=== PATIENT | male | born 1950 | race Caucasian/White ===

== ENCOUNTER → 2020-06-01 09:39 | Outpatient (CLI) | payer MEDICARE, SELFPAY ==
--- NOTE | ~2020-06-01 | CT_ITS ---
EXAMINATION: CT lung screening DATE: 06/01/2020 09:56 INDICATION: Z87.891 - Personal history of nicotine dependence TECHNIQUE: Computed tomography (CT) of the chest was performed without intravenous contrast. Addition al 3D reconstructions utilizing coronal maximum intensity projection (MIP) were performed. Automated exposure control and iterative reconstruction technique were employed. The dose-length product was 33 3.67 mGy-cm. COMPARISON: CT abdomen and pelvis dated 07/20/2018 FINDINGS: No interval change in nearly 2 years of a 4 mm triangular likely intrafissural lymph node along the i nferolateral aspect of the right major fissure. Interval decrease in size and likely new calcificatio n of a now 2-3 mm nodule in the right middle lobe. Indeterminate 4-5 mm and 7 mm nodules in the left lower lobe, the former at least partially imaged on the prior study, the latter is not included withi n the field of view of the prior study. Mild discoid atelectasis in the bilateral lower lobes. Heart size is normal. Atherosclerotic coronary artery calcifications. No pericardial or pleural effusion. T horacic aorta is normal in caliber. No pathologically enlarged thoracic lymphadenopathy. Bilateral gy necomastia. Diffuse hepatic steatosis. Moderate thoracic spondylosis. There is mild vertebral body he ight loss at T8-T11. IMPRESSION: 1. Lung-RADS category 3: Probably benign. Further evaluation is recommended with noncontrast low-dose chest CT in 6 months. Reviewed, dictated and finalized at location B. IMPRESSION: 1. Lung-RADS category 3: Probably benign. Further evaluation is recommended wit h noncontrast low-dose chest CT in 6 months.
== END ==
PROVIDERS: PCP Family Medicine; Visit Provider Family Medicine
DX: Z12.2 Encounter for screening for malignant neoplasm of respiratory organs (principal); Z87.891 Personal history of nicotine dependence; R91.8 Other nonspecific abnormal finding of lung field
CPT/HCPCS: 71271

== ENCOUNTER → 2020-10-19 11:11 | Outpatient (CLI) | payer MEDICARE, SELFPAY ==
--- NOTE | ~2020-10-19 | CT_ITS ---
EXAMINATION: CTA abdomen DATE: 10/19/2020 11:41 INDICATION: Essential hypertension. TECHNIQUE: Computed tomographic angiography (CTA) of the abdomen was performed without and with 100 m L Omnipaque-350 intravenous contrast. Automated exposure control and iterative reconstruction Fan Piere were employed. The dose-length product was 1473.16 mGy-cm. Maximum intensity projection 3D-reconst ructions of the aorta and other arteries were constructed by the technologist on a separate workstati on. COMPARISON: CT abdomen and pelvis 07/20/2018 FINDINGS: The visualized portions of the lung bases demonstrate mild atelectasis. There are chronic 4 mm nodules at right major fissure and in right middle lobe, likely benign. No pleural effusion. The heart size is normal. There are coronary artery calcifications. No pericardial effusion. There are ca lcifications of the aortic valve. There is diffuse hepatic steatosis. The gallbladder, spleen, and pa ncreas are normal. There are masses in the adrenal glands measuring up to 12 mm on the right containi ng fat, consistent with myelolipomas. There is a 3.5 cm cyst in right kidney. Left kidney is normal. There are no dilated loops of bowel. There is diverticulosis of the colon without evidence of diverti culitis. There are no pathologically enlarged lymph nodes. There is no free intraperitoneal fluid. Th ere are widespread arterial calcifications. There is no significant stenosis of celiac axis, superior mesenteric artery, or the renal arteries. There is moderate stenosis of inferior mesenteric artery. There is severe lower lumbar spondylosis. There is a chronic right L5 pars defect. IMPRESSION: 1. No etiology for hypertension. Reviewed, dictated and finalized at location A.
[2020-10-19 11:28] LABS: Estimated Glomerular Filt Rate 60
== END ==
PROVIDERS: PCP Family Medicine; Visit Provider Internal Medicine Nephrology
DX: I25.10 Atherosclerotic heart disease of native coronary artery without angina pectoris (principal); I10 Essential (primary) hypertension; I70.0 Atherosclerosis of aorta; K76.0 Fatty (change of) liver, not elsewhere classified; K57.90 Diverticulosis of intestine, part unspecified, without perforation or abscess without bleeding; M47.816 Spondylosis without myelopathy or radiculopathy, lumbar region; E27.9 Disorder of adrenal gland, unspecified
CPT/HCPCS: 74175; Q9967

== ENCOUNTER → 2021-05-05 00:03 | Outpatient (CLI) | payer MEDICARE, SELFPAY ==
[2021-05-05 16:46] LABS: SARS-CoV-2 RNA PCR Negative
== END ==
PROVIDERS: PCP Family Medicine; Visit Provider Internal Medicine Gastroenterology
DX: Z01.812 Encounter for preprocedural laboratory examination (principal); Z20.822 Contact with and (suspected) exposure to COVID-19
CPT/HCPCS: C9803; U0003; U0005

== ENCOUNTER 2021-05-09 01:39 | Day surgery (SDC) | payer MEDICARE, SELFPAY ==
[2021-04-26 10:53] VITALS: BMI 33.2
--- NOTE | 2021-05-08 18:14 | PM.HPGS ---
History of Present Illness History of Present Illness Consent: Risks, benefits, and alternatives have been discussed and questions answered. Patient agrees to proceed with procedure. Chief complaint: hx of colon polyps Narrative: Flo Mason is a 71 year old male who is here for colon cancer screening. Five years ago he had removal of 2 tubular adenomas Review of Systems Review of Systems: All systems reviewed & are unremarkable except as noted in HPI and below PMFSH Past Medical History Medical History CAD (coronary artery disease) Diabetes mellitus with hyperglycemia Fatty liver History of CVA (cerebrovascular accident) Malignant HTN with heart disease, w/o CHF, 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 Mixed hyperlipidemia OAB (overactive bladder) Peripheral neuropathy Surgical History Surgical History History of hydrocelectomy Family History Family History Other Family history of cardiovascular disease Social History Social History Social History: Smoking packs per day: 2 Smoking cigarettes per day: 40.0 Years smoked: 50 Smoking pack-years: 100.00 Smoking status: Former smoker Tobacco type: cigarettes Second hand tobacco smoke exposure: No Smoking end date: 03/17/14 Alcohol intake: current Substance use: never Substance use type: does not use Living arrangements: with family Gender identity (if verbalized by the patient): Male Sexual Orientation (if Verbalized by the Patient): Straight or Heterosexual Spiritual care concerns: No Meds Home Medications and Allergies Home Medications Medication Instructions Recorded Confirmed Type metoprolol tartrate 50 mg tablet 50 mg PO Q12H #60 tablet 07/12/19 04/26/21 Rx blood-glucose meter #1 each 08/05/19 04/03/21 Rx blood sugar diagnostic #100 each 09/18/20 04/03/21 Rx metformin 1,000 mg tablet 1,000 mg PO BID #60 tablet 11/13/20 04/26/21 Rx amlodipine 10 mg tablet 10 mg PO DAILY #90 tablet 03/01/21 04/26/21 Rx rosuvastatin 20 mg tablet 20 mg PO DAILY #90 tablet 03/12/21 04/26/21 Rx Adults Multivitamin 1 cap PO DAILY 04/26/21 04/26/21 History gemfibrozil 600 mg PO BID 04/26/21 04/26/21 History glimepiride 4 mg PO DAILY 04/26/21 04/26/21 History hydralazine 50 mg PO TID 04/26/21 04/26/21 History hydrochlorothiazide 50 mg PO DAILY 04/26/21 04/26/21 History isosorbide mononitrate 60 mg PO BID 04/26/21 04/26/21 History lisinopril 40 mg PO DAILY 04/26/21 04/26/21 History spironolactone 50 mg PO BID 04/26/21 04/26/21 History tamsulosin 0.4 mg PO DAILY 04/26/21 04/26/21 History Allergies Allergy/AdvReac Type Severity Reaction Status Date / Time Penicillins Allergy Severe Swelling Verified 05/09/21 08:50 of Lip/Tongue/Throat Exam Resp: Auscultation: clear to auscultation bilaterally Cardio: Rate: regular rate Rhythm: regular rhythm GI: GI Palp: Yes Soft to palpation and No Tenderness to palpation present (GI) Assessment and Plan Assessment and plan (1) Personal history of colonic polyps: Code(s): Z86.010 - Personal history of colonic polyps Status: Acute Assessment and Plan: Colonoscopy with possible biopsy or polypectomy or cautery or injection of substances.
[2021-05-09 08:52] VITALS: BP 141/77; PULSE 52; RESP 18; TEMP 36.6; O2SAT 96
[2021-05-09] MEDS: LACTATED RINGERS 1,000 ML 150 ML IV CONT (09:05)
[2021-05-09 09:07] LABS: Glucose Point of Care 150 mg/dl (65-105)
--- NOTE | 2021-05-09 09:22 | WPDANESEPPF ---
Anes - Initial Pre Proc Eval Procedure: Operation Date: 05/09/21 10:00 Proposed Procedures p Screening Colonoscopy - Joseph Worthy MD Date/Time: 05/09/21 09:22 Surgeon: Joseph Worthy MD Pre Op Diagnosis: hx of colon polyps Patient Data Age: 71 Gender: M Height: 1.83 m Weight: 112.6 kg Last Vital Signs Temp 97.8 F 05/09/21 08:52 Pulse 52 L 05/09/21 08:52 Resp 18 05/09/21 08:52 BP 141/77 H 05/09/21 08:52 Pulse Ox 96 05/09/21 08:52 Allergies Allergy/AdvReac Type Severity Reaction Status Date / Time Penicillins Allergy Severe Swelling Verified 05/09/21 08:50 of Lip/Tongue/Throat Home Medications Medication Instructions Recorded Confirmed Type metoprolol tartrate 50 mg tablet 50 mg PO Q12H #60 tablet 07/12/19 04/26/21 Rx blood-glucose meter #1 each 08/05/19 04/03/21 Rx blood sugar diagnostic #100 each 09/18/20 04/03/21 Rx metformin 1,000 mg tablet 1,000 mg PO BID #60 tablet 11/13/20 04/26/21 Rx amlodipine 10 mg tablet 10 mg PO DAILY #90 tablet 03/01/21 04/26/21 Rx rosuvastatin 20 mg tablet 20 mg PO DAILY #90 tablet 03/12/21 04/26/21 Rx Adults Multivitamin 1 cap PO DAILY 04/26/21 04/26/21 History gemfibrozil 600 mg PO BID 04/26/21 04/26/21 History glimepiride 4 mg PO DAILY 04/26/21 04/26/21 History hydralazine 50 mg PO TID 04/26/21 04/26/21 History hydrochlorothiazide 50 mg PO DAILY 04/26/21 04/26/21 History isosorbide mononitrate 60 mg PO BID 04/26/21 04/26/21 History lisinopril 40 mg PO DAILY 04/26/21 04/26/21 History spironolactone 50 mg PO BID 04/26/21 04/26/21 History tamsulosin 0.4 mg PO DAILY 04/26/21 04/26/21 History Laboratory Tests 05/09/21 08:59 POC Capillary Glucose 150 mg/dl H mg/dl (65-105) Patient hx anesthesia problems: none Family hx anesthesia problems: none Results Review: All pre-operative results and documents have been reviewed as part of the pre-operative evaluation. [facility] Past Medical History Medical History CAD (coronary artery disease) Diabetes mellitus with hyperglycemia Fatty liver History of CVA (cerebrovascular accident) Malignant HTN with heart disease, w/o CHF, 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 Mixed hyperlipidemia OAB (overactive bladder) Peripheral neuropathy Surgical History Surgical History History of hydrocelectomy Family History Family History Other Family history of cardiovascular disease Social History Social History (Updated 04/03/21 @ 10:26 by Lali Garcia) Social History: Smoking packs per day: 2 Smoking cigarettes per day: 40.0 Years smoked: 50 Smoking pack-years: 100.00 Smoking status: Former smoker Tobacco type: cigarettes Second hand tobacco smoke exposure: No Smoking end date: 03/17/14 Alcohol intake: current Substance use: never Substance use type: does not use Living arrangements: with family Gender identity (if verbalized by the patient): Male Sexual Orientation (if Verbalized by the Patient): Straight or Heterosexual Spiritual care concerns: No Anes - Eval Final PreProcedure Day of Procedure 05/09/21 09:22 Patient weight: obese Heart: regular rate and rhythm Lungs: clear to auscultation Airway: Mallampati scale class III Neurological: alert and oriented Last oral intake: >/= 8 hours ASA classification: III Emergent: no Anesthetic plan: proceed Anesthesia type and monitoring: general GIVS and standard monitoring Results Review: All pre-operative results and documents have been reviewed as part of the pre-operative evaluation. Informed Consent: The patient's anesthetic plan and its attendant risks and benefits were discussed with the patient/family/POA. Questions were solicited and answers provided to the satisfaction of the patient/family/POA.
[2021-05-09 10:28] VITALS: BP 95/57; PULSE 43; RESP 16; O2SAT 93
[2021-05-09 10:38] VITALS: BP 97/60; PULSE 47; RESP 23; O2SAT 95
[2021-05-09 10:48] VITALS: BP 99/68; PULSE 46; RESP 13; O2SAT 95
== END 2021-05-09 10:58 | disposition home or self-care (01) ==
PROVIDERS: PCP Family Medicine; Visit Provider Internal Medicine Gastroenterology
PROC: 0DJD8ZZ Inspection of Lower Intestinal Tract, Via Natural or Artificial Opening Endoscopic (ICD-10-PCS; CPT 45378; principal; 2021-05-09 10:00)
DX: Z12.11 Encounter for screening for malignant neoplasm of colon (principal); D12.5 Benign neoplasm of sigmoid colon; D12.3 Benign neoplasm of transverse colon; K57.30 Diverticulosis of large intestine without perforation or abscess without bleeding; I25.10 Atherosclerotic heart disease of native coronary artery without angina pectoris; I10 Essential (primary) hypertension; E11.42 Type 2 diabetes mellitus with diabetic polyneuropathy; E78.2 Mixed hyperlipidemia; K76.0 Fatty (change of) liver, not elsewhere classified; N32.81 Overactive bladder; Z87.891 Personal history of nicotine dependence
CPT/HCPCS: 45385; 45381; 82948; 88305; J2704; J7120

== ENCOUNTER → 2022-05-30 11:22 | Outpatient (CLI) | payer MEDICARE, SELFPAY ==
--- NOTE | ~2022-05-30 | CT_ITS ---
EXAMINATION: CT lung screening DATE: 05/30/2022 11:35 INDICATION: Personal history of tobacco dependence. Lung cancer screening. TECHNIQUE: Computed tomography (CT) of the chest was performed without intravenous contrast. Addition al 3D reconstructions utilizing coronal maximum intensity projection (MIP) were performed. Automated exposure control and iterative reconstruction technique were employed. The dose-length product was 28 2.03 mGy-cm. COMPARISON: 06/01/2020 FINDINGS: No interval change in several scattered bilateral noncalcified pulmonary nodules the largest measurin g 6 mm and 4-5 mm nodule in the left lower lobe and 5 mm in the suprahilar right upper lobe situated along side the central vessels and bronchi. Unchanged 4 mm triangular intrafissural lymph node along the right major fissure. Mild discoid atelectasis at the lung bases, right greater than left. No new or enlarging pulmonary nodules, pneumonia, pulmonary edema or pleural effusion. Heart size is normal. Extensive atherosclerotic coronary artery calcifications. Lipomatous hypertrophy of the atrial septu m. No pericardial effusion. Thoracic aorta is normal in caliber. No pathologically enlarged thoracic lymphadenopathy. Prominent bilateral gynecomastia. 1.5 cm macroscopic fat attenuation right renal my elolipoma. Mild to moderate thoracic spondylosis. IMPRESSION: 1. Lung-RADS category 2: Benign appearance or behavior. Continue annual screening with noncontrast lo w-dose chest CT in 12 months. Reviewed, dictated and finalized at location L. IMPRESSION: 1. Lung-RADS category 2: Benign appearance or behavior. Continue annual screeni ng with noncontrast low-dose chest CT in 12 months.
== END ==
PROVIDERS: PCP Family Medicine; Visit Provider Family Medicine
DX: Z12.2 Encounter for screening for malignant neoplasm of respiratory organs (principal); Z87.891 Personal history of nicotine dependence
CPT/HCPCS: 71271

== ENCOUNTER → 2022-06-18 11:28 | Outpatient (CLI) | payer MEDICARE, SELFPAY ==
--- NOTE | ~2022-06-18 | XR_ITS ---
EXAM: XR lumbar spine min 4V DATE: 06/18/2022 11:45 HISTORY: M54.30 - Sciatica, unspecified side . COMPARISON: No. FINDINGS: Decreased bone mineralization. Multilevel concave endplate deformities as can be seen with osteoporosis. 5 nonrib-bearing lumbar-type vertebral bodies. Pedicles intact. Bilateral pars defects at L5. 5 mm anterolisthesis at L5-S1. Vertebral body heights preserved. Multilevel disc space narrowi ng, severe at L4-5 where there is vacuum phenomenon. Multilevel mid and lower lumbar facet sclerosis and hypertrophy. No fracture or dislocation. Extensive basilar calcifications. 3.3 cm fusiform infrar enal abdominal aortic aneurysm. IMPRESSION: 1. Bilateral L5 pars defects with a grade 1 anterolisthesis of L5 on S1. Severe degenerative disc dis ease at L4-5. Severe lower lumbar facet arthropathy. 2. 3.3 cm fusiform infrarenal abdominal aneurysm, recommend follow-up ultrasound aorta in 3 years. Reviewed, dictated and finalized at location K. IMPRESSION: 1. Bilateral L5 pars defects with a grade 1 anterolisthesis of L5 on S1. Severe degenerative disc disease at L4-5. Severe lower lumbar facet arthropathy. 2. 3.3 cm fusiform infrarenal abdominal aneurysm, recommend follow-up ultrasoun d aorta in 3 years.
== END ==
PROVIDERS: PCP Family Medicine; Visit Provider Family Medicine
DX: M47.816 Spondylosis without myelopathy or radiculopathy, lumbar region (principal); I71.43 Infrarenal abdominal aortic aneurysm, without rupture; M54.30 Sciatica, unspecified side
CPT/HCPCS: 72110

== ENCOUNTER 2022-09-10 15:48 | Emergency (ER) | payer MEDICARE, SELFPAY ==
--- NOTE | ~2022-09-10 | XR_ITS ---
EXAMINATION: XR chest 2V Exam Date/Time: 09/10/2022 17:00 CDT HISTORY: prod cough x 5 days non smoker Comparison: 01/07/2012. RESULT: Lines, tubes, and devices: None. Lungs and pleura: Mild senescent and emphysematous change. Bibasilar scar/atelectasis. No focal cons olidation. Cardiomediastinal silhouette: Stable. Other: No acute osseous or upper abdominal finding. IMPRESSION: No acute cardiopulmonary process. Reviewed, dictated and finalized at location K.
[2022-09-10 16:00] VITALS: BP 163/94; PULSE 61; RESP 16; TEMP 37.2; O2SAT 96
--- NOTE | 2022-09-10 17:08 | ED.URI ---
HPI - URI/Sore Throat General Chief Complaint: Upper Respiratory Infection Stated Complaint: Cough/SOB Time Seen by Provider: 09/10/22 17:00 Source: patient, RN notes reviewed and old records reviewed Mode of arrival: ambulatory Limitations: no limitations History of Present Illness HPI Narrative: 72 year old male presents to [facility] care with complaints of shortness of breath at night,cough and runny nose for past 4-5 days. Patient reports fatigue, wheezing at night with some expectoration of greenish tinged mucous. Patient reports history of tobacco abuse and reports that he did quit smoking about 7.5 years ago. Patient states that he has had past history of Bronchitis. Patient reports that he has taken some Tylenol arthritis, no antihistamines or cough medications taken. MD elicited complaint: cough, rhinorrhea and nasal congestion Pertinent past history: other (bronchitis) Onset (ago): day(s) (4-5 days) Description of mucous: green Treatments prior to arrival: acetaminophen Related Data Home Medications Medication Instructions Recorded Confirmed Adults Multivitamin 1 cap PO DAILY 04/26/21 08/23/22 Allergies Allergy/AdvReac Type Severity Reaction Status Date / Time Penicillins Allergy Severe Swelling Verified 09/10/22 16:21 of Lip/Tongue/Throat Review of Systems Review of Systems: CONSTITUTIONAL: Reports malaise,no chills, sweats, or fever.reports fatigue EYES: Denies visual changes, redness, or discharge. ENT: Reports rhinorrhea, congestion, sinus pain, no otalgia or sore throat. CARDIOVASCULAR: Denies chest pain, palpitations, or edema. RESPIRATORY: Reports cough.?reports some episodes of dyspnea at night. GASTROINTESTINAL: Denies abdominal pain, nausea, vomiting, diarrhea SKIN: Denies rash or itching. MUSCULOSKELETAL: Denies myalgia. NEUROLOGIC: Denies headache. All systems reviewed & are unremarkable except as noted in HPI and below PMFSH Past Medical History Medical History Benign nodular prostatic hyperplasia without lower urinary tract symptoms CAD (coronary artery disease) CAD in [place] artery Chronic kidney disease due to type 2 diabetes mellitus Chronic kidney disease, stage 2 (mild) Colon cancer screening Diabetes mellitus with hyperglycemia Fatty liver Heart failure, unspecified History of CVA (cerebrovascular accident) History of CVA (cerebrovascular accident) without residual deficits Left hydrocele Malignant diastolic hypertension with CHF, 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, w/o CHF, 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 Mixed hyperlipidemia Mixed hyperlipidemia Nephropathy OAB (overactive bladder) GOOD (obstructive sleep apnea) Peripheral neuropathy Swelling of scrotum Type 2 diabetes mellitus with diabetic polyneuropathy Type 2 diabetes mellitus with hyperglycemia Weight gain finding Surgical History Surgical History History of hydrocelectomy S/P angioplasty with stent Family History Family History Other Family history of cardiovascular disease Social History Social History Social History: Smoking packs per day: 2 Smoking cigarettes per day: 40.0 Years smoked: 50 Smoking pack-years: 100.00 Smoking status: Former smoker Tobacco type: cigarettes Second hand tobacco smoke exposure: No Smoking end date: 03/17/14 Alcohol intake: current Substance use: never Substance use type: does not use Lack of Transportation: No Lack of Food: Never True Current Housing: I Have Housing Concerned About Future Housing: No Difficulty Paying Gas/Electric Bills: No Difficulty Paying for Meds: No Currently Unemployed: YES Education: Decline to Answer Difficulty w/ Childcare or Family Care: No Living arrangemen
== END 2022-09-10 17:40 | disposition home or self-care (01) ==
PROVIDERS: Emergency Provider Registered Nurse; PCP Family Medicine
DX: J06.9 Acute upper respiratory infection, unspecified (principal); R05.9 Cough, unspecified; Z87.891 Personal history of nicotine dependence; I25.10 Atherosclerotic heart disease of native coronary artery without angina pectoris; N40.0 Benign prostatic hyperplasia without lower urinary tract symptoms; I13.0 Hypertensive heart and chronic kidney disease with heart failure and stage 1 through stage 4 chronic kidney disease, or unspecified chronic kidney disease; E11.22 Type 2 diabetes mellitus with diabetic chronic kidney disease; N18.2 Chronic kidney disease, stage 2 (mild); I50.30 Unspecified diastolic (congestive) heart failure; E78.2 Mixed hyperlipidemia; E11.42 Type 2 diabetes mellitus with diabetic polyneuropathy; Z86.73 Personal history of transient ischemic attack (TIA), and cerebral infarction without residual deficits; Z95.5 Presence of coronary angioplasty implant and graft
CPT/HCPCS: 71046; 99213; G0463

== ENCOUNTER → 2022-09-16 12:51 | Outpatient (CLI) | payer MEDICARE, SELFPAY ==
--- NOTE | ~2022-09-16 | MR_ITS ---
MRI of the lumbar spine Clinical History: Neck pain Technique: Axial T2-weighted images, and sagittal T1-weighted, T2-weighted, and and T2 fat-sat images were acquired. Findings: There is no fracture or subluxation of lumbar spine. Vertebral bodies maintain normal heigh t and alignment. No suspicious bone marrow signal abnormality seen. At L1-L2, there is no significant disc bulge. There is moderate facet hypertrophy. No spinal canal st enosis or definite neural foraminal narrowing. At L2-L3, there is diffuse disc bulge and moderate facet arthropathy. There is mild central canal lori nosis. There is moderate bilateral neural foraminal narrowing, left worse than right. At L3-L4, there is diffuse disc bulge with superimposed right paracentral disc extrusion extending be hind the L4 vertebral body. There is right lateral recess stenosis and probable impingement of the de scending right-sided L4-L5 level nerve root. There is minimal neural foraminal narrowing at this leve l otherwise. At L4-L5, there is severe degenerative disc narrowing with minimal disc bulge and moderate facet arth ropathy. No central canal stenosis. There is severe right neural foraminal narrowing and moderate to severe left neural foraminal narrowing. At L5-S1, there is no disc bulge or herniation. There is advanced facet arthropathy. No central canal stenosis. There is moderate to severe right neural foraminal narrowing. Left neural foramen preserve d. Paravertebral soft tissues are unremarkable. Impression: Right paracentral disc extrusion at L4-L5, extending inferiorly, and probably impinging the descendin g right-sided L4-L5 level nerve root, and resulting in right lateral recess stenosis. Additional moderate degenerative spondylitic changes, as detailed above. Reviewed, dictated and finalized at location M. Impression: Right paracentral disc extrusion at L4-L5, extending inferiorly, and probably i mpinging the descending right-sided L4-L5 level nerve root, and resulting in ri ght lateral recess stenosis. Additional moderate degenerative spondylitic changes, as detailed above.
== END ==
PROVIDERS: PCP Physician Assistant; Visit Provider Physician Assistant
DX: M51.26 Other intervertebral disc displacement, lumbar region (principal); M51.36 Other intervertebral disc degeneration, lumbar region
CPT/HCPCS: 72148

== ENCOUNTER 2023-06-13 12:38 | Outpatient (CLI) | payer MEDICARE, SELFPAY ==
--- NOTE | ~2023-06-13 | CT_ITS ---
EXAMINATION:CT lung screening DATE: 06/13/2023 13:13 INDICATION: Personal history of nicotine dependence. Smoker who quit 8 years ago with 60 pack year hi story. TECHNIQUE: Computed tomography (CT) of the chest was performed without intravenous contrast. Automate d exposure control and iterative reconstruction technique were employed. The dose-length product (DLP ) was 256.37 mGy-cm. COMPARISON: Chest CT 05/30/2022 FINDINGS: There is mild emphysema. There is mild atelectasis bilaterally. There are a few stable nodu les in the lungs measuring up to 7 mm in left lower lobe, likely benign. No pleural effusion. There i s bilateral gynecomastia. The heart size is normal. There are coronary artery calcifications. No torey cardial effusion. There is mild thoracic spondylosis. IMPRESSION: 1. Lung-RADS category 2: Benign appearance or behavior. Continue annual screening with noncontrast lo w-dose chest CT in 12 months. Reviewed, dictated and finalized at location E. IMPRESSION: 1. Lung-RADS category 2: Benign appearance or behavior. Continue annual screeni ng with noncontrast low-dose chest CT in 12 months.
== END 2023-06-13 12:39 ==
LOC: MICIMG 12:39
PROVIDERS: PCP Physician Assistant; Visit Provider Physician Assistant
DX: Z12.2 Encounter for screening for malignant neoplasm of respiratory organs (principal); Z87.891 Personal history of nicotine dependence
CPT/HCPCS: 71271

== ENCOUNTER 2024-01-09 14:11 | Outpatient (CLI) | payer MEDICARE, SELFPAY ==
--- NOTE | ~2024-01-09 | MR_ITS ---
EXAMINATION: MR lumbar spine wo con DATE: 01/09/2024 14:51 INDICATION: Intervertebral disc disorders with radiculopathy. TECHNIQUE: Magnetic resonance imaging (MRI) of the lumbar spine was performed without intravenous con trast. Sequences included sagittal T2-weighted FSE, sagittal T2-weighted FS FSE, sagittal T1-weighted FSE, and axial T2-weighted FSE. COMPARISON: Lumbar spine MRI 09/16/2022 FINDINGS: There is 8 degrees dextrocurvature of lumbar spine. There is 3 mm retrolisthesis of L4 on L 5. Vertebral body heights are normal. There is a chronic right L5 pars defect. There is severely decr eased disc height at L4-L5. The distal spinal cord signal intensity is normal. The conus medullaris i s at L1. The following disc levels are specifically discussed: L1-L2: The disc is mildly bulging. There is moderate bilateral facet joint osteoarthritis. There is m ild bilateral neural foraminal stenosis. There is no central canal stenosis. L2-L3: The disc is bulging and has an annular fissure. There is mild bilateral facet joint osteoarthr itis. There is moderate right and mild left neural foraminal stenosis. There is mild central canal st enosis. L3-L4: The disc is bulging with superimposed right subarticular zone extrusion with a 12 mm inferior extension and mass effect on right L4 nerve root. There is severe bilateral facet joint osteoarthriti s. There is mild bilateral neural foraminal stenosis. There is mild central canal stenosis. L4-L5: The disc is bulging and has an annular fissure. There is severe bilateral facet joint osteoart hritis. There is moderate bilateral neural foraminal stenosis. There is mild central canal stenosis w ith posterior decompression. L5-S1: There is a right foraminal protrusion with annular fissure. There is mild right and moderate l eft facet joint osteoarthritis. There is mild bilateral neural foraminal stenosis. There is no centra l canal stenosis. IMPRESSION: 1. Severe lumbar spondylosis, stable from 09/16/2022. 2. Chronic right L5 pars defect. Reviewed, dictated and finalized at location A.
== END 2024-01-09 14:12 | disposition home or self-care (01) ==
LOC: MICIMG 14:12
PROVIDERS: PCP Family Medicine; Visit Provider Neurological Surgery
DX: M47.816 Spondylosis without myelopathy or radiculopathy, lumbar region (principal); M89.78 Major osseous defect, other site; M51.16 Intervertebral disc disorders with radiculopathy, lumbar region
CPT/HCPCS: 72148

== ENCOUNTER 2024-08-10 16:30 | Inpatient (IN) | payer MEDICARE, OTHER, SELFPAY ==
--- NOTE | ~2024-08-10 | XR_ITS ---
XR chest 2V Ordering provider: Cristhian Fagan MD History: 74 years Male with . SOB EXTREMITIES SWOLLEN . Comparison: September 10, 2022 FINDINGS: MEDIASTINUM: The cardiac silhouette is slightly enlarged. Prominent bernadine. LUNGS: No pneumothorax. Right atelectatic changes with minimal effusion is seen. Prominent markings i n the left lung base suggestive of atelectasis versus early pneumonia. Follow-up advised. OTHER: No free air under the diaphragm. IMPRESSION: Left prominent bronchovascular markings which may indicate atelectasis versus pneumonia. Atelectatic changes in the right lung base with possible minimal effusion. Reviewed, dictated and finalized at location A. IMPRESSION: Left prominent bronchovascular markings which may indicate atelectasis versus p neumonia. Atelectatic changes in the right lung base with possible minimal effu luisa.
--- OUTSIDE RECORDS SUMMARY | 2024-08-10 16:33 | XMS_ITS | Encounter Summary ---
Author Organization [facility] Address [address] [place] [address] Phone Care Team Providers Care Manager Inventory Management Name Role Phone Faye Hector MD Primary Care Provider Александр Yu MD Unavailable [phone] Александр Landa MD Unavailable [phone] Encounter Details Date Type Department Care Team (Late st Contact Info) Description 05/17/2024 Orders Only [facility] Infectious Diseases [address] [place] [phone] Ana M Cardenas, GWEN [address] [place] [id number] Social History Tobacco Use Types Packs/Day Years Used Date Smoking Tobacco: Former Cigarettes 2 44 1 971 - 2015 Smokeless Tobacco: Never Alcohol Use Standard Drinks/Week Comments Yes 0 (1 standard drink = 0.6 oz pur e alcohol) [facility] Utilities Answer Date Recorded In the past 12 months has e electric, gas, oil, or water company threatened to shut off services in your home? No 03/26/2024 Social Connection and Isolat ion Panel [NHANES] Answer Date Recorded In a typical week, how many times do you talk on the phone with family, friends, or neighbors? More than three times a week 03/26/2024 How often do you get togethe r with friends or relatives? More than three times a week 03/26/2024 How often do you attend chur ch or jain services? Never 03/26/2024 Do you belong to any clubs o r organizations such as restorationist groups, unions, fraternal or athletic groups, or school groups? No 03/26/2024 How often do you attend meet ings of the clubs or organizations you belong to? Never 03/26/2024 Are you , , di vorced, , never , or living with a partner? 03/26/2024 AUDIT-C Answer Date Recorded Q1: How often do you have a drink containing alc ohol? Monthly or less 03/29/2024 Q2: How many drinks containi ng alcohol do you have on a typical day when you are drinking? 1 or 2 03/29/2024 Q3: How often do you have si x or more drinks on one occasion? Never 03/29/2024 Overall Financial Resource Strain (CARDIA) Answe r Date Recorded How hard is it for you to pa y for the very basics like food, housing, medical care, and heating? Not hard at all 03/26/2024 Hunger Vital Sign Answer Date Recorded Within the past 12 months, y ou worried that your food would run out before you got the money to buy more. Never true 03/26/19 25 Within the past 12 months, t he food you bought just didn't last and you didn't have money to get more. Never true 03/26/2024 PRAPARE - Transportation Answer Date Re corded In the past 12 months, has l ack of transportation kept you from medical appointments or from getting medications? No 03/17 In the past 12 months, has l ack of transportation kept you from meetings, work, or from getting things needed for daily living? No 03/26/2024 Housing Stability Vital Sign Answer Kyle e Recorded In the last 12 months, was t here a time when you were not able to pay the mortgage or rent on time? No 03/26/2024 In the past 12 months, how m any times have you moved where you were living? 0 03/26/2024 At any time in the past 12 m [facility], were you homeless or living in a skilled nursing (including now)? No 03/26/2024 Personal Safety Answer Date Recorded Have you ever been in or are you currently in a harmful physical or emotional relationship or is someone making you feel afraid or unsafe? Denies 03/29/2024 Sex and Gender Information Value Date Recorded Sex Assigned at Not on file Legal Sex Male 2:38 AM RN DIALYSIS Gender Identity Male 07/27/2019 7:12 PM CDT Sexual Orientation Straight 07/27/2019 7: 12 PM CDT documented as of this encounter Plan of Treatment Not on file documented as of this encounter Visit Diagnoses Not on filedocumented in this encounter Care Teams Manager Inventory Management Relationship Specialty Start Date End Date Faye Hector MD [address] [place] [address] PCP - General Family Medicine 07/26/19 Александр Yu MD [address] [place] [address] Referring Physician Cardiology 02/09/24 Александр Landa MD [address] [facility] [address] [place] [address] Consulting Physician Cardiothoracic Surgery 02/09/24 documented as of this encounter
--- OUTSIDE RECORDS SUMMARY | 2024-08-10 16:33 | XMS_ITS | Encounter Summary ---
Author Organization [facility] Address [address] [place] [address] Phone Care Team Providers Care Motor Coach Chauffeur Name Role Phone Faye Hector MD Primary Care Provider Александр Yu MD Unavailable [phone] Александр Landa MD Unavailable [phone] Encounter Details Date Type Department Care Team (Late st Contact Info) Description 06/21/2024 Results Follow-Up [facility] Infectious Diseases [address] [place] [phone] Ana M Cardenas, GWEN [address] [place] [address] Aerobic and anaerobic culture and gram stain Abscess Abdominal, right lower quadrant Social History Tobacco Use Types Packs/Day Years Used Date Smoking Tobacco: Former Cigarettes 2 44 1 971 - 2015 Smokeless Tobacco: Never Alcohol Use Standard Drinks/Week Comments Yes 0 (1 standard drink = 0.6 oz pur e alcohol) [facility] Utilities Answer Date Recorded In the past 12 months has [employer] electric, gas, oil, or water company threatened [...] often do you attend chur ch or confucianism services? Never 03/26/2024 Do you belong to any clubs o r organizations such as restoration groups, unions, fraternal or athletic groups, or [...] any time in the past 12 m [facility], were you homeless or living in a alf (including now)? No 03/26/2024 Personal Safety Answer Date Recorded Have you ever been in or are you currently in a harmful physical or emotional relationship or is someone making you feel afraid or unsafe? 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 Gender Identity Male 07/27/2019 7:12 PM CDT Sexual Orientation Straight 07/27/2019 7: 12 PM CDT documented as of this encounter Plan of Treatment Not on file documented as of this encounter Visit Diagnoses Not on filedocumented in this encounter Care Teams Motor Coach Chauffeur Relationship Specialty Start Date End Date Faye Hector MD [address] [place] [address] PCP - General Family Medicine 07/26/19 Александр Yu MD [address] [place] [address] Referring Physician Cardiology 02/09/24 Александр Landa MD [address] [facility] [address] [place] [address] Consulting Physician Cardiothoracic Surgery 02/09/24 documented as of this encounter
--- OUTSIDE RECORDS SUMMARY | 2024-08-10 16:33 | XMS_ITS | Clinical Summary ---
Author Organization [facility] Address [address] [place] [address] Phone Care Team Providers Care Dna Analyst Name Role Phone Faye Hector MD Primary Care Provider [phone] Allergies Active Allergy Reactions Criticality Noted Date Comments Penicillins 10/13/2020 Medications isosorbide mononitrate (IMDUR) 60 MG 24 hr tablet Take 60 mg by mouth 2 (two) times a day 1 Active hydrALAZINE (APRESOLINE) 50 MG tablet Take 50 mg by mouth 3 (three) times a day 1 Active amLODIPine (NORVASC) 10 MG tablet Take 10 mg by mouth 1 (one) time each day 1 Active gemfibrozil (LOPID) 600 MG tablet Take 600 mg by mouth 2 (two) times a day 1 Active glimepiride (AMARYL) 4 MG tablet TAKE 1 TABLET BY MOUTH EVERY MORNING WITH BREAKFAST. NEEDS APPOINTMENT FOR MORE FILLS 1 Active OneTouch Verio test strip USE DIRECTED TO CHECK BLOOD SUGAR EVERY DAY 1 Active tamsulosin (FLOMAX) 0.4 MG 24 hr capsule Take by mouth 1 (one) time each day 1 Active rosuvastatin (CRESTOR) 20 MG tablet Take 20 mg by mouth 1 (one) time each day 1 Active lisinopril (PRINIVIL) 40 MG tablet Take 40 mg by mouth daily 0 Active metFORMIN (GLUCOPHAGE) 1000 MG tablet Take 1,000 mg by mouth 2 (two) times a day 1 Active hydroCHLOROthiaz diann (HYDRODIURIL) 25 MG tablet Take 1 tablet (25 mg total) by mouth 1 (one) time each day 30 tablet 11 2 Active spironolactone (ALDACTONE) 50 MG tablet Take 1 tablet (50 mg total) by mouth 2 (two) times a day 60 tablet 11 2 Active nebivolol (BYSTOLIC) 10 MG tablet Take 1 tablet (10 mg total) by mouth 1 (one) time each day 30 tablet 11 2 Active Active Problems Problem Noted Date Diagnosed Date Essential hypertension 10/13/2020 Persistent proteinuria 10/13/2020 Diabetes mellitus without me ntion of complication, type II or unspecified type, not stated as uncontrolled 10/13/2020 History of placement of stent for coronary arter y disease 07/27/2019 Immunizations Immunization Administration Dates Next Due Influenza TIV (IM) 02/15/2021(Deferred: Patient Refused) Pneumococcal Conjugate 07/04/2021(Deferred: Chandrika ent Refused) Social History Tobacco Use Types Packs/Day Years Used Date Smoking Tobacco: Former Smokeless Tobacco: Never Alcohol Use Standard Drinks/Week Comments Yes 0 (1 standard drink = 0.6 oz pur e alcohol) cocasional Sex and Gender Information Value Date Recorded Sex Assigned at Male 02/15/2021 7:57 AM [facility] [[email or web address]] Legal Sex Male 11:14 AM MDT Gender Identity Male 02/15/2021 7:57 AM [facility] [[email or web address]] Sexual Orientation Straight 02/15/2021 7: 57 AM [facility] [[email or web address]] Last Filed Vital Signs Vital Sign Reading Time Taken Comments Blood Pressure 154/64 07/04/2021 11:42 AM CDT Pulse 60 07/04/2021 11:42 AM CDT Temperature 35.9 C (96.6 F) 07/04/2021 11:42 AM CDT Respiratory Rate - - Oxygen Saturation - - Inhaled Oxygen Concentration - - Weight 114 kg (252 lb) 07/04/2021 11:42 AM CDT Height 182.9 cm (6') 07/04/2021 11:42 AM CDT Body Mass Index 34.18 07/04/2021 11:42 AM CDT Plan of Treatment Health Maintenance Due Date Last Done Comments Pneumococcal PPSV23/PCV13 65 + Years / Low and Medium Risk (1 of 4 - PCV) 2002 Influenza Vaccine (Season Ended) 2024 Insurance MEDICARE [facility] [place] [address] Care Teams Dna Analyst Relationship Specialty Start Date End Date aFye Hector MD [address] [facility] [address] [place] [address] PCP - General Internal Medicine 08/28/20
--- OUTSIDE RECORDS SUMMARY | 2024-08-10 16:33 | XMS_ITS | Continuity of Care Document ---
Author Name [facility] Organization [facility] Care Team Providers Care Adjunct Professor Of [employer] Name Role Phone [facility] Unavailable Unavailable Encounters Combined list of: 1) Encounters from [facility] facilities going backup to the last 18 months, not all [facility] inpatient encounters are included; 2) Encounters from the Department of [employer] facilities going backup to 280 months. Location Location Details Encounter Type Encounter Number Reason For Visit Attending Provider ADM Date DC Date Status Disposition Source [facility] Outpatient Encounter [id number] 2 08/26 [facility] ELVIRA [place]inton
--- OUTSIDE RECORDS SUMMARY | 2024-08-10 16:33 | XMS_ITS | Referral Summary ---
Author Organization [facility] [address] [place] [address] [address] [place] [address] Care Team Providers Care Polisher And Sander Name Role Phone Faye Hector MD Primary Care Provider Александр Yu MD Unavailable [phone] Александр Landa MD Unavailable [phone] Encounters Date Type Department Care Team Description 07/29/2024 Anticoagulation Visit [facility] Cardiology [address] [place] [address] [address] [place] [address] Erin Elena RN 07/27/2024 3:30 PM CDT Office Visit [facility] Surgery [address] [place] [address] 6th [place] [address] Rea Chand MD PhD Sternal wound infection (Primary Dx) 07/12/2024 Telephone Cardiovascular and Thoracic Surgery [address] [place] [address] [place] [phone] Windy Valdez, RN status report 07/12/2024 Telephone [facility]ovascular and Thoracic Surgery [address] [place] [address] [place] [phone] Windy Valdez, RN Scheduling Appointments 07/09/2024 2:45 PM CDT Office Visit [facility] Surgery [address] [place] [address] 6th [place] [phone] Rea Chand MD PhD Sternal wound infection (Primary Dx) 07/06/2024 Telephone [facility] Surgery [address] [facility] 6th [place] [phone] Sophie Bhagat CMA Scheduling Appointments 06/29/2024 Anticoagulation Visit [facility] Cardiology [address] [place] [address] [place] [phone] Nancy Nathan RN 06/22/2024 4:00 PM CDT Office Visit [facility] Surgery [address] [place] [address] 6th [place] [phone] Rea Chand MD PhD Sternal wound infection (Primary Dx) 06/21/2024 Results Follow-Up [facility] Infectious Diseases [address] [place] [address] [place] [phone] Ana M Cardenas NP Aerobic and anaerobic culture and gram stain Abscess Abdominal, right lower quadrant 06/11/2024 5:52 PM CDT - 06/11/2024 11:59 PM CDT Hospital Encounter [address] [address] Sternal wound infection Discharge Disposition: Discharge to home or self care 06/11/2024 2:20 PM CDT Office Visit [facility] Infectious Diseases [address] [place] [address] [place] [phone] Ana M Cardenas NP Sternal wound infection (Primary Dx) 06/08/2024 3:45 PM CDT Office Visit [facility] Surgery [facility] 6th [place] [phone] Rea Chand MD PhD Sternal wound infection (Primary Dx) 06/04/2024 Telephone Cardiovascular and Thoracic Surgery [address] [facility] [address] [place] [address] Александр Landa MD Post-op 05/31/2024 Telephone [facility] Cardiology [address] [facility] [address] [place] [address] Александр Yu MD 05/31/2024 Anticoagulation Visit [facility] Cardiology [address] [facility] [address], [place] [address] Nancy Nathan, PALLAVI 05/28/2024 Orders Only [facility] Infectious Diseases [address] [facility] [address] [place] [address] Ana M Cardenas NP 05/25/2024 1:15 PM CDT Office Visit [facility] Surgery [address] [facility] 6th [place] [address] [place] [phone] Rea Chand MD PhD Sternal wound infection (Primary Dx); Wound infection after surgery 05/19/2024 Documentation [facility] Infectious Diseases [address] [place] [address] [place] [phone] Ana M Cardenas NP 05/18/2024 Telephone [facility] Infectious Diseases [address] [place] [address] [place] [phone] Rahel Garcia CMA 05/17/2024 Anticoagulation Visit [facility] Cardiology [address] [place] [address] [place] [phone] Nancy Nathan, PALLAVI 05/17/2024 Telephone [facility] Cardiology [address] [place] [address] [place] [phone] Александр Yu MD 05/17/2024 Telephone [facility] Post Acute Care [address] [facility] [address], [place] [phone] Polina Hutton MA 05/17/2024 Orders Only [facility] Infectious Diseases [address] [facility] [address] [place] [phone] Ana M Cardenas NP 05/17/2024 1:00 PM FIBERGLASS BOAT FINISHER Office Visit [facility] Cardiology at [address] [place] [phone] Александр Yu MD Ischemic cardiomyopathy (Primary Dx); Coronary artery disease involving wichita coronary artery of wichita heart, unspecified whether angina present; Hx of CABG; Presence of coronary angioplasty implant and graft; Other thrombophilia 05/14/2024 5:32 PM FIBERGLASS BOAT FINISHER - 05/14/2024 11:59 PM [employer]ERGLASS BOAT FINISHER Hospital Encounter [facility] [address] [place] [address] Sternal wound infection Discharge Disposition: Discharge to home or self care 05/14/2024 Documentation [facility] Infectious Diseases [address] [facility] [address] [place] [address] Maria A De La Vega RN 05/14/2024 NH/SNF Visit [facility] Post [address] [phone] Lali Reveles NP Wound infection after surgery (Primary Dx); Hx of CABG; Ischemic cardiomyopathy; Coronary artery disease involving wichita coronary artery of wichita heart, unspecified whether angina present; Type 2 diabetes mellitus without complication, without long-term current use of insulin ([facility]) 05/14/2024 2:00 PM FIBERGLASS BOAT FINISHER Office Visit [facility] Infectious Diseases [address] [facility] [address] [place] [address] Ana M Cardenas NP Encounter for screening examination for sexually transmitted infection (Primary Dx); Sternal wound infection; Bacteremia 05/13/2024 Telephone [facility] Home Care Services [address] [facility] [address] [place] [address] Nusrat Field from Last 3 Months Allergies Active Allergy Reactions Criticality Noted Date Comments Penicillins Other (See comments) Mouth tingling 40 years ago Medications aspirin 81 mg chewable tabletIndications: Ischemic cardiomyopathy,His tory of coronary artery stent placement,Coronary artery disease involving wichita coronary artery of wichita heart, unspecified whether angina present,Hx of CABG Take 1 tablet (81 mg total) by mouth daily 03/15/20 24 025 Active gabapentin (NEURONTIN) 600 mg tabletIndications: Hx of CABG Take 1 tablet (600 mg total) by mouth 3 (three) times a day 03/15/20 24 Active rosuvastatin (CRESTOR) 40 mg tabletIndications: Ischemic cardiomyopathy,His tory of coronary artery stent placement,Coronary artery disease involving wichita coronary artery of wichita heart, unspecified whether angina present,Mixed hyperlipidemia Take 1 tablet (40 mg total) by mouth daily 03/15/20 24 Active tamsulosin (FLOMAX) 0.4 mg extended release capsuleIndications :Benign prostatic hyperplasia, unspecified whether lower urinary tract symptoms present Take 1 capsule (0.4 mg total) by mouth daily 03/15/20 24 Active multivitamin with folic acid 400 mcg tablet Take 1 tablet by mouth daily 04/17/19 25 026 Active polyethylene glycol (MIRALAX) 17 gram packetIndications: constipation Take 1 packet (17 g total) by mouth daily as needed for constipation 04/17/19 25 Active pen needle, diabetic (Pen Needle) 32 gauge x 5/32 needle Use as directed once a day. 04/17/19 25 Active pen needle, diabetic 32 gauge x 5/32 needle Use as directed 3 times a day. 04/17/19 25 Active acetaminophen 500 mg capsuleIndications :Fever,Pain Take 2 capsules (1,000 mg total) by mouth every 6 (six) hours as needed for mild pain (pain scale 1-4) 05/14/19 25 Active amiodarone (PACERONE) 200 mg tabletIndications: Ischemic cardiomyopathy,Cor onary artery disease involving wichita coronary artery of wichita heart, unspecified whether angina present,Hx of CABG Take 1 tablet (200 mg total) by mouth daily 30 tablet 05/14/19 25 026 Active ferrous sulfate 325 mg (65 mg of elemental iron) tabletIndications: Iron Deficiency Anemia Take 1 tablet (325 mg total) by mouth 2 (two) times a day with meals 60 tablet 05/14/19 25 026 Active furosemide (LASIX) 40 mg tabletIndications: Ischemic cardiomyopathy Take 1 tablet (40 mg total) by mouth daily 30 tablet 05/14/19 25 Active metFORMIN (GLUCOPHAGE) 1,000 mg tablet Take 1 tablet (1,000 mg total) by mouth 2 (two) times a day with meals 60 tablet 05/14/19 25 Active metoprolol XL (TOPROL-XL) 25 mg extended release tablet Take 0.5 tablets (12.5 mg total) by mouth daily 15 tablet 05/14/19 25 026 Active warfarin (COUMADIN) 2 mg tabletIndications: atrial fibrillation Take 3 tablets (6 mg total) by mouth daily 90 tablet 3 05/18/19 25 Active Active Problems Problem Noted Date Diagnosed Date Encounter for screening exam ination for sexually transmitted infection 05/18/2024 Sternal wound infection 05/18/2024 Assessment & Plan (06/16/2024 10:59 AM CDT): -Patient presents to clinic for a follow up visit. He has completed 6 weeks of Cefazolin for the treatment of a staph epi sternal wound infection. -He then had an additional two weeks of Delafloxacin to cover pseudomonas of his chest wound. -We will culture the chest wound drainage and abdominal wound drainage as he continues to have drainage. -We will refer the patient to wound care -we will repeat labs today -We will reach out to patient after culture results. - Discussed with patient the rational for treatment, culture results, risk of recurrent infection, signs/symptoms of recurrent infection, and to contact ID clinic with any questions or concerns. Assessment & Plan (05/20/2024 2:00 PM FIBER[employer]ASS BO[employer] FINISHER): -Patient presents to clinic for a post hospital visit. He has completed 6 weeks of Cefazolin for the treatment of a staph epi sternal wound infection. -We will stop Cefazolin today and pull his PICC line in clinic. -We will get repeat labs today -We will culture the chest wound drainage and abdominal wound drainage -We will start patient on Doxycyline to treat a skin and soft tissue infection while we wait for culture results. -We will follow up with plastic surgery appointment in two weeks, patient unable to come back here for 4 weeks. - Discussed with patient the rational for treatment, culture results, risk of recurrent infection, signs/symptoms of recurrent infection, and to contact ID clinic with any questions or concerns. Other thrombophilia 05/17/2024 (HFpEF) heart failure with preserved ejection fr action 04/05/2024 Assessment & Plan (05/04/2024 11:42 AM FIBERGLASS BOAT FINISHER): Mild edema to BLE. Compression wraps ordered. Monitor. Assessment & Plan (04/16/2024 10:29 AM FIBERGLASS BOAT FINISHER): Last TTE 03/14: 1. Grossly normal left ventricular systolic function based on limited views. Inadequate for detailed regional wall motion assessment. Ejection Fraction is estimated to be 60-70. Creatinine improved, 1.37 last night Resumed Lasix today Lymphedema wraps ordered on 04/02- completed Dobutamine discontinued 04/08/24 Metoprolol restarted 04/11, continue 6.25 BID Hyperkalemia 03/30/2024 Assessment & Plan (05/04/2024 11:42 AM FIBER[employer]ASS BOAT FINISHER): Chronic. Meds reviewed. K 5.5. Repeat labs 05/06. Assessment & Plan (04/27/2024 10:56 AM FIBER[employer]ASS BOAT FINISHER): Persistant 5.1. Meds reviewed. Routine monitoring. Assessment & Plan (04/20/2024 6:56 PM FIBER[employer]ASS BOAT FINISHER): Mild. Routine monitoring. Assessment & Plan (04/16/2024 10:24 AM FIBER[employer]ASS BOAT FINISHER): Monitor potassium daily with BMP K 5.1 this morning; whole K ordered-4.7 Continue diuresis as previously noted Holding all K supplementation Anemia 03/29/2024 Assessment & Plan (04/27/2024 10:57 AM FIBER[employer]ASS BOAT FINISHER): H&H low but stable. Routine monitioring. Assessment & Plan (04/16/2024 10:26 AM FIBER[employer]ASS BOAT FINISHER): To be expected following cardiac surgery Monitor daily CBC, Hgb stable @ 7.8 No active signs of bleeding Consider transfusion if Hgb <7 or if hemodynamically unstable Assessment & Plan (03/29/2024 5:32 PM FIBER[employer]ASS BOAT FINISHER): H&H down overnight Transfuse 2 units PRBC Trend CBC nightly CKD (chronic kidney disease) 03/26/2024 Assessment & Plan (04/27/2024 10:57 AM FIBERGLASS BOAT FINISHER): Stable. Routine monitoring. Assessment & Plan (04/20/2024 10:45 AM FIBERGLASS BOAT FINISHER): Follow up labs ordered. Assessment & Plan (04/16/2024 10:25 AM FIBERGLASS BOAT FINISHER): CLINTON on CKD- initial Pre-op Creatinine 1.36 prior to 03/04 CABG Had worsening CLINTON in post op setting at [facility] Creatinine improved to 1.37 Continue daily Lasix LE edema improved Renally dose medications Avoid nephrotoxic agents Continue daily BMP monitoring Assessment & Plan (03/28/2024 11:44 AM FIBER[employer]ASS BOAT FINISHER): CLINTON on CKD- initial Pre-op Creatinine 1.36 prior to 03/04 CABG Had worsening CLINTON in post op setting at [facility] Furosemide 40mg po daily for increased fluid volume with significant BLE edema Creatinine up slightly to 1.62, will hold lasix tomorrow as pt will be NPO Avoid nephrotoxic agents Continue daily BMP monitoring Wound infection after surgery 03/24/2024 Assessment & Plan (05/14/2024 11:19 AM FIBERGLASS BOAT FINISHER): Cefazolin to continue ID fu which is today. If DC will DC abc, DC PICC. Have communicated POC with ID & patient. Patient to perform wound care on his own or with family prior to discharge d/t no HH accepting yet. Assessment & Plan (05/04/2024 11:43 AM FIBERGLASS BOAT FINISHER): Pls fu 05/07, ID 05/14. Continues on IV abx until ID fu. Assessment & Plan (04/29/2024 12:05 PM FIBERGLASS BOAT FINISHER): Mild slough present to distal portion of abd incision. Have pictured & notified plastics. Continue dry dressing, wound RN following. Continue IV abx as ordered. Will fu with plastics 05/07. Assessment & Plan (04/27/2024 11:03 AM FIBERGLASS BOAT FINISHER): PICC in place. Continue wound care, HAYLEY drains, IV abx, PT/OT. Has plastics fu 05/07 1115a & ID fu 05/14 2pm. IVs are to complete 05/11 at this time - confirming with ID abx should not end before ID appt. Have informed SS. Assessment & Plan (04/16/2024 10:21 AM FIBERGLASS BOAT FINISHER): S/p sternal washout and debridement x 3 at [facility] Arrived to [facility] on 03/[address]. Obtain blood cultures daily until negative final result, growing Staph epidermis on blood cultures and deep wound culture Wound culture 1/5 +WORK COUNSELOR Blood cultures 1/2 +Staph epidermidis, 2 stains, 1/2 cultures. Superficial and deep sternal wound cultures +Staph epidermidis Blood cultures 03/23 no growth Sternal bone 03/23 + Staph epi S/P irrigation and culture sternal wound 24 x 11 x 6 cm cubed with wound vac exchange 03/26/24 per Plastic and Reconstructive Surgery OR (03/26/24) cultures + staph epi S/P Pec Flap with Dr. Chand on 03/29/24 Resume eliquis 2.5 mg Holding Oxycodone due to recent ileus 04/01 CT C/A/P: Extensive gas throughout the anterior chest wall with drainage catheters in place, most likely postoperative; HAYLEY 1 and 2 transitioned back to bulbs yesterday; No evidence of SQ air on examination; HAYLEY 3# removed per PRS -ID SOT 04/02: Pathogens: Staph epi, ancef 2 gram q 8 hour x 6 weeks from flap coverage (03/29-05/10) -RPICC in place Assessment & Plan (03/27/2024 12:15 PM FIBERGLASS BOAT FINISHER): Patient has undergone washout and debridement x 3 at [facility] Arrived to [facility] on 03/[address]. Obtain blood cultures daily until negative final result, growing Staph epidermis on blood cultures and deep wound culture Wound culture 1/5 +WORK COUNSELOR Blood cultures 1/2 +Staph epidermidis, 2 stains, 1/2 cultures. Superficial and deep sternal wound cultures +Staph epidermidis Blood cultures 03/23 no growth Sternal bone 03/23 + Staph epi ID consult, stop vanc and CTX- ancef 2g q8 likely 6 hours from flap coverage S/P irrigation and culture sternal wound 24 x 11 x 6 cm cubed with wound vac exchange 03/26/24 per Plastic and Reconstructive Surgery Negative pressure therapy to wound with dressing changes per Plastic and Reconstructive Surgery Await OR (03/26/24) culture results Tentative return to OR with Plastic and Reconstructive Surgery for flap on 03/29/24 Holding Eliquis for surgical procedures, heparin drip for Afib history Pain control Diabetes mellitus 03/15/2024 Assessment & Plan (05/14/2024 11:12 AM FIBER[employer]ASS BOAT FINISHER): Was not taking insulin at home. BS are less than 180 consistently & not requiring SSI. DC SSI + Lantus. Resume Metformin 1000mg BID. Will need fu with PCP outpt for management. Assessment & Plan (05/10/2024 12:49 PM FIBERGLASS BOAT FINISHER): Was not taking insulin at home. BS are less than 180 consistently & not requiring SSI. Will hold SSI + Lantus. Resume Metformin 1000mg BID. Will need fu with PCP outpt for management. Assessment & Plan (04/27/2024 11:03 AM FIBER[employer]ASS BOAT FINISHER): BS ranging 130-300; A1c 7. Currently taking Lantus 14u nightly + Lispro 8u TIDAC. Continue without changes, monitor clsoely for adjustment. Assessment & Plan (04/20/2024 10:45 AM FIBERGLASS BOAT FINISHER): Follow up labs will be monitored. We will continue the scripting of insulin glargine and insulin lispro. Assessment & Plan (04/16/2024 10:24 AM FIBERGLASS BOAT FINISHER): A1c 7.0% Was taking lantus/lispro prandial and slide prior to admission Home metformin held while inpatient Continue Blood glucose checks QID; POC 143-230 last 24 hours Carbohydrate consistent diet Continue Lantus and ACHS resistant Lispro SSI BG goal < 180; serum glucose 189 Assessment & Plan (03/28/2024 11:45 AM FIBERGLASS BOAT FINISHER): A1c 7.0% Was taking lantus/lispro prandial and slide prior to admission Home metformin held while inpatient Continue Blood glucose checks QID Continue sliding scale insulin Carbohydrate consistent diet Encourage tight glucose control to facilitate postoperative healing Started lantus and scheduled lispro on 03/28, titrate up as needed Assessment & Plan (03/18/2024 12:35 PM FIBER[employer]ASS [employer]AT FINISHER): A1c 7. Not on insulin at home. Currently taking Lantus 15u daily + SSI + Metformin. BS 103-194. Will dc Lantus & monitor bs with SSI only Hx of CABG 03/15/2024 Assessment & Plan (05/10/2024 12:42 PM FIBERGLASS BOAT FINISHER): FU PLS 05/07. HAYLEY drains reviewed. Patient had moderate amount of drainage after tx today. Have asked nursing to change dressing, will need to monitor & change PRN for soiling. FU ID 05/14, Cardiology 05/24 & back to see Pls 05/25. Believe IV abx to be complete 05/14 after ID appt. Plans for dc 05/16 pending ID apt. Assessment & Plan (03/18/2024 12:37 PM FIBERGLASS BOAT FINISHER): CTS fu. Continue [place] PRN + Tyl PRN for pain. Mucinex added for cough. Continue medical management & wound care. BP mildly elevated. No changes at this time but monitor for need to adjust. Mixed hyperlipidemia 03/15/2024 Assessment & Plan (04/20/2024 10:43 AM FIBERGLASS BOAT FINISHER): This is chronic and stable. We will continue scripting rosuvastatin and dietary will follow Assessment & Plan (04/09/2024 8:10 AM FIBERGLASS BOAT FINISHER): Continue Rosuvastatin 40mg po daily Heart healthy diet Assessment & Plan (03/27/2024 12:06 PM FIBER[employer]ASS BOAT FINISHER): Continue rosuvastatin 40mg po daily Heart healthy diet Benign prostatic hyperplasia 03/15/2024 Assessment & Plan (04/20/2024 10:45 AM FIBER[employer]ASS BOAT FINISHER): Continue tamsulosin Coronary artery disease invo lving wichita coronary artery of wichita heart, unspecified whether angina present 03/04/2024 Assessment & Plan (04/20/2024 10:45 AM FIBER[employer]ASS BOAT FINISHER): Continue scripting of metoprolol, continue aspirin 81 mg daily and rosuvastatin 40 mg daily Assessment & Plan (04/16/2024 10:25 AM FIBER[employer]ASS BO[employer] FINISHER): S/P CABG 03/04 Continue aspirin 81mg po daily Continue Rosuvastatin 40mg po daily Continue Metoprolol; titrate as tolerated Resume lasix 40 PO - Cr down 1.37 Assessment & Plan (03/27/2024 11:52 AM FIBER[employer]ASS BOAT FINISHER): S/P CABG 03/04 Continue aspirin 81mg po daily Continue metoprolol 25mg po BID Continue rosuvastatin 40mg po daily AROM/PROM Physical therapy/Occupational therapy Ischemic cardiomyopathy 02/06/2024 Assessment & Plan (04/20/2024 10:44 AM FIBERGLASS BOAT FINISHER): Monitor vital signs. Continue metoprolol and rosuvastatin, we will continue furosemide 40 mg daily Essential hypertension 10/13/2020 Assessment & Plan (04/20/2024 10:44 AM FIBERGLASS BOAT FINISHER): We will monitor vital signs for serial trending. Continue scripting furosemide and metoprolol. Assessment & Plan (04/13/2024 10:17 AM FIBER[employer]ASS BOAT FINISHER): Monitor vital signs q 4 hours Resume lasix 40 PO daily Continue metoprolol 6.25 BID, titrate as tolerated Low sodium diet Assessment & Plan (03/28/2024 11:45 AM FIBER[employer]ASS BOAT FINISHER): Monitor vital signs q 4 hours Continue metoprolol 25mg po BID Continue furosemide 40mg po daily- held 03/29 for procedure Persistent proteinuria 10/13/2020 Presence of coronary angioplasty implant and gra ft 07/27/2019 Atrial fibrillation Assessment & Plan (04/20/2024 10:45 AM FIBERGLASS BOAT FINISHER): Monitor for evidence of RVR. Continue amiodarone 2 mg daily Assessment & Plan (04/13/2024 10:30 AM FIBERGLASS BOAT FINISHER): Continue Amiodarone 200mg po daliy Restart eliquis 2.5 today Rate controlled atrial fibrillation/flutter with occasional PVCs 90's - 100's per continuous telemetry EKG today A flutter Assessment & Plan (03/28/2024 11:43 AM FIBERGLASS BOAT FINISHER): Continue amiodarone 200mg po daliy Continue metoprolol 25mg po BID Holding Eliquis, last dose on 03/21 Heparin gtt- hold electronic parts salesperson to OR 03/29 Rate controlled atrial fibrillation per continuous telemetry Resolved Problems Problem Noted Date Diagnosed Date Resolved Date Ileus 03/30/2024 04/08/2024 Assessment & Plan (04/05/2024 1:27 PM FIBERGLASS BOAT FINISHER): 03/29 KUB: There is mild gaseous distention of the stomach and loops of small bowel, which may represent ileus in the postoperative setting. 03/31 CT C/A/P: Nondistended loops of bowels. No obstruction. Hold Oxycodone in setting of ileus Advance diet per Dr. Chand Now on regular diet Having BMs Bowel sounds today resolved Constipation 03/29/2024 03/30/2024 Assessment & Plan (04/03/2024 11:56 AM FIBER[employer]ASS BOAT FINISHER): Had bm yesterday Assessment & Plan (03/29/2024 5:25 PM FIBERGLASS BOAT FINISHER): Increase bowel regimen Gave lactulose x 1 now, suppository Check KUB Sternal wound infection 03/24/2024 02/0 06/2024 Overview (03/30/2024): Mr Mason is a 73 year old gentleman with with T2DM, HTN, Afib, recent CABG on 03/04, presented to [facility] on 03/22 with sternal wound dehiscence and purulent discharge, s/p sternal wound exploration with wire removal 03/22 with cultures positive for MSSE, transferred to [facility] for flap coverage and possible sternectomy. - OR at [facility]: 03/23 for sternal washout, sternal bone debridement and [place] placement, 03/24 for sternal wound washout, 03/26 for sternal debridement with PRS, 03/29 for pedicle flap, R rectus flap, bilateral pectoralis major advancement flaps - Cx: blood positive with staph epi 03/21, cleared since 03/23; OR cx positive 03/21 with coag neg staph species, 03/22 with staph epi from chest wound, 03/23 for staph epi from sternal bone, 03/26 with staph epi from bone from chest, 03/29 bone from sternum NGTD so far Assessment & Plan (04/20/2024 10:46 AM FIBERGLASS BOAT FINISHER): After successful inpatient treatment continue cefazolin 2 g IV every 8 hours through May 11. He will follow up with the Infectious Disease. Assessment & Plan (04/16/2024 10:22 AM [employer]): S/P irrigation and culture sternal wound 24 x 11 x 6 cm cubed with wound vac exchange 03/26/24 per Plastic and Reconstructive Surgery Negative pressure therapy to wound with dressing changes per Plastic and Reconstructive Surgery OR with Plastic and Reconstructive Surgery 03/29/24 Abdominal binder at all times Eliquis 2.[address] Villeda Plastic Surgery managing wound drains Output: Negative pressure - 0 ml; Drain 1 - 225 ml; Drain 2 - 130 ml Drains transitioned back to HAYLEY bulbs today - continue to monitor chest wall for re-accumulation of SQ air (slight on exam on left axillary region) RPICC in place ID SOT 04/02: Pathogens: Staph epi, Ancef 2 gram q 8 hour x 6 weeks from flap coverage (03/29-05/10) Assessment & Plan (04/09/2024 4:15 PM [employer]): - Has been afebrile, WBC normalized - Continue cefazolin 2g q8h for staph epi in bcx and OR cx - Follow remaining blood culture and OR cx from 03/29; NG - CBC with diff + CMP while on IV abx - SOT in note from 04/02 - Planning to DC to SNF and will complete course of IV abx at SNF. - Monitor blood tinged sputum, is afebrile and WBC normalized. Neg RVP/PNA PCR. Chest imaging without evidence of PNA. Assessment & Plan (03/29/2024 5:16 PM [employer]): S/P irrigation and culture sternal wound 24 x 11 x 6 cm cubed with wound vac exchange 03/26/24 per Plastic and Reconstructive Surgery Negative pressure therapy to wound with dressing changes per Plastic and Reconstructive Surgery Await OR culture results OR with Plastic and Reconstructive Surgery today 03/29/24, has [address] -needs strict bedrest for 48 hours and abdominal binder at all times Need to hold heparin atleast til Friday Infection following a proced ure, deep incisional surgical site, initial encounter 03/24/2024 04/20/2024 Assessment & Plan (04/10/2024 11:56 AM [employer]): S/P irrigation and culture sternal wound 24 x 11 x 6 cm cubed with wound vac exchange 03/26/24 per Plastic and Reconstructive Surgery S/p wound debridement an muscle flap closure 03/29 Negative pressure therapy to wound with dressing changes per Plastic and Reconstructive Surgery 03/26 OR culture results-+ staph epi, fungal culture negative Assessment & Plan (03/29/2024 5:16 PM [employer]): S/P irrigation and culture sternal wound 24 x 11 x 6 cm cubed with wound vac exchange 03/26/24 per Plastic and Reconstructive Surgery Negative pressure therapy to wound with dressing changes per Plastic and Reconstructive Surgery Await OR culture results OR with Plastic and Reconstructive Surgery today 03/29/24 Surgical site infection 03/21/202406/2024 History of coronary artery stent placement 07/27/2019 03/18/2024 Coronary artery disease 04/2024 Social History Tobacco Use Types Packs/Day Years Used Date Smoking Tobacco: Former Cigarettes 2 44 1 971 - 2015 Smokeless Tobacco: Never Tobacco Cessation:Counseling Given: Not Answered Alcohol Use Standard Drinks/Week Comments Yes 0 (1 standard drink = 0.6 oz pur e alcohol) [facility] Videobotities Answer Date Recorded In the past 12 months has e [employer], gas, oil, or water [employer] threatened to shut off services in your [...] often do you attend chur ch or uatsdin services? Never 03/26/2024 Do you belong to any clubs o r organizations such as jain groups, unions, fraternal or athletic groups, or [...] any time in the past 12 m [facility], were you homeless or living in a long-term (including now)? No 03/26/2024 Personal Safety Answer Date Recorded Have you ever been in or are you currently in a harmful physical or emotional relationship or is someone making you feel afraid or unsafe? Denies 03/29/2024 Sex and Gender Information Value Date Recorded Sex Assigned at Not on file Legal Sex Male 2:38 AM [employer] Gender Identity Male 07/27/2019 7:12 PM CDT Sexual Orientation Straight 07/27/2019 7: 12 PM CDT Last Filed Vital Signs Vital Sign Reading Time Taken Comments Blood Pressure 108/68 06/11/2024 2:26 PM CDT Pulse 96 06/11/2024 2:26 PM CDT Temperature 36.8 C (98.3 F) 06/11/2024 2:26 PM CDT Respiratory Rate 18 04/20/2024 10:4 0 AM [employer] Oxygen Saturation 91% 06/11/2024 2:26 PM CDT Inhaled Oxygen Concentration - - Weight 105.8 kg (233 lb 3.2 oz) 06/11/2024 2:26 PM CDT Height 182.9 cm (6' 0.01) 06/11/2024 2:26 PM CD T Body Mass Index 31.62 06/11/2024 2:26 PM CDT Plan of Treatment Not on file Procedures Procedure Name Priority Date/Time Associated Diagnosis Comments PROTIME-INR Routine 07/28/2024 12:00 PM CDT Atrial fibrillation, unspecified type (HCC) Chronic anticoagulation PROTIME-INR Routine 06/28/2024 11:39 AM CDT Atrial fibrillation, unspecified type (HCC) Chronic anticoagulation EGFR Routine 06/11/2024 3:19 PM CDT Sternal wound infection DIFFERENTIAL AUTO Routine 06/11/2024 3:19 PM CDT Sternal wound infection GLUCOSE, RANDOM (OUTREACH) Routine 06/11/2024 3:19 PM CDT Sternal wound infection COMPREHENSIVE METABOLIC PANEL WITHOUT GLUCOSE (OUTREACH) Routine 06/11/2024 3:19 PM CDT Sternal wound infection CBC WITH AUTO DIFFERENTIAL Routine 06/11/2024 3:19 PM CDT Sternal wound infection COMPREHENSIVE METABOLIC PANEL (OUTREACH) Routine 06/11/2024 3:19 PM CDT Sternal wound infection CRP (ACUTE PHASE) Routine 06/11/2024 3:19 PM CDT Sternal wound infection ERYTHROCYTE SEDIMENTATION RATE Routine 06/11/2024 3:19 PM CDT Sternal wound infection AEROBIC AND ANAEROBIC CULTURE AND GRAM STAIN Routine 06/11/2024 2:42 PM CDT Sternal wound infection PROTIME-INR Routine 05/28/2024 11:51 AM CDT Atrial fibrillation, unspecified type (HCC) Chronic anticoagulation ELECTROCARDIOGRAM REPORT Routine 05/17/2024 8:46 AM [employer] Ischemic cardiomyopathy EGFR Routine 05/14/2024 3:34 PM [employer] Sternal wound infection DIFFERENTIAL AUTO Routine 05/14/2024 3:34 PM [employer]ER Sternal wound infection COMPREHENSIVE METABOLIC PANEL WITHOUT GLUCOSE (OUTREACH) Routine 05/14/2024 3:34 PM [employer] Sternal wound infection CBC WITH AUTO DIFFERENTIAL Routine 05/14/2024 3:34 PM [employer] FINISHER Sternal wound infection COMPREHENSIVE METABOLIC PANEL (OUTREACH) Routine 05/14/2024 3:34 PM [employer]ER Sternal wound infection CRP (ACUTE PHASE) Routine 05/14/2024 3:34 PM [employer]ER Sternal wound infection ERYTHROCYTE SEDIMENTATION RATE Routine 05/14/2024 3:34 PM [employer]ER Sternal wound infection AEROBIC AND ANAEROBIC CULTURE AND GRAM STAIN Routine 05/14/2024 3:07 PM [employer]ISHER Sternal wound infection CT CHEST ABDOMEN PELVIS WO CONTRAST ED Urgent/IP Urgent 04/01/2024 10:29 AM [employer] FIN[employer]ER HEMOGLOBIN A1C Routine 03/24/2024 9:26 PM [employer] LIPID PANEL Routine 03/24/2024 9:26 PM [employer]ER from Last 3 Months or Most Recently Relevant to Health Maintenance Results * (ABNORMAL) Protime-INR (07/28/2024 12:00 PM CDT) INR 1.9(H) [employer] Comment: Reference Range 0.9-1.1 Moderate-intensity Warfarin Therapy 2.0-3.0 Higher-intensity Warfarin Therapy 3.0-4.0 PT 19.4(H) 9.0 - 11.5 sec [employer] Comment: For additional information, please refer to http://[employer]/faq/LLP791 (This link is being provided for informational/ educational purposes only.) Blood 07/28/2024 12:0 0 PM CDT 07/28/2024 12:00 PM CDT us Александр Yu MD LAB BLOOD ORDERABLES Fin al Result Performing Organization Address City/State/[facility] Co de Phone Number [facility] [address] [place] [address] * (ABNORMAL) Protime-INR (06/28/2024 11:39 AM CDT) INR 1.3(H) [employer] Comment: Reference Range 0.9-1.1 Moderate-intensity Warfarin Therapy 2.0-3.0 Higher-intensity Warfarin Therapy 3.0-4.0 PT 13.6(H) 9.0 - 11.5 sec [employer] Comment: For additional information, please refer to http://[employer]/faq/IUE613 (This link is being provided for informational/ educational purposes only.) Blood 06/28/2024 11:3 9 AM CDT 06/28/2024 11:39 AM CDT us Александр Yu MD LAB BLOOD ORDERABLES Fin al Result [facility] [address] [place] [address] * Glucose, random (Outreach) (06/11/2024 3:19 PM CDT) Glucose 126 70 - 199 mg/dL Comment: Interpretive Data Fasting glucose >/= 126 mg/dl is diagnostic for diabetes. Fasting is defined as no caloric intake for at least 8 hours. Fasting glucose between 100 mg/dl to 125 mg/dl is diagnostic of prediabetes. In a patient with classic symptoms of hyperglycemia or hyperglycemic crisis, a random glucose >/= 200 mg/dl is diagnostic for diabetes. In the absence of unequivocal hyperglycemia, results should be confirmed by repeat testing. The classification and Diagnosis of Diabetes Diabetes Care 2021; 46: S19-S40. Current interpretive data was last revised 2022. Blood 06/11/2024 3:19 PM CDT 06/11/2024 7:01 PM CDT us Ana M Cardenas NP LAB BLOOD ORDERABLES Final Result Performing Organization Address City/[facility] Co de Phone Number KRISTA [facility] Department [place] [address] * (ABNORMAL) eGFR (06/11/2024 3:19 PM CDT) eGFR 39(L) >=60 mL/min/1. 73 m2 Comment: Interpretive Data Reference Interval Normal >/= 90 mL/min/1.73m2 Mildly decreased* 60 - 89 mL/min/1.73m2 Mildly to moderately decreased 45 - 59 mL/min/1.73m2 Moderately to severely decreased 30 - 44 mL/min/1.73m2 Severely decreased 15 - 29 mL/min/1.73m2 Kidney Failure < 15 mL/min/1.73m2 *Relative to young adult level Estimated glomerular filtration rate is determined by the 2020 CKD-EPI equation recommended by the National Kidney Foundation (A Unifying Approach to GFR Estimation: Recommendations of the NKF-ASK Task Force on Reassessing the Inclusion of Race in Diagnosing Kidney Disease, JASN 2020). The CKD-EPI equation should not be used for patients with unstable renal function and has not been validated in children and those over 70. Current interpretive data was last reviewed 2021. Blood 06/11/2024 3:19 PM CDT 06/11/2024 7:22 PM CDT Ana M Cardenas NP LAB BLOOD ORDERABLES Final Result [facility] Department [place] [address] * Differential, auto (06/11/2024 3:19 PM CDT) Neutrophil abs 3.1 1.5 - 6.5 K/cumm Imm gran abs 0.0 0.0 - 0.1 K/cumm [facility] Lymphocyte abs 2.3 0.8 - 3.3 K/cumm [facility] Monocyte abs 0.7 0.2 - 0.8 K/cumm [facility] Eosinophil abs 0.2 0.0 - 0.5 K/cumm [facility] Basophil abs 0.0 0.0 - 0.1 K/cumm [facility] Neutrophil pct 49.4 % [facility] Comment: Interpretive Data Percent cell count reference ranges are not reported, since discordance with absolute values may lead to misinterpretation of CBC data. Current Interpretive Data was last revised on 2017. Imm gran pct 0.2 % [facility] Comment: Interpretive Data Percent cell count reference ranges are not reported, since discordance with absolute values may lead to misinterpretation of CBC data. Current Interpretive Data was last revised on 2017. Lymphocyte pct 35.5 % [facility] Comment: Interpretive Data Percent cell count reference ranges are not reported, since discordance with absolute values may lead to misinterpretation of CBC data. Current Interpretive Data was last revised on 2017. Monocyte pct 10.9 % [facility] Comment: Interpretive Data Percent cell count reference ranges are not reported, since discordance with absolute values may lead to misinterpretation of CBC data. Current Interpretive Data was last revised on 2017. Eosinophil pct 3.5 % [facility] Comment: Interpretive Data Percent cell count reference ranges are not reported, since discordance with absolute values may lead to misinterpretation of CBC data. Current Interpretive Data was last revised on 2017. Basophil pct 0.5 % [facility] Comment: Interpretive Data Percent cell count reference ranges are not reported, since discordance with absolute values may lead to misinterpretation of CBC data. Current Interpretive Data was last revised on 2017. Blood 06/11/2024 3:19 PM CDT 06/11/2024 7:01 PM CDT Ana M Cardenas [employer] LAB BLOOD ORDERABLES Final Result [facility] Department [place] [address] * (ABNORMAL) Comprehensive metabolic panel, without glucose (Outreach) (06/11/2024 3:19 PM CDT) Sodium 142 135 - 145 mmol/L Potassium, pl 4.9 3.3 - 4.9 mmol/L [facility] Chloride 102 97 - 110 mmol/L [facility] CO2 27 22 - 32 mmol/L [facility] Anion gap 13 2 - 15 mmol/L [facility] BUN 34(H) 6 - 25 mg/dL [facility] Creatinine 1.81(H) 0.80 - 1.30 mg/dL [facility] Calcium 9.7 8.5 - 10.3 mg/dL [facility] Protein, pl 7.0 6.5 - 8.5 g/dL [facility] Albumin 4.0 3.5 - 5.0 g/dL [facility] Bilirubin, total 0.2 0.1 - 1.2 mg/dL [facility] Alk phos 76 40 - 130 Units/L [facility] AST 9(L) 10 - 50 Units/L [facility] ALT 10 7 - 55 Units/L [facility] Blood 06/11/2024 3:19 PM CDT 06/11/2024 7:01 PM CDT us Ana M Cardenas NP LAB BLOOD ORDERABLES Final Result Performing Organization Address [facility] de Phone Number [facility] [place] [address] * (ABNORMAL) CBC with auto differential (06/11/2024 3:19 PM CDT) Pathologist [facility] WBC 6.3 3.8 - 9.9 K/cumm Hgb 9.0(L) 13.0 - 17.5 g/dL [facility] Hct 31.5(L) 38.9 - 50.3 % [facility] Plt 281 150 - 400 K/cumm [facility] MPV 10.1 9.1 - 12.3 fL [facility] RBC 3.57(L) 4.30 - 5.80 M/cumm [facility] MCV 88.2 81.3 - 96.4 fL [facility] MCH 25.2(L) 27.1 - 33.3 pg [facility] MCHC 28.6(L) 32.3 - 35.7 g/dL [facility] RDW CV 15.7(H) 11.1 - 14.9 % [facility] RDW SD 51.1(H) 35.7 - 48.1 fL [facility] NRBC abs 0.00 0.00 - 0.01 K/cumm [facility] Blood 06/11/2024 3:19 PM CDT 06/11/2024 7:01 PM CDT us Ana M Cardenas NP LAB BLOOD ORDERABLES Final Result Performing Organization Address [facility]/ZIP Co de Phone Number [facility] [place] [address] * (ABNORMAL) Erythrocyte sedimentation rate (06/11/2024 3:19 PM CDT) Erythrocyte sedimentation rate 43(H) 1 - 20 mm/hr Blood 06/11/2024 3:19 PM CDT 06/11/2024 7:01 PM CDT Ana M Cardenas NP LAB BLOOD ORDERABLES Final Result Performing Organization Address City/[facility]/ZIP Co de Phone Number [facility] Department [place] [address] * (ABNORMAL) CRP (acute phase) (06/11/2024 3:19 PM CDT) Pathologist [facility] CRP 34.8(H) <=10.0 mg/L Blood 06/11/2024 3:19 PM CDT 06/11/2024 7:01 PM CDT Ana M Cardenas [employer] LAB BLOOD ORDERABLES Final Result Performing Organization Address [facility] Co de Phone Number [facility] Department [place] [address] * Aerobic and anaerobic culture and gram stain Abscess Abdominal, right lower quadrant (06/11/2024 2:42 PM CDT) Pathologist [facility] Direct Specimen Exam Stain: Rare polymorphonuclear leukocytes seen. No organisms seen. Report Final Report: No growth [facility] Abscess (Abdominal, right lower quadrant) 06/11/2024 2:42 PM CDT 06/11/2024 6:55 PM CDT Narrative [facility] - 06/15/2024 10:18 AM CDT Specimen received on an ESwab. Testing performed by [facility] ([phone]) Specimens submitted from normally sterile body sites will have all bacterial morphotypes identified. Specimens that contain grossly mixed christopher and/or are from body sites that are not normally sterile will be examined for Staphylococcus aureus, Pseudomonas aeruginosa, beta-hemolytic strep, vancomycin-resistant Enterococcus, Bacteroides, Parabacteroides, Clostridium perfringens and fungus. If any of these are isolated, the organism will be reported. Current interpretive data was last revised on 2019. Ana M Cardenas NP LAB MICROBIOLOGY - GENERAL ORDERABLES Final Result Performing Organization Address [facility] Co de Phone Number KRISTA ANN [facility] Department [place] [address] * (ABNORMAL) Protime-INR (05/28/2024 11:51 AM CDT) INR 1.9(H) [facility] Comment: Reference Range 0.9-1.1 Moderate-intensity Warfarin Therapy 2.0-3.0 Higher-intensity Warfarin Therapy 3.0-4.0 PT 19.9(H) 9.0 - 11.5 sec [facility] Comment: For additional information, please refer to http://[employer]/faq/NWU365 (This link is being provided for informational/ educational purposes only.) Blood 05/28/2024 11:5 1 AM CDT 05/28/2024 11:52 AM CDT Александр Yu MD LAB BLOOD ORDERABLES Fin al Result Performing Organization Address [facility] Co de Phone Number [facility] [address] [place] [address] * Electrocardiogram Report (05/17/2024 8:46 AM [employer]) Александр Yu MD ECG ORDERABLES Final Re sult * eGFR (05/14/2024 3:34 PM [employer]ER) eGFR 82 >=60 mL/min/1. 73 m2 Comment: Interpretive Data Reference Interval Normal >/= 90 mL/min/1.73m2 Mildly decreased* 60 - 89 mL/min/1.73m2 Mildly to moderately decreased 45 - 59 mL/min/1.73m2 Moderately to severely decreased 30 - 44 mL/min/1.73m2 Severely decreased 15 - 29 mL/min/1.73m2 Kidney Failure < 15 mL/min/1.73m2 *Relative to young adult level Estimated glomerular filtration rate is determined by the 2020 CKD-EPI equation recommended by the National Kidney Foundation (A Unifying Approach to GFR Estimation: Recommendations of the NKF-ASK Task Force on Reassessing the Inclusion of Race in Diagnosing Kidney Disease, JASN 202). The CKD-EPI equation should not be used for patients with unstable renal function and has not been validated in children and those over 70. Current interpretive data was last reviewed 2021. Blood 05/14/2024 3:34 PM [employer] FINISHER 05/14/2024 6:23 PM [employer]ER Ana M Cardenas NP LAB BLOOD ORDERABLES Final Result [facility] Department [place] [address] * Differential, auto (05/14/2024 3:34 PM [employer]) Neutrophil abs 4.7 1.5 - 6.5 K/cumm Imm gran abs 0.0 0.0 - 0.1 K/cumm [facility] Lymphocyte abs 2.4 0.8 - 3.3 K/cumm [facility] Monocyte abs 0.7 0.2 - 0.8 K/cumm [facility] Eosinophil abs 0.2 0.0 - 0.5 K/cumm [facility] Basophil abs 0.0 0.0 - 0.1 K/cumm [facility] Neutrophil pct 58.5 % [facility] Comment: Interpretive Data Percent cell count reference ranges are not reported, since discordance with absolute values may lead to misinterpretation of CBC data. Current Interpretive Data was last revised on 2017. Imm gran pct 0.2 % [facility] Comment: Interpretive Data Percent cell count reference ranges are not reported, since discordance with absolute values may lead to misinterpretation of CBC data. Current Interpretive Data was last revised on 2017. Lymphocyte pct 29.6 % [facility] Comment: Interpretive Data Percent cell count reference ranges are not reported, since discordance with absolute values may lead to misinterpretation of CBC data. Current Interpretive Data was last revised on 2017. Monocyte pct 8.8 % [facility] Comment: Interpretive Data Percent cell count reference ranges are not reported, since discordance with absolute values may lead to misinterpretation of CBC data. Current Interpretive Data was last revised on 2017. Eosinophil pct 2.7 % [facility] Comment: Interpretive Data Percent cell count reference ranges are not reported, since discordance with absolute values may lead to misinterpretation of CBC data. Current Interpretive Data was last revised on 2017. Basophil pct 0.2 % [facility] Comment: Interpretive Data Percent cell count reference ranges are not reported, since discordance with absolute values may lead to misinterpretation of CBC data. Current Interpretive Data was last revised on 2017. Blood 05/14/2024 3:34 PM [employer] 05/14/2024 6:04 PM [employer]ER Ana M Cardenas [employer] LAB BLOOD ORDERABLES Final Result [facility] Department [place] [address] * (ABNORMAL) Comprehensive metabolic panel, without glucose (Outreach) (05/14/2024 3:34 PM [employer]) Sodium 141 135 - 145 mmol/L Potassium, pl 5.5(H) 3.3 - 4.9 mmol/L [facility] Chloride 103 97 - 110 mmol/L [facility] CO2 28 22 - 32 mmol/L [facility] Anion gap 10 2 - 15 mmol/L [facility] BUN 47(H) 6 - 25 mg/dL [facility] Creatinine 0.98 0.80 - 1.30 mg/dL [facility] Calcium 9.0 8.5 - 10.3 mg/dL [facility] Protein, pl 6.1(L) 6.5 - 8.5 g/dL [facility] Albumin 3.2(L) 3.5 - 5.0 g/dL [facility] Bilirubin, total 0.2 0.1 - 1.2 mg/dL [facility] Comment:Reviewed Alk phos 105 40 - 130 Units/L [facility] AST 14 10 - 50 Units/L [facility] ALT 11 7 - 55 Units/L [facility] Blood 05/14/2024 3:34 PM [employer] 05/14/2024 6:04 PM [employer] Ana M Cardenas NP LAB BLOOD ORDERABLES Final Result [facility] Department [place] [address] * (ABNORMAL) CBC with auto differential (05/14/2024 3:34 PM [employer]ER) [facility] WBC 8.0 3.8 - 9.9 K/cumm Hgb 8.8(L) 13.0 - 17.5 g/dL [facility] Hct 31.4(L) 38.9 - 50.3 % [facility] Plt 351 150 - 400 K/cumm [facility] MPV 10.2 9.1 - 12.3 fL [facility] RBC 3.43(L) 4.30 - 5.80 M/cumm [facility] MCV 91.5 81.3 - 96.4 fL [facility] MCH 25.7(L) 27.1 - 33.3 pg [facility] MCHC 28.0(L) 32.3 - 35.7 g/dL [facility] RDW CV 15.3(H) 11.1 - 14.9 % [facility] RDW SD 51.2(H) 35.7 - 48.1 fL [facility] NRBC abs 0.00 0.00 - 0.01 K/cumm [facility] Blood 05/14/2024 3:34 PM [employer] 05/14/2024 6:04 PM [employer] Ana M Cardenas NP LAB BLOOD ORDERABLES [place] [address] * (ABNORMAL) Erythrocyte sedimentation rate (05/14/2024 3:34 PM [employer] FIN[employer]ER) [facility] Erythrocyte sedimentation rate 44(H) 1 - 20 mm/hr Blood 05/14/2024 3:34 PM FIBERGLASS BOAT FINISHER 05/14/2024 6:04 PM FIBERGLASS BOAT FINISHER Ana M Cardenas NP LAB BLOOD [place] [address] * (ABNORMAL) CRP (acute phase) (05/14/2024 3:34 PM FIBERGLASS BOAT FINISHER) [facility] CRP 16.6(H) <=10.0 mg/L Blood 05/14/2024 3:34 PM FIBERGLASS BOAT FINISHER 05/14/2024 6:04 PM FIBERGLASS BOAT FINISHER Ana M Cardenas NP LAB BLOOD ORDERABLES Final Result Performing Organization Address City/[facility] [place] [address] * (ABNORMAL) Aerobic and anaerobic culture and gram stain Wound Sternum (05/14/2024 3:07 PM FIBERGLASS BOAT FINISHER) [facility] Direct Specimen Exam Stain: Moderate polymorphonuclear leukocytes seen. No organisms seen. Report Final Report: Moderate Pseudomonas aeruginosa Additional susceptibilities performed on: Pseudomonas aeruginosa Antimicrobial: Delafloxacin Interpretation: Susceptible Moderate Pseudomonas aeruginosa #2 Additional susceptibilities performed on: Pseudomonas aeruginosa #2 Antimicrobial: Delafloxacin Interpretation: Susceptible (.) [facility] Organism [facility] Organism [facility] Wound (Sternum) 05/14/2024 3 :07 PM FIBERGLASS BOAT FINISHER 05/14/2024 6:22 PM FIBERGLASS BOAT FINISHER Narrative [facility] - 05/21/2024 2:38 PM FIBERGLASS BOAT FINISHER Specimen received on an ESwab. Testing performed by [facility] ([phone]) Specimens submitted from normally sterile body sites will have all bacterial morphotypes identified. Specimens that contain grossly mixed christopher and/or are from body sites that are not normally sterile will be examined for Staphylococcus aureus, Pseudomonas aeruginosa, beta-hemolytic strep, vancomycin-resistant Enterococcus, Bacteroides, Parabacteroides, Clostridium perfringens and fungus. If any of these are isolated, the organism will be reported. Current interpretive data was last revised on 2019. Organism Antibiotic Method Susceptibility Pseudomonas aeruginosa Aztreonam INTERPRETATION Susceptible Pseudomonas aeruginosa Ceftazidime INTERPRETATION Susceptible Pseudomonas aeruginosa Ciprofloxacin INTERPRETATION Susceptible Pseudomonas aeruginosa Cefepime INTERPRETATION Susceptible Pseudomonas aeruginosa Imipenem INTERPRETATION Susceptible Pseudomonas aeruginosa Meropenem INTERPRETATION Susceptible Pseudomonas aeruginosa Piperacillin/Tazobactam INTERPR ETATION Susceptible Pseudomonas aeruginosa Tobramycin INTERPRETATION Susceptible Pseudomonas aeruginosa Aztreonam INTERPRETATION Susceptible Pseudomonas aeruginosa Ceftazidime INTERPRETATION Susceptible Pseudomonas aeruginosa Ciprofloxacin INTERPRETATION Susceptible Pseudomonas aeruginosa Cefepime INTERPRETATION Susceptible Pseudomonas aeruginosa Imipenem INTERPRETATION Susceptible Pseudomonas aeruginosa Meropenem INTERPRETATION Susceptible Pseudomonas aeruginosa Piperacillin/Tazobactam INTERPR ETATION Susceptible Pseudomonas aeruginosa Tobramycin INTERPRETATION Susceptible us Ana M Cardenas NP LAB MICROBIOLOGY - GENERAL ORDERABLES Final Result [facility] Department [place] [address] * CT Chest Abdomen Pelvis WO Contrast (04/01/2024 10:29 AM FIBERGLASS BOAT FINISHER) Anatomical Region Laterality Modality Body N/A Computed Tomogra phy 04/01/2024 11:5 7 AM FIBERGLASS BOAT FINISHER Impressions 04/01/2024 12:04 PM FIBERGLASS BOAT FINISHER 1. Extensive gas throughout the anterior chest wall with drainage catheters in place, most likely postoperative. 2. Nondistended loops of bowels. No obstruction. Dictated by: Ruddy Weston MD The radiology attending physician has personally reviewed this study, and had reviewed and/or edited this written report and agrees with it. Electronically signed by: Nimco Herring M.D. Narrative 04/01/2024 12:04 PM FIBERGLASS BOAT FINISHER EXAMINATION: Computed tomography of the chest, abdomen and pelvis without intravenous contrast HISTORY: Evaluate subcutaneous and pleural air. Evaluate ileus or obstruction. 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 Most recent surgery this right rectus flap bilateral pectoralis major advancement flaps on 03/29/2024. TECHNIQUE: Transaxial computed tomographic images of the chest, abdomen and pelvis were obtained without intravenous contrast according to the standard protocol. COMPARISON: CT dated 03/25/2024, 03/21/2024, 01/20/2024 FINDINGS: Chest: Multiple bilateral pulmonary nodules unchanged compared to 04/10, with the largest one measuring up to 8 mm in the left lower lobe. Trace bilateral pleural effusion decreased the from 03/25/2024. No pneumothorax. Unchanged heart size. Postsurgical changes of CABG. Calcification of the aorta. Small hyperdense pericardial effusion is likely related to procedure. Nonspecific subcentimeter mediastinal lymph nodes likely reactive. No suspicious axillary or supraclavicular lymph nodes nodes. Central line tip in the superior vena cava. Compared to 03/25/2024, there is interval closure of the anterior thorax with healing of the cutaneous tissue with skin carito. Manubrium and sternum remains incongruent with stranding and diffuse gas within the soft tissue density. The gas traces superiorly into the bilateral superior pectoralis major and minor, and inferiorly up to the inferior most of skin stable. There is also partially imaged the subcutaneous gas within the right neck. Bilateral drains tips within the right chest wall gas collection. No focal hepatic lesion. Normal spleen. Decompressed gallbladder with sludge. Normal adrenal glands and pancreas. Extensive calcification of the splenic artery. Multiple bilateral renal cysts were better evaluated on prior contrast study, the left superior pole cyst may be proteinaceous or hemorrhagic. No hydronephrosis. No renal calculi. Decompressed bladder with Avendaño catheter in place. Prostate is enlarged. No suspicious pelvic or retroperitoneal lymphadenopathy. The scattered nonspecific retroperitoneal lymphadenopathy may be reactive. The aorta is normal in course and caliber with atherosclerosis. Nondistended bowel loops. There is stool throughout the entire colon. No free intraperitoneal gas or fluid collection. Right upper quadrant myolipoma. No suspicious mesenteric lymphadenopathy. Cutaneous stranding and gas foci in the right upper anterior abdominal wall containing drainage catheters. No acute osseous lesion. Multilevel degenerative disc disease. Procedure Note Nimco Herring MD - 04/01/2024 EXAMINATION: Computed tomography of the chest, abdomen and pelvis without intravenous contrast HISTORY: Evaluate subcutaneous and pleural air. Evaluate ileus or obstruction. 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 Most recent surgery this right rectus flap bilateral pectoralis major advancement flaps on 03/29/2024. TECHNIQUE: Transaxial computed tomographic images of the chest, abdomen and pelvis were obtained without intravenous contrast according to the standard protocol. COMPARISON: CT dated 03/25/2024, 03/21/2024, 01/20/2024 FINDINGS: Chest: Multiple bilateral pulmonary nodules unchanged compared to 04/10, with the largest one measuring up to 8 mm in the left lower lobe. Trace bilateral pleural effusion decreased the from 03/25/2024. No pneumothorax. Unchanged heart size. Postsurgical changes of CABG. Calcification of the aorta. Small hyperdense pericardial effusion is likely related to procedure. Nonspecific subcentimeter mediastinal lymph nodes likely reactive. No suspicious axillary or supraclavicular lymph nodes nodes. Central line tip in the superior vena cava. Compared to 03/25/2024, there is interval closure of the anterior thorax with healing of the cutaneous tissue with skin carito. Manubrium and sternum remains incongruent with stranding and diffuse gas within the soft tissue density. The gas traces superiorly into the bilateral superior pectoralis major and minor, and inferiorly up to the inferior most of skin stable. There is also partially imaged the subcutaneous gas within the right neck. Bilateral drains tips within the right chest wall gas collection. No focal hepatic lesion. Normal spleen. Decompressed gallbladder with sludge. Normal adrenal glands and pancreas. Extensive calcification of the splenic artery. Multiple bilateral renal cysts were better evaluated on prior contrast study, the left superior pole cyst may be proteinaceous or hemorrhagic. No hydronephrosis. No renal calculi. Decompressed bladder with Avendaño catheter in place. Prostate is enlarged. No suspicious pelvic or retroperitoneal lymphadenopathy. The scattered nonspecific retroperitoneal lymphadenopathy may be reactive. The aorta is normal in course and caliber with atherosclerosis. Nondistended bowel loops. There is stool throughout the entire colon. No free intraperitoneal gas or fluid collection. Right upper quadrant myolipoma. No suspicious mesenteric lymphadenopathy. Cutaneous stranding and gas foci in the right upper anterior abdominal wall containing drainage catheters. No acute osseous lesion. Multilevel degenerative disc disease. IMPRESSION: 1. Extensive gas throughout the anterior chest wall with drainage catheters in place, most likely postoperative. 2. Nondistended loops of bowels. No obstruction. Dictated by: Ruddy Weston MD The radiology attending physician has personally reviewed this study, and had reviewed and/or edited this written report and agrees with it. Electronically signed by: Nimco Herring M.D. Linsey Roger NP IMG CT PROCEDURES Final Resu lt * (ABNORMAL) Hemoglobin A1c (03/24/2024 9:26 PM FIBERGLASS BOAT FINISHER) Hgb A1C 7.0(H) 4.0 - 5.6 % Estimated Average Glucose 154 mg/dL [facility] Comment: The ADA recommends reporting an estimated Average Glucose (eAG) with all Hemoglobin A1c results using the equation derived from a study of 507 normal and diabetic adults. Minority populations were underrepresented and children were not included. (Diabetes Care 2020; 43(S1): S66-S76). The eAG is not equivalent to a fasting glucose. Blood 03/24/2024 9:26 PM FIBERGLASS BOAT FINISHER 03/24/2024 9:41 PM FIBERGLASS BOAT FINISHER Narrative [facility] - 03/24/2024 10:40 PM FIBERGLASS BOAT FINISHER Indication for repeat testing:->Health monitoring us Allie Bhatti NP LAB BLOOD ORDERABLES Final Result [facility] Department [place] [address] * (ABNORMAL) Lipid panel (03/24/2024 9:26 PM FIBERGLASS BOAT FINISHER) Cholesterol 83 30 - 199 mg/dL Comment: Interpretive Data Ages < or = 19 years Acceptable: <170 mg/dL Borderline high: 170-199 mg/dL High: >or= 200 mg/dL Ages > or = 20 years Desirable: <200 mg/dL Borderline high: 200-239 mg/dL High: >or= 240 mg/dL Literature References: 1. Expert Panel on Integrated Guidelines for Cardiovascular Health and Risk Reduction in Children and Adolescents. Pediatrics 2011;128:S213 2. NCEP Expert Panel. Circulation 2004;110:227 Current Interpretive Data was last revised on 2017. Triglycerides 206(H) <=149 mg/dL [facility] Comment: Interpretive Data Ages < or = 9 years Acceptable: <75 mg/dL Borderline high: 75-99 mg/dL High: >or= 100 mg/dL Ages 10 to 20 years Acceptable: <90 mg/dL Borderline high: 90-129 mg/dL High: >or= 130 mg/dL Ages > or = 20 years Desirable: <150 mg/dL Borderline high: 150-199 mg/dL High: 200-499 mg/dL Very high: >or= 499 mg/dL Literature References: 1. Expert Panel on Integrated Guidelines for Cardiovascular Health and Risk Reduction in Children and Adolescents. Pediatrics 2011;128:S213 2. NCEP Expert Panel. Circulation 2004;110:227 Current Interpretive Data was last revised on 2017. HDL 21(L) >=40 mg/dL [facility] Comment: Interpretive Data Ages < or = 19 years Acceptable: >45 mg/dL Borderline low: 40-45 mg/dL Low: <40 mg/dL Ages > or = 20 years Desirable: >or= 60 mg/dL Low: <40 mg/dL Literature References: 1. Expert Panel on Integrated Guidelines for Cardiovascular Health and Risk Reduction in Children and Adolescents. Pediatrics 2011;128:S213 2. NCEP Expert Panel. Circulation 2004;110:227 Current Interpretive Data was last revised on 2017. LDL, calculated 29 <=129 mg/dL [facility] Comment: Interpretive Data Ages < or = 19 years Acceptable: <110 mg/dL Borderline high: 110-129 mg/dL High: >or= 130 mg/dL Ages > or = 20 years Optimal: <100 mg/dL Near optimal: 100-129 mg/dL Borderline high: 130-159 mg/dL High: >160 mg/dL Calculated using the Ochoa LDL-C estimating equation. This equation was implemented on 2023. Prior to this date LDL-C was estimated using the Friedewald equation. Literature References: 1. Expert Panel on Integrated Guidelines for Cardiovascular Health and Risk Reduction in Children and Adolescents. Pediatrics 2011;128:S213 2. NCEP Expert Panel. Circulation 2004;110:227 3. Don Cochran et al. ALVIN Cardiol. 2020 July 15;5(5):540-548. doi: 10.1001/jamacardio.2020.0013 Current Interpretive Data was last revised on 2023. Non-HDL Cholesterol 62 mg/dL [facility] Comment: Interpretive Data Ages < or = 19 years Acceptable: <120 mg/dL Borderline high: 120-144 mg/dL High: >145 mg/dL Ages > or = 20 years When triglycerides are >200 mg/dL, Non-HDL cholesterol is a secondary target of therapy with treatment goals that are 30 mg/dL greater than the LDL cholesterol target. Literature References: 1. Expert Panel on Integrated Guidelines for Cardiovascular Health and Risk Reduction in Children and Adolescents. Pediatrics 2011;128:S213 2. NCEP Expert Panel. Circulation 2004;110:227 Current Interpretive Data was last revised on 2017. Chol/HDL ratio 4 [facility] Blood 03/24/2024 9:26 PM FIBERGLASS BOAT FINISHER 03/24/2024 9:42 PM FIBERGLASS BOAT FINISHER us Allie Bhatti NP LAB BLOOD ORDERABLES Final Result [facility] [place] [address] from Last 3 Months or Most Recently Relevant to Health Maintenance Insurance [facility] MEDIC[employer] ADVANTAGE Member Subscriber Plan / Payer (Ef fective 2022-Present) Name:Flo Mason Relation to Subscriber:Self Name:Flo Mason Payer ID:[id number] (NAIC) Type:[facility] MEDICARE Address: [place] [phone] Advance Directives For more information, please contact: [phone] Documents on File Type Date Recorded Patient Integrity Analyst Expl anation ADVANCE DIRECTIVE 03/26/2024 3:48 PM POLST * Full Code (Latest Code Status on File) Date Activated Date Inactivated Comments 03/24/2024 9:07 PM 04/17/2024 9:51 PM * Full Code Date Activated Date Inactivated Comments 03/22/2024 1:54 PM 03/24/2024 9:00 PM * Full Code Date Activated Date Inactivated Comments 03/04/2024 1:45 PM 03/14/2024 7:00 PM Care Teams Polisher And Sander Relationship Specialty Start Date End Date Faye Hector MD [address] [place] [id number] PCP - General Family Medicine 07/26/19 Александр Yu MD [address] [facility] [address] [place] [address] Referring Physician Cardiology 02/09/24 Александр Landa MD [address] [facility] [address] [place] [address] Consulting Physician Cardiothoracic Surgery 02/09/24
--- OUTSIDE RECORDS SUMMARY | 2024-08-10 16:33 | XMS_ITS | Clinical Summary ---
Author Organization [facility] [address] Address [address] [place] [address] Care Team Providers Care Loom Mechanic Name Role Phone Faye Hector MD Primary Care Provider Александр Yu MD Unavailable [phone] Александр Landa MD Unavailable [phone] Allergies Active Allergy Reactions Criticality Noted Date Comments Penicillins Other (See comments) Mouth tingling 40 years ago Medications aspirin 81 mg chewable tabletIndications: Ischemic cardiomyopathy,His tory of coronary artery stent placement,Coronary artery disease involving k[place] coronary artery of [place] heart, unspecified whether angina present,Hx of CABG Take 1 tablet (81 mg total) by mouth daily 03/15/20 24 025 Active gabapentin (NEURONTIN) 600 mg tabletIndications: Hx of CABG Take 1 tablet (600 mg total) by mouth 3 (three) times a day 03/15/20 24 Active rosuvastatin (CRESTOR) 40 mg tabletIndications: Ischemic cardiomyopathy,His tory of coronary artery stent placement,Coronary artery disease involving [place] coronary artery of [place] heart, unspecified whether angina present,Mixed hyperlipidemia Take [...] needle, diabetic (Pen Needle) 32 gauge x 532 needle Use as directed once a day. [...] tabletIndications: Ischemic cardiomyopathy,Cor onary artery disease involving [place] coronary artery of [place] heart, unspecified whether angina present,Hx of CABG [...] concerns. Assessment & Plan (05/20/2024 2:00 PM OPERATIONS ASST): -Patient presents to clinic for a post [...] 04/05/2024 Assessment & Plan (05/04/2024 11:42 AM OPERATIONS ASST): Mild edema to BLE. Compression wraps ordered. Monitor. Assessment & Plan (04/16/2024 10:29 AM OPERATIONS ASST): Last TTE 03/14: 1. Grossly normal left ventricular systolic function based on limited views. Inadequate for detailed regional wall motion assessment. Ejection Fraction is estimated to be 60-70. Creatinine improved, 1.37 last night Resumed Lasix today Lymphedema wraps ordered on 04/02- completed Dobutamine discontinued 1/23/25 Metoprolol restarted 04/11, continue 6.25 BID Hyperkalemia 03/30/2024 Assessment & Plan (05/04/2024 11:42 AM OPERATIONS ASST): Chronic. Meds reviewed. K 5.5. Repeat labs 05/06. Assessment & Plan (04/27/2024 10:56 AM OPERATIONS ASST): Persistant 5.1. Meds reviewed. Routine monitoring. Assessment & Plan (04/20/2024 6:56 PM OPERATIONS ASST): Mild. Routine monitoring. Assessment & Plan (04/16/2024 10:24 AM OPERATIONS ASST): Monitor potassium daily with BMP K 5.1 this morning; whole K ordered-4.7 Continue diuresis as previously noted Holding all K supplementation Anemia 03/29/2024 Assessment & Plan (04/27/2024 10:57 AM OPERATIONS ASST): H&H low but stable. Routine monitioring. Assessment & Plan (04/16/2024 10:26 AM OPERATIONS ASST): To be expected following cardiac surgery Monitor daily CBC, Hgb stable @ 7.8 No active signs of bleeding Consider transfusion if Hgb <7 or if hemodynamically unstable Assessment & Plan (03/29/2024 5:32 PM OPERATIONS ASST): H&H down overnight Transfuse 2 units PRBC Trend CBC nightly CKD (chronic kidney disease) 03/26/2024 Assessment & Plan (04/27/2024 10:57 AM OPERATIONS ASST): Stable. Routine monitoring. Assessment & Plan (04/20/2024 10:45 AM OPERATIONS ASST): Follow up labs ordered. Assessment & Plan (04/16/2024 10:25 AM OPERATIONS ASST): CLINTON on CKD- initial Pre-op Creatinine 1.36 prior to 03/04 CABG Had worsening CLINTON in post op setting at [facility] Creatinine improved to 1.37 Continue daily Lasix LE edema improved Renally dose medications Avoid nephrotoxic agents Continue daily BMP monitoring Assessment & Plan (03/28/2024 11:44 AM OPERATIONS ASST): CLINTON on CKD- initial Pre-op Creatinine 1.36 prior to 03/04 CABG Had worsening CLINTON in post op setting at [facility] Furosemide 40mg po daily for increased fluid volume with significant BLE edema Creatinine up slightly to 1.62, will hold lasix tomorrow as pt will be NPO Avoid nephrotoxic agents Continue daily BMP monitoring Wound infection after surgery 03/24/2024 Assessment & Plan (05/14/2024 11:19 AM OPERATIONS ASST): Cefazolin to continue ID fu which is today. If DC will DC abc, DC PICC. Have communicated POC with ID & patient. Patient to perform wound care on his own or with family prior to discharge d/t no HH accepting yet. Assessment & Plan (05/04/2024 11:43 AM OPERATIONS ASST): Pls fu 05/07, ID 05/14. Continues on IV abx until ID fu. Assessment & Plan (04/29/2024 12:05 PM OPERATIONS ASST): Mild slough present to distal portion of abd incision. Have pictured & notified plastics. Continue dry dressing, wound RN following. Continue IV abx as ordered. Will fu with plastics 05/07. Assessment & Plan (04/27/2024 11:03 AM OPERATIONS ASST): PICC in place. Continue wound care, HAYLEY drains, IV abx, PT/OT. Has plastics fu 05/07 1115a & ID fu 05/14 2pm. IVs are to complete 05/11 at this time - confirming with ID abx should not end before ID appt. Have informed SS. Assessment & Plan (04/16/2024 10:21 AM OPERATIONS ASST): S/p sternal washout and debridement x 3 at [facility] Arrived to [facility] on 03/[address]. Obtain blood cultures daily until negative final result, growing Staph epidermis on blood cultures and deep wound culture Wound culture 1/5 +FITNESS FLOOR ATTENDANT Blood cultures 1/2 +Staph epidermidis, 2 stains, [...] place Assessment & Plan (03/27/2024 12:15 PM OPERATIONS ASST): Patient has undergone washout and debridement x [facility] Arrived to [facility] on 03/[address]. Obtain blood cultures daily until negative final result, growing Staph epidermis on blood cultures and deep wound culture Wound culture / +FITNESS FLOOR ATTENDANT Blood cultures 1/2 +Staph epidermidis, 2 stains, [...] 03/15/2024 Assessment & Plan (05/14/2024 11:12 AM OPERATIONS ASST): Was not taking insulin at home. BS are less than 180 consistently & not requiring SSI. DC SSI + Lantus. Resume Metformin 1000mg BID. Will need fu with PCP outpt for management. Assessment & Plan (05/10/2024 12:49 PM OPERATIONS ASST): Was not taking insulin at home. BS are less than 180 consistently & not requiring SSI. Will hold SSI + Lantus. Resume Metformin 1000mg BID. Will need fu with PCP outpt for management. Assessment & Plan (04/27/2024 11:03 AM OPERATIONS ASST): BS ranging 130-300; A1c 7. Currently taking Lantus 14u nightly + Lispro 8u TIDAC. Continue without changes, monitor clsoely for adjustment. Assessment & Plan (04/20/2024 10:45 AM OPERATIONS ASST): Follow up labs will be monitored. We will continue the scripting of insulin glargine and insulin lispro. Assessment & Plan (04/16/2024 10:24 AM OPERATIONS ASST): A1c 7.0% Was taking lantus/lispro prandial and slide prior to admission Home metformin held while inpatient Continue Blood glucose checks QID; POC 143-230 last 24 hours Carbohydrate consistent diet Continue Lantus and ACHS resistant Lispro SSI BG goal < 180; serum glucose 189 Assessment & Plan (03/28/2024 11:45 AM OPERATIONS ASST): A1c 7.0% Was taking lantus/lispro prandial and slide prior to admission Home metformin held while inpatient Continue Blood glucose checks QID Continue sliding scale insulin Carbohydrate consistent diet Encourage tight glucose control to facilitate postoperative healing Started lantus and scheduled lispro on 03/28, titrate up as needed Assessment & Plan (03/18/2024 12:35 PM OPERATIONS ASST): A1c 7. Not on insulin at home. Currently taking Lantus 15u daily + SSI + Metformin. BS 103-194. Will dc Lantus & monitor bs with SSI only Hx of CABG 03/15/2024 Assessment & Plan (05/10/2024 12:42 PM OPERATIONS ASST): FU PLS 05/07. HAYLEY drains reviewed. Patient [...] apt. Assessment & Plan (03/18/2024 12:37 PM OPERATIONS ASST): CTS fu. Continue Stem PRN + Tyl PRN for pain. Mucinex added for cough. Continue medical management & wound care. BP mildly elevated. No changes at this time but monitor for need to adjust. Mixed hyperlipidemia 03/15/2024 Assessment & Plan (04/20/2024 10:43 AM OPERATIONS ASST): This is chronic and stable. We will continue scripting rosuvastatin and dietary will follow Assessment & Plan (04/09/2024 8:10 AM OPERATIONS ASST): Continue Rosuvastatin 40mg po daily Heart healthy diet Assessment & Plan (03/27/2024 12:06 PM OPERATIONS ASST): Continue rosuvastatin 40mg po daily Heart healthy diet Benign prostatic hyperplasia 03/15/2024 Assessment & Plan (04/20/2024 10:45 AM OPERATIONS ASST): Continue tamsulosin Coronary artery disease invo lving koyuk coronary artery of [place] heart, unspecified whether angina present 03/04/2024 Assessment & Plan (04/20/2024 10:45 AM OPERATIONS ASST): Continue scripting of metoprolol, continue aspirin 81 mg daily and rosuvastatin 40 mg daily Assessment & Plan (04/16/2024 10:25 AM OPERATIONS ASST): S/P CABG 03/04 Continue aspirin 81mg po daily Continue Rosuvastatin 40mg po daily Continue Metoprolol; titrate as tolerated Resume lasix 40 PO - Cr down 1.37 Assessment & Plan (03/27/2024 11:52 AM OPERATIONS ASST): S/P CABG 03/04 Continue aspirin 81mg po daily Continue metoprolol 25mg po BID Continue rosuvastatin 40mg po daily AROM/PROM Physical therapy/Occupational therapy Ischemic cardiomyopathy 02/06/2024 Assessment & Plan (04/20/2024 10:44 AM OPERATIONS ASST): Monitor vital signs. Continue metoprolol and rosuvastatin, we will continue furosemide 40 mg daily Essential hypertension 10/13/2020 Assessment & Plan (04/20/2024 10:44 AM OPERATIONS ASST): We will monitor vital signs for serial trending. Continue scripting furosemide and metoprolol. Assessment & Plan (04/13/2024 10:17 AM OPERATIONS ASST): Monitor vital signs q 4 hours Resume lasix 40 PO daily Continue metoprolol 6.25 BID, titrate as tolerated Low sodium diet Assessment & Plan (03/28/2024 11:45 AM OPERATIONS ASST): Monitor vital signs q 4 hours Continue metoprolol 25mg po BID Continue furosemide 40mg po daily- held 03/29 for procedure Persistent proteinuria 10/13/2020 Presence of coronary angioplasty implant and gra ft 07/27/2019 Atrial fibrillation Assessment & Plan (04/20/2024 10:45 AM OPERATIONS ASST): Monitor for evidence of RVR. Continue amiodarone 2 mg daily Assessment & Plan (04/13/2024 10:30 AM OPERATIONS ASST): Continue Amiodarone 200mg po daliy Restart eliquis 2.5 today Rate controlled atrial fibrillation/flutter with occasional PVCs 90's - 100's per continuous telemetry EKG today A flutter Assessment & Plan (03/28/2024 11:43 AM OPERATIONS ASST): Continue amiodarone 200mg po daliy Continue metoprolol 25mg po BID Holding Eliquis, last dose on 1/5 Heparin gtt- hold manager operations research to OR 03/29 Rate controlled atrial fibrillation per continuous telemetry Resolved Problems Problem Noted Date Diagnosed Date Resolved Date Ileus 03/30/2024 04/08/2024 Assessment & Plan (04/05/2024 1:27 PM OPERATIONS ASST): 03/29 KUB: There is mild gaseous distention of the stomach and loops of small bowel, which may represent ileus in the postoperative setting. 03/31 CT C/A/P: Nondistended loops of bowels. No obstruction. Hold Oxycodone in setting of ileus Advance diet per Dr. Chand Now on regular diet Having BMs Bowel sounds today resolved Constipation 03/29/2024 03/30/2024 Assessment & Plan (04/03/2024 11:56 AM OPERATIONS ASST): Had bm yesterday Assessment & Plan (03/29/2024 5:25 PM OPERATIONS ASST): Increase bowel regimen Gave lactulose x 1 now, suppository Check KUB Sternal wound infection 03/24/2024 02/0 06/2024 Overview (03/30/2024): Mr Mason is a 73 year old gentleman with with T2DM, HTN, Afib, recent CABG on 03/04, presented to [facility] on 03/22 with sternal wound dehiscence and purulent discharge, s/p sternal wound exploration with wire removal 03/22 with cultures positive for MSSE, transferred to [place] for flap coverage and possible sternectomy. - OR at [facility]: 03/23 for sternal washout, sternal bone debridement [...] far Assessment & Plan (04/20/2024 10:46 AM OPERATIONS ASST): After successful inpatient treatment continue cefazolin 2 g IV every 8 hours through May 11. He will follow up with the Infectious Disease. Assessment & Plan (04/16/2024 10:22 AM OPERATIONS ASST): S/P irrigation and culture sternal wound 24 [...] (03/29-05/10) Assessment & Plan (04/09/2024 4:15 PM OPERATIONS ASST): - Has been afebrile, WBC normalized - [...] PNA. Assessment & Plan (03/29/2024 5:16 PM OPERATIONS ASST): S/P irrigation and culture sternal wound 24 [...] 04/20/2024 Assessment & Plan (04/10/2024 11:56 AM OPERATIONS ASST): S/P irrigation and culture sternal wound 24 x 11 x 6 cm cubed with wound vac exchange 03/26/24 per Plastic and Reconstructive Surgery S/p wound debridement an muscle flap closure 03/29 Negative pressure therapy to wound with dressing changes per Plastic and Reconstructive Surgery 03/26 OR culture results-+ staph epi, fungal culture negative Assessment & Plan (03/29/2024 5:16 PM OPERATIONS ASST): S/P irrigation and culture sternal wound 24 x 11 x 6 cm cubed with wound vac exchange 03/26/24 per Plastic and Reconstructive Surgery Negative pressure therapy to wound with dressing changes per Plastic and Reconstructive Surgery Await OR culture results OR with Plastic and Reconstructive Surgery today 03/29/24 Surgical site infection 03/21/20240 06/2024 History of coronary artery stent placement 07/27/2019 03/18/2024 Coronary artery disease 04/2024 Encounters Date Type Department Care Team Description 07/29/[address] [facility] Cardiology [address] [facility] [address] [place] [phone] Erin Elena RN 07/27/2024 3:30 PM CDT Office Visit [facility] Surgery [address] [place] [address] 6th [place] [address] [place] [phone] Rea Chand MD PhD Sternal wound infection (Primary Dx) 07/12/2024 Telephone Cardiovascular and Thoracic Surgery [address] [place] [address] [address] [place] [address] Windy Valdez, RN status report 07/12/2024 Telephone Cardiovascular and Thoracic Surgery [facility] [address] [place] [address] Windy Valdez, RN Scheduling Appointments 07/09/2024 2:45 PM CDT Office Visit [facility] Surgery [address] [facility] 6th [place] [address] Rea Chand MD PhD Sternal wound infection (Primary Dx) 07/06/2024 Telephone [facility] Surgery [address] [place] [phone] Sophie Bhagat CMA Scheduling Appointments 06/29/[address] [facility] Cardiology [address] [place] [phone] Nancy Nathan RN 06/22/2024 4:00 PM CDT Office Visit [facility] Surgery [facility] [address] [place] [phone] Rea Chand MD PhD Sternal wound infection (Primary Dx) 06/21/2024 Results Follow-Up [facility] Infectious Diseases [address] [place] [phone] Ana M Cardenas NP Aerobic and anaerobic culture and gram stain Abscess Abdominal, right lower quadrant 06/11/2024 5:52 PM CDT - 06/11/2024 11:59 PM CDT Hospital Encounter [facility] [address] [place] [address] Sternal wound infection Discharge Disposition: Discharge to home or self care 06/11/2024 2:20 PM CDT Office Visit [facility] Infectious Diseases [address] [phone] Ana M Cardenas NP Sternal wound infection (Primary Dx) 06/08/2024 3:45 PM CDT Office Visit [facility] Surgery [address] [place] [address] [place] [phone] Rea Chand MD PhD Sternal wound infection (Primary Dx) 06/04/2024 Telephone Cardiovascular and Thoracic Surgery [address] [facility] [address] [place] [address] Александр Landa MD Post-op 05/31/[address] [facility] Cardiology [address] [facility] [address] [place] [address] Александр Yu MD 05/31/2024 Anticoagulation Visit [facility] Cardiology [address] [facility] [address] [place] [address] Nancy Nathan, PALLAVI 05/28/2024 Orders Only [facility] Infectious Diseases [address] [facility] [address] [place] [phone] Ana M Cardenas NP 05/25/2024 1:15 PM CDT Office Visit [facility] Surgery [address] [facility] 6th [place] [address] [place] [phone] Rea Chand MD PhD Sternal wound infection (Primary Dx); Wound infection after surgery 05/19/2024 Documentation [facility] Infectious Diseases [address] [facility] [address] [place] [phone] Ana M Cardenas NP 05/18/2024 Telephone [facility] Infectious Diseases [address] [facility] [address] [place] [phone] Rahel Garcia CMA 05/17/2024 1:00 PM OPERATIONS ASST Office Visit [facility] Cardiology at [address] [place] [phone] Александр Yu MD Ischemic cardiomyopathy (Primary Dx); Coronary artery disease involving k[place] coronary artery of [place] heart, unspecified whether angina present; Hx of CABG; Presence of coronary angioplasty implant and graft; Other thrombophilia 05/17/2024 Anticoagulation Visit [facility] Cardiology [address] [facility] [address] [place] [address] Nancy Nathan, PALLAVI 05/17/2024 Telephone [facility] Cardiology [address] [facility] [address] [place] [phone] Александр Yu MD 05/17/[address] [facility] Post Acute Care [address] [facility] [address] [place] [phone] Polina Hutton MA 05/17/2024 Orders Only [facility] Infectious Diseases [address] [facility] [address] [place] [address] Ana M Cardenas NP 05/14/2024 5:32 PM OPERATIONS ASST - 05/14/2024 11:59 PM OPERATIONS ASST Hospital Encounter [facility] [address] [place] [address] Sternal wound infection Discharge Disposition: Discharge to home or self care 05/14/2024 2:00 PM OPERATIONS ASST Office Visit [facility] Infectious Diseases [address] [facility] [address] [place] [address] Ana M Cardenas NP Encounter for screening examination for sexually transmitted infection (Primary Dx); Sternal wound infection; Bacteremia 05/14/2024 Documentation [facility] Infectious Diseases [address] [place] [phone] Maria A De La Vega RN 05/14/2024 NH/SNF Visit [facility] Post Acute Care [address] [phone] Lali Reveles NP Wound infection after surgery (Primary Dx); Hx of CABG; Ischemic cardiomyopathy; Coronary artery disease involving [place] coronary artery of [place] heart, unspecified whether angina present; Type 2 diabetes mellitus without complication, without long-term current use of insulin ([facility]) 05/13/[address] [facility] Services [address] [facility] [address] [place] [address] Nusrat Field from Last 3 Months Surgical History Surgery Date Site/Laterality Comments KNEE ARTHROSCOPY Knee Surgery, Arthroscopic CARDIAC CATHETERIZATION 01/20/2024 TONSILLECTOMY 03/17/1957 - 03/16/1958 BACK SURGERY 03/17/1983 - 03/16/1984 Ruptured disc PERCUTANEOUS TRANSLUMINAL CORONARY ANGIOPLASTY 03/17/2015 - 03/16/2016 Circumflex CORONARY ARTERY BYPASS GRAFT DEBRIDEMENT STERNAL N/A underwent debridement and washout x 3 at [facility], wound vac in place ANGIOPLASTY Medical History Medical History Date Comments Hx Other Medical r. meniscus tea r Hypertension Myocardial infarct, old Diabetes (HCC) Coronary artery disease GOOD on CPAP HFrEF (heart failure with re duced ejection fraction) (HCC) Diabetic retinopathy (HCC) Diabetic neuropathy (HCC) TIA (transient ischemic attack) 2014 Hyperlipidemia Chronic kidney disease Chronic kidney disease (CKD), stage II (mild) Tobacco use disorder, severe , in sustained remission, dependence Packs a day 44 years, quit 2 015 Abnormal echocardiogram Atrial fibrillation (HCC) History of transfusion Wound infection after surgery [facility] Family History Medical History Relation Name Comments Heart disease Brother Heart disease Father Heart failure Father CHF; Cause of : CHF Heart disease Mother Heart failure Mother CHF; Cause of : CHF Hypertension Mother Sudden Mother Relation Name Status Comments Brother Father Mother Social History Tobacco Use Types Packs/Day Years Used Date Smoking Tobacco: Former Cigarettes 2 44 1 971 - 2015 Smokeless Tobacco: Never Tobacco Cessation:Counseling Given: Not Answered Alcohol Use Standard Drinks/Week Comments Yes 0 (1 standard drink = 0.6 oz pur e alcohol) [facility] [employer] Answer Date Recorded In the past 12 months has [employer], gas, oil, or water [email or web address] threatened to shut off services in your [...] often do you attend chur ch or voodoo services? Never 03/26/2024 Do you belong to any clubs o r organizations such as samaritan groups, unions, fraternal or athletic groups, or [...] any time in the past 12 m [facility], were you homeless or living in a penitentiary (including now)? No 03/26/2024 Personal Safety Answer Date Recorded Have you ever been in or are you currently in a harmful physical or emotional relationship or is someone making you feel afraid or unsafe? Denies 03/29/2024 Sex and Gender Information Value Date Recorded Sex Assigned at Not on file Legal Sex Male 2:38 AM OPERATIONS ASST Gender Identity Male 07/27/2019 7:12 PM CDT Sexual Orientation Straight 07/27/2019 7: 12 PM CDT Obstetrics History Last Filed Vital Signs Vital Sign Reading Time Taken Comments Blood Pressure 108/68 06/11/2024 2:26 PM CDT Pulse 96 06/11/2024 2:26 PM CDT Temperature 36.8 C (98.3 F) 06/11/2024 2:26 PM CDT Respiratory Rate 18 04/20/2024 10:4 0 AM OPERATIONS ASST Oxygen Saturation 91% 06/11/2024 2:26 PM CDT Inhaled Oxygen Concentration - - Weight 105.8 kg (233 lb 3.2 oz) 06/11/2024 2:26 PM CDT Height 182.9 cm (6' 0.01) 06/11/2024 2:26 PM CD T Body Mass Index 31.62 06/11/2024 2:26 PM CDT Plan of Treatment Health Maintenance Due Date Last Done Comments Albumin Creatinine Ratio, Urine 1952 Colon Cancer Screening-Colonoscopy 1952 Depression Screening 1952 Hepatitis C Screening 1952 Dilated Eye Exam 1952 Foot Exam 1952 DTaP/Tdap/Td Vaccine (1 - Tdap) 1963 Hepatitis B Screening 1970 Pneumococcal vaccine 65+ (1 of 2 - PCV) 1971 Lung Cancer Screening 2002 Zoster Vaccine (1 of 2) 2002 Well Visit 65+ 2017 Hemoglobin A1C 09/21/2024 03/24/2024, 03/04/2024 Influenza Vaccine (Season Ended) 2024 Lipid Panel 03/24/2025 03/24/2024, 05/16, 12/04/2022, Additional history exists Fall Risk Assessment 04/17/2025 04/17/2024 eGFR 06/11/2025 06/11/2024, 04/18, 05/11/2024, Additional history exists Abdominal Aortic Aneurysm (A AA) Screen Completed 04/01/2024, 03/25/2024 Procedures Procedure Name Priority Date/Time Associated Diagnosis [...] anticoagulation ELECTROCARDIOGRAM REPORT Routine 05/17/2024 8:46 AM OPERATIONS ASST Ischemic cardiomyopathy EGFR Routine 05/14/2024 3:34 PM OPERATIONS ASST Sternal wound infection DIFFERENTIAL AUTO Routine 05/14/2024 3:34 PM OPERATIONS ASST Sternal wound infection COMPREHENSIVE METABOLIC PANEL WITHOUT GLUCOSE (OUTREACH) Routine 05/14/2024 3:34 PM OPERATIONS ASST Sternal wound infection CBC WITH AUTO DIFFERENTIAL Routine 05/14/2024 3:34 PM OPERATIONS ASST Sternal wound infection COMPREHENSIVE METABOLIC PANEL (OUTREACH) Routine 05/14/2024 3:34 PM OPERATIONS ASST Sternal wound infection CRP (ACUTE PHASE) Routine 05/14/2024 3:34 PM OPERATIONS ASST Sternal wound infection ERYTHROCYTE SEDIMENTATION RATE Routine 05/14/2024 3:34 PM OPERATIONS ASST Sternal wound infection AEROBIC AND ANAEROBIC CULTURE AND GRAM STAIN Routine 05/14/2024 3:07 PM OPERATIONS ASST Sternal wound infection CT CHEST ABDOMEN PELVIS WO CONTRAST ED Urgent/IP Urgent 04/01/2024 10:29 AM OPERATIONS ASST HEMOGLOBIN A1C Routine 03/24/2024 9:26 PM OPERATIONS ASST LIPID PANEL Routine 03/24/2024 9:26 PM OPERATIONS ASST from Last 3 Months or Most Recently Relevant to Health Maintenance Results * (ABNORMAL) Protime-INR (07/28/2024 12:00 PM CDT) INR 1.9(H) [facility] Comment: Reference Range 0.9-1.1 Moderate-intensity Warfarin Therapy 2.0-3.0 Higher-intensity Warfarin Therapy 3.0-4.0 PT 19.4(H) 9.0 - 11.5 sec [facility] Comment: For additional information, please refer to http://Sourcebits/faq/NGS157 (This link is being provided for informational/ educational purposes only.) Blood 07/28/2024 12:0 0 PM CDT 07/28/2024 12:00 PM CDT us Александр Yu MD LAB BLOOD ORDERABLES Fin al Result [facility] [address] [place] [address] * (ABNORMAL) Protime-INR (06/28/2024 11:39 AM CDT) INR 1.3(H) [facility] Comment: Reference Range 0.9-1.1 Moderate-intensity Warfarin Therapy 2.0-3.0 Higher-intensity Warfarin Therapy 3.0-4.0 PT 13.6(H) 9.0 - 11.5 sec [facility] Comment: For additional information, please refer to http://Sourcebits/faq/SFB527 (This link is being provided for informational/ educational purposes only.) Blood 06/28/2024 11:3 9 AM CDT 06/28/2024 11:39 AM CDT us Александр Yu MD LAB BLOOD ORDERABLES Fin al Result Performing Organization Address City/[facility]/ZIP Co de Phone Number [facility] [address] [place] [address] * Glucose, random (Outreach) (06/11/2024 3:19 PM [...] ORDERABLES Final Result Performing Organization Address [facility] Co de Phone Number [facility] Department [place] [address] * (ABNORMAL) eGFR (06/11/2024 3:19 PM CDT) [...] Cardenas NP LAB BLOOD ORDERABLES Final Result [facility] Department [place] [address] * Differential, auto (06/11/2024 3:19 PM CDT) Neutrophil abs 3.1 1.5 - 6.5 K/cumm Imm gran abs 0.0 0.0 - 0.1 K/cumm [facility] Lymphocyte abs 2.3 0.8 - 3.3 K/cumm [facility] Monocyte abs 0.7 0.2 - 0.8 K/cumm [facility] Eosinophil abs 0.2 0.0 - 0.5 K/cumm [facility] Basophil abs 0.0 0.0 - 0.1 K/cumm [facility] Neutrophil pct 49.4 % [facility] Comment: Interpretive Data Percent cell count reference ranges are not reported, since discordance with absolute values may lead to misinterpretation of CBC data. Current Interpretive Data was last revised on 2017. Imm gran pct 0.2 % [facility] Comment: Interpretive Data Percent cell count reference ranges are not reported, since discordance with absolute values may lead to misinterpretation of CBC data. Current Interpretive Data was last revised on 2017. Lymphocyte pct 35.5 % [facility] Comment: Interpretive Data Percent cell count reference ranges are not reported, since discordance with absolute values may lead to misinterpretation of CBC data. Current Interpretive Data was last revised on 2017. Monocyte pct 10.9 % [facility] Comment: Interpretive Data Percent cell count reference ranges are not reported, since discordance with absolute values may lead to misinterpretation of CBC data. Current Interpretive Data was last revised on 2017. Eosinophil pct 3.5 % [facility] Comment: Interpretive Data Percent cell count reference ranges are not reported, since discordance with absolute values may lead to misinterpretation of CBC data. Current Interpretive Data was last revised on 2017. Basophil pct 0.5 % [facility] Comment: Interpretive Data Percent cell count reference ranges are not reported, since discordance with absolute values may lead to misinterpretation of CBC data. Current Interpretive Data was last revised on 2017. Blood 06/11/2024 3:19 PM CDT 06/11/2024 7:01 PM CDT Ana M Cardenas DIE TRY OUT WORKER STAMPING LAB BLOOD ORDERABLES Final Result [facility] Department [place] [address] * (ABNORMAL) Comprehensive metabolic panel, without glucose (Outreach) (06/11/2024 3:19 PM CDT) Sodium 142 135 - 145 mmol/L Potassium, pl 4.9 3.3 - 4.9 mmol/L [facility] Chloride 102 97 - 110 mmol/L [facility] CO2 27 22 - 32 mmol/L [facility] Anion gap 13 2 - 15 mmol/L [facility] BUN 34(H) 6 - 25 mg/dL [facility] Creatinine 1.81(H) 0.80 - 1.30 mg/dL [facility] Calcium 9.7 8.5 - 10.3 mg/dL [facility] Protein, pl 7.0 6.5 - 8.5 g/dL [facility] Albumin 4.0 3.5 - 5.0 g/dL [facility] Bilirubin, total 0.2 0.1 - 1.2 mg/dL [facility] Alk phos 76 40 - 130 Units/L [facility] AST 9(L) 10 - 50 Units/L [facility] ALT 10 7 - 55 Units/L [facility] Blood 06/11/2024 3:19 PM CDT 06/11/2024 7:01 PM CDT Ana M Cardenas NP LAB BLOOD ORDERABLES Final Result Performing Organization Address City/[facility]/ZIP Co de Phone Number [facility] Department [place] [address] * (ABNORMAL) CBC with auto differential (06/11/2024 3:19 PM CDT) [facility] WBC 6.3 3.8 - 9.9 K/cumm Hgb 9.0(L) 13.0 - 17.5 g/dL [facility] Hct 31.5(L) 38.9 - 50.3 % [facility] Plt 281 150 - 400 K/cumm [facility] MPV 10.1 9.1 - 12.3 fL [facility] RBC 3.57(L) 4.30 - 5.80 M/cumm [facility] MCV 88.2 81.3 - 96.4 fL [facility] MCH 25.2(L) 27.1 - 33.3 pg [facility] MCHC 28.6(L) 32.3 - 35.7 g/dL [facility] RDW CV 15.7(H) 11.1 - 14.9 % [facility] RDW SD 51.1(H) 35.7 - 48.1 fL [facility] NRBC abs 0.00 0.00 - 0.01 K/cumm [facility] Blood 06/11/2024 3:19 PM CDT 06/11/2024 7:01 PM CDT Ana M Cardenas NP LAB BLOOD ORDERABLES Final Result [facility] Department [place] [address] * (ABNORMAL) Erythrocyte sedimentation rate (06/11/2024 3:19 PM CDT) Pathologist [facility] Erythrocyte sedimentation rate 43(H) 1 - 20 mm/hr Blood 06/11/2024 3:19 PM CDT 06/11/2024 7:01 PM CDT Ana M Cardenas NP LAB BLOOD ORDERABLES Final Result Performing Organization Address City/[facility]/ZIP [place] [address] * (ABNORMAL) CRP (acute phase) (06/11/2024 3:19 PM CDT) Pathologist [facility] CRP 34.8(H) <=10.0 mg/L Blood 06/11/2024 3:19 PM CDT 06/11/2024 7:01 PM CDT Ana M Cardenas NP LAB BLOOD ORDERABLES Final Result Performing Organization Address [facility] [place] [address] * Aerobic and anaerobic culture and gram stain Abscess Abdominal, right lower quadrant (06/11/2024 2:42 PM CDT) Pathologist [facility] Direct Specimen Exam Stain: Rare polymorphonuclear leukocytes seen. No organisms seen. Report Final Report: No growth [facility] Abscess (Abdominal, right lower quadrant) 06/11/2024 2:42 PM CDT 06/11/2024 6:55 PM CDT Narrative [facility] - 06/15/2024 10:18 AM CDT Specimen received on an ESwab. Testing performed by [facility] Microbiology Laboratory ([phone]) Specimens submitted from normally sterile body sites [...] ORDERABLES Final Result Performing Organization Address [facility] de Phone Number KRISTA ANN [facility] Department [place] [address] * (ABNORMAL) Protime-INR (05/28/2024 11:51 AM CDT) INR 1.9(H) [facility] Comment: Reference Range 0.9-1.1 Moderate-intensity Warfarin Therapy 2.0-3.0 Higher-intensity Warfarin Therapy 3.0-4.0 PT 19.9(H) 9.0 - 11.5 sec [facility] Comment: For additional information, please refer to http://education.[employer]/faq/JES652 (This link is being provided for informational/ educational purposes only.) Blood 05/28/2024 11:5 1 AM CDT 05/28/2024 11:52 AM CDT Александр Yu MD LAB BLOOD ORDERABLES Fin al Result Performing Organization Address [facility] de Phone Number [facility] [address] [place] [address] * Electrocardiogram Report (05/17/2024 8:46 AM OPERATIONS ASST) Алексанрд Yu MD ECG ORDERABLES Final Re sult * eGFR (05/14/2024 3:34 PM OPERATIONS ASST) eGFR 82 >=60 mL/min/1. 73 m2 Comment: [...] last reviewed 2021. Blood 05/14/2024 3:34 PM OPERATIONS ASST 05/14/2024 6:23 PM OPERATIONS ASST Ana M Cardenas NP LAB BLOOD ORDERABLES Final Result [facility] Department [place] [address] * Differential, auto (05/14/2024 3:34 PM OPERATIONS ASST) Neutrophil abs 4.7 1.5 - 6.5 K/cumm Imm gran abs 0.0 0.0 - 0.1 K/cumm [facility] Lymphocyte abs 2.4 0.8 - 3.3 K/cumm [facility] Monocyte abs 0.7 0.2 - 0.8 K/cumm [facility] Eosinophil abs 0.2 0.0 - 0.5 K/cumm [facility] Basophil abs 0.0 0.0 - 0.1 K/cumm [facility] Neutrophil pct 58.5 % [facility] Comment: Interpretive Data Percent cell count reference ranges are not reported, since discordance with absolute values may lead to misinterpretation of CBC data. Current Interpretive Data was last revised on 2017. Imm gran pct 0.2 % [facility] Comment: Interpretive Data Percent cell count reference ranges are not reported, since discordance with absolute values may lead to misinterpretation of CBC data. Current Interpretive Data was last revised on 2017. Lymphocyte pct 29.6 % [facility] Comment: Interpretive Data Percent cell count reference ranges are not reported, since discordance with absolute values may lead to misinterpretation of CBC data. Current Interpretive Data was last revised on 2017. Monocyte pct 8.8 % [facility] Comment: Interpretive Data Percent cell count reference ranges are not reported, since discordance with absolute values may lead to misinterpretation of CBC data. Current Interpretive Data was last revised on 2017. Eosinophil pct 2.7 % [facility] Comment: Interpretive Data Percent cell count reference ranges are not reported, since discordance with absolute values may lead to misinterpretation of CBC data. Current Interpretive Data was last revised on 2017. Basophil pct 0.2 % [facility] Comment: Interpretive Data Percent cell count reference ranges are not reported, since discordance with absolute values may lead to misinterpretation of CBC data. Current Interpretive Data was last revised on 2017. Blood 05/14/2024 3:34 PM OPERATIONS ASST 05/14/2024 6:04 PM OPERATIONS ASST Ana M Cardenas NP LAB BLOOD ORDERABLES Final Result [facility] Department [place] [address] * (ABNORMAL) Comprehensive metabolic panel, without glucose (Outreach) (05/14/2024 3:34 PM OPERATIONS ASST) Sodium 141 135 - 145 mmol/L Potassium, pl 5.5(H) 3.3 - 4.9 mmol/L [facility] Chloride 103 97 - 110 mmol/L [facility] CO2 28 22 - 32 mmol/L [facility] Anion gap 10 2 - 15 mmol/L [facility] BUN 47(H) 6 - 25 mg/dL [facility] Creatinine 0.98 0.80 - 1.30 mg/dL [facility] Calcium 9.0 8.5 - 10.3 mg/dL [facility] Protein, pl 6.1(L) 6.5 - 8.5 g/dL [facility] Albumin 3.2(L) 3.5 - 5.0 g/dL [facility] Bilirubin, total 0.2 0.1 - 1.2 mg/dL [facility] Comment:Reviewed Alk phos 105 40 - 130 Units/L [facility] AST 14 10 - 50 Units/L [facility] ALT 11 7 - 55 Units/L [facility] Blood 05/14/2024 3:34 PM OPERATIONS ASST 05/14/2024 6:04 PM OPERATIONS ASST Ana M Cardenas DIE TRY OUT WORKER STAMPING LAB BLOOD ORDERABLES Final Result [facility] Department [place] [address] * (ABNORMAL) CBC with auto differential (05/14/2024 3:34 PM OPERATIONS ASST) [facility] WBC 8.0 3.8 - 9.9 K/cumm Hgb 8.8(L) 13.0 - 17.5 g/dL [facility] Hct 31.4(L) 38.9 - 50.3 % [facility] Plt 351 150 - 400 K/cumm [facility] MPV 10.2 9.1 - 12.3 fL [facility] RBC 3.43(L) 4.30 - 5.80 M/cumm [facility] MCV 91.5 81.3 - 96.4 fL [facility] MCH 25.7(L) 27.1 - 33.3 pg [facility] MCHC 28.0(L) 32.3 - 35.7 g/dL [facility] RDW CV 15.3(H) 11.1 - 14.9 % [facility] RDW SD 51.2(H) 35.7 - 48.1 fL [facility] NRBC abs 0.00 0.00 - 0.01 K/cumm [facility] Blood 05/14/2024 3:34 PM OPERATIONS ASST 05/14/2024 6:04 PM OPERATIONS ASST us Ana M Cardenas NP LAB BLOOD ORDERABLES Final Result Performing Organization Address [facility] [place] [address] * (ABNORMAL) Erythrocyte sedimentation rate (05/14/2024 3:34 PM OPERATIONS ASST) Erythrocyte sedimentation rate 44(H) 1 - 20 mm/hr Blood 05/14/2024 3:34 PM OPERATIONS ASST 05/14/2024 6:04 PM OPERATIONS ASST Ana M Cardenas NP LAB BLOOD ORDERABLES Final Result Performing Organization Address [facility] [place] [address] * (ABNORMAL) CRP (acute phase) (05/14/2024 3:34 PM OPERATIONS ASST) Pathologist [facility] CRP 16.6(H) <=10.0 mg/L Blood 05/14/2024 3:34 PM OPERATIONS ASST 05/14/2024 6:04 PM OPERATIONS ASST Ana M Cardenas NP LAB BLOOD ORDERABLES Final Result Performing Organization Address [facility] [place] [address] * (ABNORMAL) Aerobic and anaerobic culture and gram stain Wound Sternum (05/14/2024 3:07 PM OPERATIONS ASST) Direct Specimen Exam Stain: Moderate polymorphonuclear leukocytes seen. No organisms seen. Report Final Report: Moderate Pseudomonas aeruginosa Additional susceptibilities performed on: Pseudomonas aeruginosa Antimicrobial: Delafloxacin Interpretation: Susceptible Moderate Pseudomonas aeruginosa #2 Additional susceptibilities performed on: Pseudomonas aeruginosa #2 Antimicrobial: Delafloxacin Interpretation: Susceptible (.) [facility] Organism PSEUDOMONAS AERUGINOSA [facility] Organism PSEUDOMONAS AERUGINOSA [facility] Wound (Sternum) 05/14/2024 3 :07 PM OPERATIONS ASST 05/14/2024 6:22 PM OPERATIONS ASST Narrative [facility] - 05/21/2024 2:38 PM OPERATIONS ASST Specimen received on an ESwab. Testing performed by [facility] Microbiology Laboratory ([phone]) Specimens submitted from normally sterile body sites [...] ETATION Susceptible Pseudomonas aeruginosa Tobramycin INTERPRETATION Susceptible Ana M Cardenas NP LAB MICROBIOLOGY - GENERAL ORDERABLES Final Result [facility] Department [place] [address] * CT Chest Abdomen Pelvis WO Contrast (04/01/2024 10:29 AM OPERATIONS ASST) Anatomical Region Laterality Modality Body N/A Computed Tomogra phy 04/01/2024 11:5 7 AM OPERATIONS ASST Impressions 04/01/2024 12:04 PM OPERATIONS ASST 1. Extensive gas throughout the anterior chest wall with drainage catheters in place, most likely postoperative. 2. Nondistended loops of bowels. No obstruction. Dictated by: Rdudy Weston MD The radiology attending physician has personally reviewed this study, and had reviewed and/or edited this written report and agrees with it. Electronically signed by: Nimco Herring M.D. Narrative 04/01/2024 12:04 PM OPERATIONS ASST EXAMINATION: Computed tomography of the chest, abdomen [...] signed by: Nimco Herring M.D. Linsey Roger DIE TRY OUT WORKER STAMPING IMG CT PROCEDURES Final Resu lt * (ABNORMAL) Hemoglobin A1c (03/24/2024 9:26 PM OPERATIONS ASST) Pathologist [facility] Hgb A1C 7.0(H) 4.0 - 5.6 % Estimated Average Glucose 154 mg/dL [facility] Comment: The ADA recommends reporting an estimated Average Glucose (eAG) with all Hemoglobin A1c results using the equation derived from a study of 507 normal and diabetic adults. Minority populations were underrepresented and children were not included. (Diabetes Care 2020; 43(S1): S66-S76). The eAG is not equivalent to a fasting glucose. Blood 03/24/2024 9:26 PM OPERATIONS ASST 03/24/2024 9:41 PM OPERATIONS ASST Narrative [facility] - 03/24/2024 10:40 PM OPERATIONS ASST Indication for repeat testing:->Health monitoring Allie Bhatti NP LAB BLOOD ORDERABLES Final Result [facility] Department [place] [address] * (ABNORMAL) Lipid panel (03/24/2024 9:26 PM OPERATIONS ASST) Pathologist [facility] Cholesterol 83 30 - 199 mg/dL Comment: [...] revised on 2017. Triglycerides 206(H) <=149 mg/dL [facility] Comment: Interpretive Data Ages < or [...] revised on 2017. HDL 21(L) >=40 mg/dL [facility] Comment: Interpretive Data Ages < or [...] on 2017. LDL, calculated 29 <=129 mg/dL [facility] Comment: Interpretive Data Ages < or [...] NCEP Expert Panel. Circulation 2004;110:227 3. Don M et al. ALVIN Cardiol. 2020 July 15;5(5):540-548. doi: 10.1001/jamacardio.2020.0013 Current Interpretive Data was last revised on 2023. Non-HDL Cholesterol 62 mg/dL [facility] Comment: Interpretive Data Ages < or [...] last revised on 2017. Chol/HDL ratio 4 [facility] Blood 03/24/2024 9:26 PM OPERATIONS ASST 03/24/2024 9:42 PM OPERATIONS ASST us Allie Bhatti DIE TRY OUT WORKER STAMPING LAB BLOOD ORDERABLES Final Result [facility] [place] [address] from Last 3 Months or Most Recently Relevant to Health Maintenance Insurance [facility] MEDICARE ADVANTAGE [place] [address] Advance Directives For more information, please contact: [phone] Documents on File Type Date Recorded Patient Staffing Operations Manager Expl anation ADVANCE DIRECTIVE 03/26/2024 3:48 PM POLST * Full Code (Latest Code Status on File) Date Activated Date Inactivated Comments 03/24/2024 9:07 PM 04/17/2024 9:51 PM * Full Code Date Activated Date Inactivated Comments 03/22/2024 1:54 PM 03/24/2024 9:00 PM * Full Code Date Activated Date Inactivated Comments 03/04/2024 1:45 PM 03/14/2024 7:00 PM Care Teams Loom Mechanic Relationship Specialty Start Date End Date Faye Hector MD [address] [place] [address] PCP - General Family Medicine 07/26/19 Александр Yu MD [address] [place] [address] Referring Physician Cardiology 02/09/24 Александр Landa MD [address] [facility] [address] [place] [address] Consulting Physician Cardiothoracic Surgery 02/09/24
--- OUTSIDE RECORDS SUMMARY | 2024-08-10 16:33 | XMS_ITS | Encounter Summary ---
Author Organization [facility] Osiris dutta Address [address] [place] [address] Phone Care Team Providers Care Podiatrist Orthopedic Name Role Phone Faye Hector MD Primary Care Provider [phone]- [phone] Reason for Visit * Reason Comments Med Refill Encounter Details Date Type Department Care Team (Late st Contact Info) Description 02/21/2022 Refill [facility] Nephrology and Hypertension [address] [place] [address], [address] [place] [address] Hebert Washburn MD [facility] [facility], [address] [place] [address] Social History Tobacco Use Types Packs/Day Years Used Date Smoking Tobacco: Former Smokeless Tobacco: Never Alcohol Use Standard Drinks/Week Comments Yes 0 (1 standard drink = 0.6 oz pur e alcohol) cocasional Sex and Gender Information Value Date Recorded Sex Assigned at Male 02/15/2021 7:57 AM MST Legal Sex Male 11:14 AM MDT Gender Identity Male 02/15/2021 7:57 AM MST Sexual Orientation Straight 02/15/2021 7: 57 AM MST documented as of this encounter Miscellaneous Notes * Telephone Encounter - Hebert Washburn MD - 02/24/2022 12:15 PM CST No longer caring for pt documented in this encounter Plan of Treatment Not on file documented as of this encounter Visit Diagnoses Not on filedocumented in this encounter Care Teams Podiatrist Orthopedic Relationship Specialty Start Date End Date Rostovtseva, Faye, MD [address] [facility] [address] [place] [address] PCP - General Internal Medicine 08/28/20 documented as of this encounter
[2024-08-10 16:34] VITALS: BP 115/59; PULSE 67; RESP 16; TEMP 36.4; O2SAT 92
--- NOTE | 2024-08-10 16:38 | ECG_ITS ---
Test Date: 2024-08-10 16:42:51 Measurements Intervals Donald Rate: 66 P: 0 ID: 0 QRS: -86 QRSD: 121 T: 73 QT: 439 QTc: 463 Interpretive Statements ATRIAL FIBRILLATION WITH ABERRANT CONDUCTION OR VENTRICULAR PREMATURE COMPLEXES MARKED LEFT AXIS DEVIATION [QRS AXIS < -30] POSSIBLE ANTERIOR MYOCARDIAL INFARCTION , PROBABLY OLD [30 ms Q WAVE IN V3/V4, OR R < 0.2 mV IN V4] No previous ECG available for comparison Electronically Signed On 08-11-2024 16:31:39 CDT by Liana Carrillo M.D.
--- NOTE | 2024-08-10 16:50 | ED_ITS ---
HPI - General Adult General Chief complaint: Unspecified <Katelyn Marina PA-C - Last Filed: 08/10/24 16:57> Stated complaint: swelling in legs/hands, bypass in Dec <Katelyn Marina PA-C - Last Filed: 08/10/24 16:57> Time Seen by Provider: 08/10/24 16:50 <ADRIAN Spaulding Last Filed: 08/10/24 16:57> Focused HPI: Patient is a 74 y/o male, with PMH of 4-vessel CABG in March 04, 2024, who presents to the ED with c/o swelling of arms and legs. Patient reports having increased swelling in his legs and hands over the past 2 weeks. Denies pain in legs, but notes hx of neuropathy. He also reports SOB, worse with exertion. Denies CP. Denies known hx of CHF. Is on HCTZ, but denies other diuretics. Denies cough, fevers. Sees Dr. Yu. Dr. Landa performed CABG. GENERAL: Elderly, obese with BMI of 33.3, and in no acute distress. HEAD: Normocephalic, atraumatic. CHEST: Clear to auscultation. ?No respiratory distress. Decreased lung sounds in bases radha HEART: Regular rate and rhythm.? NEURO: ?Alert and oriented x3. Patient screened in triage and initial orders placed.? ?Additional care and disposition to be based upon?diagnostic testing and treatment. <Katelyn Marina PA-C - Last Filed: 08/10/24 16:57> Source: patient <Katelyn Marina PA-C - Last Filed: 08/10/24 16:57> Mode of arrival: ambulatory <Katelyn Marina PA-C - Last Filed: 08/10/24 16:57> Limitations: no limitations <ADRIAN Spaulding Last Filed: 08/10/24 16:57> History of Present Illness HPI narrative: I agree with the above HPI <Cristhian Fagan MD - Last Filed: 08/10/24 21:43> Related Data Home medications: Home Medications ?Medication ?Instructions ?Recorded ?Confirmed ?Last Taken ?Type amlodipine 10 mg tablet 10 mg PO DAILY 01/20/24 05/27/24 01/20/24 History empagliflozin 10 mg tablet 10 mg PO DAILY 01/20/24 05/27/24 Unknown History (Jardiance) hydralazine 50 mg tablet 50 mg PO TID 01/20/24 05/27/24 01/20/24 History hydrochlorothiazide 50 mg tablet 50 mg PO DAILY 01/20/24 05/27/24 Unknown History lisinopril 40 mg tablet 40 mg PO DAILY 01/20/24 05/27/24 01/20/24 History rosuvastatin 40 mg tablet 40 mg PO DAILY 01/20/24 05/27/24 01/20/24 History spironolactone 50 mg tablet 50 mg PO BID 01/20/24 05/27/24 01/19/24 History tamsulosin 0.4 mg capsule 0.4 mg PO DAILY 01/20/24 05/27/24 01/19/24 History <Katelyn Marina PA-C - Last Filed: 08/10/24 16:57> Allergies/adverse reactions: Allergies Allergy/AdvReac Type Severity Reaction Status Date / Time Penicillins Allergy Severe Swelling Verified 05/27/24 13:48 of Lip/Tongue/Throat <Katelyn Marina PA-C - Last Filed: 08/10/24 16:57> Review of Systems 2 Review of Systems: All systems reviewed & are unremarkable except as noted in HPI and below <Cristhian Fagan MD - Last Filed: 08/10/24 21:43> [facility] Past Medical History Medical History: Medical History (Updated 08/10/24 @ 21:43 by Cristhian Fagan MD) Afib GOOD (obstructive sleep apnea) Mixed hyperlipidemia Weight gain finding Type 2 diabetes mellitus with hyperglycemia Type 2 diabetes mellitus with diabetic polyneuropathy Swelling of scrotum Nephropathy Malignant diastolic hypertension with CHF, NYHA class 2 Left hydrocele History of CVA (cerebrovascular accident) without residual deficits Heart failure, unspecified Colon cancer screening Chronic kidney disease, stage 2 (mild) Chronic kidney disease due to type 2 diabetes mellitus CAD in [place] artery Benign nodular prostatic hyperplasia without lower urinary tract symptoms OAB (overactive bladder) Fatty liver Mixed hyperlipidemia Peripheral neuropathy History of CVA (cerebrovascular accident) CAD (coronary artery disease) Malignant HTN with heart disease, 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, 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 Diabetes mellitus with hyperglycemia <ADRIAN Spaulding Last Filed: 08/10/24 16:57> Surgical History Surgical History: Surgical History (Updated 05/27/24 @ 14:25 by Leonard Gillette MD) S/P CABG x 4 infx'd, repeat sternotomy, flap closure S/P angioplasty with stent History of hydrocelectomy <Katelyn Marina PA-C - Last Filed: 08/10/24 16:57> Family History Family History: Family History Father Heart disease Mother Hypertension Heart disease Other Family history of cardiovascular disease <Katelyn Marina PA-C - Last Filed: 08/10/24 16:57> Social History Social History: Social History Social History: Flo is very confident filling out medical forms. In the last 12 months he has not received assistance from an organization or program. Smoking packs per day: 2 Smoking cigarettes per day: 40.0 Years smoked: 50 Smoking pack-years: 100.00 Smoking status: Former smoker Tobacco type: cigarettes Second hand tobacco smoke exposure: No Smoking end date: 03/17/14 Alcohol intake: current Substance use: never Substance use type: does not use Do You Feel Safe in your Home?: Yes Lack of Transportation: No Lack of Food: Never True Current Housing: I Have Housing Concerned About Future Housing: No Difficulty Paying Gas/Electric Bills: No Difficulty Paying for Meds: No Currently Unemployed: YES Education: Don't Know Difficulty w/ Childcare or Family Care: No Living arrangements: with family Occupation/Education: retired Gender identity (if verbalized by the patient): Male Sexual Orientation (if Verbalized by the Patient): Straight or Heterosexual Spiritual care concerns: No Agree to blood products: Yes <ADRIAN Spaulding Last Filed: 08/10/24 16:57> Exam 2 Narrative: APPEARANCE: Well appearing, no pain, no distress, well-nourished. HEAD: normocephalic, atraumatic. EYES: PERRLA/EOMI, conjunctivae clear. NOSE: Normal no drainage EARS:TMS clear with good light reflex. THROAT: Pharynx clear, no exudate. NECK: Supple. No adenopathy, no masses. RESPIRATORY: Increased work of breathing lungs clear to auscultation CARDIOVASCULAR: Regular rate and rhythm without murmurs rubs or gallops. ABDOMINAL: Soft, nontender, nondistended, normal bowel sounds MUSCULOSKELETAL: P edema involving the lower extremities, mid abdomen and bilateral hands to mid for NEURO: Alert. Cranial nerves II through XII intact. Good gait. Good coordination SKIN: Warm, dry. Normal Color <Cristhian Fagan MD - Last Filed: 08/10/24 21:43> Course Vital Signs Vital signs: Vital Signs Temperature 97.6 F 08/10/24 16:34 Pulse Rate 67 08/10/24 16:34 Respiratory Rate 16 08/10/24 16:34 Blood Pressure 115/59 L 08/10/24 16:34 Pulse Oximetry 92 08/10/24 16:34 Oxygen Delivery Room Air 08/10/24 16:34 Temperature 97.6 F 08/10/24 16:34 Pulse Rate 71 08/10/24 20:48 Respiratory Rate 22 H 08/10/24 20:48 Blood Pressure 128/67 08/10/24 17:11 Pulse Oximetry 94 08/10/24 20:48 Oxygen Delivery Room Air 08/10/24 17:11 <Katelyn Marina PA-C - Last Filed: 08/10/24 16:57> Vital Signs Temperature 97.6 F 08/10/24 16:34 Pulse Rate 67 08/10/24 16:34 Respiratory Rate 16 08/10/24 16:34 Blood Pressure 115/59 L 08/10/24 16:34 Pulse Oximetry 92 08/10/24 16:34 Oxygen Delivery Room Air 08/10/24 16:34 Temperature 97.6 F 08/10/24 16:34 Pulse Rate 71 08/10/24 20:48 Respiratory Rate 22 H 08/10/24 20:48 Blood Pressure 128/67 08/10/24 17:11 Pulse Oximetry 94 08/10/24 20:48 Oxygen Delivery Room Air 08/10/24 17:11 <Cristhian Fagan MD - Last Filed: 08/10/24 21:43> Medical Decision Making MDM Narrative Medical decision making narrative: MSE by BACILIO in triage. <Katelyn Marina PA-C - Last Filed: 08/10/24 16:57> MSE by BACILIO in triage. 74-year-old male presents emergency department for evaluation for lower extremity edema and worsening exertional shortness of breath. Patient does follow-up with Dr Yu and due to worsening coronary artery disease he did have worsening LV function. Patient did have angio cath done by Dr. Carrillo but [facility] artery bypass graft. Patient then developed a postop infection and did go to [facility] for a flap surgery. Patient does take spironolactone. Patient reports he has had worsening exertional shortness of breath over the course of the last 2 weeks. Upon arrival emergency department patient does have lower extremity edema to the level of lower abdomen and patient also has pitting edema of the hands. Patient did have a pulse ox of 90% on room air. Patient was placed on 2 L of oxygen. Patient denies any chest pain. Patient EKG shows no evidence of acute ischemia. Patient does not have an elevated troponin. Patient's proBNP is elevated 6260. Chest x-ray does show prominent vascular markings. I discussed the case with Dr. Yu and he was comfortable with the patient staying here for diuresis. 40 mg of IV Lasix were ordered and patient was provided a pure whick. Patient was updated on the plan for admission. <Cristhian Fagan MD - Last Filed: 08/10/24 21:43> Differential Diagnosis Differential Diagnosis: COVID, RSV, influenza, ACS, CHF, anasarca <Cristhian Fagan MD - Last Filed: 08/10/24 21:43> Vital Signs Vital Signs: Vital Signs Temperature 97.6 F 08/10/24 16:34 Pulse Rate 67 08/10/24 16:34 Respiratory Rate 16 08/10/24 16:34 Blood Pressure 115/59 L 08/10/24 16:34 Pulse Oximetry 92 08/10/24 16:34 Oxygen Delivery Room Air 08/10/24 16:34 Temperature 97.6 F 08/10/24 16:34 Pulse Rate 71 08/10/24 20:48 Respiratory Rate 22 H 08/10/24 20:48 Blood Pressure 128/67 05/27/25 17:11 Pulse Oximetry 94 08/10/24 20:48 Oxygen Delivery Room Air 08/10/24 17:11 <Katelyn Marina PA-C - Last Filed: 08/10/24 16:57> Vital Signs Temperature 97.6 F 08/10/24 16:34 Pulse Rate 67 08/10/24 16:34 Respiratory Rate 16 08/10/24 16:34 Blood Pressure 115/59 L 08/10/24 16:34 Pulse Oximetry 92 08/10/24 16:34 Oxygen Delivery Room Air 08/10/24 16:34 Temperature 97.6 F 08/10/24 16:34 Pulse Rate 71 08/10/24 20:48 Respiratory Rate 22 H 08/10/24 20:48 Blood Pressure 128/67 08/10/24 17:11 Pulse Oximetry 94 08/10/24 20:48 Oxygen Delivery Room Air 08/10/24 17:11 <Cristhian Fagan MD - Last Filed: 08/10/24 21:43> Lab Data Lab results reviewed: Yes I reviewed the patient's lab results. <Cristhian Fagan MD - Last Filed: 08/10/24 21:43> Result diagrams: 08/10/24 16:49 08/10/24 16:49 <Katelyn Marina PA-C - Last Filed: 08/10/24 16:57> Labs: Lab Results 08/10/24 Range/Units 16:49 WBC 5.3 (4.5-10.0) K/mm3 RBC 3.76 L (4.6-6.20) M/mm3 Hgb 9.4 L D (14.0-18.0) g/dL Hct 33.4 L (42.0-52.0) % MCV 88.8 (80-100) fl MCH 25.0 L (26-34) pg MCHC 28.1 L (32-36) g/dl RDW 19.6 H (11.5-14.5) % Plt Count 242 (150-375) k/mm3 MPV 9.3 (7.4-10.4) fl Immature Gran % (Auto) 0.2 (0-0.5) % Neut % (Auto) 50.1 (45.5-73.1) % Lymph % (Auto) 35.3 (18.3-44.2) % [place] % (Auto) 11.5 H (2.6-8.5) % Eos % (Auto) 2.3 (0-4.4) % Baso % (Auto) 0.6 (0.2-1.2) % Lymph # (Auto) 1.87 (0.9-3.2) K/mm3 [place] # (Auto) 0.6 (0.1-0.6) K/mm3 Eos # (Auto) 0.1 (0-0.3) K/mm3 Baso # (Auto) 0.0 (0.0-0.1) K/mm3 Abs Immat Gran (auto) 0.01 (0.00-0.031) K/mm3 Absolute Neuts (auto) 2.7 (1.3-6.7) K/mm3 Absolute Nucleated RBC 0.000 (0.0-0.012) K/mm3 Band Neutrophils % Not Reportable Nucleated RBC % 0.0 (0.0-0.2) % Platelet Estimate Adequate (Adequate) Hypochromasia 1+ Ovalocytes 1+ Schistocytes None seen PT 20.0 H (11.1-14.7) Seconds INR 1.7 APTT 27.8 (22.3-36.8) Seconds Sodium 143 (137-145) mmol/L Potassium 4.4 (3.4-5.0) mmol/L Chloride 104 (98-107) mmol/L Carbon Dioxide 29 (22-30) mmol/L Anion Gap 10 (4-12) mmol/L BUN 34 H (9-20) mg/dL Creatinine 1.67 H (0.7-1.3) mg/dL Estim Creat Clear Calc 47 ml/min Estimated GFR 41 L (59 - ) Glucose 134 H (65-110) mg/dL Calcium 9.1 (8.4-10.2) mg/dL Total Bilirubin 0.3 (0.2-1.3) mg/dL AST 19 (17-59) U/L ALT 15 (6-50) U/L Alkaline Phosphatase 81 (38-126) U/L Troponin I 0.013 (0.000-0.034) ng/mL NT-Pro-B Natriuret Pep 6260 H (19.9-100) pg/mL Total Protein 6.0 L (6.3-8.2) g/dL Albumin 3.9 (3.5-5.1) g/dL <Katelyn Marina PA-C - Last Filed: 08/10/24 16:57> Lab Results 08/10/24 Range/Units 16:49 WBC 5.3 (4.5-10.0) K/mm3 RBC 3.76 L (4.6-6.20) M/mm3 Hgb 9.4 L D (14.0-18.0) g/dL Hct 33.4 L (42.0-52.0) % MCV 88.8 (80-100) fl MCH 25.0 L (26-34) pg MCHC 28.1 L (32-36) g/dl RDW 19.6 H (11.5-14.5) % Plt Count 242 (150-375) k/mm3 MPV 9.3 (7.4-10.4) fl Immature Gran % (Auto) 0.2 (0-0.5) % Neut % (Auto) 50.1 (45.5-73.1) % Lymph % (Auto) 35.3 (18.3-44.2) % [place] % (Auto) 11.5 H (2.6-8.5) % Eos % (Auto) 2.3 (0-4.4) % Baso % (Auto) 0.6 (0.2-1.2) % Lymph # (Auto) 1.87 (0.9-3.2) K/mm3 [place] # (Auto) 0.6 (0.1-0.6) K/mm3 Eos # (Auto) 0.1 (0-0.3) K/mm3 Baso # (Auto) 0.0 (0.0-0.1) K/mm3 Abs Immat Gran (auto) 0.01 (0.00-0.031) K/mm3 Absolute Neuts (auto) 2.7 (1.3-6.7) K/mm3 Absolute Nucleated RBC 0.000 (0.0-0.012) K/mm3 Band Neutrophils % Not Reportable Nucleated RBC % 0.0 (0.0-0.2) % Platelet Estimate Adequate (Adequate) Hypochromasia 1+ Ovalocytes 1+ Schistocytes None seen PT 20.0 H (11.1-14.7) Seconds INR 1.7 APTT 27.8 (22.3-36.8) Seconds Sodium 143 (137-145) mmol/L Potassium 4.4 (3.4-5.0) mmol/L Chloride 104 (98-107) mmol/L Carbon Dioxide 29 (22-30) mmol/L Anion Gap 10 (4-12) mmol/L BUN 34 H (9-20) mg/dL Creatinine 1.67 H (0.7-1.3) mg/dL Estim Creat Clear Calc 47 ml/min Estimated GFR 41 L (59 - ) Glucose 134 H (65-110) mg/dL Calcium 9.1 (8.4-10.2) mg/dL Total Bilirubin 0.3 (0.2-1.3) mg/dL AST 19 (17-59) U/L ALT 15 (6-50) U/L Alkaline Phosphatase 81 (38-126) U/L Troponin I 0.013 (0.000-0.034) ng/mL NT-Pro-B Natriuret Pep 6260 H (19.9-100) pg/mL Total Protein 6.0 L (6.3-8.2) g/dL Albumin 3.9 (3.5-5.1) g/dL <Cristhian Fagan MD - Last Filed: 08/10/24 21:43> Imaging Data Radiologist's impression: Impressions Chest X-Ray 08/10/24 17:18 IMPRESSION: Left prominent bronchovascular markings which may indicate atelectasis versus pneumonia. Atelectatic changes in the right lung base with possible minimal effusion. <Cristhian Fagan MD - Last Filed: 08/10/24 21:43> Discharge Plan Discharge Clinical Impression: Anasarca, CHF (congestive heart failure), Hypoxia <Katelyn Marina PA-C - Last Filed: 08/10/24 16:57> Patient Disposition: Still a Patient <Katelyn Marina PA-C - Last Filed: 08/10/24 16:57> Condition: Serious <Katelyn Marina PA-C - Last Filed: 08/10/24 16:57> Patient Language: Taiwanese <Katelyn Marina PA-C - Last Filed: 08/10/24 16:57> Prescriptions: No Action albuterol sulfate 90 mcg/actuation HFA aerosol inhaler 2 puff inhalation QID PRN (Reason: shortness of breath or wheezing) Qty: 6.7 0RF warfarin 2 mg tablet 6 mg PO DAILY Qty: 90 0RF amiodarone 200 mg tablet 200 mg PO DAILY Qty: 30 0RF hydrochlorothiazide 50 mg tablet 50 mg PO DAILY tamsulosin 0.4 mg capsule 0.4 mg PO DAILY amlodipine 10 mg tablet 10 mg PO DAILY hydralazine 50 mg tablet 50 mg PO TID lisinopril 40 mg tablet 40 mg PO DAILY spironolactone 50 mg tablet 50 mg PO BID rosuvastatin 40 mg tablet 40 mg PO DAILY Jardiance 10 mg Tablet 10 mg PO DAILY (DME) blood-glucose meter [OneTouch Verio Flex meter] Misc See Rx Instructions .ROUTE .MEDSUPPLY Qty: 1 1RF Rx Instructions: accuchks tid glipizide 5 mg tablet 5 mg PO DAILY Qty: 90 1RF metformin 1,000 mg tablet 1,000 mg PO BID Qty: 180 1RF nebivolol 10 mg tablet 10 mg PO DAILY Qty: 90 1RF (DME) lancets Misc See Rx Instructions .ROUTE .MEDSUPPLY Qty: 100 0RF Rx Instructions: as directed to check blood sugar QD (DME) OneTouch Verio test strips Strip See Rx Instructions .ROUTE .MEDSUPPLY Qty: 100 3RF Rx Instructions: as directed to check blood sugar QD isosorbide mononitrate 60 mg tablet extended release 24 hr 60 mg PO BID Qty: 180 2RF gemfibrozil 600 mg tablet 600 mg PO BID Qty: 60 1RF <Katelyn Marina PA-C - Last Filed: 08/10/24 16:57> Follow-up/Referrals: Leonard Gillette MD [Primary Care Provider] - <Katelyn Marina PA-C - Last Filed: 08/10/24 16:57>
[2024-08-10 16:58] LABS: Basophils Percent Auto 0.6 % (0.2-1.2); Eosinophils Absolute Auto 0.1 K/mm3 (0-0.3); Eosinophils Percent Auto 2.3 % (0-4.4); Hematocrit 33.4 % (42.0-52.0); Hemoglobin 9.4 g/dL (14.0-18.0); Immature Granulocyte Absolute 0.01 K/mm3 (0.00-0.031); Immature Granulocyte Percent A 0.2 % (0-0.5); Lymphocytes Absolute Auto 1.87 K/mm3 (0.9-3.2); Lymphocytes Percent Auto 35.3 % (18.3-44.2); Mean Corpuscular HGB Conc 28.1 g/dl (32-36); Mean Corpuscular Volume 88.8 fl (80-100); Mean Platelet Volume 9.3 fl (7.4-10.4); Monocytes Absolute Auto 0.6 K/mm3 (0.1-0.6); Monocytes Percent Auto 11.5 % (2.6-8.5); Neutrophils Absolute Auto 2.7 K/mm3 (1.3-6.7); Neutrophils Percent Auto 50.1 % (45.5-73.1); Platelet Count Result 242 k/mm3 (150-375); Red Blood Count 3.76 M/mm3 (4.6-6.20); Red Cell Distribution Width 19.6 % (11.5-14.5); White Blood Count 5.3 K/mm3 (4.5-10.0)
[2024-08-10 17:10] LABS: Alanine Aminotransferase 15 U/L (6-50); Albumin Level 3.9 g/dL (3.5-5.1); Alkaline Phosphatase 81 U/L (38-126); Anion Gap 10 mmol/L (4-12); Aspartate Amino Transferase 19 U/L (17-59); Bilirubin,Total 0.3 mg/dL (0.2-1.3); Blood Urea Nitrogen 34 mg/dL (9-20); Calcium 9.1 mg/dL (8.4-10.2); Carbon Dioxide 29 mmol/L (22-30); Chloride 104 mmol/L (98-107); Estimated CRCL calculation 47 ml/min; Estimated Glomerular Filt Rate 41; Glucose 134 mg/dL (65-110); Potassium 4.4 mmol/L (3.4-5.0); Sodium 143 mmol/L (137-145)
[2024-08-10 17:11] VITALS: BP 128/67; PULSE 73; RESP 18; O2SAT 92
[2024-08-10 17:15] LABS: INR 1.7; Partial Thromboplastin Time 27.8 Seconds (22.3-36.8)
[2024-08-10 17:19] LABS: Hypochromasia 1+; Ovalocytes 1+; Platelet Estimate Adequate (Adequate); Schistocytes None Seen
[2024-08-10 17:21] LABS: Troponin I 0.013 ng/mL (0.000-0.034)
[2024-08-10 17:23] LABS: NT Pro B Type Natriuretic Pept 6260 pg/mL (19.9-100)
--- OUTSIDE RECORDS SUMMARY | 2024-08-10 18:35 | XMS_ITS | Clinical Summary ---
Author Organization [facility] Address [address] [place] [id number] Phone Care Team Providers Care Outsole Paraffiner Name Role Phone Faye Hector MD Primary Care Provider [phone] Allergies Active Allergy Reactions Criticality Noted Date [...] Sex Assigned at Male 02/15/2021 7:57 AM [facility] Legal Sex Male 11:14 AM MDT Gender Identity Male 02/15/2021 7:57 AM [facility] Sexual Orientation Straight 02/15/2021 7: 57 AM [facility] Last Filed Vital Signs Vital Sign Reading [...] Influenza Vaccine (Season Ended) 2024 Insurance MEDICARE [facility] [place] [id number] Care Teams Outsole Paraffiner Relationship Specialty Start Date End Date Faye Hector MD [address] [facility] [address] [place] [address] PCP - General Internal Medicine 08/28/20
--- OUTSIDE RECORDS SUMMARY | 2024-08-10 18:35 | XMS_ITS | Clinical Summary ---
Author Organization [facility] [address] [place] [address] Care Team Providers Care Underground Foreman Name Role Phone Faye Hector MD Primary Care Provider Александр Yu MD Unavailable [phone] Александр Landa MD Unavailable [phone] Allergies Active Allergy Reactions Criticality Noted Date Comments Penicillins Other (See comments) Mouth tingling 40 years ago Medications aspirin 81 mg chewable tabletIndications: Ischemic cardiomyopathy,His tory of coronary artery stent placement,Coronary artery disease involving [place] coronary artery of [place] heart, unspecified whether angina present,Hx of CABG Take 1 tablet (81 mg total) by mouth daily 03/15/20 24 025 Active gabapentin (NEURONTIN) 600 mg tabletIndications: Hx of CABG Take 1 tablet (600 mg total) by mouth 3 (three) times a day 03/15/20 24 Active rosuvastatin (CRESTOR) 40 mg tabletIndications: Ischemic cardiomyopathy,His tory of coronary artery stent placement,Coronary artery disease involving [place] coronary artery of [place] heart, unspecified whether angina present,Mixed hyperlipidemia Take [...] tabletIndications: Ischemic cardiomyopathy,Cor onary artery disease involving [place] coronary artery of [place] heart, unspecified whether angina present,Hx of CABG [...] concerns. Assessment & Plan (05/20/2024 2:00 PM PRE BILLING CLINICIAN): -Patient presents to clinic for a post [...] 04/05/2024 Assessment & Plan (05/04/2024 11:42 AM PRE BILLING CLINICIAN): Mild edema to BLE. Compression wraps ordered. Monitor. Assessment & Plan (04/16/2024 10:29 AM PRE BILLING CLINICIAN): Last TTE 03/14: 1. Grossly normal left ventricular systolic function based on limited views. Inadequate for detailed regional wall motion assessment. Ejection Fraction is estimated to be 60-70. Creatinine improved, 1.37 last night Resumed Lasix today Lymphedema wraps ordered on 04/02- completed Dobutamine discontinued 1/23/25 Metoprolol restarted 04/11, continue 6.25 BID Hyperkalemia 03/30/2024 Assessment & Plan (05/04/2024 11:42 AM PRE BILLING CLINICIAN): Chronic. Meds reviewed. K 5.5. Repeat labs 05/06. Assessment & Plan (04/27/2024 10:56 AM PRE BILLING CLINICIAN): Persistant 5.1. Meds reviewed. Routine monitoring. Assessment & Plan (04/20/2024 6:56 PM PRE BILLING CLINICIAN): Mild. Routine monitoring. Assessment & Plan (04/16/2024 10:24 AM PRE BILLING CLINICIAN): Monitor potassium daily with BMP K 5.1 this morning; whole K ordered-4.7 Continue diuresis as previously noted Holding all K supplementation Anemia 03/29/2024 Assessment & Plan (04/27/2024 10:57 AM PRE BILLING CLINICIAN): H&H low but stable. Routine monitioring. Assessment & Plan (04/16/2024 10:26 AM PRE BILLING CLINICIAN): To be expected following cardiac surgery Monitor daily CBC, Hgb stable @ 7.8 No active signs of bleeding Consider transfusion if Hgb <7 or if hemodynamically unstable Assessment & Plan (03/29/2024 5:32 PM PRE BILLING CLINICIAN): H&H down overnight Transfuse 2 units PRBC Trend CBC nightly CKD (chronic kidney disease) 03/26/2024 Assessment & Plan (04/27/2024 10:57 AM PRE BILLING CLINICIAN): Stable. Routine monitoring. Assessment & Plan (04/20/2024 10:45 AM PRE BILLING CLINICIAN): Follow up labs ordered. Assessment & Plan (04/16/2024 10:25 AM PRE BILLING CLINICIAN): CLINTON on CKD- initial Pre-op Creatinine 1.36 prior to 03/04 CABG Had worsening [place] in post op setting at [facility] Creatinine improved to 1.37 Continue daily Lasix LE edema improved Renally dose medications Avoid nephrotoxic agents Continue daily BMP monitoring Assessment & Plan (03/28/2024 11:44 AM PRE BILLING CLINICIAN): CLINTON on CKD- initial Pre-op Creatinine 1.36 prior to 03/04 CABG Had worsening CLINTON in post op setting at [facility] Furosemide 40mg po daily for increased fluid volume with significant BLE edema Creatinine up slightly to 1.62, will hold lasix tomorrow as pt will be NPO Avoid nephrotoxic agents Continue daily BMP monitoring Wound infection after surgery 03/24/2024 Assessment & Plan (05/14/2024 11:19 AM PRE BILLING CLINICIAN): Cefazolin to continue ID fu which is today. If DC will DC abc, DC PICC. Have communicated POC with ID & patient. Patient to perform wound care on his own or with family prior to discharge d/t no HH accepting yet. Assessment & Plan (05/04/2024 11:43 AM PRE BILLING CLINICIAN): Pls fu 05/07, ID 05/14. Continues on IV abx until ID fu. Assessment & Plan (04/29/2024 12:05 PM PRE BILLING CLINICIAN): Mild slough present to distal portion of abd incision. Have pictured & notified plastics. Continue dry dressing, wound RN following. Continue IV abx as ordered. Will fu with plastics 05/07. Assessment & Plan (04/27/2024 11:03 AM PRE BILLING CLINICIAN): PICC in place. Continue wound care, HAY[place] drains, IV abx, PT/OT. Has plastics fu 05/07 1115a & ID fu 05/14 2pm. IVs are to complete 05/11 at this time - confirming with ID abx should not end before ID appt. Have informed SS. Assessment & Plan (04/16/2024 10:21 AM PRE BILLING CLINICIAN): S/p sternal washout and debridement x 3 at [facility] Arrived to [facility] on 03/[address]. 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 BS are less than 180 consistently & not requiring SSI. DC SSI + Lantus. Resume Metformin 1000mg BID. Will need fu with PCP outpt for management. Assessment & Plan (05/10/2024 12:49 PM PRE BILLING CLINICIAN): Was not taking insulin at home. BS are less than 180 consistently & not requiring SSI. Will hold SSI + Lantus. Resume Metformin 1000mg BID. Will need fu with PCP outpt for management. Assessment & Plan (04/27/2024 11:03 AM PRE BILLING CLINICIAN): BS ranging 130-300; A1c 7. Currently taking Lantus 14u nightly + Lispro 8u TIDAC. Continue without changes, monitor clsoely for adjustment. Assessment & Plan (04/20/2024 10:45 AM PRE BILLING CLINICIAN): Follow up labs will be monitored. We will continue the scripting of insulin glargine and insulin lispro. Assessment & Plan (04/16/2024 10:24 AM PRE BILLING CLINICIAN): A1c 7.0% Was taking lantus/lispro prandial and slide prior to admission Home metformin held while inpatient Continue Blood glucose checks QID; POC 143-230 last 24 hours Carbohydrate consistent diet Continue Lantus and ACHS resistant Lispro SSI BG goal < 180; serum glucose 189 Assessment & Plan (03/28/2024 11:45 AM PRE BILLING CLINICIAN): A1c 7.0% Was taking lantus/lispro prandial and slide prior to admission Home metformin held while inpatient Continue Blood glucose checks QID Continue sliding scale insulin Carbohydrate consistent diet Encourage tight glucose control to facilitate postoperative healing Started lantus and scheduled lispro on 03/28, titrate up as needed Assessment & Plan (03/18/2024 12:35 PM PRE BILLING CLINICIAN): A1c 7. Not on insulin at home. Currently taking Lantus 15u daily + SSI + Metformin. BS 103-194. Will dc Lantus & monitor bs with SSI only Hx of CABG 03/15/2024 Assessment & Plan (05/10/2024 12:42 PM PRE BILLING CLINICIAN): FU PLS 05/07. HAYLEY drains reviewed. Patient [...] apt. Assessment & Plan (03/18/2024 12:37 PM PRE BILLING CLINICIAN): CTS fu. Continue [place] PRN + Tyl PRN for pain. Mucinex added for cough. Continue medical management & wound care. BP mildly elevated. No changes at this time but monitor for need to adjust. Mixed hyperlipidemia 03/15/2024 Assessment & Plan (04/20/2024 10:43 AM PRE BILLING CLINICIAN): This is chronic and stable. We will continue scripting rosuvastatin and dietary will follow Assessment & Plan (04/09/2024 8:10 AM PRE BILLING CLINICIAN): Continue Rosuvastatin 40mg po daily Heart healthy diet Assessment & Plan (03/27/2024 12:06 PM PRE BILLING CLINICIAN): Continue rosuvastatin 40mg po daily Heart healthy diet Benign prostatic hyperplasia 03/15/2024 Assessment & Plan (04/20/2024 10:45 AM PRE BILLING CLINICIAN): Continue tamsulosin Coronary artery disease invo lving [place] coronary artery of [place] heart, unspecified whether angina present 03/04/2024 Assessment & Plan (04/20/2024 10:45 AM PRE BILLING CLINICIAN): Continue scripting of metoprolol, continue aspirin 81 mg daily and rosuvastatin 40 mg daily Assessment & Plan (04/16/2024 10:25 AM PRE BILLING CLINICIAN): S/P CABG 03/04 Continue aspirin 81mg po daily Continue Rosuvastatin 40mg po daily Continue Metoprolol; titrate as tolerated Resume lasix 40 PO - Cr down 1.37 Assessment & Plan (03/27/2024 11:52 AM PRE BILLING CLINICIAN): S/P CABG 03/04 Continue aspirin 81mg po daily Continue metoprolol 25mg po BID Continue rosuvastatin 40mg po daily AROM/PROM Physical therapy/Occupational therapy Ischemic cardiomyopathy 02/06/2024 Assessment & Plan (04/20/2024 10:44 AM PRE BILLING CLINICIAN): Monitor vital signs. Continue metoprolol and rosuvastatin, we will continue furosemide 40 mg daily Essential hypertension 10/13/2020 Assessment & Plan (04/20/2024 10:44 AM PRE BILLING CLINICIAN): We will monitor vital signs for serial trending. Continue scripting furosemide and metoprolol. Assessment & Plan (04/13/2024 10:17 AM PRE BILLING CLINICIAN): Monitor vital signs q 4 hours Resume lasix 40 PO daily Continue metoprolol 6.25 BID, titrate as tolerated Low sodium diet Assessment & Plan (03/28/2024 11:45 AM PRE BILLING CLINICIAN): Monitor vital signs q 4 hours Continue metoprolol 25mg po BID Continue furosemide 40mg po daily- held 03/29 for procedure Persistent proteinuria 10/13/2020 Presence of coronary angioplasty implant and gra ft 07/27/2019 Atrial fibrillation Assessment & Plan (04/20/2024 10:45 AM PRE BILLING CLINICIAN): Monitor for evidence of RVR. Continue amiodarone 2 mg daily Assessment & Plan (04/13/2024 10:30 AM PRE BILLING CLINICIAN): Continue Amiodarone 200mg po daliy Restart eliquis 2.5 today Rate controlled atrial fibrillation/flutter with occasional PVCs 90's - 100's per continuous telemetry EKG today A flutter Assessment & Plan (03/28/2024 11:43 AM PRE BILLING CLINICIAN): Continue amiodarone 200mg po daliy Continue metoprolol 25mg po BID Holding Eliquis, last dose on 1/5 Heparin gtt- hold campaign consultant to OR 03/29 Rate controlled atrial fibrillation per continuous telemetry Resolved Problems Problem Noted Date Diagnosed Date Resolved Date Ileus 03/30/2024 04/08/2024 Assessment & Plan (04/05/2024 1:27 PM PRE BILLING CLINICIAN): 03/29 KUB: There is mild gaseous distention of the stomach and loops of small bowel, which may represent ileus in the postoperative setting. 03/31 CT C/A/P: Nondistended loops of bowels. No obstruction. Hold Oxycodone in setting of ileus Advance diet per Dr. Chand Now on regular diet Having BMs Bowel sounds today resolved Constipation 03/29/2024 03/30/2024 Assessment & Plan (04/03/2024 11:56 AM PRE BILLING CLINICIAN): Had bm yesterday Assessment & Plan (03/29/2024 5:25 PM PRE BILLING CLINICIAN): Increase bowel regimen Gave lactulose x 1 now, suppository Check KUB Sternal wound infection 03/24/2024 02/0 06/2024 Overview (03/30/2024): Mr Mason is a 73 year old gentleman with with T2DM, HTN, Afib, recent CABG on 03/04, presented to [facility] on 03/22 with sternal wound dehiscence and purulent discharge, s/p sternal wound exploration with wire removal 03/22 with cultures positive for MSSE, transferred to [facility] for flap coverage and possible sternectomy. - OR at [facility]: 03/23 for sternal washout, sternal bone debridement [...] far Assessment & Plan (04/20/2024 10:46 AM PRE BILLING CLINICIAN): After successful inpatient treatment continue cefazolin 2 g IV every 8 hours through May 11. He will follow up with the Infectious Disease. Assessment & Plan (04/16/2024 10:22 AM PRE BILLING CLINICIAN): S/P irrigation and culture sternal wound 24 [...] (03/29-05/10) Assessment & Plan (04/09/2024 4:15 PM PRE BILLING CLINICIAN): - Has been afebrile, WBC normalized - [...] PNA. Assessment & Plan (03/29/2024 5:16 PM PRE BILLING CLINICIAN): S/P irrigation and culture sternal wound 24 [...] 04/20/2024 Assessment & Plan (04/10/2024 11:56 AM PRE BILLING CLINICIAN): S/P irrigation and culture sternal wound 24 x 11 x 6 cm cubed with wound vac exchange 03/26/24 per Plastic and Reconstructive Surgery S/p wound debridement an muscle flap closure 03/29 Negative pressure therapy to wound with dressing changes per Plastic and Reconstructive Surgery 03/26 OR culture results-+ staph epi, fungal culture negative Assessment & Plan (03/29/2024 5:16 PM PRE BILLING CLINICIAN): S/P irrigation and culture sternal wound 24 [...] Department Care Team Description 07/29/2024 Anticoagulation Visit [facility] Cardiology [address] [facility] [address] [place] [phone] Erin Elena RN 07/27/2024 3:30 PM CDT Office Visit [facility] Surgery [address] [place] [address] 6th [place] [address] [place] [phone] Rea Chand MD PhD Sternal wound infection (Primary Dx) 07/12/2024 Telephone Cardiovascular and Thoracic Surgery [address] [place] [address] [address] [place] [address] Windy Valdez, RN status report 07/12/2024 Telephone Cardiovascular and Thoracic Surgery [facility] [address] [place] [address] Windy Valdez, RN Scheduling Appointments 07/09/2024 2:45 PM CDT Office Visit [facility] Surgery [address] [facility] [facility] 6th [place] [address] Rea Chand MD PhD Sternal wound infection (Primary Dx) 07/06/2024 Telephone [facility] Surgery [address] [place] [phone] Sophie Bhagat CMA Scheduling Appointments 06/29/2024 Anticoagulation Visit [facility] Cardiology [address] [place] [phone] Nancy Nathan RN 06/22/2024 4:00 PM CDT Office Visit [facility] Surgery [facility] [address] [place] [phone] Rea Chand MD PhD Sternal wound infection (Primary Dx) 06/21/2024 Results Follow-Up [facility] Infectious Diseases [address] [place] [phone] Ana M Cardenas NP Aerobic and anaerobic culture and gram stain Abscess Abdominal, right lower quadrant 06/11/2024 5:52 PM CDT - 06/11/2024 11:59 PM CDT Hospital Encounter [facility] [address] [place] [address] Sternal wound infection Discharge Disposition: Discharge to home or self care 06/11/2024 2:20 PM CDT Office Visit [facility] Infectious Diseases [address] [phone] Ana M Cardenas NP Sternal wound infection (Primary Dx) 06/08/2024 3:45 PM CDT Office Visit [facility] Surgery [address] [place] [address] [place] [phone] Rea Chand MD PhD Sternal wound infection (Primary Dx) 06/04/2024 Telephone Cardiovascular and Thoracic Surgery [address] [facility] [address] [place] [address] Александр Landa MD Post-op 05/31/2024 Telephone [facility] Cardiology [address] [facility] [address] [place] [address] Александр Yu MD 05/31/2024 Anticoagulation Visit [facility]iology [address] [facility] [address] [place] [address] Nancy Nathan, PALLAVI 05/28/2024 Orders Only [facility] Infectious Diseases [address] [facility] [address] [place] [phone] Ana M Cardenas NP 05/25/2024 1:15 PM CDT Office Visit [facility] Surgery [address] [facility] 6th [place] [address] [place] [phone] Rea Chand MD PhD Sternal wound infection (Primary Dx); Wound infection after surgery 05/19/2024 Documentation [facility] Infectious Diseases [address] [facility] [address] [place] [phone] Ana M Cardenas NP 05/18/2024 Telephone [facility] Infectious Diseases [address] [facility] [address] [place] [phone] Rahel Garcia CMA 05/17/2024 1:00 PM PRE BILLING CLINICIAN Office Visit [facility] Cardiology at [address] [place] [phone] Александр Yu MD Ischemic cardiomyopathy (Primary Dx); Coronary artery disease involving [place] coronary artery of [place] heart, unspecified whether angina present; Hx of CABG; Presence of coronary angioplasty implant and graft; Other thrombophilia 05/17/2024 Anticoagulation Visit [facility] Cardiology [address] [facility] [address] [place] [address] Nancy Nathan, PALLAVI 05/17/2024 Telephone [facility] Cardiology [address] [facility] [address] [place] [phone] Александр Yu MD 05/17/2024 Telephone [facility] Post Acute Care [address] [facility] [address] [place] [phone] Polina Hutton MA 05/17/2024 Orders Only [facility] Infectious Diseases [address] [facility] [address] [place] [address] Ana M Cardenas NP 05/14/2024 5:32 PM PRE BILLING CLINICIAN - 05/14/2024 11:59 PM PRE BILLING CLINICIAN Hospital Encounter [facility] [address] [place] [address] Sternal wound infection Discharge Disposition: Discharge to home or self care 05/14/2024 2:00 PM PRE BILLING CLINICIAN Office Visit [facility] Infectious Diseases [address] [facility] [address] [place] [address] Ana M Cardenas NP Encounter for screening examination for sexually transmitted infection (Primary Dx); Sternal wound infection; Bacteremia 05/14/2024 Documentation [facility] Infectious Diseases [address] [place] [phone] Maria A De La Vega RN 05/14/2024 NH/SNF Visit [facility] Post Acute Care [address] [phone] Lali Reveles NP Wound infection after surgery (Primary Dx); Hx of CABG; Ischemic cardiomyopathy; Coronary artery disease involving [place] coronary artery of [place] heart, unspecified whether angina present; Type 2 diabetes mellitus without complication, without long-term current use of insulin ([facility]) 05/13/2024 Telephone [facility] [address] [facility] [address] [place] [address] Nusrat Field from Last 3 [...] drink = 0.6 oz pur e alcohol) [facility] [employer] Answer Date Recorded In the past 12 months has [employer], gas, oil, or water [employer] threatened to shut off services in your [...] often do you attend chur ch or faith services? Never 03/26/2024 Do you belong to any clubs o r organizations such as buddhist groups, unions, fraternal or athletic groups, or [...] any time in the past 12 m [facility], were you homeless or living in a long term (including now)? No 03/26/2024 Personal Safety Answer Date Recorded Have you ever been in or are you currently in a harmful physical or emotional relationship or is someone making you feel afraid or unsafe? Denies 03/29/2024 Sex and Gender Information Value Date Recorded Sex Assigned at Not on file Legal Sex Male 2:38 AM PRE BILLING CLINICIAN Gender Identity Male 07/27/2019 7:12 PM CDT Sexual Orientation Straight 07/27/2019 7: 12 PM CDT Obstetrics History Last Filed Vital Signs Vital Sign Reading Time Taken Comments Blood Pressure 108/68 06/11/2024 2:26 PM CDT Pulse 96 06/11/2024 2:26 PM CDT Temperature 36.8 C (98.3 F) 06/11/2024 2:26 PM CDT Respiratory Rate 18 04/20/2024 10:4 0 AM PRE BILLING CLINICIAN Oxygen Saturation 91% 06/11/2024 2:26 PM CDT [...] anticoagulation ELECTROCARDIOGRAM REPORT Routine 05/17/2024 8:46 AM PRE BILLING CLINICIAN Ischemic cardiomyopathy EGFR Routine 05/14/2024 3:34 PM PRE BILLING CLINICIAN Sternal wound infection DIFFERENTIAL AUTO Routine 05/14/2024 3:34 PM PRE BILLING CLINICIAN Sternal wound infection COMPREHENSIVE METABOLIC PANEL WITHOUT GLUCOSE (OUTREACH) Routine 05/14/2024 3:34 PM PRE BILLING CLINICIAN Sternal wound infection CBC WITH AUTO DIFFERENTIAL Routine 05/14/2024 3:34 PM PRE BILLING CLINICIAN Sternal wound infection COMPREHENSIVE METABOLIC PANEL (OUTREACH) Routine 05/14/2024 3:34 PM PRE BILLING CLINICIAN Sternal wound infection CRP (ACUTE PHASE) Routine 05/14/2024 3:34 PM PRE BILLING CLINICIAN Sternal wound infection ERYTHROCYTE SEDIMENTATION RATE Routine 05/14/2024 3:34 PM PRE BILLING CLINICIAN Sternal wound infection AEROBIC AND ANAEROBIC CULTURE AND GRAM STAIN Routine 05/14/2024 3:07 PM PRE BILLING CLINICIAN Sternal wound infection CT CHEST ABDOMEN PELVIS WO CONTRAST ED Urgent/IP Urgent 04/01/2024 10:29 AM PRE BILLING CLINICIAN HEMOGLOBIN A1C Routine 03/24/2024 9:26 PM PRE BILLING CLINICIAN LIPID PANEL Routine 03/24/2024 9:26 PM PRE BILLING CLINICIAN from Last 3 Months or Most Recently Relevant to Health Maintenance Results * (ABNORMAL) Protime-INR (07/28/2024 12:00 PM CDT) INR 1.9(H) [facility] Comment: Reference Range 0.9-1.1 Moderate-intensity Warfarin Therapy 2.0-3.0 Higher-intensity Warfarin Therapy 3.0-4.0 PT 19.4(H) 9.0 - 11.5 sec [facility] Comment: For additional information, please refer to http://[employer]/faq/BWM305 (This link is being provided for informational/ educational purposes only.) Blood 07/28/2024 12:0 0 PM CDT 07/28/2024 12:00 PM CDT us Александр Yu MD LAB BLOOD ORDERABLES Fin al [facility] [address] [place] [address] * (ABNORMAL) Protime-INR (06/28/2024 11:39 AM CDT) INR 1.3(H) [facility] Comment: Reference Range 0.9-1.1 Moderate-intensity Warfarin Therapy 2.0-3.0 Higher-intensity Warfarin Therapy 3.0-4.0 PT 13.6(H) 9.0 - 11.5 sec [facility] Comment: For additional information, please refer to http://[employer]/faq/AXO718 (This link is being provided for informational/ educational purposes only.) Blood 06/28/2024 11:3 9 AM CDT 06/28/2024 11:39 AM CDT us Александр Yu MD LAB BLOOD ORDERABLES Fin al Result Performing Organization Address City/[facility]/ZIP Co de Phone Number [facility] [address] [place] [address] * Glucose, random (Outreach) (06/11/2024 3:19 PM [...] BLOOD ORDERABLES Final Result Performing Organization Address [facility] Co de Phone Number [facility] Department [place] [address] * (ABNORMAL) eGFR (06/11/2024 3:19 PM CDT) [...] Cardenas NP LAB BLOOD ORDERABLES Final Result [facility] Department [place] [address] * Differential, auto (06/11/2024 3:19 PM CDT) Neutrophil abs 3.1 1.5 - 6.5 K/cumm Imm gran abs 0.0 0.0 - 0.1 K/cumm [facility] Lymphocyte abs 2.3 0.8 - 3.3 K/cumm [facility] Monocyte abs 0.7 0.2 - 0.8 K/cumm [facility] Eosinophil abs 0.2 0.0 - 0.5 K/cumm [facility] Basophil abs 0.0 0.0 - 0.1 K/cumm [facility] Neutrophil pct 49.4 % [facility] Comment: Interpretive Data Percent cell count reference ranges are not reported, since discordance with absolute values may lead to misinterpretation of CBC data. Current Interpretive Data was last revised on 2017. Imm gran pct 0.2 % [facility] Comment: Interpretive Data Percent cell count reference ranges are not reported, since discordance with absolute values may lead to misinterpretation of CBC data. Current Interpretive Data was last revised on 2017. Lymphocyte pct 35.5 % [facility] Comment: Interpretive Data Percent cell count reference ranges are not reported, since discordance with absolute values may lead to misinterpretation of CBC data. Current Interpretive Data was last revised on 2017. Monocyte pct 10.9 % [facility] Comment: Interpretive Data Percent cell count reference ranges are not reported, since discordance with absolute values may lead to misinterpretation of CBC data. Current Interpretive Data was last revised on 2017. Eosinophil pct 3.5 % [facility] Comment: Interpretive Data Percent cell count reference ranges are not reported, since discordance with absolute values may lead to misinterpretation of CBC data. Current Interpretive Data was last revised on 2017. Basophil pct 0.5 % [facility] Comment: Interpretive Data Percent cell count reference ranges are not reported, since discordance with absolute values may lead to misinterpretation of CBC data. Current Interpretive Data was last revised on 2017. Blood 06/11/2024 3:19 PM CDT 06/11/2024 7:01 PM CDT Ana M Cardenas SPECIAL EDUCATION DIRECTOR LAB BLOOD ORDERABLES Final Result [facility] Department [place] [address] * (ABNORMAL) Comprehensive metabolic panel, without glucose (Outreach) (06/11/2024 3:19 PM CDT) Sodium 142 135 - 145 mmol/L Potassium, pl 4.9 3.3 - 4.9 mmol/L [facility] Chloride 102 97 - 110 mmol/L [facility] CO2 27 22 - 32 mmol/L [facility] Anion gap 13 2 - 15 mmol/L [facility] BUN 34(H) 6 - 25 mg/dL [facility] Creatinine 1.81(H) 0.80 - 1.30 mg/dL [facility] Calcium 9.7 8.5 - 10.3 mg/dL [facility] Protein, pl 7.0 6.5 - 8.5 g/dL [facility] Albumin 4.0 3.5 - 5.0 g/dL [facility] Bilirubin, total 0.2 0.1 - 1.2 mg/dL [facility] Alk phos 76 40 - 130 Units/L [facility] AST 9(L) 10 - 50 Units/L [facility] ALT 10 7 - 55 Units/L [facility] Blood 06/11/2024 3:19 PM CDT 06/11/2024 7:01 PM CDT Ana M Cardenas NP LAB BLOOD ORDERABLES Final Result Performing Organization Address City/[facility]/ZIP Co de Phone Number [facility] Department [place] [address] * (ABNORMAL) CBC with auto differential (06/11/2024 3:19 PM CDT) [facility] WBC 6.3 3.8 - 9.9 K/cumm Hgb 9.0(L) 13.0 - 17.5 g/dL [facility] Hct 31.5(L) 38.9 - 50.3 % [facility] Plt 281 150 - 400 K/cumm [facility] MPV 10.1 9.1 - 12.3 fL [facility] RBC 3.57(L) 4.30 - 5.80 M/cumm [facility] MCV 88.2 81.3 - 96.4 fL [facility] MCH 25.2(L) 27.1 - 33.3 pg [facility] MCHC 28.6(L) 32.3 - 35.7 g/dL [facility] RDW CV 15.7(H) 11.1 - 14.9 % [facility] RDW SD 51.1(H) 35.7 - 48.1 fL [facility] NRBC abs 0.00 0.00 - 0.01 K/cumm [facility] Blood 06/11/2024 3:19 PM CDT 06/11/2024 7:01 PM CDT Ana M Cardenas NP LAB BLOOD ORDERABLES Final Result [facility] Department [place] [address] * (ABNORMAL) Erythrocyte sedimentation rate (06/11/2024 3:19 PM CDT) Pathologist [facility] Erythrocyte sedimentation rate 43(H) 1 - 20 mm/hr Blood 06/11/2024 3:19 PM CDT 06/11/2024 7:01 PM CDT Ana M Cardenas NP LAB BLOOD ORDERABLES Final Result Performing Organization Address City/[facility]/[place] [address] * (ABNORMAL) CRP (acute phase) (06/11/2024 3:19 PM CDT) Pathologist [facility] CRP 34.8(H) <=10.0 mg/L Blood 06/11/2024 3:19 PM CDT 06/11/2024 7:01 PM CDT Ana M Cardenas NP LAB BLOOD ORDERABLES Final Result Performing Organization Address [facility] [place] [address] * Aerobic and anaerobic culture and gram stain Abscess Abdominal, right lower quadrant (06/11/2024 2:42 PM CDT) Pathologist [facility] Direct Specimen Exam Stain: Rare polymorphonuclear leukocytes seen. No organisms seen. Report Final Report: No growth [facility] Abscess (Abdominal, right lower quadrant) 06/11/2024 2:42 PM CDT 06/11/2024 6:55 PM CDT Narrative [facility] - 06/15/2024 10:18 AM CDT Specimen received on an ESwab. Testing performed by [facility] ([phone]) Specimens submitted from normally sterile body sites [...] GENERAL ORDERABLES Final Result Performing Organization Address [facility] de Phone Number KRISTA ANN [facility] Department [place] [address] * (ABNORMAL) Protime-INR (05/28/2024 11:51 AM CDT) INR 1.9(H) [employer] Comment: Reference Range 0.9-1.1 Moderate-intensity Warfarin Therapy 2.0-3.0 Higher-intensity Warfarin Therapy 3.0-4.0 PT 19.9(H) 9.0 - 11.5 sec [employer] driving schoolBradley Rossi Comment: For additional information, please refer to http://education.[employer].com/faq/YRV848 (This link is being provided for informational/ educational purposes only.) Blood 05/28/2024 11:5 1 AM CDT 05/28/2024 11:52 AM CDT Александр Yu MD LAB BLOOD ORDERABLES Fin al Result Performing Organization Address [facility] de Phone Number [facility] [address] [place] [address] * Electrocardiogram Report (05/17/2024 8:46 AM PRE BILLING CLINICIAN) Александр Yu MD ECG ORDERABLES Final Re sult * eGFR (05/14/2024 3:34 PM PRE BILLING CLINICIAN) eGFR 82 >=60 mL/min/1. 73 m2 Comment: [...] last reviewed 2021. Blood 05/14/2024 3:34 PM PRE BILLING CLINICIAN 05/14/2024 6:23 PM PRE BILLING CLINICIAN Ana M Cardenas NP LAB BLOOD ORDERABLES Final Result [facility] Department [place] [address] * Differential, auto (05/14/2024 3:34 PM PRE BILLING CLINICIAN) Neutrophil abs 4.7 1.5 - 6.5 K/cumm Imm gran abs 0.0 0.0 - 0.1 K/cumm [facility] Lymphocyte abs 2.4 0.8 - 3.3 K/cumm [facility] Monocyte abs 0.7 0.2 - 0.8 K/cumm [facility] Eosinophil abs 0.2 0.0 - 0.5 K/cumm [facility] Basophil abs 0.0 0.0 - 0.1 K/cumm [facility] Neutrophil pct 58.5 % [facility] Comment: Interpretive Data Percent cell count reference ranges are not reported, since discordance with absolute values may lead to misinterpretation of CBC data. Current Interpretive Data was last revised on 2017. Imm gran pct 0.2 % [facility] Comment: Interpretive Data Percent cell count reference ranges are not reported, since discordance with absolute values may lead to misinterpretation of CBC data. Current Interpretive Data was last revised on 2017. Lymphocyte pct 29.6 % [facility] Comment: Interpretive Data Percent cell count reference ranges are not reported, since discordance with absolute values may lead to misinterpretation of CBC data. Current Interpretive Data was last revised on 2017. Monocyte pct 8.8 % [facility] Comment: Interpretive Data Percent cell count reference ranges are not reported, since discordance with absolute values may lead to misinterpretation of CBC data. Current Interpretive Data was last revised on 2017. Eosinophil pct 2.7 % [facility] Comment: Interpretive Data Percent cell count reference ranges are not reported, since discordance with absolute values may lead to misinterpretation of CBC data. Current Interpretive Data was last revised on 2017. Basophil pct 0.2 % [facility] Comment: Interpretive Data Percent cell count reference ranges are not reported, since discordance with absolute values may lead to misinterpretation of CBC data. Current Interpretive Data was last revised on 2017. Blood 05/14/2024 3:34 PM PRE BILLING CLINICIAN 05/14/2024 6:04 PM PRE BILLING CLINICIAN Ana M Cardenas NP LAB BLOOD ORDERABLES Final Result [facility] Department [place] [address] * (ABNORMAL) Comprehensive metabolic panel, without glucose (Outreach) (05/14/2024 3:34 PM PRE BILLING CLINICIAN) Sodium 141 135 - 145 mmol/L Potassium, pl 5.5(H) 3.3 - 4.9 mmol/L [facility] Chloride 103 97 - 110 mmol/L [facility] CO2 28 22 - 32 mmol/L [facility] Anion gap 10 2 - 15 mmol/L [facility] BUN 47(H) 6 - 25 mg/dL [facility] Creatinine 0.98 0.80 - 1.30 mg/dL [facility] Calcium 9.0 8.5 - 10.3 mg/dL [facility] Protein, pl 6.1(L) 6.5 - 8.5 g/dL [facility] Albumin 3.2(L) 3.5 - 5.0 g/dL [facility] Bilirubin, total 0.2 0.1 - 1.2 mg/dL [facility] Comment:Reviewed Alk phos 105 40 - 130 Units/L [facility] AST 14 10 - 50 Units/L [facility] ALT 11 7 - 55 Units/L [facility] Blood 05/14/2024 3:34 PM PRE BILLING CLINICIAN 05/14/2024 6:04 PM PRE BILLING CLINICIAN Ana M Cardenas SPECIAL EDUCATION DIRECTOR LAB BLOOD ORDERABLES Final Result [facility] Department [place] [address] * (ABNORMAL) CBC with auto differential (05/14/2024 3:34 PM PRE BILLING CLINICIAN) [facility] WBC 8.0 3.8 - 9.9 K/cumm Hgb 8.8(L) 13.0 - 17.5 g/dL [facility] Hct 31.4(L) 38.9 - 50.3 % [facility] Plt 351 150 - 400 K/cumm [facility] MPV 10.2 9.1 - 12.3 fL [facility] RBC 3.43(L) 4.30 - 5.80 M/cumm [facility] MCV 91.5 81.3 - 96.4 fL [facility] MCH 25.7(L) 27.1 - 33.3 pg [facility] MCHC 28.0(L) 32.3 - 35.7 g/dL [facility] RDW CV 15.3(H) 11.1 - 14.9 % [facility] RDW SD 51.2(H) 35.7 - 48.1 fL [facility] NRBC abs 0.00 0.00 - 0.01 K/cumm [facility] Blood 05/14/2024 3:34 PM PRE BILLING CLINICIAN 05/14/2024 6:04 PM PRE BILLING CLINICIAN us Ana M Cardenas NP LAB BLOOD ORDERABLES Final Result Performing Organization Address [facility] Co [place] [address] * (ABNORMAL) Erythrocyte sedimentation rate (05/14/2024 3:34 PM PRE BILLING CLINICIAN) Erythrocyte sedimentation rate 44(H) 1 - 20 mm/hr Blood 05/14/2024 3:34 PM PRE BILLING CLINICIAN 05/14/2024 6:04 PM PRE BILLING CLINICIAN Ana M Cardenas NP LAB BLOOD ORDERABLES Final Result Performing Organization Address [facility] [place] [address] * (ABNORMAL) CRP (acute phase) (05/14/2024 3:34 PM PRE BILLING CLINICIAN) Pathologist [facility] CRP 16.6(H) <=10.0 mg/L Blood 05/14/2024 3:34 PM PRE BILLING CLINICIAN 05/14/2024 6:04 PM PRE BILLING CLINICIAN Ana M Cardenas NP LAB BLOOD ORDERABLES Final Result Performing Organization Address [facility] [place] [address] * (ABNORMAL) Aerobic and anaerobic culture and gram stain Wound Sternum (05/14/2024 3:07 PM PRE BILLING CLINICIAN) Direct Specimen Exam Stain: Moderate polymorphonuclear leukocytes seen. No organisms seen. Report Final Report: Moderate Pseudomonas aeruginosa Additional susceptibilities performed on: Pseudomonas aeruginosa Antimicrobial: Delafloxacin Interpretation: Susceptible Moderate Pseudomonas aeruginosa #2 Additional susceptibilities performed on: Pseudomonas aeruginosa #2 Antimicrobial: Delafloxacin Interpretation: Susceptible (.) [facility] Organism PSEUDOMONAS AERUGINOSA [facility] Organism PSEUDOMONAS AERUGINOSA [facility] Wound (Sternum) 05/14/2024 3 :07 PM PRE BILLING CLINICIAN 05/14/2024 6:22 PM PRE BILLING CLINICIAN Narrative [facility] - 05/21/2024 2:38 PM PRE BILLING CLINICIAN Specimen received on an ESwab. Testing performed by [facility] ([phone]) Specimens submitted from normally sterile body sites [...] LAB MICROBIOLOGY - GENERAL ORDERABLES Final Result [facility] Department [place] [address] * CT Chest Abdomen Pelvis WO Contrast (04/01/2024 10:29 AM PRE BILLING CLINICIAN) Anatomical Region Laterality Modality Body N/A Computed Tomogra phy 04/01/2024 11:5 7 AM PRE BILLING CLINICIAN Impressions 04/01/2024 12:04 PM PRE BILLING CLINICIAN 1. Extensive gas throughout the anterior chest wall with drainage catheters in place, most likely postoperative. 2. Nondistended loops of bowels. No obstruction. Dictated by: Ruddy Weston MD The radiology attending physician has personally reviewed this study, and had reviewed and/or edited this written report and agrees with it. Electronically signed by: Nimco Herring M.D. Narrative 04/01/2024 12:04 PM PRE BILLING CLINICIAN EXAMINATION: Computed tomography of the chest, abdomen [...] signed by: Nimco Herring M.D. Linsey Roger SPECIAL EDUCATION DIRECTOR IMG CT PROCEDURES Final Resu lt * (ABNORMAL) Hemoglobin A1c (03/24/2024 9:26 PM PRE BILLING CLINICIAN) Pathologist [facility] Hgb A1C 7.0(H) 4.0 - 5.6 % Estimated Average Glucose 154 mg/dL [facility] Comment: The ADA recommends reporting an estimated Average Glucose (eAG) with all Hemoglobin A1c results using the equation derived from a study of 507 normal and diabetic adults. Minority populations were underrepresented and children were not included. (Diabetes Care 2020; 43(S1): S66-S76). The eAG is not equivalent to a fasting glucose. Blood 03/24/2024 9:26 PM PRE BILLING CLINICIAN 03/24/2024 9:41 PM PRE BILLING CLINICIAN Narrative [facility] - 03/24/2024 10:40 PM PRE BILLING CLINICIAN Indication for repeat testing:->Health monitoring Allie Bhatti NP LAB BLOOD ORDERABLES Final Result [facility] Department [place] [address] * (ABNORMAL) Lipid panel (03/24/2024 9:26 PM PRE BILLING CLINICIAN) Pathologist [facility] Cholesterol 83 30 - 199 mg/dL Comment: [...] revised on 2017. Triglycerides 206(H) <=149 mg/dL [facility] Comment: Interpretive Data Ages < [...] revised on 2017. HDL 21(L) >=40 mg/dL [facility] Comment: Interpretive Data Ages < [...] on 2017. LDL, calculated 29 <=129 mg/dL [facility] Comment: Interpretive Data Ages < [...] revised on 2023. Non-HDL Cholesterol 62 mg/dL [facility] Comment: Interpretive Data Ages < [...] last revised on 2017. Chol/HDL ratio 4 [facility] Blood 03/24/2024 9:26 PM PRE BILLING CLINICIAN 03/24/2024 9:42 PM PRE BILLING CLINICIAN us Allie Bhatti SPECIAL EDUCATION DIRECTOR LAB BLOOD ORDERABLES Final Result [facility] [place] [address] from Last 3 Months or Most Recently Relevant to Health Maintenance Insurance [facility] MEDICARE ADVANTAGE [employer] MEDICARE ADVANTAGE Advance Directives For more information, please contact: [phone] Documents on File Type Date Recorded Patient Hand Turner Expl anation ADVANCE DIRECTIVE 03/26/2024 3:48 PM POLST * Full Code (Latest Code Status on File) Date Activated Date Inactivated Comments 03/24/2024 9:07 PM 04/17/2024 9:51 PM * Full Code Date Activated Date Inactivated Comments 03/22/2024 1:54 PM 03/24/2024 9:00 PM * Full Code Date Activated Date Inactivated Comments 03/04/2024 1:45 PM 03/14/2024 7:00 PM Care Teams Underground Foreman Relationship Specialty Start Date End Date Faye Hector MD [address] [place] [address] PCP - General Family Medicine 07/26/19 Александр Yu MD [address] [place] [address] Referring Physician Cardiology 02/09/24 Александр Landa MD [address] [facility] [address] [place] [address] Consulting Physician Cardiothoracic Surgery 02/09/24
--- OUTSIDE RECORDS SUMMARY | 2024-08-10 18:35 | XMS_ITS | Encounter Summary ---
Author Organization [facility] Address [address] [place] [address] Phone Care Team Providers Care Fish Stringer Assembler Name Role Phone Faye Hector MD Primary Care Provider Александр Yu MD Unavailable [phone] Александр Landa MD Unavailable [phone] Encounter Details Date Type Department Care Team (Late st Contact Info) Description 06/21/2024 Results Follow-Up [facility] Infectious Diseases [address] [place] [phone] Ana M Cardenas, GWEN [address] [place] [address] Aerobic and anaerobic culture and gram stain Abscess Abdominal, right lower quadrant Social History Tobacco Use Types Packs/Day Years Used Date Smoking Tobacco: Former Cigarettes 2 44 1 971 - 2015 Smokeless Tobacco: Never Alcohol Use Standard Drinks/Week Comments Yes 0 (1 standard drink = 0.6 oz pur e alcohol) [facility] Utilities Answer Date Recorded In the past 12 months has [employer], gas, oil, or water company threatened [...] often do you attend chur ch or rastafarian services? 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 Gender Identity Male 07/27/2019 7:12 PM CDT Sexual Orientation Straight 07/27/2019 7: 12 PM CDT documented as of this encounter Plan of Treatment Not on file documented as of this encounter Visit Diagnoses Not on filedocumented in this encounter Care Teams Fish Stringer Assembler Relationship Specialty Start Date End Date Faye Hector MD [address] [place] [address] PCP - General Family Medicine 07/26/19 Александр Yu MD [address] [place] [address] Referring Physician Cardiology 02/09/24 Александр Landa MD [address] [facility] [address] [place] [address] Consulting Physician Cardiothoracic Surgery 02/09/24 documented as of this encounter
--- OUTSIDE RECORDS SUMMARY | 2024-08-10 18:35 | XMS_ITS | Continuity of Care Document ---
Author Name [facility] Organization [facility] Care Team Providers Care Returned Goods Sorter Name Role Phone [facility] Unavailable Unavailable Encounters Combined list of: 1) Encounters from [facility] facilities going backup to the last 18 months, not all [facility] inpatient encounters are included; 2) Encounters from the Department of [employer] facilities going backup to 280 months. Location Location Details Encounter Type Encounter Number Reason For Visit Attending Provider ADM Date DC Date Status Disposition Source [facility] Outpatient Encounter [id number] 2 08/26 [facility] [place]
--- OUTSIDE RECORDS SUMMARY | 2024-08-10 18:35 | XMS_ITS | Referral Summary ---
Author Organization [facility] [address] [place] [address] 162 [address] [place] [address] Care Team Providers Care Head Tennis Professional Name Role Phone Faye Hector MD Primary Care Provider Александр Yu MD Unavailable [phone] Александр Landa MD Unavailable [phone] Encounters Date Type Department Care Team Description 07/29/2024 Anticoagulation Visit [facility] Cardiology [address] [place] [address] [address] [place] [address] Erin Elena RN 07/27/2024 3:30 PM CDT Office Visit [facility] Surgery [address] [place] [address] 6th [place] [address] Rea Chand MD PhD Sternal wound infection (Primary Dx) 07/12/2024 Telephone Cardiovascular and Thoracic Surgery [address] [place] [address] [place] [phone] Windy Valdez, RN status report 07/12/2024 Telephone Cardiovascular and Thoracic Surgery [address] [place] [address] [place] [phone] Windy Valdez, RN Scheduling Appointments 07/09/2024 2:45 PM CDT Office Visit [facility] Surgery [address] [place] [address] 6th [place] [phone] Rea Chand MD PhD Sternal wound infection (Primary Dx) 07/06/2024 Telephone [facility] Surgery [address] [facility] 6th [place] [phone] Sophie Bhagat CMA Scheduling Appointments 06/29/2024 Anticoagulation Visit [facility] Cardiology [address] [place] [address] [place] [phone] Nancy Nathan RN 06/22/2024 4:00 PM CDT Office Visit [facility] Surgery [address] [place] [address] 6th [place] [phone] Rea Chand MD PhD Sternal wound infection (Primary Dx) 06/21/2024 Results Follow-Up [facility] Infectious Diseases [address] [place] [address] [place] [phone] Ana M Cardenas NP Aerobic and anaerobic culture and gram stain Abscess Abdominal, right lower quadrant 06/11/2024 5:52 PM CDT - 06/11/2024 11:59 PM CDT Hospital Encounter [address] [address] Sternal wound infection Discharge Disposition: Discharge to home or self care 06/11/2024 2:20 PM CDT Office Visit [facility] Infectious Diseases [address] [place] [address] [place] [phone] Ana M Cardenas NP Sternal wound infection (Primary Dx) 06/08/2024 3:45 PM CDT Office Visit [facility] Surgery [facility] 6th [place] [phone] Rea Chand MD PhD Sternal wound infection (Primary Dx) 06/04/2024 Telephone Cardiovascular and Thoracic Surgery [address] [facility] [address] [place] [address] Александр Landa MD Post-op 05/31/2024 Telephone [facility] Medical [facility] Cardiology [address] [facility] [address] [place] [address] Александр Yu MD 05/31/2024 Anticoagulation Visit [facility] Cardiology [address] [facility] [address], [place] [address] Nancy Nathan, PALLAVI 05/28/2024 Orders Only [facility] Infectious Diseases [address] [facility] [address] [place] [address] Ana M Cardenas NP 05/25/2024 1:15 PM CDT Office Visit [facility] Surgery [address] [facility] 6th [place] [address] [place] [phone] Rea Chand MD PhD Sternal wound infection (Primary Dx); Wound infection after surgery 05/19/2024 Documentation [facility] Infectious Diseases [address] [place] [address] [place] [phone] Ana M Cardenas NP 05/18/2024 Telephone [facility] Infectious Diseases [address] [place] [address] [place] [phone] Rahel Garcia CMA 05/17/2024 Anticoagulation Visit [facility] Cardiology [address] [place] [address] [place] [phone] Nancy Nathan, PALLAVI 05/17/2024 Telephone [facility] Cardiology [address] [place] [address] [place] [phone] Александр Yu MD 05/17/2024 Telephone [facility] Post Acute Care [address] [facility] [address], [place] [phone] Polina Hutton MA 05/17/2024 Orders Only [facility] Infectious Diseases [address] [facility] [address] [place] [phone] Ana M Cardenas NP 05/17/2024 1:00 PM [facility] Office Visit [facility] Cardiology at [address] [place] [phone] Александр Yu MD Ischemic cardiomyopathy (Primary Dx); Coronary artery disease involving [place] coronary artery of [place] heart, unspecified whether angina present; Hx of CABG; Presence of coronary angioplasty implant and graft; Other thrombophilia 05/14/2024 5:32 PM [facility]OM[facility] - 05/14/2024 11:59 PM [facility] Hospital Encounter [facility] [address] [place] [address] Sternal wound infection Discharge Disposition: Discharge to home or self care 05/14/2024 Documentation [facility] Infectious Diseases [address] [facility] [address] [place] [address] Maria A De La Vega RN 05/14/2024 NH/SNF Visit [facility] Post [address] [phone] Lali Reveles NP Wound infection after surgery (Primary Dx); Hx of CABG; Ischemic cardiomyopathy; Coronary artery disease involving [place] coronary artery of [place] heart, unspecified whether angina present; Type 2 diabetes mellitus without complication, without long-term current use of insulin ([facility]) 05/14/2024 2:00 PM [facility] BROOMCORN Office Visit [facility] Infectious Diseases [address] [facility] [address] [place] [address] Ana M Cardenas NP Encounter for screening examination for sexually transmitted infection (Primary Dx); Sternal wound infection; Bacteremia 05/13/2024 Telephone [facility] Care Services [address] [facility] [address] [place] [address] N[place]rat [place] from Last 3 Months Allergies Active Allergy Reactions Criticality Noted Date Comments Penicillins Other (See comments) Mouth tingling 40 years ago Medications aspirin 81 mg chewable tabletIndications: Ischemic cardiomyopathy,His tory of coronary artery stent placement,Coronary artery disease involving [place] coronary artery of [place] heart, unspecified whether angina present,Hx of CABG Take 1 tablet (81 mg total) by mouth daily 03/15/20 24 025 Active gabapentin (NEURONTIN) 600 mg tabletIndications: Hx of CABG Take 1 tablet (600 mg total) by mouth 3 (three) times a day 03/15/20 24 Active rosuvastatin (CRESTOR) 40 mg tabletIndications: Ischemic cardiomyopathy,His tory of coronary artery stent placement,Coronary artery disease involving [place] coronary artery of [place] heart, unspecified whether angina present,Mixed hyperlipidemia Take [...] tabletIndications: Ischemic cardiomyopathy,Cor onary artery disease involving [place] coronary artery of [place] heart, unspecified whether angina present,Hx of CABG [...] concerns. Assessment & Plan (05/20/2024 2:00 PM THRES[facility] BROOMCORN): -Patient presents to clinic for a post [...] 04/05/2024 Assessment & Plan (05/04/2024 11:42 AM THRES[facility] BROOMCORN): Mild edema to BLE. Compression wraps ordered. Monitor. Assessment & Plan (04/16/2024 10:29 AM THRES[facility] BROOMCORN): Last TTE 03/14: 1. Grossly normal left ventricular systolic function based on limited views. Inadequate for detailed regional wall motion assessment. Ejection Fraction is estimated to be 60-70. Creatinine improved, 1.37 last night Resumed Lasix today Lymphedema wraps ordered on 04/02- completed Dobutamine discontinued 04/08/24 Metoprolol restarted 04/11, continue 6.25 BID Hyperkalemia 03/30/2024 Assessment & Plan (05/04/2024 11:42 AM THRES[facility] BROOMCORN): Chronic. Meds reviewed. K 5.5. Repeat labs 05/06. Assessment & Plan (04/27/2024 10:56 AM THRES[facility] BROOMCORN): Persistant 5.1. Meds reviewed. Routine monitoring. Assessment & Plan (04/20/2024 6:56 PM THRES[facility] BROOMCORN): Mild. Routine monitoring. Assessment & Plan (04/16/2024 10:24 AM TH[facility] BROOMCORN): Monitor potassium daily with BMP K 5.1 this morning; whole K ordered-4.7 Continue diuresis as previously noted Holding all K supplementation Anemia 03/29/2024 Assessment & Plan (04/27/2024 10:57 AM THRESHER BROOMCORN): H&H low but stable. Routine monitioring. Assessment & Plan (04/16/2024 10:26 AM THRESHER BROOMCORN): To be expected following cardiac surgery Monitor daily CBC, Hgb stable @ 7.8 No active signs of bleeding Consider transfusion if Hgb <7 or if hemodynamically unstable Assessment & Plan (03/29/2024 5:32 PM THRESHER BROOMCORN): H&H down overnight Transfuse 2 units PRBC Trend CBC nightly CKD (chronic kidney disease) 03/26/2024 Assessment & Plan (04/27/2024 10:57 AM THRESHER BROOMCORN): Stable. Routine monitoring. Assessment & Plan (04/20/2024 10:45 AM THRESHER BROOMCORN): Follow up labs ordered. Assessment & Plan (04/16/2024 10:25 AM THRES[facility] BROOMCORN): CLINTON on CKD- initial Pre-op Creatinine 1.36 prior to 03/04 CABG Had worsening CLINTON in post op setting at [facility] Creatinine improved to 1.37 Continue daily Lasix LE edema improved Renally dose medications Avoid nephrotoxic agents Continue daily BMP monitoring Assessment & Plan (03/28/2024 11:44 AM TH[facility] BROOMCORN): CLINTON on CKD- initial Pre-op Creatinine 1.36 [...] 03/24/2024 Assessment & Plan (05/14/2024 11:19 AM THRES[facility] BROOMCORN): Cefazolin to continue ID fu which is today. If DC will DC abc, DC PICC. Have communicated POC with ID & patient. Patient to perform wound care on his own or with family prior to discharge d/t no HH accepting yet. Assessment & Plan (05/04/2024 11:43 AM THRES[facility] BROOMCORN): Pls fu 05/07, ID 05/14. Continues on IV abx until ID fu. Assessment & Plan (04/29/2024 12:05 PM THRESHER BROOMCORN): Mild slough present to distal portion of abd incision. Have pictured & notified plastics. Continue dry dressing, wound RN following. Continue IV abx as ordered. Will fu with plastics 05/07. Assessment & Plan (04/27/2024 11:03 AM THRESHER BROOMCORN): PICC in place. Continue wound care, HAYLEY drains, IV abx, PT/OT. Has plastics fu 05/07 1115a & ID fu 05/14 2pm. IVs are to complete 05/11 at this time - confirming with ID abx should not end before ID appt. Have informed SS. Assessment & Plan (04/16/2024 10:21 AM THRESHER BROOMCORN): S/p sternal washout and debridement x 3 at [facility] Arrived to [facility] on 03/[address]. Obtain blood cultures daily until negative final result, growing Staph epidermis on blood cultures and deep wound culture Wound culture 1/5 +AIRPLANE FUELER Blood cultures 1/2 +Staph epidermidis, 2 stains, [...] place Assessment & Plan (03/27/2024 12:15 PM THRESHER BROOMCORN): Patient has undergone washout and debridement x 3 at [facility] Arrived to [facility] on 03/[address]. Obtain blood cultures daily until negative final result, growing Staph epidermis on blood cultures and deep wound culture Wound culture 1/5 +AIRPLANE FUELER Blood cultures 1/2 +Staph epidermidis, 2 stains, [...] 03/15/2024 Assessment & Plan (05/14/2024 11:12 AM THRESHER BROOMCORN): Was not taking insulin at home. BS are less than 180 consistently & not requiring SSI. DC SSI + Lantus. Resume Metformin 1000mg BID. Will need fu with PCP outpt for management. Assessment & Plan (05/10/2024 12:49 PM THRESHER BROOMCORN): Was not taking insulin at home. BS are less than 180 consistently & not requiring SSI. Will hold SSI + Lantus. Resume Metformin 1000mg BID. Will need fu with PCP outpt for management. Assessment & Plan (04/27/2024 11:03 AM THRES[facility] BROOMCORN): BS ranging 130-300; A1c 7. Currently taking Lantus 14u nightly + Lispro 8u TIDAC. Continue without changes, monitor clsoely for adjustment. Assessment & Plan (04/20/2024 10:45 AM THRESHER BROOMCORN): Follow up labs will be monitored. We will continue the scripting of insulin glargine and insulin lispro. Assessment & Plan (04/16/2024 10:24 AM THRES[facility] BROOMCORN): A1c 7.0% Was taking lantus/lispro prandial and slide prior to admission Home metformin held while inpatient Continue Blood glucose checks QID; POC 143-230 last 24 hours Carbohydrate consistent diet Continue Lantus and ACHS resistant Lispro SSI BG goal < 180; serum glucose 189 Assessment & Plan (03/28/2024 11:45 AM [facility] BROOMCORN): A1c 7.0% Was taking lantus/lispro prandial and slide prior to admission Home metformin held while inpatient Continue Blood glucose checks QID Continue sliding scale insulin Carbohydrate consistent diet Encourage tight glucose control to facilitate postoperative healing Started lantus and scheduled lispro on 03/28, titrate up as needed Assessment & Plan (03/18/2024 12:35 PM THRESHER BROOMCORN): A1c 7. Not on insulin at home. Currently taking Lantus 15u daily + SSI + Metformin. BS 103-194. Will dc Lantus & monitor bs with SSI only Hx of CABG 03/15/2024 Assessment & Plan (05/10/2024 12:42 PM THRESHER BROOMCORN): FU PLS 05/07. HAYLEY drains reviewed. Patient [...] apt. Assessment & Plan (03/18/2024 12:37 PM THRESHER BROOMCORN): CTS fu. Continue [place] PRN + Tyl PRN for pain. Mucinex added for cough. Continue medical management & wound care. BP mildly elevated. No changes at this time but monitor for need to adjust. Mixed hyperlipidemia 03/15/2024 Assessment & Plan (04/20/2024 10:43 AM THRES[facility] BROOMCORN): This is chronic and stable. We will continue scripting rosuvastatin and dietary will follow Assessment & Plan (04/09/2024 8:10 AM THRES[facility] BROOMCORN): Continue Rosuvastatin 40mg po daily Heart healthy diet Assessment & Plan (03/27/2024 12:06 PM THRESHER BROOMCORN): Continue rosuvastatin 40mg po daily Heart healthy diet Benign prostatic hyperplasia 03/15/2024 Assessment & Plan (04/20/2024 10:45 AM THRES[facility] BROOMCORN): Continue tamsulosin Coronary artery disease invo lving [place] coronary artery of [place] heart, unspecified whether angina present 03/04/2024 Assessment & Plan (04/20/2024 10:45 AM TH[facility] BROOMCORN): Continue scripting of metoprolol, continue aspirin 81 mg daily and rosuvastatin 40 mg daily Assessment & Plan (04/16/2024 10:25 AM THRESHER BROOMCORN): S/P CABG 03/04 Continue aspirin 81mg po daily Continue Rosuvastatin 40mg po daily Continue Metoprolol; titrate as tolerated Resume lasix 40 PO - Cr down 1.37 Assessment & Plan (03/27/2024 11:52 AM THRES[facility] BROOMCORN): S/P CABG 03/04 Continue aspirin 81mg po daily Continue metoprolol 25mg po BID Continue rosuvastatin 40mg po daily AROM/PROM Physical therapy/Occupational therapy Ischemic cardiomyopathy 02/06/2024 Assessment & Plan (04/20/2024 10:44 AM THRESHER BROOMCORN): Monitor vital signs. Continue metoprolol and rosuvastatin, we will continue furosemide 40 mg daily Essential hypertension 10/13/2020 Assessment & Plan (04/20/2024 10:44 AM THRESHER BROOMCORN): We will monitor vital signs for serial trending. Continue scripting furosemide and metoprolol. Assessment & Plan (04/13/2024 10:17 AM THRESHER BROOMCORN): Monitor vital signs q 4 hours Resume lasix 40 PO daily Continue metoprolol 6.25 BID, titrate as tolerated Low sodium diet Assessment & Plan (03/28/2024 11:45 AM THRESHER BROOMCORN): Monitor vital signs q 4 hours Continue metoprolol 25mg po BID Continue furosemide 40mg po daily- held 03/29 for procedure Persistent proteinuria 10/13/2020 Presence of coronary angioplasty implant and gra ft 07/27/2019 Atrial fibrillation Assessment & Plan (04/20/2024 10:45 AM THRESHER BROOMCORN): Monitor for evidence of RVR. Continue amiodarone 2 mg daily Assessment & Plan (04/13/2024 10:30 AM THRESHER BROOMCORN): Continue Amiodarone 200mg po daliy Restart eliquis 2.5 today Rate controlled atrial fibrillation/flutter with occasional PVCs 90's - 100's per continuous telemetry EKG today A flutter Assessment & Plan (03/28/2024 11:43 AM THRES[facility] BROOMCORN): Continue amiodarone 200mg po daliy Continue metoprolol 25mg po BID Holding Eliquis, last dose on 03/21 Heparin gtt- hold control room supervisor to OR 03/29 Rate controlled atrial fibrillation per continuous telemetry Resolved Problems Problem Noted Date Diagnosed Date Resolved Date Ileus 03/30/2024 04/08/2024 Assessment & Plan (04/05/2024 1:27 PM THRES[facility] BROOMCORN): 03/29 KUB: There is mild gaseous distention of the stomach and loops of small bowel, which may represent ileus in the postoperative setting. 03/31 CT C/A/P: Nondistended loops of bowels. No obstruction. Hold Oxycodone in setting of ileus Advance diet per Dr. Chand Now on regular diet Having BMs Bowel sounds today resolved Constipation 03/29/2024 03/30/2024 Assessment & Plan (04/03/2024 11:56 AM THRESHER BROOMCORN): Had bm yesterday Assessment & Plan (03/29/2024 5:25 PM THRESHER BROOMCORN): Increase bowel regimen Gave lactulose x 1 now, suppository Check KUB Sternal wound infection 03/24/2024 02/0 06/2024 Overview (03/30/2024): Mr Mason is a 73 year old gentleman with with T2DM, HTN, Afib, recent CABG on 03/04, presented to [facility] on 03/22 with sternal wound dehiscence and purulent discharge, s/p sternal wound exploration with wire removal 03/22 with cultures positive for MSSE, transferred to [place] for flap coverage and possible sternectomy. - OR at [facility]: 03/23 for sternal washout, sternal bone [...] far Assessment & Plan (04/20/2024 10:46 AM THRESHER BROOMCORN): After successful inpatient treatment continue cefazolin 2 g IV every 8 hours through May 11. He will follow up with the Infectious Disease. Assessment & Plan (04/16/2024 10:22 AM THRESHER BROOMCORN): S/P irrigation and culture sternal wound 24 [...] (03/29-05/10) Assessment & Plan (04/09/2024 4:15 PM THRESHER BROOMCORN): - Has been afebrile, WBC normalized - [...] PNA. Assessment & Plan (03/29/2024 5:16 PM THRESHER BROOMCORN): S/P irrigation and culture sternal wound 24 [...] 04/20/2024 Assessment & Plan (04/10/2024 11:56 AM THRESHER BROOMCORN): S/P irrigation and culture sternal wound 24 x 11 x 6 cm cubed with wound vac exchange 03/26/24 per Plastic and Reconstructive Surgery S/p wound debridement an muscle flap closure 03/29 Negative pressure therapy to wound with dressing changes per Plastic and Reconstructive Surgery 03/26 OR culture results-+ staph epi, fungal culture negative Assessment & Plan (03/29/2024 5:16 PM THRESHER BROOMCORN): S/P irrigation and culture sternal wound 24 [...] drink = 0.6 oz pur e alcohol) [facility] [employer] Answer Date Recorded In the past 12 months has e happin!, gas, oil, or water [employer] threatened to shut off services in your [...] often do you attend chur ch or presybeterian services? Never 03/26/2024 Do you belong to any clubs o r organizations such as muslim groups, unions, fraternal or athletic groups, or [...] time in the past 12 m [facility], were you homeless or living in [...] on file Legal Sex Male 2:38 AM THRES[facility] BROOMCORN Gender Identity Male 07/27/2019 7:12 PM CDT Sexual Orientation Straight 07/27/2019 7: 12 PM CDT Last Filed Vital Signs Vital Sign Reading Time Taken Comments Blood Pressure 108/68 06/11/2024 2:26 PM CDT Pulse 96 06/11/2024 2:26 PM CDT Temperature 36.8 C (98.3 F) 06/11/2024 2:26 PM CDT Respiratory Rate 18 04/20/2024 10:4 0 AM THRES[facility] BROOMCORN Oxygen Saturation 91% 06/11/2024 2:26 PM CDT [...] anticoagulation ELECTROCARDIOGRAM REPORT Routine 05/17/2024 8:46 AM THRESHER BROOMCORN Ischemic cardiomyopathy EGFR Routine 05/14/2024 3:34 PM THRESHER BROOMCORN Sternal wound infection DIFFERENTIAL AUTO Routine 05/14/2024 3:34 PM THRESHER BROOMCORN Sternal wound infection COMPREHENSIVE METABOLIC PANEL WITHOUT GLUCOSE (OUTREACH) Routine 05/14/2024 3:34 PM THRESHER BROOMCORN Sternal wound infection CBC WITH AUTO DIFFERENTIAL Routine 05/14/2024 3:34 PM THRESHER BROOMCORN Sternal wound infection COMPREHENSIVE METABOLIC PANEL (OUTREACH) Routine 05/14/2024 3:34 PM THRESHER BROOMCORN Sternal wound infection CRP (ACUTE PHASE) Routine 05/14/2024 3:34 PM THRESHER BROOMCORN Sternal wound infection ERYTHROCYTE SEDIMENTATION RATE Routine 05/14/2024 3:34 PM THRESHER BROOMCORN Sternal wound infection AEROBIC AND ANAEROBIC CULTURE AND GRAM STAIN Routine 05/14/2024 3:07 PM THRESHER BROOMCORN Sternal wound infection CT CHEST ABDOMEN PELVIS WO CONTRAST ED Urgent/IP Urgent 04/01/2024 10:29 AM THRESHER BROOMCORN HEMOGLOBIN A1C Routine 03/24/2024 9:26 PM [facility]RES[facility] BROOMCORN LIPID PANEL Routine 03/24/2024 9:26 PM THRESHER BROOMCORN from Last 3 Months or Most Recently Relevant to Health Maintenance Results * (ABNORMAL) Protime-INR (07/28/2024 12:00 PM CDT) INR 1.9(H) [employer] Comment: Reference Range 0.9-1.1 Moderate-intensity Warfarin Therapy 2.0-3.0 Higher-intensity Warfarin Therapy 3.0-4.0 PT 19.4(H) 9.0 - 11.5 sec [employer] [facility] Comment: For additional information, please refer to [email or web address]/faq/GTJ494 (This link is being provided for informational/ educational purposes only.) Blood 07/28/2024 12:0 0 PM CDT 07/28/2024 12:00 PM CDT us Александр Yu MD LAB BLOOD ORDERABLES Fin al Result Performing Organization Address City/State/[facility] Co de Phone Number [facility] [address] [place] [address] * (ABNORMAL) Protime-INR (06/28/2024 11:39 AM CDT) INR 1.3(H) [employer] Comment: Reference Range 0.9-1.1 Moderate-intensity Warfarin Therapy 2.0-3.0 Higher-intensity Warfarin Therapy 3.0-4.0 PT 13.6(H) 9.0 - 11.5 sec [employer] Comment: For additional information, please refer to [email or web address]/faq/OCN183 (This link is being provided for informational/ educational purposes only.) Blood 06/28/2024 11:3 9 AM CDT 06/28/2024 11:39 AM CDT us Александр Yu MD LAB BLOOD ORDERABLES Fin al Result [facility] [address] [place] [address] * Glucose, random (Outreach) (06/11/2024 3:19 PM [...] BLOOD ORDERABLES Final Result Performing Organization Address City/[facility] Co de Phone Number KRISTA [facility] Department [place] [address] * (ABNORMAL) eGFR (06/11/2024 3:19 PM CDT) [...] Cardenas NP LAB BLOOD ORDERABLES Final Result [facility] Department [place] [address] * Differential, auto (06/11/2024 3:19 PM CDT) Neutrophil abs 3.1 1.5 - 6.5 K/cumm Imm gran abs 0.0 0.0 - 0.1 K/cumm [facility] Lymphocyte abs 2.3 0.8 - 3.3 K/cumm [facility] Monocyte abs 0.7 0.2 - 0.8 K/cumm [facility] Eosinophil abs 0.2 0.0 - 0.5 K/cumm [facility] Basophil abs 0.0 0.0 - 0.1 K/cumm [facility] Neutrophil pct 49.4 % [facility] Comment: Interpretive Data Percent cell count reference ranges are not reported, since discordance with absolute values may lead to misinterpretation of CBC data. Current Interpretive Data was last revised on 2017. Imm gran pct 0.2 % [facility] Comment: Interpretive Data Percent cell count reference ranges are not reported, since discordance with absolute values may lead to misinterpretation of CBC data. Current Interpretive Data was last revised on 2017. Lymphocyte pct 35.5 % [facility] Comment: Interpretive Data Percent cell count reference ranges are not reported, since discordance with absolute values may lead to misinterpretation of CBC data. Current Interpretive Data was last revised on 2017. Monocyte pct 10.9 % [facility] Comment: Interpretive Data Percent cell count reference ranges are not reported, since discordance with absolute values may lead to misinterpretation of CBC data. Current Interpretive Data was last revised on 2017. Eosinophil pct 3.5 % [facility] Comment: Interpretive Data Percent cell count reference ranges are not reported, since discordance with absolute values may lead to misinterpretation of CBC data. Current Interpretive Data was last revised on 2017. Basophil pct 0.5 % [facility] Comment: Interpretive Data Percent cell count reference ranges are not reported, since discordance with absolute values may lead to misinterpretation of CBC data. Current Interpretive Data was last revised on 2017. Blood 06/11/2024 3:19 PM CDT 06/11/2024 7:01 PM CDT Ana M Cardenas ELECTRICAL PROSPECTING SUPERVISOR LAB BLOOD ORDERABLES Final Result [facility] Department [place] [address] * (ABNORMAL) Comprehensive metabolic panel, without glucose (Outreach) (06/11/2024 3:19 PM CDT) Sodium 142 135 - 145 mmol/L Potassium, pl 4.9 3.3 - 4.9 mmol/L [facility] Chloride 102 97 - 110 mmol/L [facility] CO2 27 22 - 32 mmol/L [facility] Anion gap 13 2 - 15 mmol/L [facility] BUN 34(H) 6 - 25 mg/dL [facility] Creatinine 1.81(H) 0.80 - 1.30 mg/dL [facility] Calcium 9.7 8.5 - 10.3 mg/dL [facility] Protein, pl 7.0 6.5 - 8.5 g/dL [facility] Albumin 4.0 3.5 - 5.0 g/dL [facility] Bilirubin, total 0.2 0.1 - 1.2 mg/dL [facility] Alk phos 76 40 - 130 Units/L [facility] AST 9(L) 10 - 50 Units/L [facility] ALT 10 7 - 55 Units/L [facility] Blood 06/11/2024 3:19 PM CDT 06/11/2024 7:01 PM CDT us Ana M Cardenas NP LAB BLOOD ORDERABLES Final Result Performing Organization Address [facility] de Phone Number [facility] [place] [address] * (ABNORMAL) CBC with auto differential (06/11/2024 3:19 PM CDT) Pathologist [facility] WBC 6.3 3.8 - 9.9 K/cumm Hgb 9.0(L) 13.0 - 17.5 g/dL [facility] Hct 31.5(L) 38.9 - 50.3 % [facility] Plt 281 150 - 400 K/cumm [facility] MPV 10.1 9.1 - 12.3 fL [facility] RBC 3.57(L) 4.30 - 5.80 M/cumm [facility] MCV 88.2 81.3 - 96.4 fL [facility] MCH 25.2(L) 27.1 - 33.3 pg [facility] MCHC 28.6(L) 32.3 - 35.7 g/dL [facility] RDW CV 15.7(H) 11.1 - 14.9 % [facility] RDW SD 51.1(H) 35.7 - 48.1 fL [facility] NRBC abs 0.00 0.00 - 0.01 K/cumm [facility] Blood 06/11/2024 3:19 PM CDT 06/11/2024 7:01 PM CDT us Ana M Cardenas NP LAB BLOOD ORDERABLES Final Result Performing Organization Address [facility]/ZIP Co de Phone Number [facility] [place] [address] * (ABNORMAL) Erythrocyte sedimentation rate (06/11/2024 3:19 PM CDT) Erythrocyte sedimentation rate 43(H) 1 - 20 mm/hr Blood 06/11/2024 3:19 PM CDT 06/11/2024 7:01 PM CDT Ana M Cardenas NP LAB BLOOD ORDERABLES Final Result Performing Organization Address City/[facility]/ZIP Co de Phone Number [facility] Department [place] [address] * (ABNORMAL) CRP (acute phase) (06/11/2024 3:19 PM CDT) Pathologist [facility] CRP 34.8(H) <=10.0 mg/L Blood 06/11/2024 3:19 PM CDT 06/11/2024 7:01 PM CDT Ana M Cardenas ELECTRICAL PROSPECTING SUPERVISOR LAB BLOOD ORDERABLES Final Result Performing Organization Address [facility] Co de Phone Number [facility] Department [place] [address] * Aerobic and anaerobic culture and gram stain Abscess Abdominal, right lower quadrant (06/11/2024 2:42 PM CDT) Pathologist [facility] Direct Specimen Exam Stain: Rare polymorphonuclear leukocytes seen. No organisms seen. Report Final Report: No growth [facility] Abscess (Abdominal, right lower quadrant) 06/11/2024 2:42 PM CDT 06/11/2024 6:55 PM CDT Narrative [facility] - 06/15/2024 10:18 AM CDT Specimen received on an ESwab. Testing performed by [facility] Microbiology Laboratory ([phone]) Specimens submitted from normally sterile body sites [...] GENERAL ORDERABLES Final Result Performing Organization Address [facility] Co de Phone Number [facility] Department [place] [address] * (ABNORMAL) Protime-INR (05/28/2024 11:51 AM CDT) INR 1.9(H) [facility] Comment: Reference Range 0.9-1.1 Moderate-intensity Warfarin Therapy 2.0-3.0 Higher-intensity Warfarin Therapy 3.0-4.0 PT 19.9(H) 9.0 - 11.5 sec [facility] Comment: For additional information, please refer to [email or web address]/faq/UTV983 (This link is being provided for informational/ educational purposes only.) Blood 05/28/2024 11:5 1 AM CDT 05/28/2024 11:52 AM CDT Александр Yu MD LAB BLOOD ORDERABLES Fin al Result Performing Organization Address [facility] Co de Phone Number [facility] [address] [place] [address] * Electrocardiogram Report (05/17/2024 8:46 AM [facility]) Александр Yu MD ECG ORDERABLES Final Re sult * eGFR (05/14/2024 3:34 PM [facility]) eGFR 82 >=60 mL/min/1. 73 m2 Comment: [...] last reviewed 2021. Blood 05/14/2024 3:34 PM [facility] 05/14/2024 6:23 PM [facility] Ana M Cardenas NP LAB BLOOD ORDERABLES Final Result [facility] Department [place] [address] * Differential, auto (05/14/2024 3:34 PM [facility]) Neutrophil abs 4.7 1.5 - 6.5 K/cumm Imm gran abs 0.0 0.0 - 0.1 K/cumm [facility] Lymphocyte abs 2.4 0.8 - 3.3 K/cumm [facility] Monocyte abs 0.7 0.2 - 0.8 K/cumm [facility] Eosinophil abs 0.2 0.0 - 0.5 K/cumm [facility] Basophil abs 0.0 0.0 - 0.1 K/cumm [facility] Neutrophil pct 58.5 % [facility] Comment: Interpretive Data Percent cell count reference ranges are not reported, since discordance with absolute values may lead to misinterpretation of CBC data. Current Interpretive Data was last revised on 2017. Imm gran pct 0.2 % [facility] Comment: Interpretive Data Percent cell count reference ranges are not reported, since discordance with absolute values may lead to misinterpretation of CBC data. Current Interpretive Data was last revised on 2017. Lymphocyte pct 29.6 % [facility] Comment: Interpretive Data Percent cell count reference ranges are not reported, since discordance with absolute values may lead to misinterpretation of CBC data. Current Interpretive Data was last revised on 2017. Monocyte pct 8.8 % [facility] Comment: Interpretive Data Percent cell count reference ranges are not reported, since discordance with absolute values may lead to misinterpretation of CBC data. Current Interpretive Data was last revised on 2017. Eosinophil pct 2.7 % [facility] Comment: Interpretive Data Percent cell count reference ranges are not reported, since discordance with absolute values may lead to misinterpretation of CBC data. Current Interpretive Data was last revised on 2017. Basophil pct 0.2 % [facility] Comment: Interpretive Data Percent cell count reference ranges are not reported, since discordance with absolute values may lead to misinterpretation of CBC data. Current Interpretive Data was last revised on 2017. Blood 05/14/2024 3:34 PM [facility] 05/14/2024 6:04 PM [facility] Ana M Cardenas ELECTRICAL PROSPECTING SUPERVISOR LAB BLOOD ORDERABLES Final Result [facility] Department [place] [address] * (ABNORMAL) Comprehensive metabolic panel, without glucose (Outreach) (05/14/2024 3:34 PM [facility]OMC[facility]) Sodium 141 135 - 145 mmol/L Potassium, pl 5.5(H) 3.3 - 4.9 mmol/L [facility] Chloride 103 97 - 110 mmol/L [facility] CO2 28 22 - 32 mmol/L [facility] Anion gap 10 2 - 15 mmol/L [facility] BUN 47(H) 6 - 25 mg/dL [facility] Creatinine 0.98 0.80 - 1.30 mg/dL [facility] Calcium 9.0 8.5 - 10.3 mg/dL [facility] Protein, pl 6.1(L) 6.5 - 8.5 g/dL [facility] Albumin 3.2(L) 3.5 - 5.0 g/dL [facility] Bilirubin, total 0.2 0.1 - 1.2 mg/dL [facility] Comment:Reviewed Alk phos 105 40 - 130 Units/L [facility] AST 14 10 - 50 Units/L [facility] ALT 11 7 - 55 Units/L [facility] Blood 05/14/2024 3:34 PM [facility] 05/14/2024 6:04 PM [facility] Ana M Cardenas NP LAB BLOOD ORDERABLES Final Result [facility] Department [place] [address] * (ABNORMAL) CBC with auto differential (05/14/2024 3:34 PM [facility] BROOMCORN) [facility] WBC 8.0 3.8 - 9.9 K/cumm Hgb 8.8(L) 13.0 - 17.5 g/dL [facility] Hct 31.4(L) 38.9 - 50.3 % [facility] Plt 351 150 - 400 K/cumm [facility] MPV 10.2 9.1 - 12.3 fL [facility] RBC 3.43(L) 4.30 - 5.80 M/cumm [facility] MCV 91.5 81.3 - 96.4 fL [facility] MCH 25.7(L) 27.1 - 33.3 pg [facility] MCHC 28.0(L) 32.3 - 35.7 g/dL [facility] RDW CV 15.3(H) 11.1 - 14.9 % [facility] RDW SD 51.2(H) 35.7 - 48.1 fL [facility] NRBC abs 0.00 0.00 - 0.01 K/cumm [facility] Blood 05/14/2024 3:34 PM [facility] 05/14/2024 6:04 PM [facility] Ana M Cardenas NP LAB [place] [address] * (ABNORMAL) Erythrocyte sedimentation rate (05/14/2024 3:34 PM [facility] BR[facility]OMC[facility]) [facility] Erythrocyte sedimentation rate 44(H) 1 - 20 mm/hr Blood 05/14/2024 3:34 PM [facility] 05/14/2024 6:04 PM [facility] Ana M Cardenas NP LAB BLO[place] [address] * (ABNORMAL) CRP (acute phase) (05/14/2024 3:34 PM [facility] BROOMCORN) [facility] CRP 16.6(H) <=10.0 mg/L Blood 05/14/2024 3:34 PM [facility]OMC[facility] 05/14/2024 6:04 PM [facility] Ana M Cardenas NP LAB BLOOD ORDERABLES Final Result Performing Organization Address City/[facility] [place] [address] * (ABNORMAL) Aerobic and anaerobic culture and gram stain Wound Sternum (05/14/2024 3:07 PM [facility]OMC[facility]) [facility] Direct Specimen Exam Stain: Moderate polymorphonuclear leukocytes seen. No organisms seen. Report Final Report: Moderate Pseudomonas aeruginosa Additional susceptibilities performed on: Pseudomonas aeruginosa Antimicrobial: Delafloxacin Interpretation: Susceptible Moderate Pseudomonas aeruginosa #2 Additional susceptibilities performed on: Pseudomonas aeruginosa #2 Antimicrobial: Delafloxacin Interpretation: Susceptible (.) [facility] Organism PSEUDOMONAS AERUGINOSA [facility] Organism PSEUDOMONAS AERUGINOSA [facility] Wound (Sternum) 05/14/2024 3 :07 PM [facility] 05/14/2024 6:22 PM [facility]OMC[facility] Narrative [facility] - 05/21/2024 2:38 PM [facility] Specimen received on an ESwab. Testing performed by [facility] Microbiology Laboratory ([phone]) Specimens submitted from normally sterile body sites [...] LAB MICROBIOLOGY - GENERAL ORDERABLES Final Result [facility] Department [place] [address] * CT Chest Abdomen Pelvis WO Contrast (04/01/2024 10:29 AM [facility]OMC[facility]) Anatomical Region Laterality Modality Body N/A Computed Tomogra phy 04/01/2024 11:5 7 AM [facility] Impressions 04/01/2024 12:04 PM [facility] 1. Extensive gas throughout the anterior chest wall with drainage catheters in place, most likely postoperative. 2. Nondistended loops of bowels. No obstruction. Dictated by: Ruddy Weston MD The radiology attending physician has personally reviewed this study, and had reviewed and/or edited this written report and agrees with it. Electronically signed by: Nimco Herring M.D. Narrative 04/01/2024 12:04 PM [facility] EXAMINATION: Computed tomography of the chest, abdomen [...] hydronephrosis. No renal calculi. Decompressed bladder with Avendaoñ catheter in place. Prostate is enlarged. No [...] * (ABNORMAL) Hemoglobin A1c (03/24/2024 9:26 PM [facility]) Hgb A1C 7.0(H) 4.0 - 5.6 % Estimated Average Glucose 154 mg/dL [facility] Comment: The ADA recommends reporting an estimated Average Glucose (eAG) with all Hemoglobin A1c results using the equation derived from a study of 507 normal and diabetic adults. Minority populations were underrepresented and children were not included. (Diabetes Care 2020; 43(S1): S66-S76). The eAG is not equivalent to a fasting glucose. Blood 03/24/2024 9:26 PM [facility] 03/24/2024 9:41 PM [facility] Narrative [facility] - 03/24/2024 10:40 PM [facility] Indication for repeat testing:->Health monitoring us Allie Bhatti NP LAB BLOOD ORDERABLES Final Result [facility] Department [place] [address] * (ABNORMAL) Lipid panel (03/24/2024 9:26 PM [facility]) Cholesterol 83 30 - 199 mg/dL Comment: [...] revised on 2017. Triglycerides 206(H) <=149 mg/dL [facility] Comment: Interpretive Data Ages < [...] revised on 2017. HDL 21(L) >=40 mg/dL [facility] Comment: Interpretive Data Ages < or [...] on 2017. LDL, calculated 29 <=129 mg/dL [facility] Comment: Interpretive Data Ages < or [...] revised on 2017. Chol/HDL ratio 4 [facility] Blood 03/24/2024 9:26 PM [facility] 03/24/2024 9:42 PM [facility]OM[facility] us Allie Bhatti NP LAB BLOOD ORDERABLES Final Result [facility] [place] [address] from Last 3 Months or Most Recently Relevant to Health Maintenance Insurance [facility] [employer] Member Subscriber Plan / Payer (Ef fective 2022-Present) Name:Flo Mason Relation to Subscriber:Self Name:Flo Mason Payer ID:[id number] (NAIC) Type:[facility] [employer] Address: [place] [id number] Advance Directives For more information, please contact: [phone] Documents on File Type Date Recorded 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 ADVANCE DIRECTIVE 03/26/2024 3:48 PM POLST * Full Code (Latest Code Status on File) Date Activated Date Inactivated Comments 03/24/2024 9:07 PM 04/17/2024 9:51 PM * Full Code Date Activated Date Inactivated Comments 03/22/2024 1:54 PM 03/24/2024 9:00 PM * Full Code Date Activated Date Inactivated Comments 03/04/2024 1:45 PM 03/14/2024 7:00 PM Care Teams Head Tennis Professional Relationship Specialty Start Date End Date Faye Hector MD [address] [place] [id number] PCP - General Family Medicine 07/26/19 Александр Yu MD [address] [facility] [address] [place] [address] Referring Physician Cardiology 02/09/24 Александр Landa MD [address] [facility] [address] [place] [address] Consulting Physician Cardiothoracic Surgery 02/09/24
--- OUTSIDE RECORDS SUMMARY | 2024-08-10 18:35 | XMS_ITS | Encounter Summary ---
Author Organization [facility] Address [address] [place] [address] Phone Care Team Providers Care [facility] Television Rental Clerk Name Role Phone Faye Hector MD Primary Care Provider Александр Yu MD Unavailable [phone] Александр Landa MD Unavailable [phone] Encounter Details Date Type Department Care Team (Late st Contact Info) Description 05/17/[address] [facility] Infectious Diseases [address] [place] [phone] Ana M Cardenas, GWEN [address] [place] [id number] Social History Tobacco Use Types Packs/Day Years Used Date Smoking Tobacco: Former Cigarettes 2 44 1 971 - 2015 Smokeless Tobacco: Never Alcohol Use Standard Drinks/Week Comments Yes 0 (1 standard drink = 0.6 oz pur e alcohol) [facility] Utilities Answer Date Recorded In the [...] often do you attend chur ch or yazdanism services? Never 03/26/2024 Do you belong to any clubs o r organizations such as religious groups, unions, fraternal or athletic groups, or [...] in the past 12 m [facility], were you homeless or living in a jail (including now)? No 03/26/2024 Personal Safety Answer Date Recorded Have you ever been in or are you currently in a harmful physical or emotional relationship or is someone making you feel afraid or unsafe? 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 Gender Identity Male 07/27/2019 7:12 PM CDT Sexual Orientation Straight 07/27/2019 7: 12 PM CDT documented as of this encounter Plan of Treatment Not on file documented as of this encounter Visit Diagnoses Not on filedocumented in this encounter Care Teams Hospital Television Rental Clerk Relationship Specialty Start Date End Date Faye Hector MD [address] [place] [address] PCP - General Family Medicine 07/26/19 Александр Yu MD [address] [place] [address] Referring Physician Cardiology 02/09/24 Александр Landa MD [address] [facility] [address] [place] [address] Consulting Physician Cardiothoracic Surgery 02/09/24 documented as of this encounter
--- OUTSIDE RECORDS SUMMARY | 2024-08-10 18:35 | XMS_ITS | Encounter Summary ---
Author Organization [facility] Address [address] [place] [address] Phone Care Team Providers Care Senior Tableau Developer Name Role Phone Faye Hector MD Primary Care Provider [phone] Reason for Visit * Reason Comments Med Refill Encounter Details Date Type Department Care Team (Late st Contact Info) Description 02/21/2022 Refill [facility] Nephrology and Hypertension [address] [place] [address], [address] [place] [address] Hebert Washburn MD [facility] [facility], [address] [place] [address] Social History Tobacco Use Types Packs/Day Years [...] on filedocumented in this encounter Care Teams Senior Tableau Developer Relationship Specialty Start Date End Date Rostovtseva, Faye, MD [address] [facility] [address] [place] [address] PCP - General Internal Medicine 08/28/20 documented as of this encounter
[2024-08-10] MEDS: FUROSEMIDE INJ 40 MG/4 ML VIAL IV PUSH (20:04)
[2024-08-10 20:48] VITALS: PULSE 71; RESP 22; O2SAT 94
[2024-08-10 23:01] VITALS: BMI 32.7
[2024-08-11] VITALS (12 sets, daily range): BP systolic 106–134; BP diastolic 63–76; PULSE 68–76; RESP 16–20; TEMP 35.8–36.6; O2SAT 92–96
--- NOTE | 2024-08-11 08:43 | P.HP_ITS ---
H&P: HPI History of Present Illness Date/Time: 08/11/24 08:43 Chief Complaint: Leg swelling Narrative: This is a 74-year-old male who presents to the ED with progressive worsening of the swelling of the arms and legs over the past 2 weeks. It has some shortness of breath with exertion. Denies any chest pain. No prior history of congestive heart failure. He recently had of 4 vessel CABG in March 04, 2024. Had surgical site infection needing sternal washout and wound VAC placement followed by debridement and pedicle flap on March 2024. In the ED his vitals were stable oxygen was low 90s. He was noted to have pitting edema involving lower extremities and bilateral hand. Laboratory studies showed WBC of 5.3 hemoglobin of 9.4 platelet count of 242. Sodium 143 potassium 4.4 bicarbonate of 29 creatinine of 1.67 blood glucose 134 LFTs were normal. Troponin was negative at 0.013 BNP was 6260. Chest x-ray showed left prominent bronchovascular markings which may indicate atelectasis versus pneumonia. Atelectatic changes in the right lung base with possible minimal effusion. Patient received a dose of Lasix. Patient is admitted in the setting for further treatment. Review of Systems Review of Systems: - CONSTITUTIONAL: Denies weight loss, fe lucho and chills. - HEENT: Denies changes in vision and he aring - RESPIRATORY: Reports SOB and minimal cough. - CV: Denies palpitations and CP. - GI: Denies abdominal pain, nausea, vom iting and diarrhea. - : Denies dysuria and urinary frequen cy. - MSK: Denies myalgia and joint pain. - SKIN: Denies rash and pruritus. - NEUROLOGICAL: Denies headache and sync ope. - PSYCHIATRIC: Denies recent changes in mood. Denies anxiety and depression. [facility] Past Medical History Medical History (Updated 08/10/24 @ 21:43 by Cristhian Fagan MD) Afib GOOD (obstructive sleep apnea) Mixed hyperlipidemia Weight gain finding Type 2 diabetes mellitus with hyperglycemia Type 2 diabetes mellitus with diabetic polyneuropathy Swelling of scrotum Nephropathy Malignant diastolic hypertension with CHF, NYHA class 2 Left hydrocele History of CVA (cerebrovascular accident) without residual deficits Heart failure, unspecified Colon cancer screening Chronic kidney disease, stage 2 (mild) Chronic kidney disease due to type 2 diabetes mellitus CAD in [place] artery Benign nodular prostatic hyperplasia without lower urinary tract symptoms OAB (overactive bladder) Fatty liver Mixed hyperlipidemia Peripheral neuropathy History of CVA (cerebrovascular accident) CAD (coronary artery disease) Malignant HTN with heart disease, w/o CHF, 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 Diabetes mellitus with hyperglycemia Surgical History Surgical History (Updated 05/27/24 @ 14:25 by Leonard Gillette MD) S/P CABG x 4 infx'd, repeat sternotomy, flap closure S/P angioplasty with stent History of hydrocelectomy Family History Family History Father Heart disease Mother Hypertension Heart disease Other Family history of cardiovascular disease Social History Social History Social History: Flo is very confident filling out medical forms. In the last 12 months he has not received assistance from an organization or program. Smoking packs per day: 2 Smoking cigarettes per day: 40.0 Years smoked: 50 Smoking pack-years: 100.00 Smoking status: Former smoker Second hand tobacco smoke exposure: No Alcohol intake: never Substance use: never Substance use type: does not use Do You Feel Safe in your Home?: Yes Lack of Transportation: No Lack of Food: Never True Current Housing: I Have Housing Concerned About Future Housing: YES Difficulty Paying Gas/Electric Bills: No Difficulty Paying for Meds: No Currently Unemployed: No Education: Associate Degree Difficulty w/ Childcare or Family Care: No Living arrangements: with family Occupation/Education: retired Gender identity (if verbalized by the patient): Male Sexual Orientation (if Verbalized by the Patient): Straight or Heterosexual Spiritual care concerns: No Agree to blood products: Yes Meds Home Medications and Allergies Home Medications ?Medication ?Instructions ?Recorded ?Confirmed ?Type amlodipine 10 mg tablet 10 mg PO DAILY 01/20/24 08/10/24 History hydralazine 50 mg tablet 50 mg PO TID 01/20/24 08/10/24 History hydrochlorothiazide 50 mg tablet 50 mg PO DAILY 01/20/24 08/10/24 History lisinopril 40 mg tablet 40 mg PO DAILY 01/20/24 08/10/24 History rosuvastatin 40 mg tablet 40 mg PO DAILY 01/20/24 08/10/24 History spironolactone 50 mg tablet 50 mg PO BID 01/20/24 08/10/24 History tamsulosin 0.4 mg capsule 0.4 mg PO DAILY 01/20/24 08/10/24 History metformin 1,000 mg tablet 1,000 mg PO BID #180 tabs 04/30/24 08/10/24 Rx nebivolol 10 mg tablet 10 mg PO DAILY #90 tabs 04/30/24 08/10/24 Rx amiodarone 200 mg tablet 200 mg PO DAILY #30 tabs 05/27/24 08/10/24 Rx warfarin 2 mg tablet 6 mg (3 x 2 mg) PO DAILY #90 tabs 05/27/24 08/10/24 Rx isosorbide mononitrate 60 mg 60 mg PO BID #180 tabs 06/14/24 08/10/24 Rx tablet,extended release 24 hr gemfibrozil 600 mg tablet 600 mg PO BID #60 tabs 07/21/24 08/10/24 Rx furosemide 40 mg tablet 40 mg PO DAILY 08/10/24 08/10/24 History Allergies Allergy/AdvReac Type Severity Reaction Status Date / Time Penicillins Allergy Severe Swelling Verified 05/27/24 13:48 of Lip/Tongue/Throat Vital Signs Vital Signs - 24 hr 08/10/24 16:34 08/10/24 17:11 08/10/24 20:48 Temperature 97.6 F Pulse Rate 67 73 71 Respiratory Rate 16 18 22 H Blood Pressure 115/59 L 128/67 Pulse Oximetry 92 92 94 Oxygen Delivery Room Air Room Air Oxygen Flow Rate 08/11/24 00:00 08/11/24 00:28 08/11/24 00:34 Temperature 97.9 F Pulse Rate 71 70 Respiratory Rate 16 Blood Pressure 131/72 Pulse Oximetry 93 93 Oxygen Delivery Nasal Cannula Oxygen Flow Rate 2 08/11/24 04:00 Temperature Pulse Rate 72 Respiratory Rate Blood Pressure Pulse Oximetry Oxygen Delivery Oxygen Flow Rate Exam Narrative: APPEARANCE: Well appearing, no pain, no distress, well-nourished. HEAD: normocephalic, atraumatic. EYES: PERRLA/EOMI, conjunctivae clear. NOSE: Normal no drainage NECK: Supple. No adenopathy, no masses. RESPIRATORY: Clear to auscultation bilaterally no respiratory distress CARDIOVASCULAR: Regular rate and rhythm without murmurs rubs or gallops. ABDOMINAL: Soft, nontender, nondistended, normal bowel sounds MUSCULOSKELETAL: Pitting edema involving the lower extremities, mid abdomen and bilateral hands to mid forearm NEURO: Alert. Cranial nerves II through XII intact. Good gait. Good coordination SKIN: Warm, dry. Normal Color H&P: Results Labs Labs: Short CBC 08/10/24 Range/Units 16:49 WBC 5.3 (4.5-10.0) K/mm3 Hgb 9.4 L D (14.0-18.0) g/dL Hct 33.4 L (42.0-52.0) % Plt Count 242 (150-375) k/mm3 BMP 08/10/24 16:49 Sodium 143 Potassium 4.4 Chloride 104 Carbon Dioxide 29 BUN 34 H Creatinine 1.67 H Glucose 134 H Calcium 9.1 Cardiac Enzymes 08/10/24 Range/Units 16:49 Troponin I 0.013 (0.000-0.034) ng/mL Liver Function 08/10/24 Range/Units 16:49 Total Bilirubin 0.3 (0.2-1.3) mg/dL AST 19 (17-59) U/L ALT 15 (6-50) U/L Alkaline Phosphatase 81 (38-126) U/L Albumin 3.9 (3.5-5.1) g/dL Assessment and Plan Assessment and plan (1) Hypertensive heart disease: Qualifiers: Heart failure presence: without heart failure Qualified Code(s): I11.9 - Hypertensive heart disease without heart failure Code(s): I11.9 - Hypertensive heart disease without heart failure Status: Acute (2) CHF (congestive heart failure): Code(s): I50.9 - Heart failure, unspecified Status: Acute (3) CAD (coronary artery disease): Code(s): I25.10 - Atherosclerotic heart disease of [place] coronary artery without angina pectoris Status: Acute (4) History of four vessel coronary artery bypass graft: Code(s): Z95.1 - Presence of aortocoronary bypass graft Status: Acute (5) Afib: Code(s): I48.91 - Unspecified atrial fibrillation Status: Acute (6) Mixed hyperlipidemia: Code(s): E78.2 - Mixed hyperlipidemia Status: Acute (7) Diabetes mellitus with hyperglycemia: Code(s): E11.65 - Type 2 diabetes mellitus with hyperglycemia Status: Acute (8) BPH NOS w ur obs/LUTS: Code(s): N40.1 - Benign prostatic hyperplasia with lower urinary tract symptoms Status: Acute (9) Anemia: Code(s): D64.9 - Anemia, unspecified Status: Acute (10) Degenerative arthritis of lumbar spine: Code(s): M47.816 - Spondylosis without myelopathy or radiculopathy, lumbar region Status: Acute (11) GOOD (obstructive sleep apnea): Code(s): G47.33 - Obstructive sleep apnea (adult) (pediatric) Status: Acute (12) Hypoxia: Code(s): R09.02 - Hypoxemia Status: Acute (13) Anasarca: Code(s): R60.1 - Generalized edema Status: Acute Plan This is a 74-year-old male who presents to the ED with progressive worsening of the swelling of the arms and legs over the past 2 weeks. It has some shortness of breath with exertion. Denies any chest pain. No prior history of congestive heart failure. He recently had of 4 vessel CABG in March 04, 2024. Had surgical site infection needing sternal washout and wound VAC placement followed by debridement and pedicle flap on March 2024. In the ED his vitals were stable oxygen was low 90s. He was noted to have pitting edema involving lower extremities and bilateral hand. Laboratory studies showed WBC of 5.3 hemoglobin of 9.4 platelet count of 242. Sodium 143 potassium 4.4 bicarbonate of 29 creatinine of 1.67 blood glucose 134 LFTs were normal. Troponin was negative at 0.013 BNP was 6260. Chest x-ray showed left prominent bronchovascular markings which may indicate atelectasis versus pneumonia. Atelectatic changes in the right lung base with possible minimal effusion. Patient received a dose of Lasix. Patient is admitted in the setting for further treatment. Acute on chronic systolic/diastolic congestive heart failure with anasarca. LFTs are normal and albumin level is good. BINH pre CABG EF 40% mildly decreased RV function. Postop echo with improved ejection fraction reported. Repeat echo diuresis as ordered. He was on Lasix however he ran out of refills and has not been on currently. Cardiology consultation History of GOOD Type 2 diabetes on insulin at home continue to monitor Accu-Cheks. Recheck A1c CKD stage 3 baseline creatinine and low 1s to mid 1s. Continue to monitor with diuretics Anemia moderate chronic since surgery. Continue to monitor no signs of bleeding. Atrial fibrillation on anticoagulation with warfarin with subtherapeutic INR. EKG with atrial fibrillation rate controlled BPH Gout Peripheral neuropathy Obesity Hypertension Hyperlipidemia Coronary artery disease status post CABG x4 on March 04, 2024. Post CABG sternal wound infection needing sternal washout wound VAC placement and pedicle flap surgery. Currently on binder that he is supposed to continue for 6 months. DVT prophylaxis on warfarin Code status full code Hospitalist [facility] Advance Care Plan I have confirmed that the patient's Advanced Care Plan is present, code status is documented, or surrogate decision maker is listed in patient medical record.: Yes Medication Reconciliation I have utilized all available resources to obtain, update and review the patients current medications (includes all prescriptions, OTC, herbals, cannabis, and nutritional supplements).: Yes
[2024-08-11] MEDS: FUROSEMIDE INJ 40 MG/4 ML VIAL IV PUSH ×2 (08:50→20:28)
[2024-08-11 09:20] LABS: INR 1.6; Prothrombin Time 18.9 Seconds (11.1-14.7)
[2024-08-11] MEDS: ISOSORBIDE MONONITRATE 60 MG TAB.ER.24H PO ×2 (09:52→17:37)
[2024-08-11] MEDS: TAMSULOSIN HCL 0.4 MG CAPSULE PO (09:52)
[2024-08-11] MEDS: AMIODARONE HCL 200 MG TABLET PO (09:52)
[2024-08-11] MEDS: SPIRONOLACTONE 50 MG TABLET PO ×2 (09:52→17:36)
[2024-08-11] MEDS: hydrALAZINE HCL 50 MG TABLET PO ×3 (09:52→17:37)
[2024-08-11] MEDS: ROSUVASTATIN 20 MG TABLET 40 MG PO (09:52)
[2024-08-11] MEDS: amLODIPine BESYLATE 10 MG TABLET PO (09:52)
[2024-08-11] MEDS: lisinopriL 20 MG TABLET 40 MG PO (09:52)
[2024-08-11] MEDS: gemfibroziL 600 MG TABLET PO ×2 (13:20→17:36)
[2024-08-11] MEDS: NEBIVOLOL HCL 5 MG TABLET 10 MG PO (13:20)
[2024-08-11] MEDS: hydroCHLOROthiazide 25 MG TABLET 50 MG PO (13:20)
[2024-08-11] MEDS: WARFARIN (*PBKC) 3 MG TABLET 6 MG PO (17:36)
[2024-08-12] VITALS (11 sets, daily range): BP systolic 117–136; BP diastolic 66–70; PULSE 54–73; RESP 18; TEMP 36.2–36.7; O2SAT 91–97
--- NOTE | 2024-08-12 | ECHO_ITS ---
Patient Info Name: Flo Mason Age: 74 years : 1950 Gender: Male Ht: 72 in Wt: 241 lbs BSA: 2.39 m2 HR: 71 bpm BP: 135 / 99 mmHg Technical Quality: Good Exam Date: 08/12/2024 11:18 AM Patient Status: I Admit Date: 08/11/2024 Exam Type: CA echo doppler color flow Complete two-dimensional, color flow and Doppler transthoracic echocardiogram is performed. Staff Referring Physician: Cristhian Fagan Bull Fiddle Player: Damaris Stubbs Attending Provider: Marycruz French Summary 1. Complete two-dimensional, color flow and Doppler transthoracic echocardiogram is performed. 2. Left ventricular chamber dimension is normal. 3. Left ventricular systolic function is normal, estimated at 55-60. 4. There is mild concentric increased left ventricular wall thickness. 5. Left ventricular septal wall motion is abnormal with septal motion related to bundle branch block. 6. The left ventricular diastolic function is grade III diastolic dysfunction. 7. E/e' 12 is mildly elevated. 8. Right ventricular chamber dimension is mildly enlarged. 9. Right ventricular systolic function is at least mildly reduced and with abnormal TAPSE 1.3 cm. 10. Left atrial chamber dimension is moderately enlarged. 11. Right atrial chamber dimension is moderately enlarged. 12. There is moderate aortic valve sclerosis. 13. The mitral valve has a mildly calcified annulus. 14. There is trace mitral valve regurgitation. 15. There is mild tricuspid valve regurgitation. 16. No pulmonary hypertension, estimated pulmonary arterial systolic pressure is 38 mmHg. 17. There is trace pulmonic regurgitation. Left Ventricle E/e' 12 is mildly elevated. Left ventricular chamber dimension is normal. Left ventricular systolic function is normal, estimated at 55-60. There is mild concentric increased left ventricular wall thickness. Left ventricular septal wall motion is abnormal with septal motion related to bundle branch block. The left ventricular diastolic function is grade III diastolic dysfunction. Right Ventricle Right ventricular chamber dimension is mildly enlarged. Right ventricular systolic function is at least mildly reduced and with abnormal TAPSE 1.3 cm. Left Atria Left atrial chamber dimension is moderately enlarged. Right Atria Right atrial chamber dimension is moderately enlarged. Aortic Valve The aortic valve is trileaflet. There is moderate aortic valve sclerosis. There is no aortic valve stenosis. There is no aortic valve regurgitation. Pulmonic Valve There is trace pulmonic regurgitation. Mitral Valve The mitral valve has a mildly calcified annulus. There is no mitral valve stenosis. There is trace mitral valve regurgitation. Tricuspid Valve There is mild tricuspid valve regurgitation. No pulmonary hypertension, estimated pulmonary arterial systolic pressure is 38 mmHg. Pericardium/Pleural There is no pericardial effusion. Inferior Vena Cava Normal inferior vena cava with >50% collapse upon inspiration consistent with normal right atrial pressure, 5 mmHg. Aorta The aortic root size at the sinus of Valsalva is normal. Left Ventricular Outflow Tract Name Value Normal LVOT 2D LVOT Diameter 2.5 cm LVOT Doppler LVOT Peak Velocity 115 cm/s LVOT Peak Gradient 5 mmHg LVOT Mean Gradient 3 mmHg LVOT VTI 23 cm LVOT VTI/AV VTI Ratio 0.7 LVOT Stroke Volume 113 ml LVOT CO 6.3 l/min LVOT CI 2.6 l/min/m2 Mitral Valve Name Value Normal MV Diastolic Function MV E Peak Velocity 126 cm/s MV A Peak Velocity 34 cm/s MV E/A 3.6 MV Decel Time (PW) 201 ms MV Annular TDI MV E/e' (Septal) 13.1 MV E/e' (Lateral) 11.4 MV E/e' (Average) 12.3 Tricuspid Valve Name Value Normal TV Regurgitation Doppler TR Peak Velocity 287 cm/s TR Peak Gradient 33 mmHg Estimated PAP/RSVP RA Pressure 5 mmHg <=5 PA Systolic Pressure 38 mmHg <36 RV Systolic Pressure 38 mmHg <36 TV Annular TDI TV Lateral Emma s' Velocity 8.8 cm/s >=9.5 Aortic Valve Name Value Normal AV 2D/MM AV Area (Planimetry) 2.1 cm2 AV Doppler AV Peak Velocity 176 cm/s AV Peak Gradient 12 mmHg AV Mean Gradient 6 mmHg AV VTI 32 cm AV Area (Cont Eq VTI) 3.5 cm2 >=3.0 AV Area (Cont Eq Dg) 3.3 cm2 AV DI (Dg) 0.65 AV Regurgitation 2D LVOT Area 5.0 cm2 Ventricles Name Value Normal LV Dimensions 2D/MM IVS Diastolic Thickness (2D) 1.3 cm 0.6-1.0 LVID Diastole (2D) 5.2 cm 4.2-5.8 LVIW Diastolic Thickness (2D) 1.3 cm 0.6-1.0 LVID Systole (2D) 3.1 cm 2.5-4.0 LVOT Diameter 2.5 cm LV Mass (2D Cubed) 276.94 g 88.00-224.00 LV Mass Index (2D Cubed) 116 g/m2 49-115 Relative Wall Thickness (2D) 0.49 <=0.42 LV Fractional Shortening/Ejection Fraction 2D/MM LV Fractional Shortening (2D) 41 % 25-43 LV EF (2D Teichholz) 72 % LV Diastolic Volume (4C MOD) 123 ml LV EF (4C MOD) 53 % LV Diastolic Volume (2C MOD) 133 ml LV EF (2C MOD) 55 % LV Diastolic Volume (BP MOD) 131 ml 62-150 LV Diastolic Volume Index (BP MOD) 55 ml/m2 34-74 LV Systolic Volume (BP MOD) 59 ml 21-61 LV Systolic Volume Index (BP MOD) 25 ml/m2 11-31 LV EF (BP MOD) 55 % 52-72 LV Diastolic Length (4C) 9.1 cm LV Systolic Length (4C) 7.9 cm LV Stroke Volume (4C MOD) 65 ml Atria Name Value Normal LA Dimensions LA Volume (4C A-L) 79 ml LA Volume (BP A-L) 83 ml RA Dimensions RA Systolic Major [place] Length (4C) 6.5 cm 2.1-2.7 RA Area (4C) 25.8 cm2 <=18.0 Report Signatures
[2024-08-12 06:34] LABS: Basophils Percent Auto 0.4 % (0.2-1.2); Eosinophils Absolute Auto 0.2 K/mm3 (0-0.3); Eosinophils Percent Auto 3.1 % (0-4.4); Hematocrit 31.6 % (42.0-52.0); Hemoglobin 9.1 g/dL (14.0-18.0); Immature Granulocyte Absolute 0.02 K/mm3 (0.00-0.031); Immature Granulocyte Percent A 0.4 % (0-0.5); Lymphocytes Absolute Auto 1.54 K/mm3 (0.9-3.2); Lymphocytes Percent Auto 31.9 % (18.3-44.2); Mean Corpuscular HGB Conc 28.8 g/dl (32-36); Mean Corpuscular Hemoglobin 25.2 pg (26-34); Mean Corpuscular Volume 87.5 fl (80-100); Mean Platelet Volume 9.9 fl (7.4-10.4); Monocytes Absolute Auto 0.7 K/mm3 (0.1-0.6); Monocytes Percent Auto 13.9 % (2.6-8.5); Neutrophils Absolute Auto 2.4 K/mm3 (1.3-6.7); Neutrophils Percent Auto 50.3 % (45.5-73.1); Platelet Count Result 225 k/mm3 (150-375); Red Blood Count 3.61 M/mm3 (4.6-6.20); Red Cell Distribution Width 19.1 % (11.5-14.5); White Blood Count 4.8 K/mm3 (4.5-10.0)
[2024-08-12 06:46] LABS: INR 1.4; Prothrombin Time 17.2 Seconds (11.1-14.7)
[2024-08-12 06:47] LABS: Alanine Aminotransferase 10 U/L (6-50); Albumin Level 3.8 g/dL (3.5-5.1); Alkaline Phosphatase 70 U/L (38-126); Anion Gap 7 mmol/L (4-12); Aspartate Amino Transferase 17 U/L (17-59); Bilirubin,Total 0.5 mg/dL (0.2-1.3); Blood Urea Nitrogen 31 mg/dL (9-20); Calcium 9.5 mg/dL (8.4-10.2); Carbon Dioxide 34 mmol/L (22-30); Chloride 97 mmol/L (98-107); Estimated CRCL calculation 53 ml/min; Estimated Glomerular Filt Rate 48; Glucose 131 mg/dL (65-110); Magnesium 1.9 mg/dL (1.6-2.3); Potassium 3.7 mmol/L (3.4-5.0); Sodium 138 mmol/L (137-145)
[2024-08-12 07:36] LABS: Anisocytosis 1+; Hypochromasia 1+; Platelet Estimate Adequate (Adequate); Schistocytes None Seen
--- NOTE | 2024-08-12 08:48 | PM.CNCAR ---
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 Improving with IV furosemide. Continue IV furosemide 40 mg IV b.i.d. for today Will likely be able to switch back to home dose of p.o. furosemide tomorrow Anticipate discharge tomorrow if he remains stable Echocardiogram is ordered and pending Continue use of JOSE hose Strict I&O CHF counseling (2) CAD (coronary artery disease): Code(s): I25.10 - Atherosclerotic heart disease of [place] coronary artery without angina pectoris Status: Acute Assessment and Plan: Status post CABG as detailed in the HPI. His coronary artery disease is stable. (3) Afib: Code(s): I48.91 - Unspecified atrial fibrillation Status: Acute Assessment and Plan: Atrial fibrillation with controlled heart rate. Continue current medical regimen including warfarin for systemic anticoagulation (4) Mixed hyperlipidemia: Code(s): E78.2 - Mixed hyperlipidemia Status: Acute Assessment and Plan: Continue statin. History of Present Illness History of Present Illness Consult date/time: 08/12/24 08:48 Reason For Visit: Anasarca, exertional shortness of breath Narrative: Flo Mason is a 74-year-old male with coronary artery disease status post 4 vessel CABG (bro BRO to the LAD, SVG to the PDA, and SVG from the PDA to the om 1 and om 2), ischemic cardiomyopathy, and atrial fibrillation/flutter. He comes to the hospital with a chief complaint of swelling of his legs and arms. Cardiology is consulted for anasarca. Patient reports that he was without his furosemide at home for about 4 weeks because he was unable to get a refill. He had progressive swelling and some shortness of breath. He has been given IV furosemide and his swelling has improved. He does not have any shortness of breath. Review of Systems Review of Systems: All systems reviewed & are unremarkable except as noted in HPI and below [facility] Past Medical History Medical History Afib GOOD (obstructive sleep apnea) Mixed hyperlipidemia Weight gain finding Type 2 diabetes mellitus with hyperglycemia Type 2 diabetes mellitus with diabetic polyneuropathy Swelling of scrotum Nephropathy Malignant diastolic hypertension with CHF, NYHA class 2 Left hydrocele History of CVA (cerebrovascular accident) without residual deficits Heart failure, unspecified Colon cancer screening Chronic kidney disease, stage 2 (mild) Chronic kidney disease due to type 2 diabetes mellitus CAD in [place] artery Benign nodular prostatic hyperplasia without lower urinary tract symptoms OAB (overactive bladder) Fatty liver Mixed hyperlipidemia Peripheral neuropathy History of CVA (cerebrovascular accident) CAD (coronary artery disease) Malignant HTN with heart disease, 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 In the last 12 months he has not received assistance from an organization or program. Smoking packs per day: 2 Smoking cigarettes per day: 40.0 Years smoked: 50 Smoking pack-years: 100.00 Smoking status: Former smoker Second hand tobacco smoke exposure: No Alcohol intake: never Substance use: never Substance use type: does not use Do You Feel Safe in your Home?: Yes Lack of Transportation: No Lack of Food: Never True Current Housing: I Have Housing Concerned About Future Housing: YES Difficulty Paying Gas/Electric Bills: No Difficulty Paying for Meds: No Currently Unemployed: No Education: Associate Degree Difficulty w/ Childcare or Family Care: No Living arrangements: with family Occupation/Education: retired Gender identity (if verbalized by the patient): Male Sexual Orientation (if Verbalized by the Patient): Straight or Heterosexual Spiritual care concerns: No Agree to blood products: Yes Meds Home Medications and Allergies Home Medications ?Medication ?Instructions ?Recorded ?Confirmed ?Type amlodipine 10 mg tablet 10 mg PO DAILY 01/20/24 08/18/24 History hydralazine 50 mg tablet 50 mg PO TID 01/20/24 08/18/24 History hydrochlorothiazide 50 mg tablet 50 mg PO DAILY 01/20/24 08/18/24 History lisinopril 40 mg tablet 40 mg PO DAILY 01/20/24 08/18/24 History rosuvastatin 40 mg tablet 40 mg PO DAILY 01/20/24 08/18/24 History spironolactone 50 mg tablet 50 mg PO BID 01/20/24 08/18/24 History tamsulosin 0.4 mg capsule 0.4 mg PO DAILY 01/20/24 08/18/24 History metformin 1,000 mg tablet 1,000 mg PO BID #180 tabs 04/30/24 08/18/24 Rx nebivolol 10 mg tablet 10 mg PO DAILY #90 tabs 04/30/24 08/18/24 Rx amiodarone 200 mg tablet 200 mg PO DAILY #30 tabs 05/27/24 08/18/24 Rx warfarin 2 mg tablet 6 mg (3 x 2 mg) PO DAILY #90 tabs 05/27/24 08/18/24 Rx isosorbide mononitrate 60 mg 60 mg PO BID #180 tabs 06/14/24 08/18/24 Rx tablet,extended release 24 hr furosemide 40 mg tablet 40 mg PO DAILY #30 tabs 08/13/24 08/18/24 Rx gemfibrozil 600 mg tablet 600 mg PO BID #180 tabs 08/16/24 08/18/24 Rx Allergies Allergy/AdvReac Type Severity Reaction Status Date / Time Penicillins Allergy Severe Swelling Verified 08/18/24 14:15 of Lip/Tongue/Throat Vital Signs Vital Signs - 24 hr 08/11/24 12:00 08/11/24 14:00 08/11/24 16:00 Temperature 36.2 C L Pulse Rate 74 74 70 Respiratory Rate 18 Blood Pressure 129/74 Pulse Oximetry 95 Oxygen Delivery Oxygen Flow Rate 08/11/24 20:00 08/11/24 20:00 08/11/24 20:28 Temperature 35.8 C L Pulse Rate 68 71 Respiratory Rate 18 Blood Pressure 106/63 Pulse Oximetry 96 96 Oxygen Delivery Nasal Cannula Oxygen Flow Rate 2 08/12/24 00:00 08/12/24 04:00 08/12/24 05:49 Temperature 36.2 C L Pulse Rate 73 72 72 Respiratory Rate 18 Blood Pressure 136/66 Pulse Oximetry 94 Oxygen Delivery Oxygen Flow Rate Exam Const: General: comfortable, no acute distress, alert and awake Orientation/consciousness: patient oriented x3 HENMT: Head: normal to inspection Eyes: General: appearance normal, both eyes and all related structures Pupils: Equal, round and reactive pupils present Neck: Neck: normal visual inspection, supple and no JVD Carotids: normal carotid upstroke Chest: Other: Abdominal binder in place for sternal protections status post muscle flap for sternal wound infection Resp: Effort & Inspection: normal respiratory effort Auscultation: clear to auscultation bilaterally Cardio: Rate: regular rate Rhythm: abnormal rhythm irregularly irregular Heart sounds: S1 normal heart sound present, S2 normal heart sound present and no murmurs GI: Auscultation: normal bowel sounds Urinary Catheter: Urinary Catheter: patent and draining Skin: General skin exam: normal color Neuro: General: patient oriented x3 Cranial nerves: Yes Equal, round and reactive pupils present Extrem: General: edema and pedal edema Other: 1+ bilateral pretibial and pedal edema. Bilateral knee-high compression stockings are in place. Psych: Appearance: grossly normal Mental Status: mental status grossly normal Results Labs and Meds 08/13/24 05:14 08/13/24 05:14 Lab results: Cardiac Enzymes 08/12/24 Range/Units 05:59 AST 17 (17-59) U/L Coagulation 08/11/24 08/12/24 Range/Units 09:01 05:59 PT 18.9 H 17.2 H (11.1-14.7) Seconds CBC 08/12/24 Range/Units 05:59 WBC 4.8 (4.5-10.0) K/mm3 RBC 3.61 L (4.6-6.20) M/mm3 Hgb 9.1 L (14.0-18.0) g/dL Hct 31.6 L (42.0-52.0) % Plt Count 225 (150-375) k/mm3 Lymph # (Auto) 1.54 (0.9-3.2) K/mm3 [place] # (Auto) 0.7 H (0.1-0.6) K/mm3 Eos # (Auto) 0.2 (0-0.3) K/mm3 Baso # (Auto) 0.0 (0.0-0.1) K/mm3 Comprehensive Metabolic Panel 05/29/25 Range/Units 05:59 Sodium 138 (137-145) mmol/L Potassium 3.7 (3.4-5.0) mmol/L Chloride 97 L (98-107) mmol/L Carbon Dioxide 34 H (22-30) mmol/L BUN 31 H (9-20) mg/dL Creatinine 1.45 H (0.7-1.3) mg/dL Glucose 131 H (65-110) mg/dL Calcium 9.5 (8.4-10.2) mg/dL AST 17 (17-59) U/L ALT 10 (6-50) U/L Alkaline Phosphatase 70 (38-126) U/L Total Protein 6.0 L (6.3-8.2) g/dL Albumin 3.8 (3.5-5.1) g/dL Intake and Output 08/11/24 08/12/24 08/12/24 23:59 07:59 15:59 Intake Total 836 100 Output Total 710 1100 Balance 126 -1000 Intake: Oral 836 100 Output: Urine 900 Catheter Urine 710 200 External/Condom 710 200 Other: # Unmeasured Voids 1 # Incontinent Voids 1
[2024-08-12] MEDS: NEBIVOLOL HCL 5 MG TABLET 10 MG PO (09:18)
[2024-08-12] MEDS: hydrALAZINE HCL 50 MG TABLET PO ×3 (09:20→18:01)
[2024-08-12] MEDS: lisinopriL 20 MG TABLET 40 MG PO (09:20)
[2024-08-12] MEDS: AMIODARONE HCL 200 MG TABLET PO (09:20)
[2024-08-12] MEDS: TAMSULOSIN HCL 0.4 MG CAPSULE PO (09:20)
[2024-08-12] MEDS: ROSUVASTATIN 20 MG TABLET 40 MG PO (09:20)
[2024-08-12] MEDS: hydroCHLOROthiazide 25 MG TABLET 50 MG PO (09:20)
[2024-08-12] MEDS: SPIRONOLACTONE 50 MG TABLET PO ×2 (09:21→18:01)
[2024-08-12] MEDS: gemfibroziL 600 MG TABLET PO ×2 (09:21→18:01)
[2024-08-12] MEDS: ISOSORBIDE MONONITRATE 60 MG TAB.ER.24H PO ×2 (09:21→18:01)
[2024-08-12] MEDS: FUROSEMIDE INJ 40 MG/4 ML VIAL IV PUSH ×2 (09:21→20:41)
[2024-08-12] MEDS: amLODIPine BESYLATE 10 MG TABLET PO (09:21)
--- NOTE | 2024-08-12 10:31 | P.PNIM_ITS ---
Progress Note: A&P Assessment and Plan (1) Hypertensive heart disease: Qualifiers: Heart failure presence: without heart failure Qualified Code(s): I11.9 - Hypertensive heart disease without heart failure Code(s): I11.9 - Hypertensive heart disease without heart failure Status: Acute (2) CHF (congestive heart failure): Code(s): I50.9 - Heart failure, unspecified Status: Acute (3) CAD (coronary artery disease): Code(s): I25.10 - Atherosclerotic heart disease of [place] coronary artery without angina pectoris Status: Acute (4) History of four vessel coronary artery bypass graft: Code(s): Z95.1 - Presence of aortocoronary bypass graft Status: Acute (5) Afib: Code(s): I48.91 - Unspecified atrial fibrillation Status: Acute (6) Mixed hyperlipidemia: Code(s): E78.2 - Mixed hyperlipidemia Status: Acute (7) Diabetes mellitus with hyperglycemia: Code(s): E11.65 - Type 2 diabetes mellitus with hyperglycemia Status: Acute (8) BPH NOS w ur obs/LUTS: Code(s): N40.1 - Benign prostatic hyperplasia with lower urinary tract symptoms Status: Acute (9) Anemia: Code(s): D64.9 - Anemia, unspecified Status: Acute (10) Degenerative arthritis of lumbar spine: Code(s): M47.816 - Spondylosis without myelopathy or radiculopathy, lumbar region Status: Acute (11) GOOD (obstructive sleep apnea): Code(s): G47.33 - Obstructive sleep apnea (adult) (pediatric) Status: Acute (12) Hypoxia: Code(s): R09.02 - Hypoxemia Status: Acute (13) Anasarca: Code(s): R60.1 - Generalized edema Status: Acute Plan This is a 74-year-old male who presents to the ED with progressive worsening of the swelling of the arms and legs over the past 2 weeks. It has some shortness of breath with exertion. Denies any chest pain. No prior history of congestive heart failure. He recently had of 4 vessel CABG in March 04, 2024. Had surgical site infection needing sternal washout and wound VAC placement followed by debridement and pedicle flap on March 2024. In the ED his vitals were stable oxygen was low 90s. He was noted to have pitting edema involving lower extremities and bilateral hand. Laboratory studies showed WBC of 5.3 hemoglobin of 9.4 platelet count of 242. Sodium 143 potassium 4.4 bicarbonate of 29 creatinine of 1.67 blood glucose 134 LFTs were normal. Troponin was negative at 0.013 BNP was 6260. Chest x-ray showed left prominent bronchovascular markings which may indicate atelectasis versus pneumonia. Atelectatic changes in the right lung base with possible minimal effusion. Patient received a dose of Lasix. Patient is admitted in the setting for further treatment. Acute on chronic systolic/diastolic congestive heart failure with anasarca. LFTs are normal and albumin level is good. BINH pre CABG EF 40% mildly decreased RV function. Postop echo with improved ejection fraction reported. Repeat echo diuresis as ordered. He was on Lasix however he ran out of refills and has not been on currently. Cardiology consultation History of GOOD. Overnight sleep apnea link test unremarkable Type 2 diabetes on insulin at home continue to monitor Accu-Cheks. Recheck A1c at 6.2 CKD stage 3 baseline creatinine and low 1s to mid 1s. Continue to monitor with diuretics Anemia moderate chronic since surgery. Continue to monitor no signs of bleeding. Atrial fibrillation on anticoagulation with warfarin with subtherapeutic INR. EKG with atrial fibrillation rate controlled BPH Gout Peripheral neuropathy Obesity Hypertension Hyperlipidemia Coronary artery disease status post CABG x4 on March 04, 2024. Post CABG sternal wound infection needing sternal washout wound VAC placement and pedicle flap surgery. Currently on binder that he is supposed to continue for 6 months. DVT prophylaxis on warfarin Subtherapeutic INR will increase to 10 mg tonight Code status full code Subjective Date/time seen: 08/12/24 10:31 Interval history: No overnight events. Feels better. Shortness of breath has improved. Leg swelling has improved. Labs reviewed. Review of Systems Review of Systems: All systems reviewed & are unremarkable except as noted in HPI and below Exam Narrative: APPEARANCE: Well appearing, no pain, no distress, well-nourished. HEAD: normocephalic, atraumatic. EYES: PERRLA/EOMI, conjunctivae clear. NOSE: Normal no drainage NECK: Supple. No adenopathy, no masses. RESPIRATORY: Clear to auscultation bilaterally no respiratory distress CARDIOVASCULAR: Regular rate and rhythm without murmurs rubs or gallops. ABDOMINAL: Soft, nontender, nondistended, normal bowel sounds MUSCULOSKELETAL: Pitting edema involving the lower extremities, mid abdomen and bilateral hands to mid forearm NEURO: Alert. Cranial nerves II through XII intact. Good gait. Good coordination SKIN: Warm, dry. Normal Color Objective Data Vital Signs Vital Signs: Vital Signs - 24 hr 08/11/24 12:00 08/11/24 14:00 08/11/24 16:00 Temperature 97.2 F L Pulse Rate 74 74 70 Respiratory Rate 18 Blood Pressure 129/74 Pulse Oximetry 95 Oxygen Delivery Oxygen Flow Rate 08/11/24 20:00 08/11/24 20:00 08/11/24 20:28 Temperature 96.5 F L Pulse Rate 68 71 Respiratory Rate 18 Blood Pressure 106/63 Pulse Oximetry 96 96 Oxygen Delivery Nasal Cannula Oxygen Flow Rate 2 08/12/24 00:00 08/12/24 04:00 08/12/24 05:49 Temperature 97.2 F L Pulse Rate 73 72 72 Respiratory Rate 18 Blood Pressure 136/66 Pulse Oximetry 94 Oxygen Delivery Oxygen Flow Rate 08/12/24 09:18 08/12/24 09:20 Temperature Pulse Rate 66 66 Respiratory Rate Blood Pressure Pulse Oximetry Oxygen Delivery Oxygen Flow Rate Intake/Output Intake/Output: Intake & Output 08/09/24 08/10/24 08/11/24 08/12/24 23:59 23:59 23:59 23:59 Intake Total 1748 592 Output Total [address] [facility] -[id number] [id number] Meds/Results Medications: Active Medications Generic Name Dose Route Start Last Admin Trade Name Freq PRN Reason Stop Dose Admin Amiodarone HCl 200 mg 08/11/24 09:00 08/12/24 09:20 Amiodarone Hcl 200 Mg Tablet PO 200 mg DAILY AP Administration Amlodipine Besylate 10 mg 08/11/24 09:00 08/12/24 09:21 Amlodipine Besylate 10 Mg Tablet PO 10 mg DAILY AP Administration Furosemide 40 mg 08/11/24 08:00 08/12/24 09:21 Furosemide Inj 40 Mg/4 Ml Vial IV PUSH 40 mg Q12HR AP Administration Gemfibrozil 600 mg 08/11/24 09:00 08/12/24 09:21 Gemfibrozil 600 Mg Tablet PO 600 mg BID AP Administration Hydralazine HCl 50 mg 08/11/24 09:00 08/12/24 09:20 Hydralazine Hcl 50 Mg Tablet PO 50 mg TID AP Administration Hydrochlorothiazide 50 mg 08/11/24 09:00 08/12/24 09:20 Hydrochlorothiazide 25 Mg Tablet PO 50 mg DAILY AP Administration Isosorbide Mononitrate 60 mg 08/11/24 09:00 08/12/24 09:21 Isosorbide Mononitrate 60 Mg Tab.Er.24h PO 60 mg BID AP Administration Lisinopril 40 mg 08/11/24 09:00 08/12/24 09:20 Lisinopril 20 Mg Tablet PO 40 mg DAILY AP Administration Nebivolol 10 mg 08/11/24 09:00 08/12/24 09:18 Nebivolol Hcl 5 Mg Tablet PO 10 mg DAILY AP Administration Rosuvastatin Calcium 40 mg 08/11/24 09:00 08/12/24 09:20 Rosuvastatin 20 Mg Tablet PO 40 mg DAILY AP Administration Spironolactone 50 mg 08/11/24 09:00 08/12/24 09:21 Spironolactone 50 Mg Tablet PO 50 mg BID AP Administration Tamsulosin HCl 0.4 mg 08/11/24 09:00 08/12/24 09:20 Tamsulosin Hcl 0.4 Mg Capsule PO 0.4 mg DAILY AP Administration Warfarin Sodium 6 mg 08/11/24 17:00 08/11/24 17:36 Warfarin (*Pbkc) 3 Mg Tablet PO 6 mg DAILY@1700 AP Administration Radiology Results: ITS Impressions Chest X-Ray 08/10/24 17:18 IMPRESSION: Left prominent bronchovascular markings which may indicate atelectasis versus pneumonia. Atelectatic changes in the right lung base with possible minimal effusion. Labs Labs: Laboratory Results - last 24 hr 08/12/24 05:59 WBC 4.8 RBC 3.61 L Hgb 9.1 L Hct 31.6 L MCV 87.5 MCH 25.2 L MCHC 28.8 L RDW 19.1 H Plt Count 225 MPV 9.9 Immature Gran % (Auto) 0.4 Neut % (Auto) 50.3 Lymph % (Auto) 31.9 [place] % (Auto) 13.9 H Eos % (Auto) 3.1 Baso % (Auto) 0.4 Lymph # (Auto) 1.54 [place] # (Auto) 0.7 H Eos # (Auto) 0.2 Baso # (Auto) 0.0 Abs Immat Gran (auto) 0.02 Absolute Neuts (auto) 2.4 Absolute Nucleated RBC 0.000 Band Neutrophils % Not Reportable Nucleated RBC % 0.0 Platelet Estimate Adequate Hypochromasia 1+ Anisocytosis 1+ Schistocytes None seen PT 17.2 H INR 1.4 Sodium 138 Potassium 3.7 Chloride 97 L Carbon Dioxide 34 H Anion Gap 7 BUN 31 H Creatinine 1.45 H Estim Creat Clear Calc 53 Estimated GFR 48 L Glucose 131 H Calcium 9.5 Magnesium 1.9 Total Bilirubin 0.5 AST 17 ALT 10 Alkaline Phosphatase 70 Total Protein 6.0 L Albumin 3.8
[2024-08-12] MEDS: WARFARIN (*PBKC) 10 MG TABLET PO (18:01)
[2024-08-12] MEDS: ARTIFICIAL TEARS OPHTH SOLN 15 ML BOTTLE 1 DROP EACH EYE (21:38)
[2024-08-13] VITALS (10 sets, daily range): BP systolic 120–128; BP diastolic 64–69; PULSE 64–85; RESP 16–18; TEMP 36.2–36.6; O2SAT 87–96
[2024-08-13] MEDS: ARTIFICIAL TEARS OPHTH SOLN 15 ML BOTTLE 1 DROP EACH EYE (00:59)
[2024-08-13 05:36] LABS: Basophils Percent Auto 0.2 % (0.2-1.2); Eosinophils Absolute Auto 0.2 K/mm3 (0-0.3); Eosinophils Percent Auto 4.1 % (0-4.4); Hematocrit 31.2 % (42.0-52.0); Hemoglobin 9.1 g/dL (14.0-18.0); Immature Granulocyte Absolute 0.02 K/mm3 (0.00-0.031); Immature Granulocyte Percent A 0.4 % (0-0.5); Lymphocytes Absolute Auto 1.61 K/mm3 (0.9-3.2); Lymphocytes Percent Auto 34.6 % (18.3-44.2); Mean Corpuscular HGB Conc 29.2 g/dl (32-36); Mean Corpuscular Hemoglobin 25.4 pg (26-34); Mean Corpuscular Volume 87.2 fl (80-100); Monocytes Absolute Auto 0.7 K/mm3 (0.1-0.6); Monocytes Percent Auto 14.4 % (2.6-8.5); Neutrophils Absolute Auto 2.2 K/mm3 (1.3-6.7); Neutrophils Percent Auto 46.3 % (45.5-73.1); Platelet Count Result 228 k/mm3 (150-375); Red Blood Count 3.58 M/mm3 (4.6-6.20); White Blood Count 4.7 K/mm3 (4.5-10.0)
[2024-08-13 05:46] LABS: INR 1.5; Prothrombin Time 18.4 Seconds (11.1-14.7)
[2024-08-13 05:55] LABS: Alanine Aminotransferase 11 U/L (6-50); Albumin Level 3.8 g/dL (3.5-5.1); Alkaline Phosphatase 71 U/L (38-126); Anion Gap 7 mmol/L (4-12); Aspartate Amino Transferase 17 U/L (17-59); Bilirubin,Total 0.5 mg/dL (0.2-1.3); Blood Urea Nitrogen 36 mg/dL (9-20); Calcium 9.5 mg/dL (8.4-10.2); Carbon Dioxide 36 mmol/L (22-30); Chloride 94 mmol/L (98-107); Estimated CRCL calculation 47 ml/min; Estimated Glomerular Filt Rate 42; Glucose 131 mg/dL (65-110); Magnesium 1.9 mg/dL (1.6-2.3); Potassium 3.6 mmol/L (3.4-5.0); Sodium 137 mmol/L (137-145)
[2024-08-13 06:03] LABS: Anisocytosis 1+; Band Neutrophils Percent 0 % (0-6); Ovalocytes 1+; Platelet Estimate Adequate (Adequate); Schistocytes None Seen
[2024-08-13] MEDS: gemfibroziL 600 MG TABLET PO (09:50)
[2024-08-13] MEDS: hydroCHLOROthiazide 25 MG TABLET 50 MG PO (09:50)
[2024-08-13] MEDS: amLODIPine BESYLATE 10 MG TABLET PO (09:50)
[2024-08-13] MEDS: SPIRONOLACTONE 50 MG TABLET PO (09:50)
[2024-08-13] MEDS: hydrALAZINE HCL 50 MG TABLET PO ×2 (09:50→13:25)
[2024-08-13] MEDS: lisinopriL 20 MG TABLET 40 MG PO (09:51)
[2024-08-13] MEDS: TAMSULOSIN HCL 0.4 MG CAPSULE PO (09:51)
[2024-08-13] MEDS: FUROSEMIDE 40 MG TABLET PO (09:51)
[2024-08-13] MEDS: ISOSORBIDE MONONITRATE 60 MG TAB.ER.24H PO (09:51)
[2024-08-13] MEDS: NEBIVOLOL HCL 5 MG TABLET 10 MG PO (09:51)
[2024-08-13] MEDS: AMIODARONE HCL 200 MG TABLET PO (09:51)
[2024-08-13] MEDS: ROSUVASTATIN 20 MG TABLET 40 MG PO (09:51)
--- NOTE | 2024-08-13 13:27 | HOMEO2EVAL ---
Evaluation was performed at [facility] Home Oxygen Evaluation RC: Home Oxygen (O2) Evaluation Start: 08/13/24 09:09 Freq: ONCE Status: Active Protocol: RPE Activity Type Activity Date Activity User E-sign Co-sign Detail Recorded Client Recorded Date Recorded By Document 08/13/24 13:11 [email or web address] [email or web address] 08/13/24 13:27 KRM Document 08/13/24 13:15 [email or web address] [email or web address] 08/13/24 13:27 KRM Document 08/13/24 13:16 [email or web address] [email or web address] 08/13/24 13:27 KRM Document 08/13/24 13:18 [email or web address] [email or web address] 08/13/24 13:27 KRM 08/13/24 08/13/24 08/13/24 13:11 13:15 13:16 Home O2 Evaluation [Oxygen] -Test Phase Resting Exercise Exercise -Oxygen Delivery Room Air Room Air Nasal Cannula -Oxygen Flow Rate (L/min) 1 [Pulse Oximetry] -Pulse Oximetry (90-100 %) 91 87 L 88 L [Pulse Rate] -Pulse Rate (60-100 beats/min) 80 85 85 [Evaluation] -Activity Tolerance Fair Fair [Exercise] -Ambulation Distance (feet) -Ambulation Distance (meters) [Comments] -Home Oxygen Evaluation Comments [Charges] -Evaluation Charges 08/13/24 13:18 Home O2 Evaluation [Oxygen] -Test Phase Exercise -Oxygen Delivery Nasal Cannula -Oxygen Flow Rate (L/min) 2 [Pulse Oximetry] -Pulse Oximetry (90-100 %) 90 [Pulse Rate] -Pulse Rate (60-100 beats/min) 85 [Evaluation] -Activity Tolerance Fair [Exercise] -Ambulation Distance (feet) 25 -Ambulation Distance (meters) 7.61 [Comments] -Home Oxygen Evaluation Comments 2lpm with activity [Charges] -Evaluation Charges O2 Evaluation by Pulmonary
--- NOTE | 2024-08-13 13:47 | PM.DS ---
DS: Admitting Diagnosis Discharge Date 08/13/2024 Admitting Diagnosis Shortness of breath DS: Discharge Diagnosis Discharge Diagnosis (1) Hypertensive heart disease: Qualifiers: Heart failure presence: without heart failure Qualified Code(s): I11.9 - Hypertensive heart disease without heart failure Code(s): I11.9 - Hypertensive heart disease without heart failure Status: Acute (2) CHF (congestive heart failure): Code(s): I50.9 - Heart failure, unspecified Status: Acute (3) CAD (coronary artery disease): Code(s): I25.10 - Atherosclerotic heart disease of ambler coronary artery without angina pectoris Status: Acute (4) History of four vessel coronary artery bypass graft: Code(s): Z95.1 - Presence of aortocoronary bypass graft Status: Acute (5) Afib: Code(s): I48.91 - Unspecified atrial fibrillation Status: Acute (6) Mixed hyperlipidemia: Code(s): E78.2 - Mixed hyperlipidemia Status: Acute (7) Diabetes mellitus with hyperglycemia: Code(s): E11.65 - Type 2 diabetes mellitus with hyperglycemia Status: Acute (8) BPH NOS w ur obs/LUTS: Code(s): N40.1 - Benign prostatic hyperplasia with lower urinary tract symptoms Status: Acute (9) Anemia: Code(s): D64.9 - Anemia, unspecified Status: Acute (10) Degenerative arthritis of lumbar spine: Code(s): M47.816 - Spondylosis without myelopathy or radiculopathy, lumbar region Status: Acute (11) GOOD (obstructive sleep apnea): Code(s): G47.33 - Obstructive sleep apnea (adult) (pediatric) Status: Acute (12) Hypoxia: Code(s): R09.02 - Hypoxemia Status: Acute (13) Anasarca: Code(s): R60.1 - Generalized edema Status: Acute DS: Summary Hospital Course Hospital Course: This is a 74-year-old male who presents to the ED with progressive worsening of the swelling of the arms and legs over the past 2 weeks. It has some shortness of breath with exertion. Denies any chest pain. No prior history of congestive heart failure. He recently had of 4 vessel CABG in March 04, 2024. Had surgical site infection needing sternal washout and wound VAC placement followed by debridement and pedicle flap on March 2024. In the ED his vitals were stable oxygen was low 90s. He was noted to have pitting edema involving lower extremities and bilateral hand. Laboratory studies showed WBC of 5.3 hemoglobin of 9.4 platelet count of 242. Sodium 143 potassium 4.4 bicarbonate of 29 creatinine of 1.67 blood glucose 134 LFTs were normal. Troponin was negative at 0.013 BNP was 6260. Chest x-ray showed left prominent bronchovascular markings which may indicate atelectasis versus pneumonia. Atelectatic changes in the right lung base with possible minimal effusion. Patient received a dose of Lasix. Patient is admitted in the setting for further treatment. Acute on chronic systolic/diastolic congestive heart failure with anasarca. LFTs are normal and albumin level is good. BINH pre CABG EF 40% mildly decreased RV function. Postop echo with improved ejection fraction reported. Repeat echo diuresis as ordered. He was on Lasix however he ran out of refills and has not been on currently. Cardiology consultation. Will switch to oral Lasix at discharge History of GOOD. Overnight sleep apnea link test unremarkable. Home oxygen evaluation was performed and he still required oxygen with exertion. Oxygen was arranged at the time of discharge. Type 2 diabetes on insulin at home continue to monitor Accu-Cheks. Recheck A1c at 6.2 CKD stage 3 baseline creatinine and low 1s to mid 1s. Continue to monitor with diuretics Anemia moderate chronic since surgery. Continue to monitor no signs of bleeding. Atrial fibrillation on anticoagulation with warfarin with subtherapeutic INR. EKG with atrial fibrillation rate controlled BPH Gout Peripheral neuropathy Obesity Hypertension Hyperlipidemia Coronary artery disease status post CABG x4 on March 04, 2024. Post CABG sternal wound infection needing sternal washout wound VAC placement and pedicle flap surgery. Currently on binder that he is supposed to continue for 6 months. DVT prophylaxis on warfarin Subtherapeutic INR will increase to 10 mg. Continue to monitor INR as an outpatient basis per Cardiology. Code status full code Time Spent with Patient Time attestation: Total time spent providing and/or coordinating discharge services: 45 minutes Exam Narrative: APPEARANCE: Well appearing, no pain, no distress, well-nourished. HEAD: normocephalic, atraumatic. EYES: PERRLA/EOMI, conjunctivae clear. NOSE: Normal no drainage NECK: Supple. No adenopathy, no masses. RESPIRATORY: Clear to auscultation bilaterally no respiratory distress CARDIOVASCULAR: Regular rate and rhythm without murmurs rubs or gallops. ABDOMINAL: Soft, nontender, nondistended, normal bowel sounds MUSCULOSKELETAL: Pitting edema involving the lower extremities much improved, mid abdomen and bilateral hands to mid forearm NEURO: Alert. Cranial nerves II through XII intact. Good gait. Good coordination SKIN: Warm, dry. Normal Color DS: Data Data Completed and Pending Completed studies during hospitalization: Exam Type: CA echo doppler color flow Complete two-dimensional, color flow and Doppler transthoracic echocardiogram is performed. Staff Referring Physician: Cristhian Fagan Dry Cleaner Hand: Damaris Stubbs Attending Provider: Marycruz French Summary 1. Complete two-dimensional, color flow and Doppler transthoracic echocardiogram is performed. 2. Left ventricular chamber dimension is normal. 3. Left ventricular systolic function is normal, estimated at 55-60. 4. There is mild concentric increased left ventricular wall thickness. 5. Left ventricular septal wall motion is abnormal with septal motion related to bundle branch block. 6. The left ventricular diastolic function is grade III diastolic dysfunction. 7. E/e' 12 is mildly elevated. 8. Right ventricular chamber dimension is mildly enlarged. 9. Right ventricular systolic function is at least mildly reduced and with abnormal TAPSE 1.3 cm. 10. Left atrial chamber dimension is moderately enlarged. 11. Right atrial chamber dimension is moderately enlarged. 12. There is moderate aortic valve sclerosis. 13. The mitral valve has a mildly calcified annulus. 14. There is trace mitral valve regurgitation. 15. There is mild tricuspid valve regurgitation. 16. No pulmonary hypertension, estimated pulmonary arterial systolic pressure is 38 mmHg. 17. There is trace pulmonic regurgitation. Left Ventricle E/e' 12 is mildly elevated. Left ventricular chamber dimension is normal. Left ventricular systolic function is normal, estimated at 55-60. There is mild concentric increased left ventricular wall thickness. Left ventricular septal wall motion is abnormal with septal motion related to bundle branch block. The left ventricular diastolic function is grade III diastolic dysfunction. Right Ventricle Right ventricular chamber dimension is mildly enlarged. Right ventricular systolic function is at least mildly reduced and with abnormal TAPSE 1.3 cm. Left Atria Left atrial chamber dimension is moderately enlarged. Right Atria Right atrial chamber dimension is moderately enlarged. Aortic Valve The aortic valve is trileaflet. There is moderate aortic valve sclerosis. There is no aortic valve stenosis. There is no aortic valve regurgitation. Pulmonic Valve There is trace pulmonic regurgitation. Mitral Valve The mitral valve has a mildly calcified annulus. There is no mitral valve stenosis. There is trace mitral valve regurgitation. Tricuspid Valve There is mild tricuspid valve regurgitation. No pulmonary hypertension, estimated pulmonary arterial systolic pressure is 38 mmHg. Pericardium/Pleural There is no pericardial effusion. Inferior Vena Cava Normal inferior vena cava with >50% collapse upon inspiration consistent with normal right atrial pressure, 5 mmHg. Aorta The aortic root size at the sinus of Valsalva is normal. Labs on day of discharge: Labs from last 24 hours 08/13/24 05:14 WBC 4.7 RBC 3.58 L Hgb 9.1 L Hct 31.2 L MCV 87.2 MCH 25.4 L MCHC 29.2 L RDW 19.0 H Plt Count 228 MPV 10.0 Immature Gran % (Auto) 0.4 Neut % (Auto) 46.3 Lymph % (Auto) 34.6 [place] % (Auto) 14.4 H Eos % (Auto) 4.1 Baso % (Auto) 0.2 Lymph # (Auto) 1.61 [place] # (Auto) 0.7 H Eos # (Auto) 0.2 Baso # (Auto) 0.0 Abs Immat Gran (auto) 0.02 Absolute Neuts (auto) 2.2 Absolute Nucleated RBC 0.000 Band Neutrophils % 0 Nucleated RBC % 0.0 Platelet Estimate Adequate Anisocytosis 1+ Ovalocytes 1+ Schistocytes None seen PT 18.4 H INR 1.5 Sodium 137 Potassium 3.6 Chloride 94 L Carbon Dioxide 36 H Anion Gap 7 BUN 36 H Creatinine 1.64 H Estim Creat Clear Calc 47 Estimated GFR 42 L Glucose 131 H Calcium 9.5 Magnesium 1.9 Total Bilirubin 0.5 AST 17 ALT 11 Alkaline Phosphatase 71 Total Protein 6.0 L Albumin 3.8 Imaging Radiologist's impression: ITS Impressions Chest X-Ray 08/10/24 17:18 IMPRESSION: Left prominent bronchovascular markings which may indicate atelectasis versus pneumonia. Atelectatic changes in the right lung base with possible minimal effusion. Discharge Plan Discharge Attending physician on discharge: Mc Ordoñez Consulting providers: Александр Yu Discharging Clinician: Mc Ordoñez Anticipated Discharge Date/Time: 08/13/24 13:49 Patient Disposition: Home Activity: as tolerated Diet: heart healthy Discharge Instructions: Will oxygen 2 L with activity Check INR on Friday. 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 Scheduled Appt. Discharge Medications: Continued warfarin 2 mg tablet 6 mg PO DAILY Qty: 90 0RF Patient Comments: 6MG SUN, MON, WED, FRI, SAT 2MG TUE AND THUR amiodarone 200 mg tablet 200 mg PO DAILY Qty: 30 0RF hydrochlorothiazide 50 mg tablet 50 mg PO DAILY tamsulosin 0.4 mg capsule 0.4 mg PO DAILY amlodipine 10 mg tablet 10 mg PO DAILY hydralazine 50 mg tablet 50 mg PO TID lisinopril 40 mg tablet 40 mg PO DAILY spironolactone 50 mg tablet 50 mg PO BID rosuvastatin 40 mg tablet 40 mg PO DAILY furosemide 40 mg tablet 40 mg PO DAILY Qty: 30 0RF metformin 1,000 mg tablet 1,000 mg PO BID Qty: 180 1RF nebivolol 10 mg tablet 10 mg PO DAILY Qty: 90 1RF isosorbide mononitrate 60 mg tablet extended release 24 hr 60 mg PO BID Qty: 180 2RF gemfibrozil 600 mg tablet 600 mg PO BID Qty: 60 1RF Other Ambulatory Orders: Prothrombin Time INR (Routine) Timeframe: 3 Days Location: Determined by Patient Ordered By: Mc Ordoñez Date of admission: 08/11/24 07:47 Primary Care Provider: Leonard Gillette Admitting Provider: Marycruz French Attending physician on admission: Marycruz French Condition: Improved
--- NOTE | 2024-08-13 14:57 | PCRCNOTE ---
HOME O2 EVAL DONE. PT. NEEDS 2LPM WITH ACTIVITY. PT.SET UP WITH SAADIA HARRY, LI IN ROOM .
== END 2024-08-13 15:22 | disposition home or self-care (01) | DRG 291 ==
LOC: ANHED 21:43 → ANH3MED 21:51
PROVIDERS: Physician Assistant; Admitting Provider Internal Medicine; Emergency Provider Emergency Medicine; PCP Family Medicine; Visit Provider Internal Medicine
DX: I13.0 Hypertensive heart and chronic kidney disease with heart failure and stage 1 through stage 4 chronic kidney disease, or unspecified chronic kidney disease (principal); I50.43 Acute on chronic combined systolic (congestive) and diastolic (congestive) heart failure; I48.20 Chronic atrial fibrillation, unspecified; I25.10 Atherosclerotic heart disease of native coronary artery without angina pectoris; I25.5 Ischemic cardiomyopathy; N18.2 Chronic kidney disease, stage 2 (mild); E11.22 Type 2 diabetes mellitus with diabetic chronic kidney disease; E11.42 Type 2 diabetes mellitus with diabetic polyneuropathy; E78.2 Mixed hyperlipidemia; M47.816 Spondylosis without myelopathy or radiculopathy, lumbar region; G47.33 Obstructive sleep apnea (adult) (pediatric); K76.0 Fatty (change of) liver, not elsewhere classified; N40.0 Benign prostatic hyperplasia without lower urinary tract symptoms; Z86.73 Personal history of transient ischemic attack (TIA), and cerebral infarction without residual deficits; Z95.1 Presence of aortocoronary bypass graft; Z95.5 Presence of coronary angioplasty implant and graft; Z87.891 Personal history of nicotine dependence
CPT/HCPCS: 36415; 71046; 80053; 83735; 83880; 84484; 85025; 85610; 85730; 93005; 93306; 94618; 96374; 99285; A9270; G0378; J1938

== ENCOUNTER 2024-09-28 10:43 | Outpatient (CLI) | payer MEDICARE, SELFPAY ==
--- NOTE | ~2024-09-28 | CT_ITS ---
CT Scan of the Chest without Contrast: Clinical Indication: Lung cancer screening, nicotine dependence Technique: Contiguous sections were acquired throughout the chest without intravenous contrast. Dose reduction technique was used on this scan by utilizing automated exposure control and iterative recon struction technique. The dose-length product (DLP) was 217.85 mGy-cm. COMPARISON: 06/13/2023 Findings: There is no evidence of any significant mediastinal, hilar or axillary lymphadenopathy. Extensive cor onary artery calcifications are present. No pericardial effusion. Small right pleural effusion present. No left pleural effusion. Stable 5 mm left lower lobe pulmonary nodule (axial image 72). There is mild patchy groundglass opaci ty in the right upper lobe. Images through the upper abdomen reveal right adrenal lipoma/myelolipoma. Impression: Lung RADS 2-S: Benign appearance. 12 month follow-up screening CT advised. Mild patchy groundglass opacity in the right upper lobe suggests pneumonia/infectious process. Consid er short-term follow-up exam after interval therapy as indicated. Small right pleural effusion. Reviewed, dictated and finalized at location . Impression: Lung RADS 2-S: Benign appearance. 12 month follow-up screening CT advised. Mild patchy groundglass opacity in the right upper lobe suggests pneumonia/infe ctious process. Consider short-term follow-up exam after interval therapy as in dicated. Small right pleural effusion.
== END 2024-09-28 10:44 | disposition home or self-care (01) ==
LOC: MICIMG 10:46
PROVIDERS: PCP Family Medicine; Visit Provider Family Medicine
DX: Z12.2 Encounter for screening for malignant neoplasm of respiratory organs (principal); Z87.891 Personal history of nicotine dependence; R93.89 Abnormal findings on diagnostic imaging of other specified body structures
CPT/HCPCS: 71271

== ENCOUNTER 2025-01-19 14:09 | Inpatient (IN) | payer MEDICARE, OTHER, SELFPAY ==
[2025-01-19] VITALS (10 sets, daily range): BP systolic 111–125; BP diastolic 59–86; PULSE 48–75; RESP 13–23; TEMP 36.2–36.6; O2SAT 86–96; BMI 29.9
--- NOTE | ~2025-01-19 | XR_ITS ---
Clinical history:Shortness of breath. CHF. EXAM:X-ray chest one view TECHNIQUE:A single portable AP upright frontal image of the chest was obtained Comparisons:08/10/2024 FINDINGS: Heart is moderately enlarged. No pneumothorax. Small right-sided pleural effusion. No free air under the diaphragm. Moderate-sized patchy opacities in the mid and lower lungs. There is a 1.4 cm nodular density in the left upper lobe. Differential includes vessel on end or pulmonary nodule. A chest CT is recommended. IMPRESSION: 1. Moderate-sized patchy opacities in the mid and lower lungs. Differential includes but is not limited to edema or pneumonia. Consider a chest CT. Follow- up to resolution. 2. Small right-sided pleural effusion. 3.There is a 1.4 cm nodular density in the left upper lobe. Differential includes vessel on end or pulmonary nodule. A chest CT is recommended. Reviewed, dictated and finalized at location Q. STAMPER IMPRESSION: 1. Moderate-sized patchy opacities in the mid and lower lungs. Differential inc ludes but is not limited to edema or pneumonia. Consider a chest CT. Follow-up to resolution. 2. Small right-sided pleural effusion. 3.There is a 1.4 cm nodular density in the left upper lobe. Differential includ es vessel on end or pulmonary nodule. A chest CT is recommended.
--- NOTE | ~2025-01-19 | CT_ITS ---
EXAMINATION: CT diagnostic chest wo con DATE: 01/19/2025 15:46 INDICATION: characterize edema vs infiltrates TECHNIQUE: Computed tomography (CT) of the chest was performed without intravenous contrast. Additional 3D reconstructions utilizing coronal maximum intensity projection (MIP) were performed. Automated exposure control and iterative reconstruction technique were employed. The dose-length product was 41 9.12 mGy-cm. COMPARISON: 09/28/2024 FINDINGS: Mild emphysema. Small posterior layering right pleural effusion with dependent and basilar consolidation consistent with atelectasis in the right lower and middle lobes with associated volume loss. There is mosaic attenuation throughout both lungs with scattered regions of groundglass opacity more prominent in the right than the left lung for which differential would include mild pulmonary edema, pneumonia or atelectasis. There is no septal line thickening to more specifically suggest pulmonary edema. No significant interval change in a 8 x 6 mm left lower lobe nodule. There are a few additional smaller new nodular opacities scattered within regions of the groundglass opacity most prominent in the posterior segment of the right upper lobe which given the relatively rapid development since the prior study be most consistent with infectious/inflammatory etiology. Cardiomegaly. Atherosclerotic coronary artery calcific location. No pericardial effusion. Aortic valve calcification. Thoracic aorta is normal in caliber. No pathologically enlarged thoracic lymphadenopathy. And moderate bilateral gynecomastia. Again seen is chronic dehiscence of a median sternotomy which may relate to prior coronary artery bypass grafting.. 4.2 cm right renal cyst. 2.1 cm exophytic fat attenuation right adrenal myelol ipoma. Mild to moderate thoracic spondylosis. IMPRESSION: 1. Mosaic attenuation in both lungs with scattered groundglass opacities and multiple associated new small pulmonary nodules and would favor pneumonia over mild pulmonary edema. 2. Small right pleural effusion with dependent and basilar consolidation in the right middle and lower lobes most consistent with atelectasis although superimposed pneumonia not excludable. 3. Cardiomegaly changes of likely prior coronary artery bypass grafting including sternotomy with chronic sternal dehiscence. Reviewed, dictated and finalized at location A. ENT GRINDER IMPRESSION: 1. Mosaic attenuation in both lungs with scattered groundglass opacities and mu ltiple associated new small pulmonary nodules and would favor pneumonia over mi ld pulmonary edema. 2. Small right pleural effusion with dependent and basilar consolidation in the right middle and lower lobes most consistent with atelectasis although superim posed pneumonia not excludable. 3. Cardiomegaly changes of likely prior coronary artery bypass grafting includi ng sternotomy with chronic sternal dehiscence.
--- NOTE | ~2025-01-19 | US_ITS ---
Examination: Ultrasound of the retroperitoneum including kidneys and bladder. Clinical History: Gaetano/ARF on CKD . Comparison: CTA abdomen 10/19/2020. Findings: Right kidney: 11 cm. Normal echogenicity. No collecting system dilatation. No shadowing calculi. 3.5 cm simple cyst. Left kidney: 11 cm. Normal echogenicity. No collecting system dilatation. No shadowing calculi. 2.9 and 1.6 cm simple cysts. Urinary bladder: No wall thickening or focal abnormality. IMPRESSION: 1. No acute abnormality. Reviewed, dictated and finalized at location R. N BUILDING ARCHITECT IMPRESSION: 1. No acute abnormality.
--- NOTE | ~2025-01-19 | XR_ITS ---
EXAMINATION: XR chest 1V portable DATE: 01/22/2025 08:39 INDICATION: Pneumonia TECHNIQUE: frontal view of the chest was obtained. COMPARISON: Chest radiograph and CT dated 01/19/2025 FINDINGS: Hazy airspace opacities throughout the right hemithorax with small right pleural effusion and more dense airspace opacities in the right lower lung zone. Linear discoid atelectasis/scarring the left lower lung zone. No pneumothorax or left- sided pleural effusion. Mild cardiomegaly. Surgical clips project over the left axilla and right and left chest IMPRESSION: 1. Small right pleural effusion with associated atelectasis and/or pneumonia in the right lower lung zone. 2. Mild linear discoid atelectasis/scarring the left lower lung zone. 3. Cardiomegaly. Reviewed, dictated and finalized at location A. ALS OFFICER
--- NOTE | 2025-01-19 14:35 | ECG_ITS ---
Test Date: 2025-01-19 14:50:37 Measurements Intervals [place] Rate: 65 P: 0 HI: 0 QRS: -77 QRSD: 138 T: 65 QT: 478 QTc: 499 Interpretive Statements ATRIAL FIBRILLATION INTRAVENTRICULAR CONDUCTION DELAY [130+ ms QRS DURATION] LEFT AXIS DEVIATION ABNORMAL ECG Electronically Signed On 01-19-2025 17:20:08 SUPERVISOR [employer] HEADING by [place] M.D.
--- NOTE | 2025-01-19 14:37 | ED.GENADULT ---
HPI - General Adult General Chief complaint: Recheck/Abnormal Lab/Rx Stated complaint: low o2 Time Seen by Provider: 01/19/25 14:27 Source: patient Mode of arrival: wheelchair Limitations: no limitations History of Present Illness HPI narrative: This is a 74-year-old male with history of CAD status post 4 vessel CABG, CKD, paroxysmal AFib on warfarin, hypertension, diabetes who presents the ED for shortness of breath. Patient states for the past month, he has been having increasing shortness of breath. He has also been coughing up ivan colored sputum once or twice a day. He states that his PCP noted that he may have had pneumonia a few weeks ago so how sternal doxycycline as her finished a couple weeks ago. He has had some intermittent chest tightness as well but notes that this has been ongoing for the past 9-10 months. He was seen by his PCP today and was found to be hypoxic with ambulation as low as the 70s prompting him to be sent here for further evaluation. Denies any new leg swelling. Related Data Home Medications ?Medication ?Instructions ?Recorded ?Confirmed ?Last Taken ?Type lisinopril 40 mg tablet 40 mg PO DAILY 01/20/24 01/19/25 01/19/25 History spironolactone 50 mg tablet 50 mg PO BID 01/20/24 01/19/25 01/19/25 History tamsulosin 0.4 mg capsule 0.4 mg PO DAILY 01/20/24 01/19/25 01/19/24 History Held on 01/19/25. Instructions: Patient no longer taking Allergies Allergy/AdvReac Type Severity Reaction Status Date / Time Penicillins Allergy Severe Swelling Verified 01/19/25 20:35 of Lip/Tongue/Throat Review of Systems Review of Systems: Gen.: Denies fevers or chills Eyes: Denies eye pain or visual change ENT: Denies congestion Respiratory: As per HPI CV: As per HPI GI: Denies abdominal pain nausea, emesis or diarrhea denies burning, urgency, frequency or hematuria Musculoskeletal: Denies back pain or muscle pain Neuro: Denies numbness, tingling, weakness or focal weakness Skin: Denies rash Except as documented, all other systems reviewed and negative PMFSH Past Medical History Medical History Myocardial infarction CHF (congestive heart failure) CKD (chronic kidney disease), stage III Afib GOOD (obstructive sleep apnea) Mixed hyperlipidemia Weight gain finding Type 2 diabetes mellitus with diabetic polyneuropathy Swelling of scrotum Nephropathy Malignant diastolic hypertension with CHF, NYHA class 2 Left hydrocele History of CVA (cerebrovascular accident) without residual deficits Heart failure, unspecified Colon cancer screening Benign nodular prostatic hyperplasia without lower urinary tract symptoms OAB (overactive bladder) Fatty liver Peripheral neuropathy CAD (coronary artery disease) Diabetes mellitus with hyperglycemia Surgical History Surgical History History of bilateral cataract extraction History of spinal surgery S/P CABG x 4 infx'd, repeat sternotomy, flap closure S/P angioplasty with stent 2011, x1 History of hydrocelectomy Family History Family History Father Heart disease Mother Hypertension Heart disease Other Family history of cardiovascular disease Social History Social History Social History: Flo is very confident filling out medical forms. In the last 12 months he has not received assistance from an organization or program. Smoking packs per day: 2 Smoking cigarettes per day: 40.0 Years smoked: 50 Smoking pack-years: 100.00 Smoking status: Former smoker Tobacco type: cigarettes Second hand tobacco smoke exposure: No Smoking end date: 02/18/15 Alcohol intake: current Drinks per week: 1 Substance use: current Substance use type: marijuana Last use: 01/05/25 Do You Feel Safe in your Home?: Yes Lack of Transportation: No Lack of Food: Never True Current Housing: Decline to Answer Concerned About Future Housing: No Difficulty Paying Gas/Electric Bills: No Difficulty Paying for Meds: No Currently Unemployed: No Education: Trade/Vocational Certificate Difficulty w/ Childcare or Family Care: No Living arrangements: with family Occupation/Education: retired Gender identity (if verbalized by the patient): Male Sexual Orientation (if Verbalized by the Patient): Straight or Heterosexual Spiritual care concerns: No Agree to blood products: Yes Exam Narrative: APPEARANCE: No acute distress, nontoxic, resting in bed EYES: EOMI HEENT: Normocephalic, atraumatic, OMM RESPIRATORY: On 4 L nasal cannula. No respiratory distress. Diminished breath sounds to the left base, clear to auscultation in all other ye CARDIOVASCULAR: Regular rate and rhythm without murmurs rubs or gallops. Well-healed sternotomy scar ABDOMINAL: Soft, nontender, nondistended, no rebound or guarding MUSCULOSKELETAl: Moves all extremities. No clubbing, cyanosis or edema. NEURO: Awake and alert. Following commands, speech normal, no focal deficits SKIN:: Warm, dry. No rashes lesions or abrasions PSYCHIATRIC: Normal affect/mood, Course Vital Signs Vital signs: Vital Signs Temperature 97.2 F L 01/19/25 14:15 Pulse Rate 48 L 01/19/25 14:15 Respiratory Rate 18 01/19/25 14:15 Blood Pressure 125/67 01/19/25 14:15 Pulse Oximetry 86 L 01/19/25 14:15 Temperature 97.5 F L 01/19/25 20:00 Pulse Rate 65 01/19/25 20:00 Respiratory Rate 20 01/19/25 20:00 Blood Pressure 125/86 01/19/25 20:00 Pulse Oximetry 94 01/19/25 20:00 Oxygen Delivery Nasal Cannula 01/19/25 14:31 Oxygen Flow Rate 4 01/19/25 14:45 Fraction of Inspired Oxygen 98 01/19/25 14:45 Medical Decision Making [facility] Narrative Medical decision making narrative: 74-year-old male Presenting for shortness of breath. On initial evaluation patient was in no acute distress afebrile, hemodynamic stable. He was on a new 4 L nasal cannula satting 93%. Differentials include but are not limited to: ACS, CHF Exacerbation, COPD exacerbation, PE, PNA, PTX, bronchitis, viral syndrome Notable exam findings: Diminished breath sounds to the left lower lung field, trace edema bilateral lower extremities at the knees with compression stockings in place Notable lab findings: Anemic to a point for, creatinine elevated 2.65 baseline around 1.6. BUN elevated at 63. BNP 8420. Notable imaging findings: Chest x-ray showed moderate patchy opacities in the mid and lower lungs that could be edema or pneumonia, right-sided pleural effusion as well as a 1.4 cm nodular density in the left upper lobe, CT chest was recommended. CT chest showed likely pneumonia over pulmonary edema with a right pleural effusion. Patient was started on Rocephin and doxycycline. He was given a dose of 40 mg Lasix IV. He remains on 4 L nasal cannula which is new for him. He will require admission for acute hypoxic respiratory failure due to pneumonia and CHF exacerbation. Case was discussed with hospitalist who will admit the patient. Medical Records Medical records reviewed: Yes I reviewed the external patient's medical records. Vital Signs Vital Signs: Vital Signs Temperature 97.2 F L 01/19/25 14:15 Pulse Rate 48 L 01/19/25 14:15 Respiratory Rate 18 01/19/25 14:15 Blood Pressure 125/67 01/19/25 14:15 Pulse Oximetry 86 L 01/19/25 14:15 Temperature 97.5 F L 01/19/25 20:00 Pulse Rate 65 01/19/25 20:00 Respiratory Rate 20 01/19/25 20:00 Blood Pressure 125/86 01/19/25 20:00 Pulse Oximetry 94 01/19/25 20:00 Oxygen Delivery Nasal Cannula 01/19/25 14:31 Oxygen Flow Rate 4 01/19/25 14:45 Fraction of Inspired Oxygen 98 01/19/25 14:45 Lab Data Lab results reviewed: Yes I reviewed the patient's lab results. 01/19/25 14:49 01/19/25 14:49 Labs: Lab Results 01/19/25 Range/Units 14:49 WBC 4.5 (4.5-10.0) K/mm3 RBC 3.15 L (4.6-6.20) M/mm3 Hgb 8.4 L (14.0-18.0) g/dL Hct 29.1 L (42.0-52.0) % MCV 92.4 (80-100) fl MCH 26.7 (26-34) pg MCHC 28.9 L (32-36) g/dl RDW 16.3 H (11.5-14.5) % Plt Count 261 (150-375) k/mm3 MPV 9.7 (7.4-10.4) fl Immature Gran % (Auto) 0.2 (0-0.5) % Neut % (Auto) 61.4 (45.5-73.1) % Lymph % (Auto) 25.1 (18.3-44.2) % [place] % (Auto) 12.4 H (2.6-8.5) % Eos % (Auto) 0.7 (0-4.4) % Baso % (Auto) 0.2 (0.2-1.2) % Lymph # (Auto) 1.13 (0.9-3.2) K/mm3 [place] # (Auto) 0.6 (0.1-0.6) K/mm3 Eos # (Auto) 0.0 (0-0.3) K/mm3 Baso # (Auto) 0.0 (0.0-0.1) K/mm3 Abs Immat Gran (auto) 0.01 (0.00-0.031) K/mm3 Absolute Neuts (auto) 2.8 (1.3-6.7) K/mm3 Absolute Nucleated RBC 0.000 (0.0-0.012) K/mm3 Band Neutrophils % 0 (0-6) % Nucleated RBC % 0.0 (0.0-0.2) % Platelet Estimate Adequate (Adequate) Hypochromasia 1+ Anisocytosis 2+ Schistocytes None seen PT 34.2 H (11.1-14.7) Seconds INR 3.5 Sodium 139 (137-145) mmol/L Potassium 3.8 (3.4-5.0) mmol/L Chloride 95 L (98-107) mmol/L Carbon Dioxide 35 H (22-30) mmol/L Anion Gap 9 (4-12) mmol/L BUN 63 H D (9-20) mg/dL Creatinine 2.65 H (0.7-1.3) mg/dL Estim Creat Clear Calc 25 ml/min Estimated GFR 24 L (59 - ) Glucose 129 H (65-110) mg/dL Calcium 9.4 (8.4-10.2) mg/dL Total Bilirubin 0.6 (0.2-1.3) mg/dL AST 24 (17-59) U/L ALT 18 (6-50) U/L Alkaline Phosphatase 60 (38-126) U/L Total Creatine Kinase 43 L (55-170) U/L Troponin I 0.021 (0.000-0.034) ng/mL NT-Pro-B Natriuret Pep 8420 H (19.9-100) pg/mL Total Protein 6.6 (6.3-8.2) g/dL Albumin 4.1 (3.5-5.1) g/dL Imaging Data Attestation: I personally reviewed and interpreted this imaging study as follows: Radiologist's impression: Impressions Chest X-Ray 01/19/25 15:11 IMPRESSION: 1. Moderate-sized patchy opacities in the mid and lower lungs. Differential includes but is not limited to edema or pneumonia. Consider a chest CT. Follow-up to resolution. 2. Small right-sided pleural effusion. 3.There is a 1.4 cm nodular density in the left upper lobe. Differential includes vessel on end or pulmonary nodule. A chest CT is recommended. Chest CT 01/19/25 15:48 IMPRESSION: 1. Mosaic attenuation in both lungs with scattered groundglass opacities and multiple associated new small pulmonary nodules and would favor pneumonia over mild pulmonary edema. 2. Small right pleural effusion with dependent and basilar consolidation in the right middle and lower lobes most consistent with atelectasis although superimposed pneumonia not excludable. 3. Cardiomegaly changes of likely prior coronary artery bypass grafting including sternotomy with chronic sternal dehiscence. ECG Data EKG #1: Attestation: I personally reviewed and interpreted this ECG as follows: ECG completion date: 01/19/25 ECG completion time: 14:50 Interpretation: AFib rate of 65, intraventricular conduction delay, no acute ST or T-wave changes Discharge Plan Discharge Clinical Impression: Acute hypoxemic respiratory failure, Acute exacerbation of CHF (congestive heart failure), Anemia, [place] (acute kidney injury), Bilateral pneumonia Patient Disposition: Still a Patient Condition: Stable
[2025-01-19 14:54] LABS: Hematocrit 29.1 % (42.0-52.0); Hemoglobin 8.4 g/dL (14.0-18.0); Immature Granulocyte Percent A 0.2 % (0-0.5); Lymphocytes Absolute Auto 1.13 K/mm3 (0.9-3.2); Mean Corpuscular HGB Conc 28.9 g/dl (32-36); Mean Corpuscular Hemoglobin 26.7 pg (26-34); Mean Corpuscular Volume 92.4 fl (80-100); Nucleated Red Blood Cells Absolute Auto 0.000 K/mm3 (0.0-0.012); Nucleated Red Blood Cells Perc 0.0 % (0.0-0.2); Platelet Count Result 261 k/mm3 (150-375); Red Blood Count 3.15 M/mm3 (4.6-6.20); White Blood Count 4.5 K/mm3 (4.5-10.0)
[2025-01-19 15:09] LABS: INR 3.5; Prothrombin Time 34.2 Seconds (11.1-14.7)
[2025-01-19 15:15] LABS: Hypochromasia 1+; Schistocytes None Seen
[2025-01-19 15:16] LABS: Anisocytosis 2+; Band Neutrophils Percent 0 % (0-6)
[2025-01-19 16:29] LABS: Alanine Aminotransferase 18 U/L (6-50); Albumin Level 4.1 g/dL (3.5-5.1); Alkaline Phosphatase 60 U/L (38-126); Anion Gap 9 mmol/L (4-12); Aspartate Amino Transferase 24 U/L (17-59); Bilirubin,Total 0.6 mg/dL (0.2-1.3); Blood Urea Nitrogen 63 mg/dL (9-20); Calcium 9.4 mg/dL (8.4-10.2); Carbon Dioxide 35 mmol/L (22-30); Chloride 95 mmol/L (98-107); Estimated CRCL calculation 25 ml/min; Estimated Glomerular Filt Rate 24; Glucose 129 mg/dL (65-110); Potassium 3.8 mmol/L (3.4-5.0); Sodium 139 mmol/L (137-145); Total Protein 6.6 g/dL (6.3-8.2)
[2025-01-19] MEDS: cefTRIAXone 2 GM in SODIUM CHLORIDE 0.9% IV 100 ML 200 ML IVPB (16:30)
[2025-01-19 16:38] LABS: NT Pro B Type Natriuretic Pept 8420 pg/mL (19.9-100)
[2025-01-19] MEDS: DOXYCYCLINE IV 100 MG in SODIUM CHLORIDE 0.9% IV 100 ML IVPB (17:24)
[2025-01-19] MEDS: FUROSEMIDE INJ 40 MG/4 ML VIAL IV PUSH (17:26)
[2025-01-19 17:49] LABS: Troponin I 0.021 ng/mL (0.000-0.034)
--- NOTE | 2025-01-19 18:01 | PM.IMHP ---
H&P: HPI History of Present Illness Date/Time: 01/19/25 18:01 Chief Complaint: Hypoxia, Shortness of Breath Narrative: 74 y/o M with PMH of DM2, HTN, CKD stage III, CAD, [place] s/p balloon angioplasty, CABG x4v with complications, CHF, pAFib, GOOD (refusing?CPAP, unable to tolerate it), and CVA (Jimi Lorenzana, 2015) presents here with hypoxia and shortness of breath. The patient presents here from his PCP office on 01/19 for further evaluation of shortness of breath and hypoxia. He had presented there today for further evaluation of the shortness of breath that has been ongoing for the past month. Shortness of breath is accompanied by rest colored sputum, productive cough, and chronic chest tightness that has been present since his CABG with complications which was done last year. During his evaluation there, he was significantly hypoxic in the 70s post ambulation. At baseline he wears 2-3L at night. He denies accompanying nausea, vomiting, fever, chills, diarrhea, chest pain, palpitations, or weight gain. He does report he weighs himself daily and only has minimal fluctuations from day-to-day, estimates is 1-2 lb. He does report he has been experiencing bilateral lower extremity swelling, however this is been present for a couple months. Initial VS at presentation: 97.2? F, HR 48, R 18 125/67, and 86% on 4 L nasal cannula. Now 94% on 4 L nasal cannula. ED workup showed: No leukocytosis, hemoglobin 8.4 (9.1 on 08/13/2024), INR 3.5 (goal 3), creatinine 2.65 and GFR 24 (1.64 and GFR 42 on 08/13/2024), glucose 129, initial troponin 0.013, BNP 8420. CXR showed moderate size patchy opacities in the mid and lower lungs (edema or pneumonia), small right pleural effusion, 1.4 cm nodular density in the left upper lobe. Chest CT showed mosaic attenuation both lungs with scattered ground-glass opacities and multiple associated new small pulmonary nodules (would favor pneumonia over mild pulmonary edema), small right pleural effusion with dependent and basilar consolidation the right middle and lower lobes most consistent with atelectasis although superimposed pneumonia not excludable, cardiomegaly changes of likely prior coronary artery bypass grafting including sternotomy with chronic sternal dehiscence. EKG showed AFib, rate controlled at 65, IVC delay, left axis deviation. Review of Systems Review of Systems: All systems reviewed & are unremarkable except as noted in HPI and below [facility] Past Medical History Medical History Myocardial infarction CHF (congestive heart failure) CKD (chronic kidney disease), stage III Afib GOOD (obstructive sleep apnea) Mixed hyperlipidemia Weight gain finding Type 2 diabetes mellitus with diabetic polyneuropathy Swelling of scrotum Nephropathy Malignant diastolic hypertension with CHF, NYHA class 2 Left hydrocele History of CVA (cerebrovascular accident) without residual deficits Heart failure, unspecified Colon cancer screening Benign nodular prostatic hyperplasia without lower urinary tract symptoms OAB (overactive bladder) Fatty liver Peripheral neuropathy CAD (coronary artery disease) Diabetes mellitus with hyperglycemia Surgical History Surgical History History of bilateral cataract extraction History of spinal surgery S/P CABG x 4 infx'd, repeat sternotomy, flap closure S/P angioplasty with stent 2011, x1 History of hydrocelectomy Family History Family History Father Heart disease Mother Hypertension Heart disease Other Family history of cardiovascular disease Social History Social History Social History: Flo is very confident filling out medical forms. In the last 12 months he has not received assistance from an organization or program. Smoking packs per day: 2 Smoking cigarettes per day: 40.0 Years smoked: 50 Smoking pack-years: 100.00 Smoking status: Former smoker Tobacco type: cigarettes Second hand tobacco smoke exposure: No Smoking end date: 02/18/15 Alcohol intake: current Drinks per week: 1 Substance use: current Substance use type: marijuana Last use: 01/05/25 Do You Feel Safe in your Home?: Yes Lack of Transportation: No Lack of Food: Never True Current Housing: Decline to Answer Concerned About Future Housing: No Difficulty Paying Gas/Electric Bills: No Difficulty Paying for Meds: No Currently Unemployed: No Education: Trade/Vocational Certificate Difficulty w/ Childcare or Family Care: No Living arrangements: with family Occupation/Education: retired Gender identity (if verbalized by the patient): Male Sexual Orientation (if Verbalized by the Patient): Straight or Heterosexual Spiritual care concerns: No Agree to blood products: Yes Meds Home Medications and Allergies Home Medications ?Medication ?Instructions ?Recorded ?Confirmed ?Type lisinopril 40 mg tablet 40 mg PO DAILY 01/20/24 01/19/25 History spironolactone 50 mg tablet 50 mg PO BID 01/20/24 01/19/25 History tamsulosin 0.4 mg capsule 0.4 mg PO DAILY 01/20/24 01/19/25 History Held on 01/19/25. Instructions: Patient no longer taking amiodarone 200 mg tablet 200 mg PO DAILY #30 tabs 05/27/24 01/19/25 Rx warfarin 2 mg tablet 6 mg (3 x 2 mg) PO DAILY #90 tabs 05/27/24 01/19/25 Rx isosorbide mononitrate 60 mg 60 mg PO BID #180 tabs 06/14/24 01/19/25 Rx tablet,extended release 24 hr gemfibrozil 600 mg tablet 600 mg PO BID #180 tabs 08/16/24 01/19/25 Rx gabapentin 600 mg tablet 600 mg PO TID #270 tabs 09/06/24 01/19/25 Rx rosuvastatin 40 mg tablet 40 mg PO DAILY #90 tabs 09/06/24 01/19/25 Rx hydrochlorothiazide 50 mg tablet 50 mg PO QAM #90 tabs 09/07/24 01/19/25 Rx furosemide 40 mg tablet 40 mg PO DAILY #90 tabs 09/14/24 01/19/25 Rx amlodipine 10 mg tablet 10 mg PO DAILY #90 tabs 09/28/24 01/19/25 Rx hydralazine 50 mg tablet 50 mg PO TID #270 tabs 11/10/24 01/19/25 Rx nebivolol 10 mg tablet 10 mg PO DAILY #90 tabs 12/09/24 01/19/25 Rx metformin 1,000 mg tablet 1,000 mg PO BID #180 tabs 01/06/25 01/19/25 Rx Allergies Allergy/AdvReac Type Severity Reaction Status Date / Time Penicillins Allergy Severe Swelling Verified 01/19/25 20:35 of Lip/Tongue/Throat Vital Signs Vital Signs - 24 hr 01/19/25 14:15 01/19/25 14:25 01/19/25 14:25 Temperature 97.2 F L 97.8 F Pulse Rate 48 L 69 Respiratory Rate 18 17 Blood Pressure 125/67 115/70 Pulse Oximetry 86 L 93 93 Oxygen Delivery Nasal Cannula Oxygen Flow Rate 4 Fraction of Inspired Oxygen 01/19/25 14:31 01/19/25 14:45 Temperature Pulse Rate 73 Respiratory Rate 18 16 Blood Pressure 111/62 Pulse Oximetry 96 Oxygen Delivery Nasal Cannula Oxygen Flow Rate 4 4 Fraction of Inspired Oxygen 98 Exam Const: General: comfortable and no acute distress Other: , male, nontoxic appearance HENMT: Face/Nose/Sinus: Normal nares present Mouth: Yes moist mucous membranes Other: Nasal cannula place Eyes: General: appearance normal, both eyes and all related structures Sclera: sclerae normal Pupils: Equal, round and reactive pupils present EOM: EOMs intact bilaterally Chest: Other: Post sternotomy scarring, well-healed. Resp: Effort & Inspection: normal respiratory effort Auscultation: clear to auscultation bilaterally Cardio: Rate: regular rate Rhythm: regular rhythm Other: No murmur or rub GI: Other: Abdomen soft, nondistended, nontender. Normoactive bowel sounds in all quadrants. Does have old scarring to right lower quadrant secondary to CABG complications, well-healed. Skin: General skin exam: normal color and no rashes or lesions noted Wounds: no wounds Neuro: Speech: normal speech Motor exam (neuro): 5/5 motor strength present throughout Sensory Exam: normal sensation Other: A&O x4 Extrem: Other: 2+ pitting edema to bilateral lower extremities, symmetric Psych: Mental Status: mental status grossly normal Affect: normal affect Other: Good insight and judgment H&P: Results Labs Labs: Short CBC 01/19/25 Range/Units 14:49 WBC 4.5 (4.5-10.0) K/mm3 Hgb 8.4 L (14.0-18.0) g/dL Hct 29.1 L (42.0-52.0) % Plt Count 261 (150-375) k/mm3 BMP 01/19/25 14:49 Sodium 139 Potassium 3.8 Chloride 95 L Carbon Dioxide 35 H BUN 63 H D Creatinine 2.65 H Glucose 129 H Calcium 9.4 Cardiac Enzymes 01/19/25 Range/Units 14:49 Troponin I 0.021 (0.000-0.034) ng/mL Liver Function 01/19/25 Range/Units 14:49 Total Bilirubin 0.6 (0.2-1.3) mg/dL AST 24 (17-59) U/L ALT 18 (6-50) U/L Alkaline Phosphatase 60 (38-126) U/L Albumin 4.1 (3.5-5.1) g/dL Assessment and Plan Assessment and plan (1) Hypoxia: Code(s): R09.02 - Hypoxemia Status: Acute Assessment and Plan: In the 70s post ambulation at his PCP office today, 01/19. Arrived 86% on 4L NC. Baseline requirement 2-3L NC at night (hx of GOOD, not tolerant of CPAP). CXR/chest CT concerning for pneumonia with possible superimposed pulmonary edema. Patient has been reporting rust-colored sputum and shortness of breath for 1 month. Has had lower extremity edema for months with no associated weight gain (weighs self daily). Hypoxia likely multifactorial due to CHF and pneumonia. Low suspicion for PE as the patient is currently on warfarin and currently therapeutic, goal 3. Hemoglobin is 8.4, previously 9.1 in July of 2024 - could be contributing. - broad-spectrum antibiotics for pneumonia - update echo, start IV diuresis for possible CHF component - anemia work up - continue supplemental oxygen to maintain O2 sat greater than 92%, wean as tolerated (2) Pneumonia: Qualifiers: Laterality: bilateral Lung location: unspecified part of lung Pneumonia type: due to unspecified organism Qualified Code(s): J18.9 - Pneumonia, unspecified organism Code(s): J18.9 - Pneumonia, unspecified organism Status: Acute Assessment and Plan: - started on ceftriaxone and doxycycline on 01/19, continue inpatient. EKG reviewed a QTC borderline, therefore doxycycline continued. - supportive care: Mucinex, Tessalon Perles, Tylenol - encourage IS - continue supplemental oxygen to maintain O2 sat greater than 92% (3) CHF (congestive heart failure): Qualifiers: Heart failure chronicity: acute on chronic Heart failure type: diastolic Qualified Code(s): I50.33 - Acute on chronic diastolic (congestive) heart failure Code(s): I50.9 - Heart failure, unspecified Status: Acute Assessment and Plan: Current concern for CHF exacerbation. Patient has had bilateral lower extremity edema for the past few months and has evidence of possible edema on imaging (CXR, chest CT). Chart reviewed, last echo completed in July of 2024 which showed a systolic function of 55-60%, mild concentric LV wall thickening, LV septal wall motion abnormal, grade 3 diastolic dysfunction, RV mildly enlarged with mild reduction in systolic function, biatrial moderate enlargement, valvular disease, no pulmonary hypertension. On spironolactone 50 mg b.i.d., Lasix 40 mg daily and hydrochlorothiazide 50 mg daily outpatient. Will continue spironolactone and hydrochlorothiazide at this time. Switch Lasix to 40 mg b.i.d.. Will need close monitoring of renal function as he currently has an CLINTON, suspected to be secondary to volume overload and current infection. - monitor I&Os, daily weights, renal function - continue spironolactone and hydrochlorothiazide, hold p.o. Lasix. Continue Lasix IV as 40 mg b.i.d.. (4) Acute kidney injury superimposed on CKD: Code(s): N17.9 - Acute kidney failure, unspecified; N18.9 - Chronic kidney disease, unspecified Status: Acute Assessment and Plan: CLINTON superimposed on CKD noted upon admission. Creatinine 2.65, BUN 63, and GFR 24 on 01/19. Previously 1.64, BUN 36, GFR 40 to on 08/13/2024. Creatinine in 2024 has ranged between 1.45 and 2.07. Patient is on spironolactone, hydrochlorothiazide, and Lasix outpatient. Could be over-diuresis due to being on 3 different diuretics, however imaging concerning for possible pulmonary edema and patient has bilateral lower extremity seen on exam which is more in favor of possible volume overload. Will trial changing Lasix to 40 mg b.i.d. to offload volume. If patient has worsening renal function, could consider rehydrating and holding diuresis. - trend renal function and correct electrolytes as needed - nephrology consulted - check CK, urine lytes, protein/creatinine, urea (5) Diabetes mellitus: Qualifiers: Diabetes mellitus type: type 2 Diabetes mellitus [facility] insulin use: without [facility] use Code(s): E11.9 - Type 2 diabetes mellitus without complications Status: Chronic Assessment and Plan: - hypoglycemia protocol - POC blood glucose ACHS - home medication: Hold metformin - correct regimen ordered - moderate dose TIDWM, based off BMI - A1C 6.9% on 09/23/2024 (6) Hypertensive heart disease: Qualifiers: Heart failure presence: without heart failure Qualified Code(s): I11.9 - Hypertensive heart disease without heart failure Code(s): I11.9 - Hypertensive heart disease without heart failure Status: Chronic Assessment and Plan: - chronic, currently 124/61, stable - continue home medications: Amlodipine, hydralazine, HCTZ, Imdur, lisinopril, nebivolol - monitor (7) Afib: Qualifiers: Atrial fibrillation type: longstanding persistent Qualified Code(s): I48.11 - Longstanding persistent atrial fibrillation Code(s): I48.91 - Unspecified atrial fibrillation Status: Chronic Assessment and Plan: History of chronic AFib on anticoagulation. Reviewed EKG performed in the ED on 01/19 that have patient in rate controlled AFib with IVC delay and left axis deviation. - continue home medication: Amiodarone 200 mg daily and Warfarin Plan Diet: Diabetic GI Prophylaxis: N/a DVT Prophylaxis: Warfarin IV fluids: None, diuresing Lines/Tubes: Peripheral IV Code Status: Full code Quality VTE Prophylaxis VTE prophylaxis: pharmacologic ordered Hospitalist MIPS Advance Care Plan I have confirmed that the patient's Advanced Care Plan is present, code status is documented, or surrogate decision maker is listed in patient medical record.: Yes Medication Reconciliation I have utilized all available resources to obtain, update and review the patients current medications (includes all prescriptions, OTC, herbals, cannabis, and nutritional supplements).: Yes
--- NOTE | 2025-01-19 18:52 | ADMGEN ---
This patient, Flo Mason, was admitted to 3 [facility] Surg Room 324-01. Patient/family oriented to hospital policies and general routines including ID bracelet, bed and alarms, visiting hours, pain management, procedures, bathroom and other care routines, personal items, smoking policy, room service/diet, and visiting hours. Information on how to activate the Rapid Response Team has been discussed. Patient/Family are encouraged to report perceived risks to care and to ask questions if they do not understand what they are told or what they should do. Report from Santa in ER.
[2025-01-19 21:39] LABS: Creatine Kinase 43 U/L (55-170)
[2025-01-19] MEDS: SPIRONOLACTONE 50 MG TABLET PO (21:51)
[2025-01-19] MEDS: GABAPENTIN 300 MG CAPSULE 600 MG PO (21:51)
[2025-01-19] MEDS: ISOSORBIDE MONONITRATE 60 MG TAB.ER.24H PO (21:51)
[2025-01-19] MEDS: guaiFENesin 12 HR 600 MG TABCR PO (21:51)
[2025-01-19 22:08] LABS: Urea Random Urine 293 MG/DL
[2025-01-19 22:17] LABS: Total Protein Urine Random 89 mg/dL; Ur Ttl Prot Creatinine Ratio 3.13 mg/mg (0-0.20)
[2025-01-20] VITALS: BP 123/69; PULSE 68; RESP 18; TEMP 36.8; O2SAT 90
--- NOTE | 2025-01-20 | ECHO_ITS ---
Patient Info Name: Flo Mason Age: 74 years : 1950 Gender: Male Ht: 72 in Wt: 219 lbs BSA: 2.27 m2 HR: 70 bpm BP: 119 / 69 mmHg Technical Quality: Good Exam Date: 01/20/2025 2:21 PM Patient Status: I Admit Date: 01/19/2025 Exam Type: CA echo doppler color flow Complete two-dimensional, color flow and Doppler transthoracic echocardiogram is performed. Staff Referring Physician: Rylan Berry Event Decorator: Zander Roger III Attending Provider: Cathy Felton Summary 1. Complete two-dimensional, color flow and Doppler transthoracic echocardiogram is performed. 2. Left ventricular chamber dimension is normal. 3. Left ventricular systolic function is normal, estimated at 55-60. 4. There is mild concentric increased left ventricular wall thickness. 5. The left ventricular diastolic function is abnormal. 6. E/e' 19 is elevated. 7. Left atrial chamber dimension is severely enlarged. 8. Right atrial chamber dimension is moderately enlarged. 9. There is moderate aortic valve sclerosis. 10. The mitral valve has a moderately calcified annulus. 11. There is trace mitral valve regurgitation. 12. There is mild tricuspid valve regurgitation. 13. Moderate pulmonary hypertension, estimated pulmonary arterial systolic pressure is 52 mmHg. Left Ventricle E/e' 19 is elevated. Left ventricular chamber dimension is normal. Left ventricular systolic function is normal, estimated at 55-60. There is mild concentric increased left ventricular wall thickness. The left ventricular diastolic function is abnormal. Right Ventricle Right ventricular chamber dimension is not well visualized. Left Atria Left atrial chamber dimension is severely enlarged. Right Atria Right atrial chamber dimension is moderately enlarged. Aortic Valve The aortic valve is trileaflet. There is moderate aortic valve sclerosis. There is no aortic valve stenosis. There is no aortic valve regurgitation. Pulmonic Valve There is no pulmonic regurgitation. Mitral Valve The mitral valve has a moderately calcified annulus. There is no mitral valve stenosis. There is trace mitral valve regurgitation. Tricuspid Valve There is mild tricuspid valve regurgitation. Moderate pulmonary hypertension, estimated pulmonary arterial systolic pressure is 52 mmHg. Pericardium/Pleural There is no pericardial effusion. Inferior Vena Cava Normal inferior vena cava with >50% collapse upon inspiration consistent with normal right atrial pressure, 5 mmHg. Aorta The aortic root size at the sinus of Valsalva is normal. Left Ventricular Outflow Tract Name Value Normal LVOT 2D LVOT Diameter 2.6 cm LVOT Doppler LVOT Peak Velocity 118 cm/s LVOT Peak Gradient 6 mmHg LVOT Mean Gradient 3 mmHg LVOT VTI 23 cm LVOT VTI/AV VTI Ratio 0.8 LVOT Stroke Volume 120 ml LVOT CO 7.2 l/min LVOT CI 3.2 l/min/m2 Pulmonic Valve Name Value Normal PV Doppler PV Peak Velocity 88 cm/s PV Peak Gradient 3 mmHg PV Mean Gradient 2 mmHg Mitral Valve Name Value Normal MV Doppler MV Peak Gradient 11 mmHg MV Mean Gradient 5 mmHg MV Area (Cont Eq VTI) 3.6 cm2 MV Diastolic Function MV E Peak Velocity 142 cm/s MV A Peak Velocity 41 cm/s MV E/A 3.5 MV Decel Time (PW) 160 ms MV Annular TDI MV E/e' (Septal) 25.9 MV E/e' (Lateral) 16.0 MV E/e' (Average) 20.9 Tricuspid Valve Name Value Normal TV Regurgitation Doppler TR Peak Velocity 344 cm/s TR Peak Gradient 47 mmHg Estimated PAP/RSVP RA Pressure 5 mmHg <=5 PA Systolic Pressure 52 mmHg <36 RV Systolic Pressure 52 mmHg <36 TV Annular TDI TV Lateral Emma s' Velocity 10.6 cm/s >=9.5 Aortic Valve Name Value Normal AV Doppler AV Peak Velocity 139 cm/s AV Peak Gradient 8 mmHg AV Mean Gradient 4 mmHg AV VTI 30 cm AV Area (Cont Eq VTI) 3.9 cm2 >=3.0 AV Area (Cont Eq Dg) 4.3 cm2 AV DI (Dg) 0.84 AV Regurgitation 2D LVOT Area 5.1 cm2 Ventricles Name Value Normal LV Dimensions 2D/MM IVS Diastolic Thickness (2D) 1.2 cm 0.6-1.0 LVID Diastole (2D) 5.5 cm 4.2-5.8 LVIW Diastolic Thickness (2D) 1.0 cm 0.6-1.0 LVID Systole (2D) 4.1 cm 2.5-4.0 LVOT Diameter 2.6 cm LV Mass (2D Cubed) 242.70 g 88.00-224.00 LV Mass Index (2D Cubed) 107 g/m2 49-115 Relative Wall Thickness (2D) 0.37 <=0.42 LV Fractional Shortening/Ejection Fraction 2D/MM LV Fractional Shortening (2D) 26 % 25-43 LV EF (2D Teichholz) 50 % LV Diastolic Volume (4C MOD) 122 ml LV EF (4C MOD) 52 % LV Diastolic Volume (2C MOD) 142 ml LV EF (2C MOD) 45 % LV Diastolic Volume (BP MOD) 132 ml 62-150 LV Diastolic Volume Index (BP MOD) 58 ml/m2 34-74 LV Systolic Volume (BP MOD) 68 ml 21-61 LV Systolic Volume Index (BP MOD) 30 ml/m2 11-31 LV EF (BP MOD) 49 % 52-72 LV Diastolic Length (4C) 9.3 cm LV Systolic Length (4C) 8.2 cm LV Stroke Volume (4C MOD) 64 ml Atria Name Value Normal LA Dimensions LA Volume (4C A-L) 116 ml LA Volume (BP A-L) 122 ml RA Dimensions RA Systolic Major [place] Length (4C) 7.0 cm 2.1-2.7 RA Area (4C) 26.8 cm2 <=18.0 Report Signatures
[2025-01-20] MEDS: DOXYCYCLINE IV 100 MG in SODIUM CHLORIDE 0.9% IV 100 ML IVPB ×2 (05:59→17:45)
[2025-01-20 06:00] VITALS: BP 119/69; PULSE 70; RESP 20; TEMP 36.8; O2SAT 92
[2025-01-20] MEDS: GABAPENTIN 300 MG CAPSULE 600 MG PO ×2 (06:00→21:13)
[2025-01-20 06:03] LABS: Hematocrit 28.1 % (42.0-52.0); Hemoglobin 8.0 g/dL (14.0-18.0); Immature Granulocyte Percent A 0.2 % (0-0.5); Lymphocytes Absolute Auto 1.15 K/mm3 (0.9-3.2); Mean Corpuscular HGB Conc 28.5 g/dl (32-36); Mean Corpuscular Hemoglobin 26.2 pg (26-34); Mean Corpuscular Volume 92.1 fl (80-100); Nucleated Red Blood Cells Absolute Auto 0.000 K/mm3 (0.0-0.012); Nucleated Red Blood Cells Perc 0.0 % (0.0-0.2); Platelet Count Result 230 k/mm3 (150-375); Red Blood Count 3.05 M/mm3 (4.6-6.20); White Blood Count 5.4 K/mm3 (4.5-10.0)
[2025-01-20 06:22] LABS: INR 3.2; Prothrombin Time 31.9 Seconds (11.1-14.7)
[2025-01-20 06:26] LABS: Alanine Aminotransferase 17 U/L (6-50); Albumin Level 4.1 g/dL (3.5-5.1); Alkaline Phosphatase 59 U/L (38-126); Anion Gap 9 mmol/L (4-12); Aspartate Amino Transferase 22 U/L (17-59); Bilirubin,Total 0.7 mg/dL (0.2-1.3); Blood Urea Nitrogen 55 mg/dL (9-20); Calcium 9.4 mg/dL (8.4-10.2); Carbon Dioxide 34 mmol/L (22-30); Chloride 95 mmol/L (98-107); Estimated CRCL calculation 26 ml/min; Estimated Glomerular Filt Rate 25; Glucose 131 mg/dL (65-110); Potassium 3.8 mmol/L (3.4-5.0); Sodium 138 mmol/L (137-145); Total Protein 6.6 g/dL (6.3-8.2)
[2025-01-20 07:06] LABS: Anisocytosis 1+; Hypochromasia 1+; Schistocytes None Seen
--- NOTE | 2025-01-20 08:03 | PM.IMPN ---
Progress Note: A&P Assessment and Plan (1) Hypoxia: Code(s): R09.02 - Hypoxemia Status: Acute Assessment and Plan: In the 70s post ambulation at his PCP office today, 01/19. Arrived 86% on 4L NC. Baseline requirement 2-3L NC at night (hx of GOOD, not tolerant of CPAP). CXR/chest CT concerning for pneumonia with possible superimposed pulmonary edema. Patient has been reporting rust-colored sputum and shortness of breath for 1 month. Has had lower extremity edema for months with no associated weight gain (weighs self daily). Hypoxia likely multifactorial due to CHF and pneumonia. Low suspicion for PE as the patient is currently on warfarin and currently therapeutic, goal 3. Hemoglobin is 8.4, previously 9.1 in July of 2024 - could be contributing. broad-spectrum antibiotics for pneumonia update echo, start IV diuresis for possible CHF component anemia work up continue supplemental oxygen to maintain O2 sat greater than 92%, wean as tolerated ABG: PH WNL, pCO2 49.9, PO2 62.3, HC03 32.6, O2 saturation 92.2%, O2 content 11.4% (2) Pneumonia: Qualifiers: Laterality: bilateral Lung location: unspecified part of lung Pneumonia type: due to unspecified organism Qualified Code(s): J18.9 - Pneumonia, unspecified organism Code(s): J18.9 - Pneumonia, unspecified organism Status: Acute Assessment and Plan: CXR: Moderate-sized patchy opacities in the mid and lower lungs. Differential includes but is not limited to edema or pneumonia. Chest CT: Mosaic attenuation in both lungs with scattered groundglass opacities and multiple associated new small pulmonary nodules and would favor pneumonia over mild pulmonary edema. started on ceftriaxone and doxycycline on 01/19, continue inpatient. EKG reviewed a QTC borderline, therefore doxycycline continued. supportive care: Mucinex, Tessalon Perles, Tylenol encourage IS continue supplemental oxygen to maintain O2 sat greater than 92% Viral PCR: Negative Monitor vital signs, I&Os, neuro status and patient is a fall risk Follow WBC, serum electrolytes, temperature curves and cultures (3) CHF (congestive heart failure): Qualifiers: Heart failure chronicity: acute on chronic Heart failure type: diastolic Qualified Code(s): I50.33 - Acute on chronic diastolic (congestive) heart failure Code(s): I50.9 - Heart failure, unspecified Status: Acute Assessment and Plan: Current concern for CHF exacerbation. Patient has had bilateral lower extremity edema for the past few months and has evidence of possible edema on imaging (CXR, chest CT). Chart reviewed, last echo completed in July of 2024 which showed a systolic function of 55-60%, mild concentric LV wall thickening, LV septal wall motion abnormal, grade 3 diastolic dysfunction, RV mildly enlarged with mild reduction in systolic function, biatrial moderate enlargement, valvular disease, no pulmonary hypertension. On spironolactone 50 mg b.i.d., Lasix 40 mg daily and hydrochlorothiazide 50 mg daily outpatient. Will continue spironolactone and hydrochlorothiazide at this time. Switch Lasix to 40 mg b.i.d.. Will need close monitoring of renal function as he currently has an CLINTON, suspected to be secondary to volume overload and current infection. monitor I&Os, daily weights, renal function continue spironolactone and hydrochlorothiazide, hold p.o. Lasix. Continue Lasix IV as 40 mg b.i.d.. Repeat Echo (4) Acute kidney injury superimposed on CKD: Code(s): N17.9 - Acute kidney failure, unspecified; N18.9 - Chronic kidney disease, unspecified Status: Acute Assessment and Plan: CLINTON superimposed on CKD noted upon admission. Creatinine 2.65, BUN 63, and GFR 24 on 01/19. Previously 1.64, BUN 36, GFR 40 to on 08/13/2024. Creatinine in 2024 has ranged between 1.45 and 2.07. Patient is on spironolactone, hydrochlorothiazide, and Lasix outpatient. Could be over-diuresis due to being on 3 different diuretics, however imaging concerning for possible pulmonary edema and patient has bilateral lower extremity seen on exam which is more in favor of possible volume overload. Will trial changing Lasix to 40 mg b.i.d. to offload volume. If patient has worsening renal function, could consider rehydrating and holding diuresis. trend renal function and correct electrolytes as needed nephrology consulted check CK, urine lytes, protein/creatinine, urea Protein/Cr ratio: 3.13 (5) Diabetes mellitus: Qualifiers: Diabetes mellitus long term care pharmacist insulin use: without nursing home use Diabetes mellitus type: type 2 Code(s): E11.9 - Type 2 diabetes mellitus without complications Status: Chronic Assessment and Plan: hypoglycemia protocol POC blood glucose ACHS home medication: Hold metformin correct regimen ordered - moderate dose TIDWM, based off BMI A1C 6.9% on 09/23/2024 (6) Hypertensive heart disease: Qualifiers: Heart failure presence: without heart failure Qualified Code(s): I11.9 - Hypertensive heart disease without heart failure Code(s): I11.9 - Hypertensive heart disease without heart failure Status: Chronic Assessment and Plan: chronic, currently 124/61, stable continue home medications: Amlodipine, hydralazine, HCTZ, Imdur, lisinopril, nebivolol monitor (7) Afib: Qualifiers: Atrial fibrillation type: longstanding persistent Qualified Code(s): I48.11 - Longstanding persistent atrial fibrillation Code(s): I48.91 - Unspecified atrial fibrillation Status: Chronic Assessment and Plan: History of chronic AFib on anticoagulation. Reviewed EKG performed in the ED on 01/19 that have patient in rate controlled AFib with IVC delay and left axis deviation. continue home medication: Amiodarone 200 mg daily and Warfarin Plan Diet: Diabetic GI Prophylaxis: N/a DVT Prophylaxis: Warfarin IV fluids: None, diuresing Lines/Tubes: Peripheral IV Code Status: Full code Subjective Date/time seen: 01/20/25 08:03 Interval history: 74 y/o M with PMH of DM2, HTN, CKD stage III, CAD, CT s/p balloon angioplasty, CABG x4v with complications, CHF, pAFib, GOOD (refusing?CPAP, unable to tolerate it), and CVA (Jimi Lorenzana, 2015) presents here with hypoxia and shortness of breath. 01/20/2025 Patient resting comfortably in bed at time of examination. States that he feels much better today than he did yesterday. Still has some shortness of breath but significantly improved since yesterday. Bilateral crackles in all lung ye appreciated on exam. Denies any chest pain, nausea/vomiting or abdominal pain. Kidney function slightly improved since yesterday, creatinine down from 2.65->2.54. Echo pending, continue treatment of pneumonia and CHF exacerbation. Viral panel negative. Review of Systems Review of Systems: All systems reviewed & are unremarkable except as noted in HPI and below Exam Const: General: comfortable and no acute distress Other: , male, nontoxic appearance HENMT: Face/Nose/Sinus: Normal nares present Mouth: Yes moist mucous membranes Other: Nasal cannula place Eyes: General: appearance normal, both eyes and all related structures Sclera: sclerae normal Pupils: Equal, round and reactive pupils present EOM: EOMs intact bilaterally Chest: Other: Post sternotomy scarring, well-healed. Resp: Effort & Inspection: normal respiratory effort Auscultation: not clear to auscultation bilaterally (Patient has bilateral crackles on exam extending from the mid lung to bases) Cardio: Rate: regular rate Rhythm: regular rhythm Other: No murmur or rub GI: Other: Abdomen soft, nondistended, nontender. Normoactive bowel sounds in all quadrants. Does have old scarring to right lower quadrant secondary to CABG complications, well-healed. Skin: General skin exam: normal color and no rashes or lesions noted Wounds: no wounds Neuro: Cranial nerves: Yes Equal, round and reactive pupils present Speech: normal speech Motor exam (neuro): 5/5 motor strength present throughout Sensory Exam: normal sensation Other: A&O x4 Extrem: Other: 2+ pitting edema to bilateral lower extremities, symmetric Psych: Mental Status: mental status grossly normal Affect: normal affect Other: Good insight and judgment Objective Data Vital Signs Vital Signs: Vital Signs - 24 hr 01/19/25 14:15 01/19/25 14:25 01/19/25 14:25 Temperature 97.2 F L 97.8 F Pulse Rate 48 L 69 Respiratory Rate 18 17 Blood Pressure 125/67 115/70 Pulse Oximetry 86 L 93 93 Oxygen Delivery Nasal Cannula Oxygen Flow Rate 4 Fraction of Inspired Oxygen 01/19/25 14:25 01/19/25 14:31 01/19/25 14:43 Temperature Pulse Rate 69 73 Respiratory Rate 15 18 20 Blood Pressure 115/70 111/62 111/62 Pulse Oximetry 92 96 95 Oxygen Delivery Nasal Cannula Oxygen Flow Rate 4 Fraction of Inspired Oxygen 01/19/25 14:45 01/19/25 14:45 01/19/25 14:46 Temperature Pulse Rate 75 70 Respiratory Rate 16 23 H 15 Blood Pressure 114/59 L Pulse Oximetry 94 94 Oxygen Delivery Oxygen Flow Rate 4 Fraction of Inspired Oxygen 98 01/19/25 15:31 01/19/25 16:47 01/19/25 18:15 Temperature Pulse Rate 70 66 73 Respiratory Rate 13 22 H 18 Blood Pressure 116/66 124/61 Pulse Oximetry 93 96 94 Oxygen Delivery Oxygen Flow Rate Fraction of Inspired Oxygen 01/19/25 20:00 01/19/25 20:00 01/20/25 00:00 Temperature 97.5 F L 98.2 F Pulse Rate 65 65 68 Respiratory Rate 20 20 18 Blood Pressure 125/86 123/69 Pulse Oximetry 94 94 90 Oxygen Delivery Nasal Cannula Oxygen Flow Rate 4 Fraction of Inspired Oxygen 98 01/20/25 06:00 Temperature 98.2 F Pulse Rate 70 Respiratory Rate 20 Blood Pressure 119/69 Pulse Oximetry 92 Oxygen Delivery Oxygen Flow Rate Fraction of Inspired Oxygen Intake/Output Intake/Output: Intake & Output 01/17/25 01/18/25 01/19/25 01/20/25 23:59 23:59 23:59 23:59 Intake Total 200 200 Output Total 300 450 Balance -100 -250 Meds/Results Medications: Active Medications Generic Name Dose Route Start Last Admin Trade Name Freq PRN Reason Stop Dose Admin Acetaminophen 650 mg 01/19/25 20:13 Acetaminophen 325 Mg Tablet PO Q6H PRN Mild Pain (1-3) or Fever Amiodarone HCl 200 mg 01/20/25 08:00 Amiodarone Hcl 200 Mg Tablet PO DAILY@0800 [facility] Amlodipine Besylate 10 mg 01/20/25 09:00 Amlodipine Besylate 10 Mg Tablet PO DAILY AP Benzonatate 100 mg 01/19/25 20:13 Benzonatate 100 Mg Capsule PO TID PRN Cough Dextrose 12.5 gm 01/19/25 20:22 Dextrose 50% 25 Gm/50 Ml Syringe IV PUSH PRN PRN Hypoglycemia Protocol Furosemide 40 mg 01/20/25 09:00 Furosemide Inj 40 Mg/4 Ml Vial IV PUSH BID AP Gabapentin 600 mg 01/19/25 22:00 01/20/25 06:00 Gabapentin 300 Mg Capsule PO 600 mg Q8HR AP Administration Glucagon 1 mg 01/19/25 20:22 Glucagon For Inj 1 Mg Vial IM PRN PRN Hypoglycemia Protocol Glucose 15 gm 01/19/25 20:22 Glucose Oral Gel 15 Gm Of Glucse In 37.5 Gm Tube PO PRN PRN Hypoglycemia Protocol Guaifenesin 600 mg 01/19/25 21:00 01/19/25 21:51 Guaifenesin 12 Hr 600 Mg Tabcr PO 600 mg Q12HR AP Administration Hydralazine HCl 50 mg 01/19/25 22:00 01/20/25 06:00 Hydralazine Hcl 50 Mg Tablet PO 50 mg Q8HR AP Administration Hydrochlorothiazide 50 mg 01/20/25 09:00 Hydrochlorothiazide 25 Mg Tablet PO QAM [facility] Ceftriaxone Sodium 1 gm/ 50 mls @ 100 mls/hr 01/20/25 16:00 Sodium Chloride IVPB Q24H [facility] Doxycycline Hyclate 100 mg/ 100 mls @ 100 mls/hr 01/20/25 06:00 01/20/25 05:59 Sodium Chloride IVPB 01/24/25 18:59 100 mls/hr Q12H AP Administration Dextrose 1,000 mls @ 100 mls/hr 01/19/25 20:22 Dextrose 5% 1,000 Ml IVPB PRN PRN Hypoglycemia Protocol Insulin Aspart 3 - 6 units 01/20/25 08:00 Insulin Aspart (*Bkc) 100 Units/Ml SUB-Q TIDWM [facility] Protocol Isosorbide Mononitrate 60 mg 01/19/25 21:25 01/19/25 21:51 Isosorbide Mononitrate 60 Mg Tab.Er.24h PO 60 mg Q12HR [facility] Administration Lisinopril 40 mg 01/20/25 09:00 Lisinopril 20 Mg Tablet PO DAILY [facility] Nebivolol 10 mg 01/20/25 09:00 Nebivolol Hcl 5 Mg Tablet PO DAILY [facility] Rosuvastatin Calcium 40 mg 01/20/25 09:00 Rosuvastatin 20 Mg Tablet PO DAILY [facility] Spironolactone 50 mg 01/19/25 21:25 01/19/25 21:51 Spironolactone 50 Mg Tablet PO 50 mg Q12HR [facility] Administration Warfarin Sodium 3 mg 01/21/25 17:00 Warfarin (*Pbkc) 3 Mg Tablet PO SuMoWeFrSa@1700 [facility] Warfarin Sodium 4 mg 01/20/25 17:00 Warfarin (*Pbkc) 4 Mg Tablet PO TuTh@1700 [facility] Radiology Results: ITS Impressions Chest X-Ray 01/19/25 15:11 IMPRESSION: 1. Moderate-sized patchy opacities in the mid and lower lungs. Differential includes but is not limited to edema or pneumonia. Consider a chest CT. Follow-up to resolution. 2. Small right-sided pleural effusion. 3.There is a 1.4 cm nodular density in the left upper lobe. Differential includes vessel on end or pulmonary nodule. A chest CT is recommended. Chest CT 01/19/25 15:48 IMPRESSION: 1. Mosaic attenuation in both lungs with scattered groundglass opacities and multiple associated new small pulmonary nodules and would favor pneumonia over mild pulmonary edema. 2. Small right pleural effusion with dependent and basilar consolidation in the right middle and lower lobes most consistent with atelectasis although superimposed pneumonia not excludable. 3. Cardiomegaly changes of likely prior coronary artery bypass grafting including sternotomy with chronic sternal dehiscence. Labs Labs: Laboratory Results - last 24 hr 01/19/25 01/19/25 01/19/25 14:49 21:53 21:53 WBC 4.5 RBC 3.15 L Hgb 8.4 L Hct 29.1 L MCV 92.4 MCH 26.7 MCHC 28.9 L RDW 16.3 H Plt Count 261 MPV 9.7 Immature Gran % (Auto) 0.2 Neut % (Auto) 61.4 Lymph % (Auto) 25.1 Stevens % (Auto) 12.4 H Eos % (Auto) 0.7 Baso % (Auto) 0.2 Lymph # (Auto) 1.13 Stevens # (Auto) 0.6 Eos # (Auto) 0.0 Baso # (Auto) 0.0 Abs Immat Gran (auto) 0.01 Absolute Neuts (auto) 2.8 Absolute Nucleated RBC 0.000 Band Neutrophils % 0 Nucleated RBC % 0.0 Platelet Estimate Adequate Hypochromasia 1+ Anisocytosis 2+ Schistocytes None seen PT 34.2 H INR 3.5 Sodium 139 Potassium 3.8 Chloride 95 L Carbon Dioxide 35 H Anion Gap 9 BUN 63 H D Creatinine 2.65 H Estim Creat Clear Calc 25 Estimated GFR 24 L Glucose 129 H Calcium 9.4 Total Bilirubin 0.6 AST 24 ALT 18 Alkaline Phosphatase 60 Total Creatine Kinase 43 L Troponin I 0.021 NT-Pro-B Natriuret Pep 8420 H Total Protein 6.6 Albumin 4.1 U Random Total Protein 89 Ur Random Sodium 130 Ur Random Potassium 15.6 Ur Random Urea 293 Urine Creatinine 28.4 28.7 Protein/Creat Ratio 2 3.13 H 01/20/25 05:51 WBC 5.4 RBC 3.05 L Hgb 8.0 L Hct 28.1 L MCV 92.1 MCH 26.2 MCHC 28.5 L RDW 16.1 H Plt Count 230 MPV 9.1 Immature Gran % (Auto) 0.2 Neut % (Auto) 63.7 Lymph % (Auto) 21.5 Stevens % (Auto) 12.7 H Eos % (Auto) 1.7 Baso % (Auto) 0.2 Lymph # (Auto) 1.15 Stevens # (Auto) 0.7 H Eos # (Auto) 0.1 Baso # (Auto) 0.0 Abs Immat Gran (auto) 0.01 Absolute Neuts (auto) 3.4 Absolute Nucleated RBC 0.000 Band Neutrophils % Not Reportable Nucleated RBC % 0.0 Platelet Estimate Adequate Hypochromasia 1+ Anisocytosis 1+ Schistocytes None seen PT 31.9 H INR 3.2 Sodium 138 Potassium 3.8 Chloride 95 L Carbon Dioxide 34 H Anion Gap 9 BUN 55 H Creatinine 2.54 H Estim Creat Clear Calc 26 Estimated GFR 25 L Glucose 131 H Calcium 9.4 Total Bilirubin 0.7 AST 22 ALT 17 Alkaline Phosphatase 59 Total Creatine Kinase Troponin I NT-Pro-B Natriuret Pep Total Protein 6.6 Albumin 4.1 U Random Total Protein Ur Random Sodium Ur Random Potassium Ur Random Urea Urine Creatinine Protein/Creat Ratio 2 Quality VTE Prophylaxis VTE prophylaxis: pharmacologic ordered
--- NOTE | 2025-01-20 09:24 | P.CDI_ITS ---
CDI Query Clarification Request Hypoxia has been documented Please review the clinical information below and clarify the respiratory diagnosis the patient is being treated for: * Hypoxia or hypoxemia without respiratory failure * Respiratory distress without respiratory failure * Acute respiratory failure with hypoxia * Acute respiratory failure with hypercapnia * Acute respiratory failure with hypoxia and hypercapnia * Acute on chronic respiratory failure with hypoxia * Acute on chronic respiratory failure with hypercapnia * Acute on chronic respiratory failure with hypoxia and hypercapnia * Acute respiratory distress syndrome (ARDS) * Chronic respiratory failure with hypoxia * Chronic respiratory failure with hypercapnia * Chronic respiratory failure with hypoxia and hypercapnia * Other explanation clinical findings, please specify * Unable to determine Assessment and Plan (1) Hypoxia: Code(s): R09.02 - Hypoxemia Status: Acute Assessment and Plan: In the 70s post ambulation at his PCP office today, 01/19. Arrived 86% on 4L NC. Baseline requirement 2-3L NC at night (hx of OGOD, not tolerant of CPAP). CXR/chest CT concerning for pneumonia with possible superimposed pulmonary edema. Patient has been reporting rust-colored sputum and shortness of breath for 1 month. Has had lower extremity edema for months with no associated weight gain (weighs self daily). Hypoxia likely multifactorial due to CHF and pneumonia. Low suspicion for PE as the patient is currently on warfarin and currently therapeutic, goal 3. Hemoglobin is 8.4, previously 9.1 in July of 2024 - could be contributing. * broad-spectrum antibiotics for pneumonia * update echo, start IV diuresis for possible CHF component * anemia work up * continue supplemental oxygen to maintain O2 sat greater than 92%, wean as tolerated (2) Pneumonia: Qualifiers: Pneumonia type: due to unspecified organism Laterality: bilateral Lung location: unspecified part of lung Qualified Code(s): J18.9 - Pneumonia, unspecified organism Code(s): J18.9 - Pneumonia, unspecified organism Status: Acute Assessment and Plan: * CXR: Moderate-sized patchy opacities in the mid and lower lungs. Differential includes but is not limited to edema or pneumonia. * Chest CT: Mosaic attenuation in both lungs with scattered groundglass opacities and multiple associated new small pulmonary nodules and would favor pneumonia over mild pulmonary edema. * started on ceftriaxone and doxycycline on 01/19, continue inpatient. EKG reviewed a QTC borderline, therefore doxycycline continued. * supportive care: Mucinex, Tessalon Perles, Tylenol * encourage IS * continue supplemental oxygen to maintain O2 sat greater than 92% * Viral PCR: pending * Monitor vital signs, I&Os, neuro status and patient is a fall risk * Follow WBC, serum electrolytes, temperature curves and cultures (3) CHF (congestive heart failure): Qualifiers: Heart failure chronicity: acute on chronic Heart failure type: diastolic Qualified Code(s): I50.33 - Acute on chronic diastolic (congestive) heart failure Code(s): I50.9 - Heart failure, unspecified Status: Acute Assessment and Plan: Current concern for CHF exacerbation. Patient has had bilateral lower extremity edema for the past few months and has evidence of possible edema on imaging (CXR, chest CT). Chart reviewed, last echo completed in July of 2024 which showed a systolic function of 55-60%, mild concentric LV wall thickening, LV septal wall motion abnormal, grade 3 diastolic dysfunction, RV mildly enlarged with mild reduction in systolic function, biatrial moderate enlargement, valvular disease, no pulmonary hypertension. On spironolactone 50 mg b.i.d., Lasix 40 mg daily and hydrochlorothiazide 50 mg daily outpatient. Will continue spironolactone and hydrochlorothiazide at this time. Switch Lasix to 40 mg b.i.d.. Will need close monitoring of renal function as he currently has an CLINTON, suspected to be secondary to volume overload and current infection. * monitor I&Os, daily weights, renal function * continue spironolactone and hydrochlorothiazide, hold p.o. Lasix. * Continue Lasix IV as 40 mg b.i.d.. * Repeat Echo (4) Acute kidney injury superimposed on CKD: Code(s): N17.9 - Acute kidney failure, unspecified; N18.9 - Chronic kidney disease, unspecified Status: Acute Assessment and Plan: CLINTON superimposed on CKD noted upon admission. Creatinine 2.65, BUN 63, and GFR 24 on 01/19. Previously 1.64, BUN 36, GFR 40 to on 08/13/2024. Creatinine in 2024 has ranged between 1.45 and 2.07. Patient is on spironolactone, hydrochlorothiazide, and Lasix outpatient. Could be over-diuresis due to being on 3 different diuretics, however imaging concerning for possible pulmonary edema and patient has bilateral lower extremity seen on exam which is more in favor of possible volume overload. Will trial changing Lasix to 40 mg b.i.d. to offload volume. If patient has worsening renal function, could consider rehydrating and holding diuresis. * trend renal function and correct electrolytes as needed * nephrology consulted * check CK, urine lytes, protein/creatinine, urea * Protein/Cr ratio: 3.13 (5) Diabetes mellitus: Qualifiers: Diabetes mellitus type: type 2 Diabetes mellitus residential insulin use: without locomotive boilermaker use Code(s): E11.9 - Type 2 diabetes mellitus without complications Status: Chronic Assessment and Plan: * hypoglycemia protocol * POC blood glucose ACHS * home medication: Hold metformin * correct regimen ordered - moderate dose TIDWM, based off BMI * A1C 6.9% on 09/23/2024 (6) Hypertensive heart disease: Qualifiers: Heart failure presence: without heart failure Qualified Code(s): I11.9 - Hypertensive heart disease without heart failure Code(s): I11.9 - Hypertensive heart disease without heart failure Status: Chronic Assessment and Plan: * chronic, currently 124/61, stable * continue home medications: Amlodipine, hydralazine, HCTZ, Imdur, lisinopril, nebivolol * monitor (7) Afib: Qualifiers: Atrial fibrillation type: longstanding persistent Qualified Code(s): I48.11 - Longstanding persistent atrial fibrillation Code(s): I48.91 - Unspecified atrial fibrillation Status: Chronic Assessment and Plan: History of chronic AFib on anticoagulation. Reviewed EKG performed in the ED on 01/19 that have patient in rate controlled AFib with IVC delay and left axis deviation. * continue home medication: Amiodarone 200 mg daily and Warfarin <Jemima Johnson RN - Last Filed: 01/20/25 09:27> Clarified Diagnosis Clarified Diagnosis: Hypoxia without respiratory failure <Cole Sol PA-C - Last Filed: 01/20/25 11:17>
[2025-01-20 10:08] VITALS: PULSE 68
[2025-01-20] MEDS: AMIODARONE HCL 200 MG TABLET PO (10:08)
[2025-01-20] MEDS: ROSUVASTATIN 20 MG TABLET 40 MG PO (10:09)
[2025-01-20] MEDS: ISOSORBIDE MONONITRATE 60 MG TAB.ER.24H PO ×2 (10:10→21:13)
[2025-01-20] MEDS: guaiFENesin 12 HR 600 MG TABCR PO ×2 (10:10→21:13)
[2025-01-20] MEDS: NEBIVOLOL HCL 5 MG TABLET 10 MG PO (10:10)
[2025-01-20] MEDS: FUROSEMIDE INJ 40 MG/4 ML VIAL IV PUSH ×2 (10:10→17:26)
[2025-01-20] MEDS: SPIRONOLACTONE 50 MG TABLET PO ×2 (10:17→21:13)
[2025-01-20 10:44] LABS: Alveolar/Arterial O2 Gradient 136.5 mmHg; Fractional Inspired Oxygen 36 %; HCO3 ABG 32.6 mEq/l (22.0-26.0); Oxygen Content ABG 11.4 %vol (16.0-22.0); Oxygen Saturation ABG 92.2 % (95.0-100.0); PCO2 ABG 49.9 mmHg (35.0-45.0); PO2 ABG 62.3 mmHg (80.0-100.0); PO2 FiO2 Ratio Arterial Blood 1.73 %
[2025-01-20 10:47] LABS: Liters per Minute 4.0 LPM; Modified Allen's Test Pass; Site Drawn LEFT RADIAL
[2025-01-20 11:13] LABS: Influenza A QL RT-PCR Negative (Negative); Influenza B QL RT-PCR Negative (Negative); RSV RNA, RT-PCR Negative (Negative); SARS-CoV-2 RNA PCR Negative (Negative)
--- OUTSIDE RECORDS SUMMARY | 2025-01-20 13:43 | XMS_ITS | Encounter Summary ---
Author Organization [facility] Healthcare Address [address] [place] [address] Care Team Providers Care Letter Sorting Machine Operator Name Role Phone Faye Hector MD Primary Care Provider Александр Yu MD Unavailable [phone] Александр Landa MD Unavailable [phone] Leonard Gillette MD Primary Care Provider Encounter Details Date Type Department Care Team (Late st Contact Info) Description 08/12/2024 Orders Only [facility] Health Information Management [address] [place] [id number] Scanning, Provider Social History Tobacco Use Types Packs/Day Years Used Date Smoking Tobacco: Former Cigarettes 2 44 1 971 - 2015 Smokeless Tobacco: Never Alcohol Use Standard Drinks/Week Comments Yes 0 (1 standard drink = 0.6 oz pur e alcohol) [facility] Utilities Answer Date Recorded In the past 12 months has [employer] electric, gas, oil, or water company threatened to shut off services in your home? No 03/26/2024 Social Connection and Isolation Panel Answer Date Recorded In a typical week, how many times do you talk on the phone with family, friends, or neighbors? More than three times a week 03/26/2024 How often do you get togethe r with friends or relatives? More than three times a week 03/26/2024 How often do you attend [facility] or anabaptism services? Never 03/26/2024 Do you belong to any clubs o r organizations such as yarsanism groups, unions, fraternal or athletic groups, or [...] any time in the past 12 m [facility], were you homeless or living in a prison (including now)? No 03/26/2024 Personal Safety Answer Date Recorded Have you ever been in or are you currently in a harmful physical or emotional relationship or is someone making you feel afraid or unsafe? 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 Gender Identity Male 07/27/2019 7:12 PM CDT Sexual Orientation Straight 07/27/2019 7: 12 PM CDT documented as of this encounter Plan of Treatment Not on file documented as of this encounter Procedures Procedure Name Priority Date/Time Associated Diagnosis Comments CARDIOLOGY DOCUMENT SCAN 08/12/2024 documented in this encounter Results * Cardiology Document Scan (08/12/2024) Anatomical Region Laterality Modality Other us Provider Scanning CV CARDIAC SERVICES PROCEDURES Final Result documented in this encounter Visit Diagnoses Not on filedocumented in this encounter Care Teams Letter Sorting Machine Operator Relationship Specialty Start Date End Date Faye Hector MD [address] [place] [address] PCP - General Family Medicine 07/26/19 09/20/24 Leonard Gillette MD [address] [place] [address] PCP - General Family Medicine 09/21/24 Александр Yu MD [address] [place] [address] Referring Physician Cardiology 02/09/24 Александр Landa MD [address] [place] [address] Consulting Physician Cardiothoracic Surgery 02/09/24 documented as of this encounter
--- OUTSIDE RECORDS SUMMARY | 2025-01-20 13:43 | XMS_ITS | Encounter Summary ---
Author Organization [facility] Address [address] [place] [id number] Phone Care Team Providers Care Rack Room Worker Name Role Phone Faye Hector MD Primary Care Provider [phone] Reason for Visit * Reason Comments Med Refill Encounter Details Date Type Department Care Team (Late st Contact Info) Description 02/21/2022 Refill [facility] Nephrology and Hypertension [address] [place] [address], [address] [place] [address] Hebert Washburn MD [facility] [facility], [address] [place] [address] Social History Tobacco Use Types Packs/Day Years [...] on filedocumented in this encounter Care Teams Rack Room Worker Relationship Specialty Start Date End Date Rostovtseva, Faye, MD [address] [facility] [address] [place] [address] PCP - General Internal Medicine 08/28/20 documented as of this encounter
--- OUTSIDE RECORDS SUMMARY | 2025-01-20 13:43 | XMS_ITS | Clinical Summary ---
Author Organization [facility] Address [address] [place] [id number] Care Team Providers Care Commercial Fisherman Name Role Phone Unavailable Primary Care Provider Unavailabl e Social History Tobacco Use Types Packs/Day Years Used Date Smoking Tobacco: Never Assessed Sex and Gender Information Value Date Recorded Sex Assigned at Not on file Legal Sex Male 6:02 PM CDT Gender Identity Not on file Sexual Orientation Not on file Plan of Treatment Health Maintenance Due Date Last Done Comments Colorectal Cancer Screening Colonoscopy (10 Years) 1952 Hepatitis C 1970 DTaP, Tdap and Td Vaccines ( 1 - Tdap) 1971 Pneumococcal Vaccine: 50+ Ye ars (1 of 1 - PCV) 2002 Zoster Vaccines (1 of 2) 2002 COVID-19 Vaccine (1 - 2024-2 6 season) 2024 Influenza Adult (#1) 2024 RSV Immunization or 60+ Years (1 - 1-dose 75+ series) 2027 Hepatitis A Vaccines Aged Out No long er eligible based on patient's age to complete this topic Meningococcal B Vaccine Aged Out No l onger eligible based on patient's age to complete this topic Meningococcal Vaccine Aged Out No pablito delfino eligible based on patient's age to complete this topic RSV Immunizations Under 20 Months Aged Out No longer eligible based on patient's age to complete this topic
--- OUTSIDE RECORDS SUMMARY | 2025-01-20 13:43 | XMS_ITS | Encounter Summary ---
Author Organization [facility] Healthcare Address [address] [place] [address] Care Team Providers Care Sexologist Name Role Phone Faye Hector MD Primary Care Provider Александр Yu MD Unavailable [phone] Александр Landa MD Unavailable [phone] Leonard Gillette MD Primary Care Provider Encounter Details Date Type Department Care Team (Late st Contact Info) Description 01/20/2024 Orders Only [facility] Health Information Management [address] [place] [address] Scanning, Provider Social History Tobacco Use Types Packs/Day Years Used Date Smoking Tobacco: Former Smokeless Tobacco: Never Comments:Smoking History Pac ks/day: 1 Packs Alcohol Use Standard Drinks/Week Comments Yes 0 (1 standard drink = 0.6 oz pur e alcohol) Sex and Gender Information Value Date Recorded Sex Assigned at Not on file Legal Sex Male 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 Gender Identity Male 07/27/2019 7:12 PM CDT Sexual Orientation Straight 07/27/2019 7: 12 PM CDT documented as of this encounter Plan of Treatment Not on file documented as of this encounter Procedures Procedure Name Priority Date/Time Associated Diagnosis Comments SCAN - LABS 01/20/2024 CARDIOLOGY DOCUMENT SCAN 01/20/2024 documented in this encounter Results * SCAN - LABS (01/20/2024) us Provider Scanning Final Result * Cardiology Document Scan (01/20/2024) Anatomical Region Laterality Modality Other us Provider Scanning CV CARDIAC SERVICES PROCEDURES Final Result documented in this encounter Visit Diagnoses Not on filedocumented in this encounter Additional Health Concerns Infection Onset Date Last Indicated Resolved Time COVID: Suspected 03/21/2024 03/21/2024 03/21/2024 11:32 PM CLINICAL SCIENCES PROFESSOR Ring Surveillance Comment:[employer] One time surveillance sweep to entire unit 7200 on 04/02/24 04/02/2024 04/02/2024 04/04/2024 5 :10 PM CLINICAL SCIENCES PROFESSOR documented as of this encounter Care Teams Sexologist Relationship Specialty Start Date End Date Faye Hector MD [address] [place] [address] PCP - General Family Medicine 07/26/19 09/20/24 Leonard Gillette MD [address] [place] [address] PCP - General Family Medicine 09/21/24 Александр Yu MD [address] [place] [address] Referring Physician Cardiology 02/09/24 Александр Landa MD [address] [place] [address] Consulting Physician Cardiothoracic Surgery 02/09/24 documented as of this encounter
--- OUTSIDE RECORDS SUMMARY | 2025-01-20 13:43 | XMS_ITS | Encounter Summary ---
Author Organization [facility] Healthcare Address [address] [place] [address] Care Team Providers Care Vacuum Form Operator Name Role Phone Faye Hector MD Primary Care Provider Александр Yu MD Unavailable [phone] Александр Landa MD Unavailable [phone] Leonard Gillette MD Primary Care Provider Encounter Details Date Type Department Care Team (Late st Contact Info) Description 08/10/2024 Orders Only [facility] Health Information Management [address] [place] [id number] Scanning, Provider Social History Tobacco Use Types Packs/Day Years Used Date Smoking Tobacco: Former Cigarettes 2 44 1 971 - 2015 Smokeless Tobacco: Never Alcohol Use Standard Drinks/Week Comments Yes 0 (1 standard drink = 0.6 oz pur e alcohol) [facility] Utilities Answer Date Recorded In the past 12 months has [employer] electric, gas, oil, or water company threatened [...] week 03/26/2024 How often do you attend [facility] or mu-ism services? Never 03/26/2024 Do you belong to any clubs o r organizations such as advent groups, unions, fraternal or athletic groups, or [...] any time in the past 12 m [facility], were you homeless or living in a residential (including now)? No 03/26/2024 Personal Safety Answer Date Recorded Have you ever been in or are you currently in a harmful physical or emotional relationship or is someone making you feel afraid or unsafe? 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 Gender Identity Male 07/27/2019 7:12 PM CDT Sexual Orientation Straight 07/27/2019 7: 12 PM CDT documented as of this encounter Plan of Treatment Not on file documented as of this encounter Procedures Procedure Name Priority Date/Time Associated Diagnosis Comments SCAN - RADIOLOGY/IMAGING 08/10/2024 documented in this encounter Results * SCAN - RADIOLOGY/IMAGING (08/10/2024) Anatomical Region Laterality Modality Other us Provider Scanning Final Result documented in this encounter Visit Diagnoses Not on filedocumented in this encounter Care Teams Vacuum Form Operator Relationship Specialty Start Date End Date Faye Hector MD [address] [place] [address] PCP - General Family Medicine 07/26/19 09/20/24 Leonard Gillette MD [address] [place] [address] PCP - General Family Medicine 09/21/24 Александр Yu MD [address] [place] [address] Referring Physician Cardiology 02/09/24 Александр Landa MD [address] [place] [address] Consulting Physician Cardiothoracic Surgery 02/09/24 documented as of this encounter
--- OUTSIDE RECORDS SUMMARY | 2025-01-20 13:43 | XMS_ITS | Clinical Summary ---
Author Organization [facility] [address] Address [address] [place] [address] Care Team Providers Care Armor Reconnaissance Vehicle Driver Name Role Phone Александр Yu MD Unavailable [phone] Александр Landa MD Unavailable [phone] Leonard Gillette MD Primary Care Provider Allergies Active Allergy Reactions Criticality Noted Date Comments Penicillins Other (See comments) Mouth tingling 40 years ago Medications aspirin 81 mg chewable tabletIndications :Ischemic cardiomyopathy,Hi story of coronary artery stent placement,Coronar y artery disease involving wales coronary artery of wales heart, unspecified whether angina present,Hx of CABG Take 1 tablet (81 mg total) by mouth daily 2024 Active gabapentin (NEURONTIN) 600 mg tabletIndications :Hx of CABG Take 1 tablet (600 mg total) by mouth 3 (three) times a day Active rosuvastatin (CRESTOR) 40 mg tabletIndications :Ischemic cardiomyopathy,Hi story of coronary artery stent placement,Coronar y artery disease involving wales coronary artery of wales heart, unspecified whether angina present,Mixed hyperlipidemia Take 1 tablet (40 mg total) by mouth daily Active tamsulosin (FLOMAX) 0.4 mg extended release capsuleIndication s:Benign prostatic hyperplasia, unspecified whether lower urinary tract symptoms present Take 1 capsule (0.4 mg total) by mouth daily Active multivitamin with folic acid 400 mcg tablet Take 1 tablet by mouth daily 025 2025 Active polyethylene glycol (MIRALAX) 17 gram packetIndications :constipation Take 1 packet (17 g total) by mouth daily as needed for constipation Active pen needle, diabetic (Pen Needle) 32 gauge x 5/32 needle Use as directed once a day. Active pen needle, diabetic 32 gauge x 5/32 needle Use as directed 3 times a day. Active acetaminophen 500 mg capsuleIndication s:Fever,Pain Take 2 capsules (1,000 mg total) by mouth every 6 (six) hours as needed for mild pain (pain scale 1-4) Active ferrous sulfate 325 mg (65 mg of elemental iron) tabletIndications :Iron Deficiency Anemia Take 1 tablet (325 mg total) by mouth 2 (two) times a day with meals 60 tablet 025 2025 Active furosemide (LASIX) 40 mg tabletIndications :Ischemic cardiomyopathy Take 1 tablet (40 mg total) by mouth daily 30 tablet Active metFORMIN (GLUCOPHAGE) 1,000 mg tablet Take 1 tablet (1,000 mg total) by mouth 2 (two) times a day with meals 60 tablet Active metoprolol XL (TOPROL-XL) 25 mg extended release tablet Take 0.5 tablets (12.5 mg total) by mouth daily 15 tablet 025 2025 Active amiodarone (PACERONE) 200 mg tabletIndications :Paroxysmal atrial fibrillation (HCC) Take 1 tablet (200 mg total) by mouth daily 90 tablet 3 025 2025 Active warfarin (COUMADIN) 2 mg tabletIndications :atrial fibrillation TAKE 3 TABLETS (6 MG TOTAL) BY MOUTH DAILY 270 tablet Active warfarin (COUMADIN) 2 mg tabletIndications :atrial fibrillation TAKE 3 TABLETS (6 MG TOTAL) BY MOUTH DAILY 270 tablet 025 2024 Discontinued Active Problems Problem Noted Date Diagnosed Date [...] concerns. Assessment & Plan (05/20/2024 2:00 PM SAFETY NET MAKER): -Patient presents to clinic for a post [...] 04/05/2024 Assessment & Plan (05/04/2024 11:42 AM SAFETY NET MAKER): Mild edema to BLE. Compression wraps ordered. Monitor. Assessment & Plan (04/16/2024 10:29 AM SAFETY NET MAKER): Last TTE 03/14: 1. Grossly normal left ventricular systolic function based on limited views. Inadequate for detailed regional wall motion assessment. Ejection Fraction is estimated to be 60-70. Creatinine improved, 1.37 last night Resumed Lasix today Lymphedema wraps ordered on 1/17- completed Dobutamine discontinued 04/08/24 Metoprolol restarted 04/11, continue 6.25 BID Hyperkalemia 03/30/2024 Assessment & Plan (05/04/2024 11:42 AM SAFETY NET MAKER): Chronic. Meds reviewed. K 5.5. Repeat labs 05/06. Assessment & Plan (04/27/2024 10:56 AM SAFETY NET MAKER): Persistant 5.1. Meds reviewed. Routine monitoring. Assessment & Plan (04/20/2024 6:56 PM SAFETY NET MAKER): Mild. Routine monitoring. Assessment & Plan (04/16/2024 10:24 AM SAFETY NET MAKER): Monitor potassium daily with BMP K 5.1 this morning; whole K ordered-4.7 Continue diuresis as previously noted Holding all K supplementation Anemia 03/29/2024 Assessment & Plan (04/27/2024 10:57 AM SAFETY NET MAKER): H&H low but stable. Routine monitioring. Assessment & Plan (04/16/2024 10:26 AM SAFETY NET MAKER): To be expected following cardiac surgery Monitor daily CBC, Hgb stable @ 7.8 No active signs of bleeding Consider transfusion if Hgb <7 or if hemodynamically unstable Assessment & Plan (03/29/2024 5:32 PM SAFETY NET MAKER): H&H down overnight Transfuse 2 units PRBC Trend CBC nightly CKD (chronic kidney disease) 03/26/2024 Assessment & Plan (04/27/2024 10:57 AM SAFETY NET MAKER): Stable. Routine monitoring. Assessment & Plan (04/20/2024 10:45 AM SAFETY NET MAKER): Follow up labs ordered. Assessment & Plan (04/16/2024 10:25 AM SAFETY NET MAKER): CLINTON on CKD- initial Pre-op Creatinine 1.36 prior to 03/04 CABG Had worsening CLINTON in post op setting at [facility] Creatinine improved to 1.37 Continue daily Lasix LE edema improved Renally dose medications Avoid nephrotoxic agents Continue daily BMP monitoring Assessment & Plan (03/28/2024 11:44 AM SAFETY NET MAKER): CLINTON on CKD- initial Pre-op Creatinine 1.36 prior to 03/04 CABG Had worsening CLINTON in post op setting at [facility] Furosemide 40mg po daily for increased fluid volume with significant BLE edema Creatinine up slightly to 1.62, will hold lasix tomorrow as pt will be NPO Avoid nephrotoxic agents Continue daily BMP monitoring Wound infection after surgery 03/24/2024 Assessment & Plan (05/14/2024 11:19 AM SAFETY NET MAKER): Cefazolin to continue ID fu which is today. If DC will DC abc, DC PICC. Have communicated POC with ID & patient. Patient to perform wound care on his own or with family prior to discharge d/t no HH accepting yet. Assessment & Plan (05/04/2024 11:43 AM SAFETY NET MAKER): Pls fu 05/07, ID 05/14. Continues on IV abx until ID fu. Assessment & Plan (04/29/2024 12:05 PM SAFETY NET MAKER): Mild slough present to distal portion of abd incision. Have pictured & notified plastics. Continue dry dressing, wound RN following. Continue IV abx as ordered. Will fu with plastics 05/07. Assessment & Plan (04/27/2024 11:03 AM SAFETY NET MAKER): PICC in place. Continue wound care, HAYLEY drains, IV abx, PT/OT. Has plastics fu 05/07 1115a & ID fu 05/14 2pm. IVs are to complete 05/11 at this time - confirming with ID abx should not end before ID appt. Have informed SS. Assessment & Plan (04/16/2024 10:21 AM SAFETY NET MAKER): S/p sternal washout and debridement x 3 at [facility] Arrived to [facility] on 03/[address]. Obtain blood cultures daily until negative final result, growing Staph epidermis on blood cultures and deep wound culture Wound culture 1/5 +ENERGY EFFICIENT SITE MANAGER Blood cultures 1/2 +Staph epidermidis, 2 stains, [...] place Assessment & Plan (03/27/2024 12:15 PM SAFETY NET MAKER): Patient has undergone washout and debridement x 3 at [facility] Arrived to [facility] on 03/[address]. Obtain blood cultures daily until negative final result, growing Staph epidermis on blood cultures and deep wound culture Wound culture 1/ +ENERGY EFFICIENT SITE MANAGER Blood cultures 1/2 +Staph epidermidis, 2 stains, [...] 03/15/2024 Assessment & Plan (05/14/2024 11:12 AM SAFETY NET MAKER): Was not taking insulin at home. BS are less than 180 consistently & not requiring SSI. DC SSI + Lantus. Resume Metformin 1000mg BID. Will need fu with PCP outpt for management. Assessment & Plan (05/10/2024 12:49 PM SAFETY NET MAKER): Was not taking insulin at home. BS are less than 180 consistently & not requiring SSI. Will hold SSI + Lantus. Resume Metformin 1000mg BID. Will need fu with PCP outpt for management. Assessment & Plan (04/27/2024 11:03 AM SAFETY NET MAKER): BS ranging 130-300; A1c 7. Currently taking Lantus 14u nightly + Lispro 8u TIDAC. Continue without changes, monitor clsoely for adjustment. Assessment & Plan (04/20/2024 10:45 AM SAFETY NET MAKER): Follow up labs will be monitored. We will continue the scripting of insulin glargine and insulin lispro. Assessment & Plan (04/16/2024 10:24 AM SAFETY NET MAKER): A1c 7.0% Was taking lantus/lispro prandial and slide prior to admission Home metformin held while inpatient Continue Blood glucose checks QID; POC 143-230 last 24 hours Carbohydrate consistent diet Continue Lantus and ACHS resistant Lispro SSI BG goal < 180; serum glucose 189 Assessment & Plan (03/28/2024 11:45 AM SAFETY NET MAKER): A1c 7.0% Was taking lantus/lispro prandial and slide prior to admission Home metformin held while inpatient Continue Blood glucose checks QID Continue sliding scale insulin Carbohydrate consistent diet Encourage tight glucose control to facilitate postoperative healing Started lantus and scheduled lispro on 03/28, titrate up as needed Assessment & Plan (03/18/2024 12:35 PM SAFETY NET MAKER): A1c 7. Not on insulin at home. Currently taking Lantus 15u daily + SSI + Metformin. BS 103-194. Will dc Lantus & monitor bs with SSI only Hx of CABG 03/15/2024 Assessment & Plan (05/10/2024 12:42 PM SAFETY NET MAKER): FU PLS 05/07. HAYLEY drains reviewed. Patient [...] apt. Assessment & Plan (03/18/2024 12:37 PM SAFETY NET MAKER): CTS fu. Continue [place] PRN + Tyl PRN for pain. Mucinex added for cough. Continue medical management & wound care. BP mildly elevated. No changes at this time but monitor for need to adjust. Mixed hyperlipidemia 03/15/2024 Assessment & Plan (04/20/2024 10:43 AM SAFETY NET MAKER): This is chronic and stable. We will continue scripting rosuvastatin and dietary will follow Assessment & Plan (04/09/2024 8:10 AM SAFETY NET MAKER): Continue Rosuvastatin 40mg po daily Heart healthy diet Assessment & Plan (03/27/2024 12:06 PM SAFETY NET MAKER): Continue rosuvastatin 40mg po daily Heart healthy diet Benign prostatic hyperplasia 03/15/2024 Assessment & Plan (04/20/2024 10:45 AM SAFETY NET MAKER): Continue tamsulosin Coronary artery disease invo lving wales coronary artery of wales heart, unspecified whether angina present 03/04/2024 Assessment & Plan (04/20/2024 10:45 AM SAFETY NET MAKER): Continue scripting of metoprolol, continue aspirin 81 mg daily and rosuvastatin 40 mg daily Assessment & Plan (04/16/2024 10:25 AM SAFETY NET MAKER): S/P CABG 12/19 Continue aspirin 81mg po daily Continue Rosuvastatin 40mg po daily Continue Metoprolol; titrate as tolerated Resume lasix 40 PO - Cr down 1.37 Assessment & Plan (03/27/2024 11:52 AM SAFETY NET MAKER): S/P CABG 03/04 Continue aspirin 81mg po daily Continue metoprolol 25mg po BID Continue rosuvastatin 40mg po daily AROM/PROM Physical therapy/Occupational therapy Ischemic cardiomyopathy 02/06/2024 Assessment & Plan (04/20/2024 10:44 AM SAFETY NET MAKER): Monitor vital signs. Continue metoprolol and rosuvastatin, we will continue furosemide 40 mg daily Essential hypertension 10/13/2020 Assessment & Plan (04/20/2024 10:44 AM SAFETY NET MAKER): We will monitor vital signs for serial trending. Continue scripting furosemide and metoprolol. Assessment & Plan (04/13/2024 10:17 AM SAFETY NET MAKER): Monitor vital signs q 4 hours Resume lasix 40 PO daily Continue metoprolol 6.25 BID, titrate as tolerated Low sodium diet Assessment & Plan (03/28/2024 11:45 AM SAFETY NET MAKER): Monitor vital signs q 4 hours Continue metoprolol 25mg po BID Continue furosemide 40mg po daily- held 03/29 for procedure Persistent proteinuria 10/13/2020 Presence of coronary angioplasty implant and gra ft 07/27/2019 Atrial fibrillation Assessment & Plan (04/20/2024 10:45 AM SAFETY NET MAKER): Monitor for evidence of RVR. Continue amiodarone 2 mg daily Assessment & Plan (04/13/2024 10:30 AM SAFETY NET MAKER): Continue Amiodarone 200mg po daliy Restart eliquis 2.5 today Rate controlled atrial fibrillation/flutter with occasional PVCs 90's - 100's per continuous telemetry EKG today A flutter Assessment & Plan (03/28/2024 11:43 AM SAFETY NET MAKER): Continue amiodarone 200mg po daliy Continue metoprolol 25mg po BID Holding Eliquis, last dose on 03/21 Heparin gtt- hold medication technician to OR 03/29 Rate controlled atrial fibrillation per continuous telemetry Resolved Problems Problem Noted Date Diagnosed Date Resolved Date Ileus 03/30/2024 04/08/2024 Assessment & Plan (04/05/2024 1:27 PM SAFETY NET MAKER): 03/29 KUB: There is mild gaseous distention of the stomach and loops of small bowel, which may represent ileus in the postoperative setting. 03/31 CT C/A/P: Nondistended loops of bowels. No obstruction. Hold Oxycodone in setting of ileus Advance diet per Dr. Chand Now on regular diet Having BMs Bowel sounds today resolved Constipation 03/29/2024 03/30/2024 Assessment & Plan (04/03/2024 11:56 AM SAFETY NET MAKER): Had bm yesterday Assessment & Plan (03/29/2024 5:25 PM SAFETY NET MAKER): Increase bowel regimen Gave lactulose x 1 now, suppository Check KUB Sternal wound infection 03/24/2024 02/0 06/2024 Overview (03/30/2024): Mr Mason is a 73 year old gentleman with with T2DM, HTN, Afib, recent CABG on 03/04, presented to [facility] on 03/22 with sternal wound dehiscence and purulent discharge, s/p sternal wound exploration with wire removal 03/22 with cultures positive for MSSE, transferred to [place] for flap coverage and possible sternectomy. - OR at [facility]: 03/23 for sternal washout, sternal bone debridement [...] far Assessment & Plan (04/20/2024 10:46 AM SAFETY NET MAKER): After successful inpatient treatment continue cefazolin 2 g IV every 8 hours through May 11. He will follow up with the Infectious Disease. Assessment & Plan (04/16/2024 10:22 AM SAFETY NET MAKER): S/P irrigation and culture sternal wound 24 [...] (03/29-05/10) Assessment & Plan (04/09/2024 4:15 PM SAFETY NET MAKER): - Has been afebrile, WBC normalized - [...] PNA. Assessment & Plan (03/29/2024 5:16 PM SAFETY NET MAKER): S/P irrigation and culture sternal wound 24 [...] 04/20/2024 Assessment & Plan (04/10/2024 11:56 AM SAFETY NET MAKER): S/P irrigation and culture sternal wound 24 x 11 x 6 cm cubed with wound vac exchange 03/26/24 per Plastic and Reconstructive Surgery S/p wound debridement an muscle flap closure 03/29 Negative pressure therapy to wound with dressing changes per Plastic and Reconstructive Surgery 03/26 OR culture results-+ staph epi, fungal culture negative Assessment & Plan (03/29/2024 5:16 PM SAFETY NET MAKER): S/P irrigation and culture sternal wound 24 [...] Encounters Date Type Department Care Team Description 01/18/2025 Anticoagulation Visit [facility] Cardiology [address] [place] [address] [place] [phone] Elisha Rosales, RN 01/11/2025 2:30 PM CDT Office Visit [facility] Medicine Surgery [address] [place] [address] [facility] 6th [place] [address] [place] [address] Rea Chand MD PhD Sternal wound infection (Primary Dx) 01/05/2025 Anticoagulation Visit [facility] Cardiology [address] [place] [address] [place] [phone] Elisha Rosales, RN 12/27/2024 Anticoagulation Visit [facility] Cardiology [address] [place] [address] [place] [phone] Elisha Rosales RN 12/13/2024 Anticoagulation Visit [facility] Cardiology [address] [place] [address] [place] [phone] Elisha Rosales RN 11/11/2024 Anticoagulation Visit [facility] Card[facility] [address] [place] [address] [place] [phone] Nancy Nathan RN 11/03/2024 Telephone [facility]iology [address] [place] [address] [place] [phone] Алекасндр Yu MD INR results 11/03/2024 Anticoagulation Visit [facility] Cardiology [address] [facility] [address] [place] [phone] Starr Torres RN 10/29/2024 Telephone [facility] Cardiology at [address] [place] [address] Christine Dave NP 10/22/2024 1:15 PM CDT Procedure visit [facility]iology [address] [place] [address] [place] [phone] Coronary artery disease involving wales coronary artery of wales heart, unspecified whether angina present 10/22/2024 Results Follow-Up [facility] [address] [place] [address] [place] [phone] Christine Dave NP ECG 12 lead 10/21/2024 Anticoagulation Visit [facility] Cardiology at [address] [place] [address] Erin Elena, PALLAVI from Last 3 Months Surgical History Surgery [...] tea r Hypertension Myocardial infarct, old Diabetes Coronary artery disease GOOD on CPAP HFrEF (heart failure with re duced ejection fraction) Diabetic retinopathy (HCC) Diabetic neuropathy (HCC) TIA [...] Former Cigarettes 2 44 1 [phone] - 2014 Smokeless Tobacco: Never Tobacco Cessation:Counseling Given: Not Answered Alcohol Use Standard Drinks/Week Comments Yes 0 (1 standard drink = 0.6 oz pur e alcohol) [facility] Social Touchities Answer Date Recorded In the past 12 months has [employer], gas, oil, or water [employer] threatened to shut off services in your [...] 03/26/2024 How often do you attend chur or yarsanism services? Never 03/26/2024 Do you belong to any clubs o r organizations such as sabianism groups, unions, fraternal or athletic groups, or [...] any time in the past 12 [facility], were you homeless or living in a fpc (including now)? No 03/26/2024 Personal Safety Answer Date Recorded Have you ever been in or are you currently in a harmful physical or emotional relationship or is someone making you feel afraid or unsafe? Denies 03/29/2024 Sex and Gender Information Value Date Recorded Sex Assigned at Not on file Legal Sex Male 2:38 AM SAFETY NET MAKER Gender Identity Male 07/27/2019 7:12 PM CDT Sexual Orientation Straight 07/27/2019 7: 12 PM CDT Last Filed Vital Signs Vital Sign Reading Time Taken Comments Blood Pressure 114/58 09/21/2024 12:56 PM CDT Pulse 59 09/21/2024 12:56 PM CDT Temperature 36.8 C (98.3 F) 06/11/2024 2:26 PM CDT Respiratory Rate 18 04/20/2024 10:40 AM SAFETY NET MAKER Oxygen Saturation 90% 09/21/2024 12:56 PM CDT Inhaled Oxygen Concentration - - Weight 100.7 kg (222 lb) 09/21/2024 12:56 PM CDT Height 182.9 cm (6') 09/21/2024 12:56 PM CDT Body Mass Index 30.11 09/21/2024 12:56 PM CDT Plan of Treatment Health Maintenance [...] Hemoglobin A1C 09/21/2024 03/24/2024, 03/04/2024 Influenza Vaccine (#1) 2024 Lipid Panel 03/24/2025 03/24/2024, 05/16, 12/04/2022, Additional history exists Fall Risk Assessment 04/17/2025 04/17/2024 eGFR 06/11/2025 06/11/2024, 04/18, 05/11/2024, Additional history exists Abdominal Aortic Aneurysm (A AA) Screen Completed 04/01/2024, 03/25/2024 Procedures Procedure Name Priority Date/Time Associated Diagnosis Comments PROTIME-INR Routine 01/17/2025 12:39 PM SAFETY NET MAKER Atrial fibrillation, unspecified type (HCC) Chronic anticoagulation PROTIME-INR Routine 01/04/2025 12:06 PM CDT Atrial fibrillation, unspecified type (HCC) Chronic anticoagulation PROTIME-INR Routine 12/24/2024 12:17 PM CDT Atrial fibrillation, unspecified type (HCC) Chronic anticoagulation PROTIME-INR Routine 12/10/2024 12:30 PM CDT Atrial fibrillation, unspecified type (HCC) Chronic anticoagulation PROTIME-INR Routine 11/10/2024 12:26 PM CDT Atrial fibrillation, unspecified type (HCC) Chronic anticoagulation PROTIME-INR Routine 11/02/2024 12:29 PM CDT Atrial fibrillation, unspecified type (HCC) Chronic anticoagulation ECG 12-LEAD Routine 10/22/2024 1:18 PM CDT Coronary artery disease involving wales coronary artery of wales heart, unspecified whether angina present PROTIME-INR Routine 10/20/2024 12:45 PM CDT Atrial fibrillation, unspecified type (HCC) Chronic anticoagulation EGFR Routine 06/11/2024 3:19 PM CDT Sternal wound infection CT CHEST ABDOMEN PELVIS WO CONTRAST ED Urgent/IP Urgent 04/01/2024 10:29 AM SAFETY NET MAKER HEMOGLOBIN A1C Routine 03/24/2024 9:26 PM SAFETY NET MAKER LIPID PANEL Routine 03/24/2024 9:26 PM SAFETY NET MAKER from Last 3 Months or Most Recently Relevant to Health Maintenance Results * (ABNORMAL) Protime-INR (01/17/2025 12:39 PM SAFETY NET MAKER) INR 4.4(H) [facility] Comment: Reference Range 0.9-1.1 Moderate-intensity Warfarin Therapy 2.0-3.0 Higher-intensity Warfarin Therapy 3.0-4.0 PT 43.5(H) 9.0 - 11.5 sec [facility] Comment: For additional information, please refer to http://education.Aviacode/faq/MQX276 (This link is being provided for informational/ educational purposes only.) Blood 01/17/2025 12:3 9 PM SAFETY NET MAKER 01/17/2025 12:39 PM SAFETY NET MAKER us Александр Yu MD LAB BLOOD ORDERABLES Fin al Result Performing Organization Address [facility] de Phone Number [facility] [address] [place] [address] * (ABNORMAL) Protime-INR (01/04/2025 12:06 PM CDT) INR 1.3(H) [facility] Comment: Reference Range 0.9-1.1 Moderate-intensity Warfarin Therapy 2.0-3.0 Higher-intensity Warfarin Therapy 3.0-4.0 PT 13.7(H) 9.0 - 11.5 sec [facility] Comment: For additional information, please refer to http://wripl.Aviacode/faq/MLZ347 (This link is being provided for informational/ educational purposes only.) Blood 01/04/2025 12:0 6 PM CDT 01/04/2025 12:06 PM CDT Narrative [facility] - 01/05/2025 12:30 AM CDT FASTING:NO FASTING: NO Александр Yu MD LAB BLOOD ORDERABLES Fin al Result Performing Organization Address [facility] de Phone Number [facility] [address] [place] [address] * (ABNORMAL) Protime-INR (12/24/2024 12:17 PM CDT) INR 1.2(H) [facility] Comment: Reference Range 0.9-1.1 Moderate-intensity Warfarin Therapy 2.0-3.0 Higher-intensity Warfarin Therapy 3.0-4.0 PT 12.9(H) 9.0 - 11.5 sec [facility] Comment: For additional information, please refer to http://wripl.Aviacode/faq/ZPQ955 (This link is being provided for informational/ educational purposes only.) Blood 12/24/2024 12:1 7 PM CDT 12/24/2024 12:18 PM CDT Александр Yu MD LAB BLOOD ORDERABLES Fin al Result Performing Organization Address [facility] Co de Phone Number [facility] [address] [place] [address] * (ABNORMAL) Protime-INR (12/10/2024 12:30 PM CDT) INR 1.5(H) [facility] Comment: Reference Range 0.9-1.1 Moderate-intensity Warfarin Therapy 2.0-3.0 Higher-intensity Warfarin Therapy 3.0-4.0 PT 15.6(H) 9.0 - 11.5 sec [facility] Comment: For additional information, please refer to http://wripl.Aviacode/faq/ETN711 (This link is being provided for informational/ educational purposes only.) Blood 12/10/2024 12:3 0 PM CDT 12/10/2024 12:30 PM CDT Narrative [facility] - 12/11/2024 1:27 AM CDT FASTING:NO FASTING: NO Александр Yu MD LAB BLOOD ORDERABLES Fin al Result Performing Organization Address [facility] de Phone Number [facility] [address] [place] [address] * (ABNORMAL) Protime-INR (11/10/2024 12:26 PM CDT) INR 2.1(H) [facility] Comment: Reference Range 0.9-1.1 Moderate-intensity Warfarin Therapy 2.0-3.0 Higher-intensity Warfarin Therapy 3.0-4.0 PT 21.0(H) 9.0 - 11.5 sec [facility] Comment: For additional information, please refer to http://wripl.Aviacode/faq/BOU437 (This link is being provided for informational/ educational purposes only.) Blood 11/10/2024 12:2 6 PM CDT 11/10/2024 12:27 PM CDT Narrative QUEST - 11/11/2024 3:29 AM CDT FASTING:NO FASTING: NO Александр Yu MD LAB BLOOD ORDERABLES Fin al Result Performing Organization Address [facility] de Phone Number [facility] [address] [place] [address] * (ABNORMAL) Protime-INR (11/02/2024 12:29 PM CDT) INR 1.2(H) [facility] Marketing-S t Flo Comment: Reference Range 0.9-1.1 Moderate-intensity Warfarin Therapy 2.0-3.0 Higher-intensity Warfarin Therapy 3.0-4.0 PT 12.4(H) 9.0 - 11.5 sec Quest Tutee-S t Flo Comment: For additional information, please refer to http://education.Aviacode/faq/CAK499 (This link is being provided for informational/ educational purposes only.) Blood 11/02/2024 12:2 9 PM CDT 11/02/2024 12:31 PM CDT Narrative QUEST - 11/03/2024 1:21 AM CDT FASTING:NO FASTING: NO Александр Yu MD LAB BLOOD ORDERABLES Fin al Result Performing Organization Address [facility] de Phone Number [facility] [address] [place] [address] * ECG 12 lead (10/22/2024 1:18 PM CDT) 10/22/2024 1:18 PM CDT Christine Dave HOSPITALITY AIDE ECG ORDERABLES Final Res ult * (ABNORMAL) Protime-INR (10/20/2024 12:45 PM CDT) INR 1.3(H) [employer]-S t Flo Comment: Reference Range 0.9-1.1 Moderate-intensity Warfarin Therapy 2.0-3.0 Higher-intensity Warfarin Therapy 3.0-4.0 PT 14.0(H) 9.0 - 11.5 sec [facility] Marketing-Bradley Rossi Comment: For additional information, please refer to http://education.Vonage.Geron/faq/MFL132 (This link is being provided for informational/ educational purposes only.) Blood 10/20/2024 12:4 5 PM CDT 10/20/2024 12:45 PM CDT Narrative QUEST - 10/21/2024 2:41 AM CDT FASTING:NO FASTING: NO us Александр Yu MD LAB BLOOD ORDERABLES Fin al Result [facility] [address] [place] [address] * (ABNORMAL) eGFR (06/11/2024 3:19 PM CDT) [...] 3:19 PM CDT 06/11/2024 7:22 PM CDT us Ana M Cardenas NP LAB BLOOD ORDERABLES Final Result KRISTA HAYWARD [facility] Department [place] [address] * CT Chest Abdomen Pelvis WO Contrast (04/01/2024 10:29 AM SAFETY NET MAKER) Anatomical Region Laterality Modality Body N/A Computed Tomogra phy 04/01/2024 11:5 7 AM SAFETY NET MAKER Impressions 04/01/2024 12:04 PM SAFETY NET MAKER 1. Extensive gas throughout the anterior chest wall with drainage catheters in place, most likely postoperative. 2. Nondistended loops of bowels. No obstruction. Dictated by: Ruddy Weston MD The radiology attending physician has personally reviewed this study, and had reviewed and/or edited this written report and agrees with it. Electronically signed by: Nimco Herring M.D. Narrative 04/01/2024 12:04 PM SAFETY NET MAKER EXAMINATION: Computed tomography of the chest, abdomen [...] * (ABNORMAL) Hemoglobin A1c (03/24/2024 9:26 PM SAFETY NET MAKER) Hgb A1C 7.0(H) 4.0 - 5.6 % Estimated Average Glucose 154 mg/dL KRISTA HAYWARD Comment: The ADA recommends reporting an estimated Average Glucose (eAG) with all Hemoglobin A1c results using the equation derived from a study of 507 normal and diabetic adults. Minority populations were underrepresented and children were not included. (Diabetes Care 2020; 43(S1): S66-S76). The eAG is not equivalent to a fasting glucose. Blood 03/24/2024 9:26 PM SAFETY NET MAKER 03/24/2024 9:41 PM SAFETY NET MAKER Narrative KRISTA HAYWARD - 03/24/2024 10:40 PM SAFETY NET MAKER Indication for repeat testing:->Health monitoring us Allie Bhatti HOSPITALITY AIDE LAB BLOOD ORDERABLES Final Result KRISTA HAYWARD [facility] Department [place] [address] * (ABNORMAL) Lipid panel (03/24/2024 9:26 PM SAFETY NET MAKER) Cholesterol 83 30 - 199 mg/dL Comment: [...] revised on 2017. Triglycerides 206(H) <=149 mg/dL [facility] Comment: Interpretive Data Ages < or = [...] revised on 2017. HDL 21(L) >=40 mg/dL [facility] Comment: Interpretive Data Ages < or = [...] on 2017. LDL, calculated 29 <=129 mg/dL K[facility] Comment: Interpretive Data Ages < or = 19 years Acceptable: <110 mg/dL Borderline high: 110-129 mg/dL High: >or= 130 mg/dL Ages > or = 20 years Optimal: <100 mg/dL Near optimal: 100-129 mg/dL Borderline high: 130-159 mg/dL High: >160 mg/dL Calculated using the Don LDL-C estimating equation. This equation was implemented on 2023. Prior to this date LDL-C was estimated using the Friedewald equation. Literature References: 1. Expert Panel on Integrated Guidelines for Cardiovascular Health and Risk Reduction in Children and Adolescents. Pediatrics 2011;128:S213 2. NCEP Expert Panel. Circulation 2004;110:227 3. Don Cochran et al. ALVIN Cardiol. 2019July 15;5(5):540-548. doi: 10.1001/jamacardio.2020.0013 Current Interpretive Data was last revised on 2023. Non-HDL Cholesterol 62 mg/dL [facility] Comment: Interpretive Data Ages < or = [...] last revised on 2017. Chol/HDL ratio 4 [facility] Blood 03/24/2024 9:26 PM SAFETY NET MAKER 03/24/2024 9:42 PM SAFETY NET MAKER us Allie Bhatti NP LAB BLOOD ORDERABLES Final Result [facility] Department [place] [address] from Last 3 Months or Most Recently Relevant to Health Maintenance Insurance Member Subscriber Plan / Payer (Ef fective 2022-Present) Name:Flo Mason Relation to Subscriber:Self Name:Flo Mason Payer ID:[id number] (NAIC) Type:[facility] MED[facility] Address: [place] [id number] Advance Directives For more information, please contact: [phone] Documents on File Type Date Recorded Patient Facility Service Associate Expl anation ADVANCE DIRECTIVE 03/26/2024 3:48 PM POLST * Full Code (Latest Code Status on File) Date Activated Date Inactivated Comments 03/24/2024 9:07 PM 04/17/2024 9:51 PM * Full Code Date Activated Date Inactivated Comments 03/22/2024 1:54 PM 03/24/2024 9:00 PM * Full Code Date Activated Date Inactivated Comments 03/04/2024 1:45 PM 03/14/2024 7:00 PM Care Teams Armor Reconnaissance Vehicle Driver Relationship Specialty Start Date End Date Leonard Gillette MD [address] [facility] [address] [place] [address] PCP - General Family Medicine 09/21/24 Александр Yu MD [address] [facility] [address] [place] [address] Referring Physician Cardiology 02/09/24 Александр Landa MD [address] [facility] [address] [place] [address] Consulting Physician Cardiothoracic Surgery 02/09/24
--- OUTSIDE RECORDS SUMMARY | 2025-01-20 13:43 | XMS_ITS | Clinical Summary ---
Author Organization [facility] Osiris dutta Address [address] [place] [address] Phone Care Team Providers Care School Teacher Name Role Phone Faye Hector MD Primary Care Provider [phone] Allergies Active Allergy Reactions Criticality Noted Date [...] Sex Assigned at Male 02/15/2021 7:57 AM [facility] Legal Sex Male 11:14 AM MDT Gender Identity Male 02/15/2021 7:57 AM [facility] Sexual Orientation Straight 02/15/2021 7: 57 AM [facility] Last Filed Vital Signs Vital Sign Reading [...] / Low and Medium Risk (1 of 2 - PCV) 2002 Influenza Vaccine (#1) 2024 Insurance MEDICARE [facility] [employer] Care Teams School Teacher Relationship Specialty Start Date End Date Faye Hector MD [address] [facility] [address] [place] [address] PCP - General Internal Medicine 08/28/20
[2025-01-20 14:00] VITALS: BP 120/60; PULSE 61; RESP 18; TEMP 36.9; O2SAT 94
--- NOTE | 2025-01-20 14:26 | P.CONNP_ITS ---
Assessment and Plan Assessment and plan (1) Acute kidney injury: Code(s): N17.9 - Acute kidney failure, unspecified Status: Acute Assessment and Plan: * as noted by admission creatinine (2.65mg/dL) * suspect multifactorial: * hypoxia * pneumonia (infection) * CHF * relative anemia * relative hypotension (80 - 90s systolic on admission) * element of CKD progression(?) * other (?) * evaluation to date noted: * urine electrolytes non-prerenal * urine eosinophils negative * CPK low * nephrotic range proteinuria noted (which could explaine lower extremity edema) * check renal ultrasound * hold lisinopril in the context of diuresis * follow trend of repeat labs and UOP (2) Stage 3b chronic kidney disease: Code(s): N18.32 - Chronic kidney disease, stage 3b Status: Chronic Assessment and Plan: * appears to have been present as far back as November 2021 * creatinine was running around 1.2 - 1.6mg/dl * however, in the last year, running closer to 1.6 - 2.1mg/dl (likely an element of CKD progression) * presumably secondary to diabetes, hypertension, vascular disease (CVA/CAD/hyperlipidemia), CHF + need for diuretics, and age-related change (3) Acute hypoxic respiratory failure: Code(s): J96.01 - Acute respiratory failure with hypoxia Status: Acute Assessment and Plan: * as noted on presentation: * oxygen saturations of 70% during ambulation at PCP office on 01/19 * uses baseline 2 - 3L oxygen at night (history of GOOD but intolerant to CPAP) * + productive sputum and SOB for the last month * + lower extremity edema present as well * admission CXR/CT chest noted * suspect secondary to a combination of pneumonia and CHF * continue current therapy as outlined (4) Pneumonia: Qualifiers: Laterality: bilateral Lung location: unspecified part of lung P neumonia type: due to unspecified organism Qualified Code(s): J18.9 - Pneumonia, unspecified organism Code(s): J18.9 - Pneumonia, unspecified organism Status: Acute Assessment and Plan: * as suggested by admission imaging * symptoms include SOB with productive cough * follow culture data (blood and sputum) * supplemental oxygen and anti-tussive/expectorant medications * on antibiotics (5) Acute exacerbation of CHF (congestive heart failure): Qualifiers: Heart failure type: unspecified Qualified Code(s): I50.9 - Heart failure, unspecified Code(s): I50.9 - Heart failure, unspecified Status: Acute Assessment and Plan: * suggestive by presenation * bilateral lower extremity edema * edema/fluid on chest imaging * elevated BNP * shortness of breath and hypoxia * on IV lasix * continue spironolactone * repeat Echo pending * follow I/Os, daily weights, and respiratory status (6) Anemia: Qualifiers: Anemia type: unspecified type Qualified Code(s): D64.9 - Anemia, unspecified Code(s): D64.9 - Anemia, unspecified Status: Acute Assessment and Plan: * likely due to CLINTON, CKD, and acute illness * consider GIULIANA while hospitalized * follow trend of H/H (7) Hypertension: Code(s): I10 - Essential (primary) hypertension Status: Chronic Assessment and Plan: * reasonable control * follow trend of hemodynamics (8) Diabetes mellitus: Qualifiers: Diabetes mellitus predatory animal exterminator insulin use: without predatory animal exterminator use Diabetes mellitus type: type 2 Code(s): E11.9 - Type 2 diabetes mellitus without complications Status: Chronic Assessment and Plan: * follow accu-cheks * glycemic control per hospitalist I will continue to follow the patient with you while he remains hospitalized and make further recommendations as deemed necessary. Thank you for allowing me to participate in the care of this patient. L History of Present Illness Reason for Consult Consult date: 01/20/25 Reason for consult: acute renal failure (on chronic kidney disease) Chief Complaint Chief complaint: Acute Hypoxic Respiratory Failure/CHF Exacerbation History of Present Illness Narrative: The patient is a 74-year-old male with a past medical history as outlined below who presented to [facility] Emergency Room due to complaints of shortness of breath with associated hypoxia. The patient was transfered to the ER frim his PCP office due to the above complaints/issues.. He apparently had been having shortness of breath that has been ongoing for the past month if not longer. His shortness of breath was accompanied by ruist colored sputum, productive cough, and chronic chest tightness that has been present since his CABG last year. During his evaluation in his PCP's office, he was significantly hypoxic in the 70s post ambulation. He does wear supplemental oxygen at night of 2 - 3L. He denies accompanying nausea, vomiting, fever, chills, diarrhea, chest pain, palpitations, or weight gain. He does report he weighs himself daily and only has minimal fluctuations from day-to-day. He does report he has been experiencing an increase in bilateral lower extremity swelling, however this is been present for a couple months. Workup and evaluation in the emergency room demonstrated the patient to be hemodynamically stable but with evidence of hypoxia with oxygen saturations of 86% on 4 L by nasal cannula. With instructions on deep breathing, his oxygen saturations improved to 94% on the same amount of oxygen. Subsequent testing noted no leukocytosis, hemoglobin 8.4, INR 3.5,, creatinine 2.65, glucose 129, initial troponin 0.013, BNP 8420. His CXR showed moderate size patchy opacities in the mid and lower lungs (edema or pneumonia), small right pleural effusion, 1.4 cm nodular density in the left upper lobe. Chest CT showed mosaic attenuation both lungs with scattered ground-glass opacities and multiple associated new small pulmonary nodules (would favor pneumonia over mild pulmonary edema), small right pleural effusion with dependent and basilar consolidation the right middle and lower lobes most consistent with atelectasis although superimposed pneumonia not excludable, cardiomegaly changes of likely prior coronary artery bypass grafting including sternotomy with chronic sternal dehiscence. EKG showed AFib, rate controlled at 65, IVC delay, left axis deviation. Given these findings in conjunction with the constellation of symptoms that led to his presentation to the ER, after appropriate cultures were obtained, he was initiated on IV antibiotics for his pneumonia as well as IV diuretic therapy for his apparent CHF exacerbation. He was subsequently admitted to the hospital for further evaluation therapy. Renal consultation was requested due to his acute kidney injury/acute renal failure on top of his baseline chronic kidney disease. From review his records, it would seem his baseline creatinine has been running around 1.6-2.1 mg/dL for the last year. The presumed etiology of his chronic kidney disease is diabetes, hypertension, vascular disease, as well as congestive heart failure and the need for chronic diuretic therapy along with age-related change. It would seem he has had some degree of chronic kidney disease since November of 2021 with some evidence of slow progression. interestingly, since his admission, and with current interventions to date, his renal function has actually improved with reasonable urine output in response to diuretic therapy. Currently, at the time my evaluation, he feels a bit better in comparison to his presentation to the ER. Review of Systems 2 Review of Systems: As per HPI. [facility] Past Medical History Medical History Myocardial infarction CHF (congestive heart failure) CKD (chronic kidney disease), stage III Afib GOOD (obstructive sleep apnea) Mixed hyperlipidemia Weight gain finding Type 2 diabetes mellitus with diabetic polyneuropathy Swelling of scrotum Nephropathy Malignant diastolic hypertension with CHF, NYHA class 2 Left hydrocele History of CVA (cerebrovascular accident) without residual deficits Heart failure, unspecified Colon cancer screening Benign nodular prostatic hyperplasia without lower urinary tract symptoms OAB (overactive bladder) Fatty liver Peripheral neuropathy CAD (coronary artery disease) Diabetes mellitus with hyperglycemia Surgical History Surgical History History of bilateral cataract extraction History of spinal surgery S/P CABG x 4 infx'd, repeat sternotomy, flap closure S/P angioplasty with stent 2011, x1 History of hydrocelectomy Family History Family History Father Heart disease Mother Hypertension Heart disease Other Family history of cardiovascular disease Social History Social History Social History: Flo is very confident filling out medical forms. In the last 12 months he has not received assistance from an organization or program. Smoking packs per day: 2 Smoking cigarettes per day: 40.0 Years smoked: 50 Smoking pack-years: 100.00 Smoking status: Former smoker Tobacco type: cigarettes Second hand tobacco smoke exposure: No Smoking end date: 02/18/15 Alcohol intake: current Drinks per week: 1 Substance use: current Substance use type: marijuana Last use: 01/05/25 Do You Feel Safe in your Home?: Yes Lack of Transportation: No Lack of Food: Never True Current Housing: Decline to Answer Concerned About Future Housing: No Difficulty Paying Gas/Electric Bills: No Difficulty Paying for Meds: No Currently Unemployed: No Education: Trade/Vocational Certificate Difficulty w/ Childcare or Family Care: No Living arrangements: with family Occupation/Education: retired Gender identity (if verbalized by the patient): Male Sexual Orientation (if Verbalized by the Patient): Straight or Heterosexual Spiritual care concerns: No Agree to blood products: Yes Meds Home Medications and Allergies Home Medications ?Medication ?Instructions ?Recorded ?Confirmed ?Type lisinopril 40 mg tablet 40 mg PO DAILY 01/20/2408/08 History spironolactone 50 mg tablet 50 mg PO BID 01/20/2408/08 History tamsulosin 0.4 mg capsule 0.4 mg PO DAILY 01/20/2408/08 History Held on 01/19/25. Instructions: Patient no longer taking amiodarone 200 mg tablet 200 mg PO DAILY #30 tabs 01/19/25 Rx warfarin 2 mg tablet 6 mg (3 x 2 mg) PO DAILY #90 tabs 05/27/24 01/19/25 Rx isosorbide mononitrate 60 mg 60 mg PO BID #180 tabs 01/19/25 Rx tablet,extended release 24 hr gemfibrozil 600 mg tablet 600 mg PO BID #180 tabs 05/1101/19/25 Rx gabapentin 600 mg tablet 600 mg PO TID #270 tabs 08/1601/19/25 Rx rosuvastatin 40 mg tablet 40 mg PO DAILY #90 tabs 08/1601/19/25 Rx hydrochlorothiazide 50 mg tablet 50 mg PO QAM #90 tabs 09/07/24 01/19/25 Rx furosemide 40 mg tablet 40 mg PO DAILY #90 tabs 04/1001/19/25 Rx amlodipine 10 mg tablet 10 mg PO DAILY #90 tabs 09/1401/19/25 Rx hydralazine 50 mg tablet 50 mg PO TID #270 tabs 11/1001/19/25 Rx nebivolol 10 mg tablet 10 mg PO DAILY #90 tabs 11/1601/19/25 Rx metformin 1,000 mg tablet 1,000 mg PO BID #180 tabs 01/19/25 Rx Allergies Allergy/AdvReac Type Severity Reaction Status Date / Time Penicillins Allergy Severe Swelling Verified 01/19/25 20:35 of Lip/Tongue/Throat Vital Signs Vital Signs Temp Pulse Resp BP Pulse Ox O2 Del Method O2 Flow Rate 01/20/25 14:00 98.4 F 61 18 120/60 94 01/20/25 10:08 68 01/20/25 06:00 98.2 F 70 20 119/69 92 01/20/25 00:00 98.2 F 68 18 123/69 90 01/19/25 20:00 65 20 94 Nasal Cannula 4 01/19/25 20:00 97.5 F L 65 20 125/86 94 Exam 2 Narrative: GENERAL APPEARANCE: elderly but well developed well nourished male in no acute distress HEENT: normocephalic, atraumatic, normal conjunctiva and sclera, nares patient NECK: no lymphadenopathy, thyromegaly, or JVD MOUTH: normal lips, teeth, and gums CARDIOVASCULAR: RRR, normal S1 and S2, no rub RESPIRATORY: bibasilar crackles ABDOMEN: soft, nontender, nondistended, positive bowel sounds present EXTREMITIES: no evidence of cyanosis, clubbing, 2+ edema NEUROLOGICAL: alert and oriented x 3; CN II - XII intact bilaterally; no focal deficits noted Results Lab Results 01/22/25 06:14 01/22/25 06:14 Lab results: Most recent lab results ABG pH 7.433 (7.350-7.450) 01/20/25 10:31 ABG pCO2 49.9 mmHg (35.0-45.0) H 01/20/25 10:31 ABG pO2 62.3 mmHg (80.0-100.0) L 01/20/25 10:31 ABG HCO3 32.6 mEq/l (22.0-26.0) H 01/20/25 10:31 ABG O2 Saturation 92.2 % (95.0-100.0) L 01/20/25 10:31 Calcium 9.4 mg/dL (8.4-10.2) 01/20/25 05:51 Urine Creatinine 28.4 mg/dL 01/19/25 21:53 Urine Creatinine 28.7 mg/dL 01/19/25 21:53
--- OUTSIDE RECORDS SUMMARY | 2025-01-20 14:46 | XMS_ITS | Encounter Summary ---
Author Organization [facility] Healthcare Address [address] [place] [address] Care Team Providers Care Poultry Farmer Meat Name Role Phone Faye Hector MD Primary Care Provider Александр Yu MD Unavailable [phone] Александр Landa MD Unavailable [phone] Leonard Gillette MD Primary Care Provider Encounter Details Date Type Department Care Team (Late st Contact Info) Description 01/20/2024 Orders Only [facility] Health Information Management [address] [place] [id number] Scanning, Provider Social History Tobacco Use Types Packs/Day Years Used Date Smoking Tobacco: Former Smokeless Tobacco: Never Comments:Smoking History Pac ks/day: 1 Packs Alcohol Use Standard Drinks/Week Comments Yes 0 (1 standard drink = 0.6 oz pur e alcohol) Sex and Gender Information Value Date Recorded Sex Assigned at Not on file Legal Sex Male 2:38 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 [employer] One time surveillance sweep to entire unit 7200 on 04/02/24 04/02/2024 04/02/2024 04/04/2024 5 :10 PM CONVEYOR BELT REPAIRER documented as of this encounter Care Teams Poultry Farmer Meat Relationship Specialty Start Date End Date Faye Hector MD [address] [place] [address] PCP - General Family Medicine 07/26/19 09/20/24 Leonard Gillette MD [address] [place] [address] PCP - General Family Medicine 09/21/24 Александр Yu MD [address] [place] [address] Referring Physician Cardiology 02/09/24 Александр Landa MD [address] [place] [address] Consulting Physician Cardiothoracic Surgery 02/09/24 documented as of this encounter
--- OUTSIDE RECORDS SUMMARY | 2025-01-20 14:46 | XMS_ITS | Clinical Summary ---
Author Organization [facility] Address [address] [place] [address] Care Team Providers Care Refuge Manager Name Role Phone Unavailable Primary Care Provider [...]
--- OUTSIDE RECORDS SUMMARY | 2025-01-20 14:46 | XMS_ITS | Encounter Summary ---
Author Organization [facility] Healthcare Address [address] [place] [address] Care Team Providers Care Telephonic Nurse Case Manager Name Role Phone Faye Hector MD Primary Care Provider Александр Yu MD Unavailable [phone] Александр Landa MD Unavailable [phone] Leonard [place] MD Primary Care Provider Encounter Details Date Type Department Care Team (Late st Contact Info) Description 08/12/2024 Orders Only [facility] Health Information Management [address] [place] [id number] Scanning, Provider Social History Tobacco Use Types Packs/Day Years Used Date Smoking Tobacco: Former Cigarettes 2 44 1 971 - 2015 Smokeless Tobacco: Never Alcohol Use Standard Drinks/Week Comments Yes 0 (1 standard drink = 0.6 oz pur e alcohol) [facility] Utilities Answer Date Recorded In the past 12 months has [employer] electric, gas, oil, or water company threatened [...] you attend [facility] or judaism services? 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[employer] Gender Identity Male 07/27/2019 7:12 PM CDT [...] on filedocumented in this encounter Care Teams Telephonic Nurse Case Manager Relationship Specialty Start Date End Date Faye Hector MD [address] [place] [address] PCP - General Family Medicine 07/26/19 09/20/24 Leonard [place] MD [address] [place] [address] PCP - General Family Medicine 09/21/24 Александр Yu MD [address] [place] [address] Referring Physician Cardiology 02/09/24 Александр Landa MD [address] [place] [address] Consulting Physician Cardiothoracic Surgery 02/09/24 documented as of this encounter
--- OUTSIDE RECORDS SUMMARY | 2025-01-20 14:46 | XMS_ITS | Encounter Summary ---
Author Organization [facility] Healthcare Address [address] [place] [address] Care Team Providers Care Sorter Pricer Name Role Phone Faye Hector MD Primary Care Provider Александр Yu MD Unavailable [phone] Александр Landa MD Unavailable [phone] Leonard [place] MD Primary Care Provider Encounter Details Date Type Department Care Team (Late st Contact Info) Description 08/10/2024 Orders Only [facility] Health Information Management [address] [place] [id number] Scanning, Provider Social History Tobacco Use Types Packs/Day Years Used Date Smoking Tobacco: Former Cigarettes 2 44 1 971 - 2015 Smokeless Tobacco: Never Alcohol Use Standard Drinks/Week Comments Yes 0 (1 standard drink = 0.6 oz pur e alcohol) [facility] Utilities Answer Date Recorded In the past 12 months has [email or web address] electric, gas, oil, or water company threatened [...] week 03/26/2024 How often do you attend [facility] or yazdanism services? Never 03/26/2024 Do you belong to any clubs o r organizations such as episcopalian groups, unions, fraternal or athletic groups, or [...] any time in the past 12 m [facility], were you homeless or living in a senior care (including now)? No 03/26/2024 Personal Safety Answer Date Recorded Have you ever been in or are you currently in a harmful physical or emotional relationship or is someone making you feel afraid or unsafe? 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 COUNSELOR Gender Identity Male 07/27/2019 7:12 PM CDT [...] on filedocumented in this encounter Care Teams Sorter Pricer Relationship Specialty Start Date End Date Faye Hector MD [address] [place] [address] PCP - General Family Medicine 07/26/19 09/20/24 Leonard [place] MD [address] [place] [address] PCP - General Family Medicine 09/21/24 Александр Yu MD [address] [place] [address] Referring Physician Cardiology 02/09/24 Александр Landa MD [address] [place] [address] Consulting Physician Cardiothoracic Surgery 02/09/24 documented as of this encounter
--- OUTSIDE RECORDS SUMMARY | 2025-01-20 14:47 | XMS_ITS | Clinical Summary ---
Author Organization [facility] Address [address] [place] [phone] Phone Care Team Providers Care Supervisor Fine Grading Name Role Phone Faye Hector MD Primary Care Provider [phone] Allergies Active Allergy Reactions Criticality Noted Date [...] Sex Assigned at Male 02/15/2021 7:57 AM [facility] Legal Sex Male 11:14 AM MDT Gender Identity Male 02/15/2021 7:57 AM [facility] Sexual Orientation Straight 02/15/2021 7: 57 AM [facility] Last Filed Vital Signs Vital Sign Reading [...] 2002 Influenza Vaccine (#1) 2024 Insurance MEDICARE [facility] [email or web address] Care Teams Supervisor Fine Grading Relationship Specialty Start Date End Date Faye Hector MD [address] [facility] [address] [place] [address] PCP - General Internal Medicine 08/28/20
--- OUTSIDE RECORDS SUMMARY | 2025-01-20 14:47 | XMS_ITS | Clinical Summary ---
Author Organization [facility] [address] Address [address] [place] [address] Care Team Providers Care Rug Designer Name Role Phone Александр Yu MD Unavailable [phone] Александр Landa MD Unavailable [phone] Leonard [place] MD Primary Care Provider Allergies Active Allergy Reactions Criticality Noted Date Comments Penicillins Other (See comments) Mouth tingling 40 years ago Medications aspirin 81 mg chewable tabletIndications :Ischemic cardiomyopathy,Hi story of coronary artery stent placement,Coronar y artery disease involving [place] coronary artery of [place] heart, unspecified whether angina present,Hx of CABG Take 1 tablet (81 mg total) by mouth daily 2024 Active gabapentin (NEURONTIN) 600 mg tabletIndications :Hx of CABG Take 1 tablet (600 mg total) by mouth 3 (three) times a day Active rosuvastatin (CRESTOR) 40 mg tabletIndications :Ischemic cardiomyopathy,Hi story of coronary artery stent placement,Coronar y artery disease involving [place] coronary artery of [place] heart, unspecified whether angina present,Mixed hyperlipidemia Take [...] concerns. Assessment & Plan (05/20/2024 2:00 PM HEAVY EQUIPMENT FIELD MECHANIC): -Patient presents to clinic for a post [...] 04/05/2024 Assessment & Plan (05/04/2024 11:42 AM HEAVY EQUIPMENT FIELD MECHANIC): Mild edema to BLE. Compression wraps ordered. Monitor. Assessment & Plan (04/16/2024 10:29 AM HEAVY EQUIPMENT FIELD MECHANIC): Last TTE 03/14: 1. Grossly normal left ventricular systolic function based on limited views. Inadequate for detailed regional wall motion assessment. Ejection Fraction is estimated to be 60-70. Creatinine improved, 1.37 last night Resumed Lasix today Lymphedema wraps ordered on 1/17- completed Dobutamine discontinued 04/08/24 Metoprolol restarted 04/11, continue 6.25 BID Hyperkalemia 03/30/2024 Assessment & Plan (05/04/2024 11:42 AM HEAVY EQUIPMENT FIELD MECHANIC): Chronic. Meds reviewed. K 5.5. Repeat labs 05/06. Assessment & Plan (04/27/2024 10:56 AM HEAVY EQUIPMENT FIELD MECHANIC): Persistant 5.1. Meds reviewed. Routine monitoring. Assessment & Plan (04/20/2024 6:56 PM HEAVY EQUIPMENT FIELD MECHANIC): Mild. Routine monitoring. Assessment & Plan (04/16/2024 10:24 AM HEAVY EQUIPMENT FIELD MECHANIC): Monitor potassium daily with BMP K 5.1 this morning; whole K ordered-4.7 Continue diuresis as previously noted Holding all K supplementation Anemia 03/29/2024 Assessment & Plan (04/27/2024 10:57 AM HEAVY EQUIPMENT FIELD MECHANIC): H&H low but stable. Routine monitioring. Assessment & Plan (04/16/2024 10:26 AM HEAVY EQUIPMENT FIELD MECHANIC): To be expected following cardiac surgery Monitor daily CBC, Hgb stable @ 7.8 No active signs of bleeding Consider transfusion if Hgb <7 or if hemodynamically unstable Assessment & Plan (03/29/2024 5:32 PM HEAVY EQUIPMENT FIELD MECHANIC): H&H down overnight Transfuse 2 units PRBC Trend CBC nightly CKD (chronic kidney disease) 03/26/2024 Assessment & Plan (04/27/2024 10:57 AM HEAVY EQUIPMENT FIELD MECHANIC): Stable. Routine monitoring. Assessment & Plan (04/20/2024 10:45 AM HEAVY EQUIPMENT FIELD MECHANIC): Follow up labs ordered. Assessment & Plan (04/16/2024 10:25 AM HEAVY EQUIPMENT FIELD MECHANIC): CLINT[place] on CKD- initial Pre-op Creatinine 1.36 prior to 03/04 CABG Had worsening [place] in post op setting at [facility] Creatinine improved to 1.37 Continue daily Lasix LE edema improved Renally dose medications Avoid nephrotoxic agents Continue daily BMP monitoring Assessment & Plan (03/28/2024 11:44 AM HEAVY EQUIPMENT FIELD MECHANIC): [place] on CKD- initial Pre-op Creatinine 1.36 prior to 03/04 CABG Had worsening [place] in post op setting at [facility] Furosemide 40mg po daily for increased fluid volume with significant BLE edema Creatinine up slightly to 1.62, will hold lasix tomorrow as pt will be NPO Avoid nephrotoxic agents Continue daily BMP monitoring Wound infection after surgery 03/24/2024 Assessment & Plan (05/14/2024 11:19 AM HEAVY EQUIPMENT FIELD MECHANIC): Cefazolin to continue ID fu which is today. If DC will DC abc, DC PICC. Have communicated POC with ID & patient. Patient to perform wound care on his own or with family prior to discharge d/t no HH accepting yet. Assessment & Plan (05/04/2024 11:43 AM HEAVY EQUIPMENT FIELD MECHANIC): Pls fu 05/07, ID 05/14. Continues on IV abx until ID fu. Assessment & Plan (04/29/2024 12:05 PM HEAVY EQUIPMENT FIELD MECHANIC): Mild slough present to distal portion of abd incision. Have pictured & notified plastics. Continue dry dressing, wound RN following. Continue IV abx as ordered. Will fu with plastics 05/07. Assessment & Plan (04/27/2024 11:03 AM HEAVY EQUIPMENT FIELD MECHANIC): PICC in place. Continue wound care, HAYLEY drains, IV abx, PT/OT. Has plastics fu 05/07 1115a & ID fu 05/14 2pm. IVs are to complete 05/11 at this time - confirming with ID abx should not end before ID appt. Have informed SS. Assessment & Plan (04/16/2024 10:21 AM HEAVY EQUIPMENT FIELD MECHANIC): S/p sternal washout and debridement x 3 at [facility] Arrived to [facility] on 03/[address]. Obtain blood cultures daily until negative final result, growing Staph epidermis on blood cultures and deep wound culture Wound culture 1/5 +UNDERWRITING TECHNICIAN Blood cultures 1/2 +Staph epidermidis, 2 stains, [...] place Assessment & Plan (03/27/2024 12:15 PM HEAVY EQUIPMENT FIELD MECHANIC): Patient has undergone washout and debridement x 3 at [facility] Arrived to [facility] on 03/[address]. Obtain blood cultures daily until negative final result, growing Staph epidermis on blood cultures and deep wound culture Wound culture 1/ +UNDERWRITING TECHNICIAN Blood cultures 1/2 +Staph epidermidis, 2 stains, [...] 03/15/2024 Assessment & Plan (05/14/2024 11:12 AM HEAVY EQUIPMENT FIELD MECHANIC): Was not taking insulin at home. BS are less than 180 consistently & not requiring SSI. DC SSI + Lantus. Resume Metformin 1000mg BID. Will need fu with PCP outpt for management. Assessment & Plan (05/10/2024 12:49 PM HEAVY EQUIPMENT FIELD MECHANIC): Was not taking insulin at home. BS are less than 180 consistently & not requiring SSI. Will hold SSI + Lantus. Resume Metformin 1000mg BID. Will need fu with PCP outpt for management. Assessment & Plan (04/27/2024 11:03 AM HEAVY EQUIPMENT FIELD MECHANIC): BS ranging 130-300; A1c 7. Currently taking Lantus 14u nightly + Lispro 8u TIDAC. Continue without changes, monitor clsoely for adjustment. Assessment & Plan (04/20/2024 10:45 AM HEAVY EQUIPMENT FIELD MECHANIC): Follow up labs will be monitored. We will continue the scripting of insulin glargine and insulin lispro. Assessment & Plan (04/16/2024 10:24 AM HEAVY EQUIPMENT FIELD MECHANIC): A1c 7.0% Was taking lantus/lispro prandial and slide prior to admission Home metformin held while inpatient Continue Blood glucose checks QID; POC 143-230 last 24 hours Carbohydrate consistent diet Continue Lantus and ACHS resistant Lispro SSI BG goal < 180; serum glucose 189 Assessment & Plan (03/28/2024 11:45 AM HEAVY EQUIPMENT FIELD MECHANIC): A1c 7.0% Was taking lantus/lispro prandial and slide prior to admission Home metformin held while inpatient Continue Blood glucose checks QID Continue sliding scale insulin Carbohydrate consistent diet Encourage tight glucose control to facilitate postoperative healing Started lantus and scheduled lispro on 03/28, titrate up as needed Assessment & Plan (03/18/2024 12:35 PM HEAVY EQUIPMENT FIELD MECHANIC): A1c 7. Not on insulin at home. Currently taking Lantus 15u daily + SSI + Metformin. BS 103-194. Will dc Lantus & monitor bs with SSI only Hx of CABG 03/15/2024 Assessment & Plan (05/10/2024 12:42 PM HEAVY EQUIPMENT FIELD MECHANIC): FU PLS 05/07. HAYLEY drains reviewed. Patient [...] apt. Assessment & Plan (03/18/2024 12:37 PM HEAVY EQUIPMENT FIELD MECHANIC): CTS fu. Continue [place] PRN + Tyl PRN for pain. Mucinex added for cough. Continue medical management & wound care. BP mildly elevated. No changes at this time but monitor for need to adjust. Mixed hyperlipidemia 03/15/2024 Assessment & Plan (04/20/2024 10:43 AM HEAVY EQUIPMENT FIELD MECHANIC): This is chronic and stable. We will continue scripting rosuvastatin and dietary will follow Assessment & Plan (04/09/2024 8:10 AM HEAVY EQUIPMENT FIELD MECHANIC): Continue Rosuvastatin 40mg po daily Heart healthy diet Assessment & Plan (03/27/2024 12:06 PM HEAVY EQUIPMENT FIELD MECHANIC): Continue rosuvastatin 40mg po daily Heart healthy diet Benign prostatic hyperplasia 03/15/2024 Assessment & Plan (04/20/2024 10:45 AM HEAVY EQUIPMENT FIELD MECHANIC): Continue tamsulosin Coronary artery disease invo lving [place] coronary artery of [place] heart, unspecified whether angina present 03/04/2024 Assessment & Plan (04/20/2024 10:45 AM HEAVY EQUIPMENT FIELD MECHANIC): Continue scripting of metoprolol, continue aspirin 81 mg daily and rosuvastatin 40 mg daily Assessment & Plan (04/16/2024 10:25 AM HEAVY EQUIPMENT FIELD MECHANIC): S/P CABG 12/19 Continue aspirin 81mg po daily Continue Rosuvastatin 40mg po daily Continue Metoprolol; titrate as tolerated Resume lasix 40 PO - Cr down 1.37 Assessment & Plan (03/27/2024 11:52 AM HEAVY EQUIPMENT FIELD MECHANIC): S/P CABG 03/04 Continue aspirin 81mg po daily Continue metoprolol 25mg po BID Continue rosuvastatin 40mg po daily AROM/PROM Physical therapy/Occupational therapy Ischemic cardiomyopathy 02/06/2024 Assessment & Plan (04/20/2024 10:44 AM HEAVY EQUIPMENT FIELD MECHANIC): Monitor vital signs. Continue metoprolol and rosuvastatin, we will continue furosemide 40 mg daily Essential hypertension 10/13/2020 Assessment & Plan (04/20/2024 10:44 AM HEAVY EQUIPMENT FIELD MECHANIC): We will monitor vital signs for serial trending. Continue scripting furosemide and metoprolol. Assessment & Plan (04/13/2024 10:17 AM HEAVY EQUIPMENT FIELD MECHANIC): Monitor vital signs q 4 hours Resume lasix 40 PO daily Continue metoprolol 6.25 BID, titrate as tolerated Low sodium diet Assessment & Plan (03/28/2024 11:45 AM HEAVY EQUIPMENT FIELD MECHANIC): Monitor vital signs q 4 hours Continue metoprolol 25mg po BID Continue furosemide 40mg po daily- held 03/29 for procedure Persistent proteinuria 10/13/2020 Presence of coronary angioplasty implant and gra ft 07/27/2019 Atrial fibrillation Assessment & Plan (04/20/2024 10:45 AM HEAVY EQUIPMENT FIELD MECHANIC): Monitor for evidence of RVR. Continue amiodarone 2 mg daily Assessment & Plan (04/13/2024 10:30 AM HEAVY EQUIPMENT FIELD MECHANIC): Continue Amiodarone 200mg po daliy Restart eliquis 2.5 today Rate controlled atrial fibrillation/flutter with occasional PVCs 90's - 100's per continuous telemetry EKG today A flutter Assessment & Plan (03/28/2024 11:43 AM HEAVY EQUIPMENT FIELD MECHANIC): Continue amiodarone 200mg po daliy Continue metoprolol 25mg po BID Holding Eliquis, last dose on 03/21 Heparin gtt- hold customer liaison to [place] 03/29 Rate controlled atrial fibrillation per continuous telemetry Resolved Problems Problem Noted Date Diagnosed Date Resolved Date Ileus 03/30/2024 04/08/2024 Assessment & Plan (04/05/2024 1:27 PM HEAVY EQUIPMENT FIELD MECHANIC): 03/29 KUB: There is mild gaseous distention of the stomach and loops of small bowel, which may represent ileus in the postoperative setting. 03/31 CT C/A/P: Nondistended loops of bowels. No obstruction. Hold Oxycodone in setting of ileus Advance diet per Dr. Chand Now on regular diet Having BMs Bowel sounds today resolved Constipation 03/29/2024 03/30/2024 Assessment & Plan (04/03/2024 11:56 AM HEAVY EQUIPMENT FIELD MECHANIC): Had bm yesterday Assessment & Plan (03/29/2024 5:25 PM HEAVY EQUIPMENT FIELD MECHANIC): Increase bowel regimen Gave lactulose x 1 now, suppository Check KUB Sternal wound infection 03/24/2024 02/0 06/2024 Overview (03/30/2024): Mr aMson is a 73 year old gentleman with with T2DM, HTN, Afib, recent CABG on 03/04, presented to [facility] on 03/22 with sternal wound dehiscence and purulent discharge, s/p sternal wound exploration with wire removal 03/22 with cultures positive for MSSE, transferred to [place] for flap coverage and possible sternectomy. - OR at [facility]: 03/23 for sternal washout, sternal bone [...] far Assessment & Plan (04/20/2024 10:46 AM HEAVY EQUIPMENT FIELD MECHANIC): After successful inpatient treatment continue cefazolin 2 g IV every 8 hours through May 11. He will follow up with the Infectious Disease. Assessment & Plan (04/16/2024 10:22 AM HEAVY EQUIPMENT FIELD MECHANIC): S/P irrigation and culture sternal wound 24 [...] (03/29-05/10) Assessment & Plan (04/09/2024 4:15 PM HEAVY EQUIPMENT FIELD MECHANIC): - Has been afebrile, WBC normalized - [...] PNA. Assessment & Plan (03/29/2024 5:16 PM HEAVY EQUIPMENT FIELD MECHANIC): S/P irrigation and culture sternal wound 24 [...] 04/20/2024 Assessment & Plan (04/10/2024 11:56 AM HEAVY EQUIPMENT FIELD MECHANIC): S/P irrigation and culture sternal wound 24 x 11 x 6 cm cubed with wound vac exchange 03/26/24 per Plastic and Reconstructive Surgery S/p wound debridement an muscle flap closure 03/29 Negative pressure therapy to wound with dressing changes per Plastic and Reconstructive Surgery 03/26 OR culture results-+ staph epi, fungal culture negative Assessment & Plan (03/29/2024 5:16 PM HEAVY EQUIPMENT FIELD MECHANIC): S/P irrigation and culture sternal wound 24 [...] Department Care Team Description 01/18/2025 Anticoagulation Visit [facility] [address] [place] [address] [place] [phone] Elisha Rosales, RN 01/11/2025 2:30 PM CDT Office Visit [facility] Medicine Surgery [address] [place] [address] [facility] 6th [place] [address] [place] [address] Rea Chand MD PhD Sternal wound infection (Primary Dx) 01/05/2025 Anticoagulation Visit [facility] [address] [place] [address] [place] [phone] Elisha Rosales, RN 12/27/2024 Anticoagulation Visit [facility] [address] [place] [address] [place] [phone] Elisha Rosales RN 12/13/2024 Anticoagulation Visit [facility] [address] [place] [address] [place] [phone] Elisha Rosales RN 11/11/2024 Anticoagulation Visit [facility] [address] [place] [address] [place] [phone] Nancy Nathan RN 11/03/2024 Telephone [facility] [address] [place] [address] [place] [phone] Александр Yu MD INR results 11/03/2024 Anticoagulation Visit [facility] [address] [facility] [address] [place] [phone] Starr Torres RN 10/29/2024 Telephone [facility] at [address] [place] [address] Christine Dave NP 10/22/2024 1:15 PM CDT Procedure visit [facility] [address] [place] [address] [place] [phone] Coronary artery disease involving [place] coronary artery of [place] heart, unspecified whether angina present 10/22/2024 Results Follow-Up [facility] [address] [place] [address] [place] [phone] Christine Dave NP ECG 12 lead 10/21/2024 Anticoagulation Visit [facility] at [address] [place] [phone] Erin Elena, PALLAVI from Last [...] = 0.6 oz pur e alcohol) [facility] Setupities Answer Date Recorded In the past 12 months has [employer], gas, oil, or water [employer] threatened to shut off services in your [...] any clubs o r organizations such as baptist groups, unions, fraternal or athletic groups, or [...] any time in the past 12 m [facility], were you homeless or living in a chcf (including now)? No 03/26/2024 Personal Safety Answer Date Recorded Have you ever been in or are you currently in a harmful physical or emotional relationship or is someone making you feel afraid or unsafe? Denies 03/29/2024 Sex and Gender Information Value Date Recorded Sex Assigned at Not on file Legal Sex Male 2:38 AM HEAVY EQUIPMENT FIELD MECHANIC Gender Identity Male 07/27/2019 7:12 PM CDT Sexual Orientation Straight 07/27/2019 7: 12 PM CDT Last Filed Vital Signs Vital Sign Reading Time Taken Comments Blood Pressure 114/58 09/21/2024 12:56 PM CDT Pulse 59 09/21/2024 12:56 PM CDT Temperature 36.8 C (98.3 F) 06/11/2024 2:26 PM CDT Respiratory Rate 18 04/20/2024 10:40 AM HEAVY EQUIPMENT FIELD MECHANIC Oxygen Saturation 90% 09/21/2024 12:56 PM CDT [...] Diagnosis Comments PROTIME-INR Routine 01/17/2025 12:39 PM HEAVY EQUIPMENT FIELD MECHANIC Atrial fibrillation, unspecified type (HCC) Chronic anticoagulation [...] 1:18 PM CDT Coronary artery disease involving [place] coronary artery of [place] heart, unspecified whether angina present PROTIME-INR Routine 10/20/2024 12:45 PM CDT Atrial fibrillation, unspecified type (HCC) Chronic anticoagulation EGFR Routine 06/11/2024 3:19 PM CDT Sternal wound infection CT CHEST ABDOMEN PELVIS WO CONTRAST ED Urgent/IP Urgent 04/01/2024 10:29 AM HEAVY EQUIPMENT FIELD MECHANIC HEMOGLOBIN A1C Routine 03/24/2024 9:26 PM HEAVY EQUIPMENT FIELD MECHANIC LIPID PANEL Routine 03/24/2024 9:26 PM HEAVY EQUIPMENT FIELD MECHANIC from Last 3 Months or Most Recently Relevant to Health Maintenance Results * (ABNORMAL) Protime-INR (01/17/2025 12:39 PM HEAVY EQUIPMENT FIELD MECHANIC) INR 4.4(H) [facility] Comment: Reference Range 0.9-1.1 Moderate-intensity Warfarin Therapy 2.0-3.0 Higher-intensity Warfarin Therapy 3.0-4.0 PT 43.5(H) 9.0 - 11.5 sec [facility] Comment: For additional information, please refer to http://education.[employer]/faq/GAW026 (This link is being provided for informational/ educational purposes only.) Blood 01/17/2025 12:3 9 PM HEAVY EQUIPMENT FIELD MECHANIC 01/17/2025 12:39 PM HEAVY EQUIPMENT FIELD MECHANIC us Александр Yu MD LAB BLOOD ORDERABLES Fin al Result Performing Organization Address [facility] de Phone Number [facility] [address] [place] [address] * (ABNORMAL) Protime-INR (01/04/2025 12:06 PM CDT) INR 1.3(H) [facility] Comment: Reference Range 0.9-1.1 Moderate-intensity Warfarin Therapy 2.0-3.0 Higher-intensity Warfarin Therapy 3.0-4.0 PT 13.7(H) 9.0 - 11.5 sec [facility] Comment: For additional information, please refer to http://SchoolChapters.[employer]/faq/DBY723 (This link is being provided for informational/ educational purposes only.) Blood 01/04/2025 12:0 6 PM CDT 01/04/2025 12:06 PM CDT Narrative [facility] - 01/05/2025 12:30 AM CDT FASTING:NO FASTING: NO Александр Yu MD LAB BLOOD ORDERABLES Fin al Result Performing Organization Address [facility] de Phone Number [facility] [address] [place] [address] * (ABNORMAL) Protime-INR (12/24/2024 12:17 PM CDT) INR 1.2(H) [facility] Comment: Reference Range 0.9-1.1 Moderate-intensity Warfarin Therapy 2.0-3.0 Higher-intensity Warfarin Therapy 3.0-4.0 PT 12.9(H) 9.0 - 11.5 sec [facility] Comment: For additional information, please refer to http://SchoolChapters.[employer]/faq/ZZI206 (This link is being provided for informational/ educational purposes only.) Blood 12/24/2024 12:1 7 PM CDT 12/24/2024 12:18 PM CDT Александр Yu MD LAB BLOOD ORDERABLES Fin al Result Performing Organization Address [facility] de Phone Number [facility] [address] [place] [address] * (ABNORMAL) Protime-INR (12/10/2024 12:30 PM CDT) INR 1.5(H) [facility] Comment: Reference Range 0.9-1.1 Moderate-intensity Warfarin Therapy 2.0-3.0 Higher-intensity Warfarin Therapy 3.0-4.0 PT 15.6(H) 9.0 - 11.5 sec [facility] Comment: For additional information, please refer to http://SchoolChapters.[employer]/faq/WNF435 (This link is being provided for informational/ educational purposes only.) Blood 12/10/2024 12:3 0 PM CDT 12/10/2024 12:30 PM CDT Narrative [facility] - 12/11/2024 1:27 AM CDT FASTING:NO FASTING: NO Александр Yu MD LAB BLOOD ORDERABLES Fin al Result Performing Organization Address [facility] de Phone Number [facility] [address] [place] [address] * (ABNORMAL) Protime-INR (11/10/2024 12:26 PM CDT) INR 2.1(H) [facility] Comment: Reference Range 0.9-1.1 Moderate-intensity Warfarin Therapy 2.0-3.0 Higher-intensity Warfarin Therapy 3.0-4.0 PT 21.0(H) 9.0 - 11.5 sec [facility] Comment: For additional information, please refer to http://SchoolChapters.[employer]/faq/GDC834 (This link is being provided for informational/ educational purposes only.) Blood 11/10/2024 12:2 6 PM CDT 11/10/2024 12:27 PM CDT Narrative [facility] - 11/11/2024 3:29 AM CDT FASTING:NO FASTING: NO Александр Yu MD LAB BLOOD ORDERABLES Fin al Result Performing Organization Address [facility] de Phone Number [facility] [address] [place] [address] * (ABNORMAL) Protime-INR (11/02/2024 12:29 PM CDT) INR 1.2(H) [facility] Comment: Reference Range 0.9-1.1 Moderate-intensity Warfarin Therapy 2.0-3.0 Higher-intensity Warfarin Therapy 3.0-4.0 PT 12.4(H) 9.0 - 11.5 sec [facility] Comment: For additional information, please refer to http://education.[employer]inker/faq/NQU396 (This link is being provided for informational/ educational purposes only.) Blood 11/02/2024 12:2 9 PM CDT 11/02/2024 12:31 PM CDT Narrative [facility] - 11/03/2024 1:21 AM CDT FASTING:NO FASTING: NO Александр Yu MD LAB BLOOD ORDERABLES Fin al Result Performing Organization Address [facility] de Phone Number [facility] [address] [place] [address] * ECG 12 lead (10/22/2024 1:18 PM CDT) 10/22/2024 1:18 PM CDT Christine Dave PREVENTATIVE MAINTENANCE TECHNICIAN ECG ORDERABLES Final Res ult * (ABNORMAL) Protime-INR (10/20/2024 12:45 PM CDT) INR 1.3(H) [facility] Comment: Reference Range 0.9-1.1 Moderate-intensity Warfarin Therapy 2.0-3.0 Higher-intensity Warfarin Therapy 3.0-4.0 PT 14.0(H) 9.0 - 11.5 sec [facility] Comment: For additional information, please refer to http://education.[employer]/faq/IBV190 (This link is being provided for informational/ educational purposes only.) Blood 10/20/2024 12:4 5 PM CDT 10/20/2024 12:45 PM CDT Narrative [facility] - 10/21/2024 2:41 AM CDT FASTING:NO FASTING: NO us Александр Yu MD LAB BLOOD ORDERABLES Fin al Result [facility] [address] [place] [address] * (ABNORMAL) eGFR (06/11/2024 3:19 PM CDT) [...] BLOOD ORDERABLES Final Result KRISTA HAYWARD [facility] Department [place] [address] * CT Chest Abdomen Pelvis WO Contrast (04/01/2024 10:29 AM HEAVY EQUIPMENT FIELD MECHANIC) Anatomical Region Laterality Modality Body N/A Computed Tomogra phy 04/01/2024 11:5 7 AM HEAVY EQUIPMENT FIELD MECHANIC Impressions 04/01/2024 12:04 PM HEAVY EQUIPMENT FIELD MECHANIC 1. Extensive gas throughout the anterior chest wall with drainage catheters in place, most likely postoperative. 2. Nondistended loops of bowels. No obstruction. Dictated by: Ruddy Weston MD The radiology attending physician has personally reviewed this study, and had reviewed and/or edited this written report and agrees with it. Electronically signed by: Nimco Herring M.D. Narrative 04/01/2024 12:04 PM HEAVY EQUIPMENT FIELD MECHANIC EXAMINATION: Computed tomography of the chest, abdomen [...] * (ABNORMAL) Hemoglobin A1c (03/24/2024 9:26 PM HEAVY EQUIPMENT FIELD MECHANIC) Hgb A1C 7.0(H) 4.0 - 5.6 % [...] a fasting glucose. Blood 03/24/2024 9:26 PM HEAVY EQUIPMENT FIELD MECHANIC 03/24/2024 9:41 PM HEAVY EQUIPMENT FIELD MECHANIC Narrative KRISTA HAYWARD - 03/24/2024 10:40 PM HEAVY EQUIPMENT FIELD MECHANIC Indication for repeat testing:->Health monitoring us Allie Bhatti PREVENTATIVE MAINTENANCE TECHNICIAN LAB BLOOD ORDERABLES Final Result KRISTA HAYWARD [facility] Department [place] [address] * (ABNORMAL) Lipid panel (03/24/2024 9:26 PM HEAVY EQUIPMENT FIELD MECHANIC) Cholesterol 83 30 - 199 mg/dL Comment: [...] revised on 2017. Triglycerides 206(H) <=149 mg/dL [facility] Comment: Interpretive Data Ages < or [...] on 2017. HDL 21(L) >=40 mg/dL [facility] Comment: Interpretive Data Ages < or [...] 2017. LDL, calculated 29 <=129 mg/dL [facility] Comment: Interpretive Data Ages < or [...] revised on 2023. Non-HDL Cholesterol 62 mg/dL [facility] Comment: Interpretive Data Ages < or [...] last revised on 2017. Chol/HDL ratio 4 [facility] Blood 03/24/2024 9:26 PM HEAVY EQUIPMENT FIELD MECHANIC 03/24/2024 9:42 PM HEAVY EQUIPMENT FIELD MECHANIC us Allie Bhatti NP LAB BLOOD ORDERABLES Final Result [facility] Department [place] [address] from Last 3 Months or Most Recently Relevant to Health Maintenance Insurance Member Subscriber Plan / Payer (Ef fective 2022-Present) Name:Flo Mason Relation to Subscriber:Self Name:Flo Mason Payer ID:[id number] (NAIC) Type:[facility] Address: [id number] [place] [address] Advance Directives For more information, please contact: [phone] Documents on File Type Date Recorded Patient Business Risk Consultant Expl anation ADVANCE DIRECTIVE 03/26/2024 3:48 PM POLST * Full Code (Latest Code Status on File) Date Activated Date Inactivated Comments 03/24/2024 9:07 PM 04/17/2024 9:51 PM * Full Code Date Activated Date Inactivated Comments 03/22/2024 1:54 PM 03/24/2024 9:00 PM * Full Code Date Activated Date Inactivated Comments 03/04/2024 1:45 PM 03/14/2024 7:00 PM Care Teams Rug Designer Relationship Specialty Start Date End Date Leonard Gillette MD [address] [facility] [address] [place] [address] PCP - General Family Medicine 09/21/24 Александр Yu MD [address] [facility] [address] [place] [address] Referring Physician Cardiology 02/09/24 Александр Landa MD [address] [facility] [address] [place] [address] Consulting Physician Cardiothoracic Surgery 02/09/24
--- OUTSIDE RECORDS SUMMARY | 2025-01-20 14:47 | XMS_ITS | Encounter Summary ---
Author Organization [facility] Osiris dutta Address [address] [place] [phone] Phone Care Team Providers Care Loan Secretary Name Role Phone Faye Hector MD Primary Care Provider [phone]- [phone] Reason for Visit * Reason Comments Med Refill Encounter Details Date Type Department Care Team (Late st Contact Info) Description 02/21/2022 Refill [facility] Nephrology and Hypertension [address] [place] [address], [address] [place] [address] Hebert Washburn MD [facility] [facility], [address] [place] [address] Social History Tobacco Use Types Packs/Day Years [...] on filedocumented in this encounter Care Teams Loan Secretary Relationship Specialty Start Date End Date Rostovtseva, Faye, MD [address] [facility] [address] [place] [address] PCP - General Internal Medicine 08/28/20 documented as of this encounter
[2025-01-20] MEDS: cefTRIAXone 1 GM in SODIUM CHLORIDE 0.9% IV 50 ML 100 ML IVPB (17:26)
[2025-01-20] MEDS: WARFARIN (*PBKC) 4 MG TABLET PO (19:39)
[2025-01-20 21:13] VITALS: O2SAT 95
[2025-01-20 21:42] VITALS: BP 122/62; PULSE 65; RESP 20; TEMP 36.6; O2SAT 93
[2025-01-21] VITALS (12 sets, daily range): BP systolic 111–114; BP diastolic 59–66; PULSE 10–73; RESP 18–20; TEMP 36.7–37.1; O2SAT 86–95
[2025-01-21 01:21] LABS: Urine Eos QC 2nd Tech Confirmed
[2025-01-21] MEDS: GABAPENTIN 300 MG CAPSULE 600 MG PO ×3 (05:50→21:29)
[2025-01-21] MEDS: DOXYCYCLINE IV 100 MG in SODIUM CHLORIDE 0.9% IV 100 ML IVPB ×2 (06:11→16:56)
[2025-01-21 06:35] LABS: INR 1.6; Prothrombin Time 19.3 Seconds (11.1-14.7)
[2025-01-21 06:53] LABS: Hematocrit 27.9 % (42.0-52.0); Hemoglobin 8.2 g/dL (14.0-18.0); Immature Granulocyte Percent A 0.4 % (0-0.5); Lymphocytes Absolute Auto 1.28 K/mm3 (0.9-3.2); Mean Corpuscular HGB Conc 29.4 g/dl (32-36); Mean Corpuscular Hemoglobin 27.0 pg (26-34); Mean Corpuscular Volume 91.8 fl (80-100); Nucleated Red Blood Cells Absolute Auto 0.000 K/mm3 (0.0-0.012); Nucleated Red Blood Cells Perc 0.0 % (0.0-0.2); Platelet Count Result 249 k/mm3 (150-375); Red Blood Count 3.04 M/mm3 (4.6-6.20); White Blood Count 4.8 K/mm3 (4.5-10.0)
[2025-01-21 07:02] LABS: Alanine Aminotransferase 16 U/L (6-50); Albumin Level 4.1 g/dL (3.5-5.1); Alkaline Phosphatase 58 U/L (38-126); Anion Gap 8 mmol/L (4-12); Aspartate Amino Transferase 26 U/L (17-59); Bilirubin,Total 0.7 mg/dL (0.2-1.3); Blood Urea Nitrogen 49 mg/dL (9-20); Calcium 9.4 mg/dL (8.4-10.2); Carbon Dioxide 34 mmol/L (22-30); Chloride 94 mmol/L (98-107); Estimated CRCL calculation 27 ml/min; Estimated Glomerular Filt Rate 26; Glucose 111 mg/dL (65-110); Magnesium 2.0 mg/dL (1.6-2.3); Potassium 3.4 mmol/L (3.4-5.0); Sodium 136 mmol/L (137-145); Total Protein 6.5 g/dL (6.3-8.2)
[2025-01-21 07:29] LABS: Anisocytosis 1+; Ovalocytes 1+
[2025-01-21 07:30] LABS: Hypochromasia 1+; Schistocytes None Seen
[2025-01-21 07:31] LABS: Polychromasia Occasional
--- NOTE | 2025-01-21 07:48 | P.PNIM_ITS ---
Progress Note: A&P Assessment and Plan (1) Hypoxia: Code(s): R09.02 - Hypoxemia Status: Acute Assessment and Plan: In the 70s post ambulation at his PCP office today, 01/19. Arrived 86% on 4L NC. Baseline requirement 2-3L NC at night (hx of GOOD, not tolerant of CPAP). CXR/chest CT concerning for pneumonia with possible superimposed pulmonary edema. Patient has been reporting rust-colored sputum and shortness of breath for 1 month. Has had lower extremity edema for months with no associated weight gain (weighs self daily). Hypoxia likely multifactorial due to CHF and pneumonia. Low suspicion for PE as the patient is currently on warfarin and currently therapeutic, goal 3. Hemoglobin is 8.4, previously 9.1 in July of 2024 - could be contributing. * broad-spectrum antibiotics for pneumonia * update echo, start IV diuresis for possible CHF component * anemia work up * continue supplemental oxygen to maintain O2 sat greater than 92%, wean as tolerated * ABG: PH WNL, pCO2 49.9, PO2 62.3, HC03 32.6, O2 saturation 92.2%, O2 content 11.4% * Goal today: Wean O2 as tolerated (2) Pneumonia: Qualifiers: Laterality: bilateral Lung location: unspecified part of lung Pneumonia type: due to unspecified organism Qualified Code(s): J18.9 - Pneumonia, unspecified organism Code(s): J18.9 - Pneumonia, unspecified organism Status: Acute Assessment and Plan: * CXR: Moderate-sized patchy opacities in the mid and lower lungs. Differential includes but is not limited to edema or pneumonia. * Chest CT: Mosaic attenuation in both lungs with scattered groundglass opacities and multiple associated new small pulmonary nodules and would favor pneumonia over mild pulmonary edema. * started on ceftriaxone and doxycycline on 01/19, continue inpatient. EKG reviewed a QTC borderline, therefore doxycycline continued. * supportive care: Mucinex, Tessalon Perles, Tylenol * encourage IS * continue supplemental oxygen to maintain O2 sat greater than 92% * Viral PCR: Negative * Monitor vital signs, I&Os, neuro status and patient is a fall risk * Follow WBC, serum electrolytes, temperature curves and cultures (3) CHF (congestive heart failure): Qualifiers: Heart failure chronicity: acute on chronic Heart failure type: diastolic Qualified Code(s): I50.33 - Acute on chronic diastolic (congestive) heart failure Code(s): I50.9 - Heart failure, unspecified Status: Acute Assessment and Plan: Current concern for CHF exacerbation. Patient has had bilateral lower extremity edema for the past few months and has evidence of possible edema on imaging (CXR, chest CT). Chart reviewed, last echo completed in July of 2024 which showed a systolic function of 55-60%, mild concentric LV wall thickening, LV septal wall motion abnormal, grade 3 diastolic dysfunction, RV mildly enlarged with mild reduction in systolic function, biatrial moderate enlargement, valvular disease, no pulmonary hypertension. On spironolactone 50 mg b.i.d., Lasix 40 mg daily and hydrochlorothiazide 50 mg daily outpatient. Will continue spironolactone and hydrochlorothiazide at this time. Switch Lasix to 40 mg b.i.d.. Will need close monitoring of renal function as he currently has an CLINTON, suspected to be secondary to volume overload and current infection. * monitor I&Os, daily weights, renal function * continue spironolactone and hydrochlorothiazide, hold p.o. Lasix. * Continue Lasix IV as 40 mg b.i.d.. * Repeat Echo: EF of 55-60%, moderate pulmonary hypertension which is changed from previous echo, mild concentric left ventricular wall thickness, abnormal diastolic function of the LV, elevated E/e'19 * Continue diuresis, patient does not appear fluid overloaded on exam and lung sounds are much clear today (4) Acute kidney injury superimposed on CKD: Code(s): N17.9 - Acute kidney failure, unspecified; N18.9 - Chronic kidney disease, unspecified Status: Acute Assessment and Plan: CLINTON superimposed on CKD noted upon admission. Creatinine 2.65, BUN 63, and GFR 24 on 01/19. Previously 1.64, BUN 36, GFR 40 to on 08/13/2024. Creatinine in 2024 has ranged between 1.45 and 2.07. Patient is on spironolactone, hydrochlorothiazide, and Lasix outpatient. Could be over-diuresis due to being on 3 different diuretics, however imaging concerning for possible pulmonary edema and patient has bilateral lower extremity seen on exam which is more in favor of possible volume overload. Will trial changing Lasix to 40 mg b.i.d. to offload volume. If patient has worsening renal function, could consider rehydrating and holding diuresis. * trend renal function and correct electrolytes as needed * nephrology consulted * check CK, urine lytes, protein/creatinine, urea * Protein/Cr ratio: 3.13 * Kidney function slowly improving, creatinine down from 2.65->2.49 (5) Diabetes mellitus: Qualifiers: Diabetes mellitus ad terminal makeup operator insulin use: without ad terminal makeup operator use Diabetes mellitus type: type 2 Code(s): E11.9 - Type 2 diabetes mellitus without complications Status: Chronic Assessment and Plan: * hypoglycemia protocol * POC blood glucose ACHS * home medication: Hold metformin * correct regimen ordered - moderate dose TIDWM, based off BMI * A1C 6.9% on 09/23/2024 * Glucose is well controlled (6) Hypertensive heart disease: Qualifiers: Heart failure presence: without heart failure Qualified Code(s): I11.9 - Hypertensive heart disease without heart failure Code(s): I11.9 - Hypertensive heart disease without heart failure Status: Chronic Assessment and Plan: * chronic, currently 124/61, stable * continue home medications: Amlodipine, hydralazine, HCTZ, Imdur, lisinopril, nebivolol * monitor (7) Afib: Qualifiers: Atrial fibrillation type: longstanding persistent Qualified Code(s): I48.11 - Longstanding persistent atrial fibrillation Code(s): I48.91 - Unspecified atrial fibrillation Status: Chronic Assessment and Plan: History of chronic AFib on anticoagulation. Reviewed EKG performed in the ED on 01/19 that have patient in rate controlled AFib with IVC delay and left axis deviation. * continue home medication: Amiodarone 200 mg daily and Warfarin Plan Diet: Diabetic GI Prophylaxis: N/a DVT Prophylaxis: Warfarin IV fluids: None, diuresing Lines/Tubes: Peripheral IV Code Status: Full code Subjective Date/time seen: 01/21/25 07:48 Interval history: 74 y/o M with PMH of DM2, HTN, CKD stage III, CAD, AL s/p balloon angioplasty, CABG x4v with complications, CHF, pAFib, GOOD (refusing?CPAP, unable to tolerate it), and CVA (Jimi Lorenzana, 2015) presents here with hypoxia and shortness of breath. 01/21/2025 Patient resting comfortably in bed at time of examination. States he feels much better today. Upon exam, lung sounds are clear to auscultation. Remains afebrile without leukocytosis. Kidney function slowly improving, nephrology consulted, appreciate further recommendations. Review of Systems Review of Systems: All systems reviewed & are unremarkable except as noted in HPI and below Exam Const: General: comfortable and no acute distress Other: , male, nontoxic appearance HENMT: Face/Nose/Sinus: Normal nares present Mouth: Yes moist mucous membranes Other: Nasal cannula place Eyes: General: appearance normal, both eyes and all related structures Sclera: sclerae normal Pupils: Equal, round and reactive pupils present EOM: EOMs intact bilaterally Chest: Other: Post sternotomy scarring, well-healed. Resp: Effort & Inspection: normal respiratory effort Auscultation: clear to auscultation bilaterally, no crackles, no rales, no rhonchi and no wheezes Cardio: Rate: regular rate Rhythm: regular rhythm Other: No murmur or rub GI: Other: Abdomen soft, nondistended, nontender. Normoactive bowel sounds in all quadrants. Does have old scarring to right lower quadrant secondary to CABG complications, well-healed. Skin: General skin exam: normal color and no rashes or lesions noted Wounds: no wounds Neuro: Cranial nerves: Yes Equal, round and reactive pupils present Speech: normal speech Motor exam (neuro): 5/5 motor strength present throughout Sensory Exam: normal sensation Other: A&O x4 Extrem: Other: 2+ pitting edema to bilateral lower extr emities, symmetric Psych: Mental Status: mental status grossly normal Affect: normal affect Other: Good insight and judgment Objective Data Vital Signs Vital Signs: Vital Signs - 24 hr 01/20/25 10:08 01/20/25 14:00 01/20/25 21:13 Temperature 98.4 F Pulse Rate 68 61 Respiratory Rate 18 Blood Pressure 120/60 Pulse Oximetry 94 95 Oxygen Delivery Nasal Cannula Oxygen Flow Rate 4 01/20/25 21:42 01/21/25 06:00 Temperature 97.8 F 98.8 F Pulse Rate 65 69 Respiratory Rate 20 20 Blood Pressure 122/62 111/59 L Pulse Oximetry 93 92 Oxygen Delivery Oxygen Flow Rate Intake/Output Intake/Output: Intake & Output 01/18/25 01/19/25 01/20/25 01/21/25 23:59 23:59 23:59 23:59 Intake Total 200 1720 250 Output Total 300 2980 2368 Balance -130 -966 -8829 Meds/Results Medications: Active Medications Generic Name Dose Route Start Last Admin Trade Name Freq PRN Reason Stop Dose Admin Acetaminophen 650 mg 01/19/25 20:13 Acetaminophen 325 Mg Tablet PO Q6H PRN Mild Pain (1-3) or Fever Amiodarone HCl 200 mg 01/20/25 08:00 01/20/25 10:08 Amiodarone Hcl 200 Mg Tablet PO 200 mg DAILY@0800 AP Administration Amlodipine Besylate 10 mg 01/20/25 09:00 01/20/25 10:07 Amlodipine Besylate 10 Mg Tablet PO 10 mg DAILY AP Administration Benzonatate 100 mg 01/19/25 20:13 Benzonatate 100 Mg Capsule PO TID PRN Cough Dextrose 12.5 gm 01/19/25 20:22 Dextrose 50% 25 Gm/50 Ml Syringe IV PUSH PRN PRN Hypoglycemia Protocol Furosemide 40 mg 01/20/25 09:00 01/20/25 17:26 Furosemide Inj 40 Mg/4 Ml Vial IV PUSH 40 mg BID AP Administration Gabapentin 600 mg 01/19/25 22:00 01/21/25 05:50 Gabapentin 300 Mg Capsule PO 600 mg Q8HR AP Administration Glucagon 1 mg 01/19/25 20:22 Glucagon For Inj 1 Mg Vial IM PRN PRN Hypoglycemia Protocol Glucose 15 gm 01/19/25 20:22 Glucose Oral Gel 15 Gm Of Glucse In 37.5 Gm Tube PO PRN PRN Hypoglycemia Protocol Guaifenesin 600 mg 01/19/25 21:00 01/20/25 21:13 Guaifenesin 12 Hr 600 Mg Tabcr PO 600 mg Q12HR AP Administration Hydralazine HCl 50 mg 01/19/25 22:00 01/21/25 05:50 Hydralazine Hcl 50 Mg Tablet PO 50 mg Q8HR AP Administration Hydrochlorothiazide 50 mg 01/20/25 09:00 01/20/25 10:09 Hydrochlorothiazide 25 Mg Tablet PO 50 mg QAM AP Administration Ceftriaxone Sodium 1 gm/ 50 mls @ 100 mls/hr 01/20/25 16:00 01/20/25 17:56 Sodium Chloride IVPB Infused Q24H AP Infusion Doxycycline Hyclate 100 mg/ 100 mls @ 100 mls/hr 01/20/25 06:00 01/21/25 06:11 Sodium Chloride IVPB 01/24/25 18:59 100 mls/hr Q12H AP Administration Dextrose 1,000 mls @ 100 mls/hr 01/19/25 20:22 Dextrose 5% 1,000 Ml IVPB PRN PRN Hypoglycemia Protocol Insulin Aspart 3 - 6 units 01/20/25 08:00 01/20/25 19:12 Insulin Aspart (*Bkc) 100 Units/Ml SUB-Q Not Given TIDWM AP Protocol Isosorbide Mononitrate 60 mg 01/19/25 21:25 01/20/25 21:13 Isosorbide Mononitrate 60 Mg Tab.Er.24h PO 60 mg Q12HR AP Administration Lisinopril 40 mg 01/20/25 09:00 01/20/25 10:09 Lisinopril 20 Mg Tablet PO 40 mg DAILY AP Administration Nebivolol 10 mg 01/20/25 09:00 01/20/25 10:10 Nebivolol Hcl 5 Mg Tablet PO 10 mg DAILY AP Administration Perflutren Lipid Microsphere 0 ml 01/20/25 08:10 Perflutren Lipid Microspheres 1.5 Ml Vial Diluted To 10 Ml Total Volume IV PUSH 01/23/25 08:10 ONCE PRN adequate visualization Protocol Rosuvastatin Calcium 40 mg 01/20/25 09:00 01/20/25 10:09 Rosuvastatin 20 Mg Tablet PO 40 mg DAILY AP Administration Spironolactone 50 mg 01/19/25 21:25 01/20/25 21:13 Spironolactone 50 Mg Tablet PO 50 mg Q12HR AP Administration Warfarin Sodium 3 mg 01/21/25 17:00 Warfarin (*Pbkc) 3 Mg Tablet PO SuMoWeFrSa@1700 [facility] Warfarin Sodium 4 mg 01/20/25 17:00 01/20/25 19:39 Warfarin (*Pbkc) 4 Mg Tablet PO 4 mg TuTh@1700 [facility] Administration Radiology Results: ITS Impressions Chest X-Ray 01/19/25 15:11 IMPRESSION: 1. Moderate-sized patchy opacities in the mid and lower lungs. Differential includes but is not limited to edema or pneumonia. Consider a chest CT. Follow- up to resolution. 2. Small right-sided pleural effusion. 3.There is a 1.4 cm nodular density in the left upper lobe. Differential includes vessel on end or pulmonary nodule. A chest CT is recommended. Chest CT 01/19/25 15:48 IMPRESSION: 1. Mosaic attenuation in both lungs with scattered groundglass opacities and multiple associated new small pulmonary nodules and would favor pneumonia over mild pulmonary edema. 2. Small right pleural effusion with dependent and basilar consolidation in the right middle and lower lobes most consistent with atelectasis although superimposed pneumonia not excludable. 3. Cardiomegaly changes of likely prior coronary artery bypass grafting including sternotomy with chronic sternal dehiscence. Labs Labs: Laboratory Results - last 24 hr 01/20/25 01/20/25 01/20/25 10:15 10:31 11:46 WBC RBC Hgb Hct MCV MCH MCHC RDW Plt Count MPV Immature Gran % (Auto) Neut % (Auto) Lymph % (Auto) [place] % (Auto) Eos % (Auto) Baso % (Auto) Lymph # (Auto) [place] # (Auto) Eos # (Auto) Baso # (Auto) Abs Immat Gran (auto) Absolute Neuts (auto) Absolute Nucleated RBC Band Neutrophils % Nucleated RBC % Platelet Estimate Polychromasia Hypochromasia Anisocytosis Ovalocytes Schistocytes PT INR Puncture Site Left radial ABG pH 7.433 ABG pCO2 49.9 H ABG pO2 62.3 L ABG PO2/FiO2 Ratio 1.73 ABG HCO3 32.6 H ABG O2 Saturation 92.2 L ABG O2 Content 11.4 L ABG Base Excess 7.4 A-a Gradient 136.5 Oxyhemoglobin 89.5 L Total Hemoglobin 9.0 L O2 Delivery Device Nasal cannula O2 Liters/Min 4.0 FiO2 36 Sodium Potassium Chloride Carbon Dioxide Anion Gap BUN Creatinine Estim Creat Clear Calc Estimated GFR Glucose POC Capillary Glucose 146 H Calcium Phosphorus Magnesium Total Bilirubin AST ALT Alkaline Phosphatase Total Protein Albumin Urine Eosinophils Influenza A (RT-PCR) Negative Influenza B (RT-PCR) Negative RSV (RT-PCR) Negative SARS-CoV-2 RNA (RT-PCR) Negative 01/20/25 01/20/25 01/21/25 16:38 21:08 00:27 WBC RBC Hgb Hct MCV MCH MCHC RDW Plt Count MPV Immature Gran % (Auto) Neut % (Auto) Lymph % (Auto) [place] % (Auto) Eos % (Auto) Baso % (Auto) Lymph # (Auto) [place] # (Auto) Eos # (Auto) Baso # (Auto) Abs Immat Gran (auto) Absolute Neuts (auto) Absolute Nucleated RBC Band Neutrophils % Nucleated RBC % Platelet Estimate Polychromasia Hypochromasia Anisocytosis Ovalocytes Schistocytes PT INR Puncture Site ABG pH ABG pCO2 ABG pO2 ABG PO2/FiO2 Ratio ABG HCO3 ABG O2 Saturation ABG O2 Content ABG Base Excess A-a Gradient Oxyhemoglobin Total Hemoglobin O2 Delivery Device O2 Liters/Min FiO2 Sodium Potassium Chloride Carbon Dioxide Anion Gap BUN Creatinine Estim Creat Clear Calc Estimated GFR Glucose POC Capillary Glucose 129 H 130 H Calcium Phosphorus Magnesium Total Bilirubin AST ALT Alkaline Phosphatase Total Protein Albumin Urine Eosinophils None seen Influenza A (RT-PCR) Influenza B (RT-PCR) RSV (RT-PCR) SARS-CoV-2 RNA (RT-PCR) 01/21/25 01/21/25 06:10 06:13 WBC 4.8 RBC 3.04 L Hgb 8.2 L Hct 27.9 L MCV 91.8 MCH 27.0 MCHC 29.4 L RDW 16.1 H Plt Count 249 MPV 9.9 Immature Gran % (Auto) 0.4 Neut % (Auto) 57.0 Lymph % (Auto) 26.6 [place] % (Auto) 13.5 H Eos % (Auto) 2.3 Baso % (Auto) 0.2 Lymph # (Auto) 1.28 [place] # (Auto) 0.7 H Eos # (Auto) 0.1 Baso # (Auto) 0.0 Abs Immat Gran (auto) 0.02 Absolute Neuts (auto) 2.8 Absolute Nucleated RBC 0.000 Band Neutrophils % Not Reportable Nucleated RBC % 0.0 Platelet Estimate Adequate Polychromasia Occasional Hypochromasia 1+ Anisocytosis 1+ Ovalocytes 1+ Schistocytes None seen PT 19.3 H D INR 1.6 Puncture Site ABG pH ABG pCO2 ABG pO2 ABG PO2/FiO2 Ratio ABG HCO3 ABG O2 Saturation ABG O2 Content ABG Base Excess A-a Gradient Oxyhemoglobin Total Hemoglobin O2 Delivery Device O2 Liters/Min FiO2 Sodium 136 L Potassium 3.4 Chloride 94 L Carbon Dioxide 34 H Anion Gap 8 BUN 49 H Creatinine 2.49 H Estim Creat Clear Calc 27 Estimated GFR 26 L Glucose 111 H POC Capillary Glucose Calcium 9.4 Phosphorus 3.1 Magnesium 2.0 Total Bilirubin 0.7 AST 26 ALT 16 Alkaline Phosphatase 58 Total Protein 6.5 Albumin 4.1 Urine Eosinophils Influenza A (RT-PCR) Influenza B (RT-PCR) RSV (RT-PCR) SARS-CoV-2 RNA (RT-PCR) Quality VTE Prophylaxis VTE prophylaxis: pharmacologic ordered
[2025-01-21] MEDS: NEBIVOLOL HCL 5 MG TABLET 10 MG PO (10:04)
[2025-01-21] MEDS: SPIRONOLACTONE 50 MG TABLET PO ×2 (10:04→20:20)
[2025-01-21] MEDS: ROSUVASTATIN 20 MG TABLET 40 MG PO (10:04)
[2025-01-21] MEDS: AMIODARONE HCL 200 MG TABLET PO (10:06)
[2025-01-21] MEDS: guaiFENesin 12 HR 600 MG TABCR PO ×2 (10:06→20:20)
[2025-01-21] MEDS: ISOSORBIDE MONONITRATE 60 MG TAB.ER.24H PO ×2 (10:06→20:20)
[2025-01-21] MEDS: FUROSEMIDE INJ 40 MG/4 ML VIAL IV PUSH ×2 (10:07→16:55)
--- NOTE | 2025-01-21 10:33 | P.PNNP_ITS ---
Progress Note: A&P Assessment and Plan (1) Acute kidney injury: Code(s): N17.9 - Acute kidney failure, unspecified Status: Acute Assessment and Plan: * as noted by admission creatinine (2.65mg/dL) * suspect multifactorial: * hypoxia * pneumonia (infection) * CHF * relative anemia * relative hypotension (80 - 90s systolic on admission) * element of CKD progression(?) * other (?) * evaluation to date noted: * urine electrolytes non-prerenal * urine eosinophils negative * CPK low * nephrotic range proteinuria noted (which could explaine lower extremity edema) * renal ultrasound pending * hold lisinopril in the context of diuresis * follow trend of repeat labs and UOP (2) Stage 3b chronic kidney disease: Code(s): N18.32 - Chronic kidney disease, stage 3b Status: Chronic Assessment and Plan: * appears to have been present as far back as November 2021 * creatinine was running around 1.2 - 1.6mg/dl * however, in the last year, running closer to 1.6 - 2.1mg/dl (likely an element of CKD progression) * presumably secondary to diabetes, hypertension, vascular disease (CVA/CAD/hyperlipidemia), CHF + need for diuretics, and age-related change (3) Acute hypoxic respiratory failure: Code(s): J96.01 - Acute respiratory failure with hypoxia Status: Acute Assessment and Plan: * as noted on presentation: * oxygen saturations of 70% during ambulation at PCP office on 01/19 * uses baseline 2 - 3L oxygen at night (history of GOOD but intolerant to CPAP) * + productive sputum and SOB for the last month * + lower extremity edema present as well * admission CXR/CT chest noted * suspect secondary to a combination of pneumonia and CHF * continue current therapy as outlined (4) Pneumonia: Qualifiers: Laterality: bilateral Lung location: unspecified part of lung P neumonia type: due to unspecified organism Qualified Code(s): J18.9 - Pneumonia, unspecified organism Code(s): J18.9 - Pneumonia, unspecified organism Status: Acute Assessment and Plan: * as suggested by admission imaging * symptoms include SOB with productive cough * follow culture data (blood and sputum) * supplemental oxygen and anti-tussive/expectorant medications * on antibiotics (5) Acute exacerbation of CHF (congestive heart failure): Qualifiers: Heart failure type: unspecified Qualified Code(s): I50.9 - Heart failure, unspecified Code(s): I50.9 - Heart failure, unspecified Status: Acute Assessment and Plan: * suggestive by presenation * bilateral lower extremity edema * edema/fluid on chest imaging * elevated BNP * shortness of breath and hypoxia * on IV lasix * continue spironolactone * Echo (on 01/20) noted: * left ventricular systolic function is normal, estimated at 55 - 60% * left ventricular diastolic function is abnormal * trace mitral valve regurgitation * mild tricuspid valve regurgitation * moderate pulmonary hypertension, estimated pulmonary arterial systolic pressure is 52 mmHg * follow I/Os, daily weights, and respiratory status (6) Anemia: Qualifiers: Anemia type: unspecified type Qualified Code(s): D64.9 - Anemia, unspecified Code(s): D64.9 - Anemia, unspecified Status: Acute Assessment and Plan: * likely due to [place], CKD, and acute illness * consider GIULIANA while hospitalized * check iron studies * follow trend of H/H (7) Hypertension: Code(s): I10 - Essential (primary) hypertension Status: Chronic Assessment and Plan: * reasonable control * follow trend of hemodynamics (8) Diabetes mellitus: Qualifiers: Diabetes mellitus jail insulin use: without jail use Diabetes mellitus type: type 2 Code(s): E11.9 - Type 2 diabetes mellitus without complications Status: Chronic Assessment and Plan: * follow accu-cheks * glycemic control per hospitalist Will continue to follow. L Subjective Date/time seen: 01/21/25 10:33 Interval history: Follow-up for acute kidney injury/acute renal failure on chronic kidney disease. Renal function/creatinine relatively stable if not a bit better at this time; reports improvement in breathing/respiratory status although still requiring supplemental oxygen; no apparent distress noted when seen. Exam 2 Narrative: General: eldelry but WD/WN male in NAD Heart: normal S1 and S2; no rub Lungs: clear to auscultation Abdomen: soft, nontender, nondistended, positive bowel sounds Extremities: no cyanosis or clubbing; 1 - 2+ edema Skin: warm and dry Objective Data Vital Signs Vital Signs: Vital Signs Temp Pulse Resp BP Pulse Ox O2 Del Method O2 Flow Rate 01/21/25 10:05 68 87 L Nasal Cannula 2 01/21/25 08:00 69 86 L Room Air 01/21/25 06:00 98.8 F 69 20 111/59 L 92 01/20/25 21:42 97.8 F 65 20 122/62 93 01/20/25 21:13 95 Nasal Cannula 4 Intake/Output Intake/Output: Intake & Output 01/18/25 01/19/25 01/20/25 01/21/25 23:59 23:59 23:59 23:59 Intake Total 200 1720 830 Output Total 300 1925 3505 Balance -807 -004 -4165 Meds/Results Medications: Active Medications Generic Name Dose Route Start Last Admin Trade Name Freq PRN Reason Stop Dose Admin Acetaminophen 650 mg 01/19/25 20:13 Acetaminophen 325 Mg Tablet PO Q6H PRN Mild Pain (1-3) or Fever Amiodarone HCl 200 mg 01/20/25 08:00 01/21/25 10:06 Amiodarone Hcl 200 Mg Tablet PO 200 mg DAILY@0800 AP Administration Amlodipine Besylate 10 mg 01/20/25 09:00 01/21/25 10:06 Amlodipine Besylate 10 Mg Tablet PO 10 mg DAILY AP Administration Benzonatate 100 mg 01/19/25 20:13 Benzonatate 100 Mg Capsule PO TID PRN Cough Dextrose 12.5 gm 01/19/25 20:22 Dextrose 50% 25 Gm/50 Ml Syringe IV PUSH PRN PRN Hypoglycemia Protocol Furosemide 40 mg 01/20/25 09:00 01/21/25 16:55 Furosemide Inj 40 Mg/4 Ml Vial IV PUSH 40 mg BID AP Administration Gabapentin 600 mg 01/19/25 22:00 01/21/25 15:25 Gabapentin 300 Mg Capsule PO 600 mg Q8HR AP Administration Glucagon 1 mg 01/19/25 20:22 Glucagon For Inj 1 Mg Vial IM PRN PRN Hypoglycemia Protocol Glucose 15 gm 01/19/25 20:22 Glucose Oral Gel 15 Gm Of Glucse In 37.5 Gm Tube PO PRN PRN Hypoglycemia Protocol Guaifenesin 600 mg 01/19/25 21:00 01/21/25 10:06 Guaifenesin 12 Hr 600 Mg Tabcr PO 600 mg Q12HR AP Administration Hydralazine HCl 50 mg 01/19/25 22:00 01/21/25 15:28 Hydralazine Hcl 50 Mg Tablet PO Not Given Q8HR AP Hydrochlorothiazide 50 mg 01/20/25 09:00 01/21/25 10:06 Hydrochlorothiazide 25 Mg Tablet PO 50 mg QAM AP Administration Ceftriaxone Sodium 1 gm/ 50 mls @ 100 mls/hr 01/20/25 16:00 01/21/25 15:25 Sodium Chloride IVPB 100 mls/hr Q24H AP Administration Doxycycline Hyclate 100 mg/ 100 mls @ 100 mls/hr 01/20/25 06:00 01/21/25 16:56 Sodium Chloride IVPB 01/24/25 18:59 100 mls/hr Q12H AP Administration Dextrose 1,000 mls @ 100 mls/hr 01/19/25 20:22 Dextrose 5% 1,000 Ml IVPB PRN PRN Hypoglycemia Protocol Insulin Aspart 3 - 6 units 01/20/25 08:00 01/20/25 19:12 Insulin Aspart (*Bkc) 100 Units/Ml SUB-Q Not Given TIDWM AP Protocol Isosorbide Mononitrate 60 mg 01/19/25 21:25 01/21/25 10:06 Isosorbide Mononitrate 60 Mg Tab.Er.24h PO 60 mg Q12HR AP Administration Lisinopril 40 mg 01/20/25 09:00 01/21/25 10:06 Lisinopril 20 Mg Tablet PO 40 mg DAILY AP Administration Nebivolol 10 mg 01/20/25 09:00 01/21/25 10:04 Nebivolol Hcl 5 Mg Tablet PO 10 mg DAILY AP Administration Perflutren Lipid Microsphere 0 ml 01/20/25 08:10 Perflutren Lipid Microspheres 1.5 Ml Vial Diluted To 10 Ml Total Volume IV PUSH 01/23/25 08:10 ONCE PRN adequate visualization Protocol Rosuvastatin Calcium 40 mg 01/20/25 09:00 01/21/25 10:04 Rosuvastatin 20 Mg Tablet PO 40 mg DAILY AP Administration Spironolactone 50 mg 01/19/25 21:25 01/21/25 10:04 Spironolactone 50 Mg Tablet PO 50 mg Q12HR AP Administration Warfarin Sodium 3 mg 01/21/25 17:00 01/21/25 16:55 Warfarin (*Pbkc) 3 Mg Tablet PO 3 mg SuMoWeFrSa@1700 AP Administration Warfarin Sodium 4 mg 01/20/25 17:00 01/20/25 19:39 Warfarin (*Pbkc) 4 Mg Tablet PO 4 mg TuTh@1700 [facility] Administration Radiology Results: ITS Impressions Chest X-Ray 01/19/25 15:11 IMPRESSION: 1. Moderate-sized patchy opacities in the mid and lower lungs. Differential includes but is not limited to edema or pneumonia. Consider a chest CT. Follow- up to resolution. 2. Small right-sided pleural effusion. 3.There is a 1.4 cm nodular density in the left upper lobe. Differential includes vessel on end or pulmonary nodule. A chest CT is recommended. Chest CT 01/19/25 15:48 IMPRESSION: 1. Mosaic attenuation in both lungs with scattered groundglass opacities and multiple associated new small pulmonary nodules and would favor pneumonia over mild pulmonary edema. 2. Small right pleural effusion with dependent and basilar consolidation in the right middle and lower lobes most consistent with atelectasis although superimposed pneumonia not excludable. 3. Cardiomegaly changes of likely prior coronary artery bypass grafting including sternotomy with chronic sternal dehiscence. Labs Labs: Laboratory Tests 01/21/25 06:10 01/21/25 06:10 Calcium 9.4 Phosphorus 3.1 Magnesium 2.0 Total Bilirubin 0.7 AST 26 ALT 16 Alkaline Phosphatase 58 Total Protein 6.5 Albumin 4.1 Microbiology 01/20/25 10:27 Sputum Sputum White Blood Cells - Final 01/20/25 10:27 Sputum Sputum Epithelial Cells - Final 01/20/25 10:27 Sputum Gram Stain Sputum Result 1 - Final 01/20/25 10:27 Sputum Gram Stain Sputum Result 2 - Final 01/20/25 10:27 Sputum Gram Stain Sputum Result 3 - Final 01/20/25 10:27 Sputum Gram Stain Sputum Result 4 - Final 01/20/25 10:27 Sputum Gram Stain Evaluation - Final 01/20/25 10:27 Sputum Sputum Culture - Preliminary
--- NOTE | 2025-01-21 13:06 | HOMEO2EVAL ---
Evaluation was performed at [facility] Home Oxygen Evaluation RC: Home Oxygen (O2) Evaluation Start: 01/21/25 11:04 Freq: ONCE Status: Active Protocol: RPE Activity Type Activity Date Activity User E-sign Co-sign Detail Recorded Client Recorded Date Recorded By Document 01/21/25 11:00 [email or web address] 01/21/25 13:06 PKH Document 01/21/25 11:05 [email or web address] 01/21/25 13:06 PKH Document 01/21/25 11:10 [email or web address] [email or web address] 01/21/25 13:06 PKH Document 01/21/25 11:15 [email or web address] [email or web address] 01/21/25 13:06 PKH Document 01/21/25 11:20 [email or web address] [email or web address] 01/21/25 13:06 PKH Document 01/21/25 11:40 [email or web address] [email or web address] 01/21/25 13:06 PKH Document 01/21/25 11:45 [email or web address] [email or web address] 01/21/25 13:06 PKH 01/21/25 01/21/25 01/21/25 11:00 11:05 11:10 Home O2 Evaluation [Oxygen] -Test Phase Resting Resting Resting -Oxygen Delivery Room Air Nasal Cannula Nasal Cannula -Oxygen Flow Rate (L/min) 1 2 [Pulse Oximetry] -Pulse Oximetry (90-100 %) 86 L 87 L 87 L [Pulse Rate] -Pulse Rate (60-100 beats/min) 69 68 69 [Evaluation] -Activity Tolerance Good [Exercise] -Ambulation Distance (feet) -Ambulation Distance (meters) [Charges] -Evaluation Charges O2 Evaluation by Pulmonary 01/21/25 01/21/25 01/21/25 11:15 11:20 11:40 Home O2 Evaluation [Oxygen] -Test Phase Resting Resting Exercise -Oxygen Delivery Nasal Cannula Nasal Cannula Nasal Cannula -Oxygen Flow Rate (L/min) 3 4 4 [Pulse Oximetry] -Pulse Oximetry (90-100 %) 88 L 92 92 [Pulse Rate] -Pulse Rate (60-100 beats/min) 69 70 71 [Evaluation] -Activity Tolerance [Exercise] -Ambulation Distance (feet) 300 -Ambulation Distance (meters) 91.43 [Charges] -Evaluation Charges 01/21/25 11:45 Home O2 Evaluation [Oxygen] -Test Phase Resting -Oxygen Delivery Nasal Cannula -Oxygen Flow Rate (L/min) 4 [Pulse Oximetry] -Pulse Oximetry (90-100 %) 92 [Pulse Rate] -Pulse Rate (60-100 beats/min) 73 [Evaluation] -Activity Tolerance [Exercise] -Ambulation Distance (feet) -Ambulation Distance (meters) [Charges] -Evaluation Charges
--- NOTE | 2025-01-21 13:09 | PCRCNOTE ---
HOME O2 EVAL COMPLETE. PATIENT REQUIRES 4 LPM WITH REST AND ACTIVITY. RN NOTIFIED. PATIENT HAS NOC HOME O2 WITH [facility]. WILL CONTACT THEM [facility]. [phone]
[2025-01-21] MEDS: cefTRIAXone 1 GM in SODIUM CHLORIDE 0.9% IV 50 ML 100 ML IVPB (15:25)
[2025-01-21] MEDS: WARFARIN (*PBKC) 3 MG TABLET PO (16:55)
[2025-01-22] VITALS (8 sets, daily range): BP systolic 108–115; BP diastolic 57–68; PULSE 65–70; RESP 16–20; TEMP 36.8–37; O2SAT 97–100
[2025-01-22] MEDS: GABAPENTIN 300 MG CAPSULE 600 MG PO ×3 (05:14→21:36)
[2025-01-22] MEDS: DOXYCYCLINE IV 100 MG in SODIUM CHLORIDE 0.9% IV 100 ML IVPB ×2 (05:20→17:36)
[2025-01-22 07:15] LABS: Hematocrit 28.9 % (42.0-52.0); Hemoglobin 8.3 g/dL (14.0-18.0); Immature Granulocyte Percent A 0.2 % (0-0.5); Lymphocytes Absolute Auto 1.41 K/mm3 (0.9-3.2); Mean Corpuscular HGB Conc 28.7 g/dl (32-36); Mean Corpuscular Hemoglobin 26.4 pg (26-34); Mean Corpuscular Volume 92.0 fl (80-100); Nucleated Red Blood Cells Absolute Auto 0.000 K/mm3 (0.0-0.012); Nucleated Red Blood Cells Perc 0.0 % (0.0-0.2); Platelet Count Result 266 k/mm3 (150-375); Red Blood Count 3.14 M/mm3 (4.6-6.20); White Blood Count 5.1 K/mm3 (4.5-10.0)
[2025-01-22 07:25] LABS: INR 1.4; Prothrombin Time 16.7 Seconds (11.1-14.7)
--- NOTE | 2025-01-22 07:27 | P.PNIM_ITS ---
Progress Note: A&P Assessment and Plan (1) Hypoxia: Code(s): R09.02 - Hypoxemia Status: Acute Assessment and Plan: In the 70s post ambulation at his PCP office today, 01/19. Arrived 86% on 4L NC. Baseline requirement 2-3L NC at night (hx of GOOD, not tolerant of CPAP). CXR/chest CT concerning for pneumonia with possible superimposed pulmonary edema. Patient has been reporting rust-colored sputum and shortness of breath for 1 month. Has had lower extremity edema for months with no associated weight gain (weighs self daily). Hypoxia likely multifactorial due to CHF and pneumonia. Low suspicion for PE as the patient is currently on warfarin and currently therapeutic, goal 3. Hemoglobin is 8.4, previously 9.1 in July of 2024 - could be contributing. * broad-spectrum antibiotics for pneumonia * update echo, start IV diuresis for possible CHF component * anemia work up * continue supplemental oxygen to maintain O2 sat greater than 92%, wean as tolerated * ABG: PH WNL, pCO2 49.9, PO2 62.3, HC03 32.6, O2 saturation 92.2%, O2 content 11.4% * Goal today: Wean O2 as tolerated (2) Pneumonia: Qualifiers: Laterality: bilateral Lung location: unspecified part of lung Pneumonia type: due to unspecified organism Qualified Code(s): J18.9 - Pneumonia, unspecified organism Code(s): J18.9 - Pneumonia, unspecified organism Status: Acute Assessment and Plan: * CXR: Moderate-sized patchy opacities in the mid and lower lungs. Differential includes but is not limited to edema or pneumonia. * Chest CT: Mosaic attenuation in both lungs with scattered groundglass opacities and multiple associated new small pulmonary nodules and would favor pneumonia over mild pulmonary edema. * started on ceftriaxone and doxycycline on 01/19, continue inpatient. EKG reviewed a QTC borderline, therefore doxycycline continued. * supportive care: Mucinex, Tessalon Perles, Tylenol * encourage IS * continue supplemental oxygen to maintain O2 sat greater than 92% * Viral PCR: Negative * Monitor vital signs, I&Os, neuro status and patient is a fall risk * Follow WBC, serum electrolytes, temperature curves and cultures * Sputum culture shows no growth (3) CHF (congestive heart failure): Qualifiers: Heart failure chronicity: acute on chronic Heart failure type: diastolic Qualified Code(s): I50.33 - Acute on chronic diastolic (congestive) heart failure Code(s): I50.9 - Heart failure, unspecified Status: Acute Assessment and Plan: Current concern for CHF exacerbation. Patient has had bilateral lower extremity edema for the past few months and has evidence of possible edema on imaging (CXR, chest CT). Chart reviewed, last echo completed in July of 2024 which showed a systolic function of 55-60%, mild concentric LV wall thickening, LV septal wall motion abnormal, grade 3 diastolic dysfunction, RV mildly enlarged with mild reduction in systolic function, biatrial moderate enlargement, valvular disease, no pulmonary hypertension. On spironolactone 50 mg b.i.d., Lasix 40 mg daily and hydrochlorothiazide 50 mg daily outpatient. Will continue spironolactone and hydrochlorothiazide at this time. Switch Lasix to 40 mg b.i.d.. Will need close monitoring of renal function as he currently has an CLINTON, suspected to be secondary to volume overload and current infection. * monitor I&Os, daily weights, renal function * continue spironolactone and hydrochlorothiazide, hold p.o. Lasix. * Continue Lasix IV as 40 mg b.i.d.. * Repeat Echo: EF of 55-60%, moderate pulmonary hypertension which is changed from previous echo, mild concentric left ventricular wall thickness, abnormal diastolic function of the LV, elevated E/e'19 * Continue diuresis, patient does not appear fluid overloaded on exam and lung sounds are much clear today (4) Acute kidney injury superimposed on CKD: Code(s): N17.9 - Acute kidney failure, unspecified; N18.9 - Chronic kidney disease, unspecified Status: Acute Assessment and Plan: CLINTON superimposed on CKD noted upon admission. Creatinine 2.65, BUN 63, and GFR 24 on 01/19. Previously 1.64, BUN 36, GFR 40 to on 08/13/2024. Creatinine in 2024 has ranged between 1.45 and 2.07. Patient is on spironolactone, hydrochlorothiazide, and Lasix outpatient. Could be over-diuresis due to being on 3 different diuretics, however imaging concerning for possible pulmonary edema and patient has bilateral lower extremity seen on exam which is more in favor of possible volume overload. Will trial changing Lasix to 40 mg b.i.d. to offload volume. If patient has worsening renal function, could consider rehydrating and holding diuresis. 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 Diabetes mellitus type: type 2 Code(s): E11.9 - Type 2 diabetes mellitus without complications Status: Chronic Assessment and Plan: * hypoglycemia protocol * POC blood glucose ACHS * home medication: Hold metformin * correct regimen ordered - moderate dose TIDWM, based off BMI * A1C 6.9% on 09/23/2024 * Glucose is well controlled (6) Hypertensive heart disease: Qualifiers: Heart failure presence: without heart failure Qualified Code(s): I11.9 - Hypertensive heart disease without heart failure Code(s): I11.9 - Hypertensive heart disease without heart failure Status: Chronic Assessment and Plan: * chronic, currently 124/61, stable * continue home medications: Amlodipine, hydralazine, HCTZ, Imdur, lisinopril, nebivolol * monitor (7) Afib: Qualifiers: Atrial fibrillation type: longstanding persistent Qualified Code(s): I48.11 - Longstanding persistent atrial fibrillation Code(s): I48.91 - Unspecified atrial fibrillation Status: Chronic Assessment and Plan: History of chronic AFib on anticoagulation. Reviewed EKG performed in the ED on 01/19 that have patient in rate controlled AFib with IVC delay and left axis deviation. * continue home medication: Amiodarone 200 mg daily and Warfarin Plan Diet: Diabetic GI Prophylaxis: N/a DVT Prophylaxis: Warfarin IV fluids: None, diuresing Lines/Tubes: Peripheral IV Code Status: Full code Subjective Date/time seen: 01/22/25 07:27 Interval history: 74 y/o M with PMH of DM2, HTN, CKD stage III, CAD, IA s/p balloon angioplasty, CABG x4v with complications, CHF, pAFib, GOOD (refusing?CPAP, unable to tolerate it), and CVA (Jimi Lorenzana, 2015) presents here with hypoxia and shortness of breath. 01/22/2025 Patient resting comfortably in bed at time of examination. States he feels marginally better than yestreday, denies any chest pain, shortness of breath at rest, n/v or abd pain. Repeat chest XR pending. Will need O2 supplementation at baseline per respiratory therapy recommendations. Remains afebrile without leukocytosis. Discharge hopefully soon. Review of Systems Review of Systems: All systems reviewed & are unremarkable except as noted in HPI and below Exam Const: General: comfortable and no acute distress Other: , male, nontoxic appearance HENMT: Face/Nose/Sinus: Normal nares present Mouth: Yes moist mucous membranes Other: Nasal cannula place Eyes: General: appearance normal, both eyes and all related structures Sclera: sclerae normal Pupils: Equal, round and reactive pupils present EOM: EOMs intact bilaterally Chest: Other: Post sternotomy scarring, well-healed. Resp: Effort & Inspection: normal respiratory effort Auscultation: clear to auscultation bilaterally, no crackles, no rales, no rhonchi and no wheezes Cardio: Rate: regular rate Rhythm: regular rhythm Other: No murmur or rub GI: Other: Abdomen soft, nondistended, nontender. Normoactive bowel sounds in all quadrants. Does have old scarring to right lower quadrant secondary to CABG complications, well-healed. Skin: General skin exam: normal color and no rashes or lesions noted Wounds: no wounds Neuro: Cranial nerves: Yes Equal, round and reactive pupils present Speech: normal speech Motor exam (neuro): 5/5 motor strength present throughout Sensory Exam: normal sensation Other: A&O x4 Extrem: Other: 2+ pitting edema to bilateral lower extr emities, symmetric Psych: Mental Status: mental status grossly normal Affect: normal affect Other: Good insight and judgment Objective Data Vital Signs Vital Signs: Vital Signs - 24 hr 01/21/25 10:04 01/21/25 11:00 01/21/25 11:05 Temperature Pulse Rate 10 L 69 68 Respiratory Rate Blood Pressure Pulse Oximetry 86 L 87 L Oxygen Delivery Room Air Nasal Cannula Oxygen Flow Rate 1 Fraction of Inspired Oxygen 01/21/25 11:10 01/21/25 11:15 01/21/25 11:20 Temperature Pulse Rate 69 69 70 Respiratory Rate Blood Pressure Pulse Oximetry 87 L 88 L 92 Oxygen Delivery Nasal Cannula Nasal Cannula Nasal Cannula Oxygen Flow Rate 2 3 4 Fraction of Inspired Oxygen 01/21/25 11:40 01/21/25 11:45 01/21/25 15:08 Temperature 98.1 F Pulse Rate 71 73 69 Respiratory Rate 18 Blood Pressure 112/63 Pulse Oximetry 92 92 92 Oxygen Delivery Nasal Cannula Nasal Cannula Oxygen Flow Rate 4 4 Fraction of Inspired Oxygen 01/21/25 20:00 01/21/25 22:00 01/22/25 06:00 Temperature 98.2 F 98.6 F Pulse Rate 67 66 Respiratory Rate 20 20 Blood Pressure 114/66 115/62 Pulse Oximetry 93 95 97 Oxygen Delivery Nasal Cannula Oxygen Flow Rate 4 Fraction of Inspired Oxygen 98 Intake/Output Intake/Output: Intake & Output 01/19/25 01/20/25 01/21/25 01/22/25 23:59 23:59 23:59 23:59 Intake Total 200 1720 1680 450 Output Total 300 1925 3905 1925 [facility] -[phone] Meds/Results Medications: Active Medications Generic Name Dose Route Start Last Admin Trade Name Freq PRN Reason Stop Dose Admin Acetaminophen 650 mg 01/19/25 20:13 Acetaminophen 325 Mg Tablet PO Q6H PRN Mild Pain (1-3) or Fever Amiodarone HCl 200 mg 01/20/25 08:00 01/21/25 10:06 Amiodarone Hcl 200 Mg Tablet PO 200 mg DAILY@0800 AP Administration Amlodipine Besylate 10 mg 01/20/25 09:00 01/21/25 10:06 Amlodipine Besylate 10 Mg Tablet PO 10 mg DAILY AP Administration Benzonatate 100 mg 01/19/25 20:13 Benzonatate 100 Mg Capsule PO TID PRN Cough Dextrose 12.5 gm 01/19/25 20:22 Dextrose 50% 25 Gm/50 Ml Syringe IV PUSH PRN PRN Hypoglycemia Protocol Furosemide 40 mg 01/20/25 09:00 01/21/25 16:55 Furosemide Inj 40 Mg/4 Ml Vial IV PUSH 40 mg BID AP Administration Gabapentin 600 mg 01/19/25 22:00 01/22/25 05:14 Gabapentin 300 Mg Capsule PO 600 mg Q8HR AP Administration Glucagon 1 mg 01/19/25 20:22 Glucagon For Inj 1 Mg Vial IM PRN PRN Hypoglycemia Protocol Glucose 15 gm 01/19/25 20:22 Glucose Oral Gel 15 Gm Of Glucse In 37.5 Gm Tube PO PRN PRN Hypoglycemia Protocol Guaifenesin 600 mg 01/19/25 21:00 01/21/25 20:20 Guaifenesin 12 Hr 600 Mg Tabcr PO 600 mg Q12HR AP Administration Hydralazine HCl 25 mg 01/22/25 06:00 01/22/25 05:15 Hydralazine Hcl 25 Mg Tablet PO 25 mg Q8HR AP Administration Hydrochlorothiazide 50 mg 01/20/25 09:00 01/21/25 10:06 Hydrochlorothiazide 25 Mg Tablet PO 50 mg QAM AP Administration Ceftriaxone Sodium 1 gm/ 50 mls @ 100 mls/hr 01/20/25 16:00 01/21/25 15:55 Sodium Chloride IVPB Infused Q24H AP Infusion Doxycycline Hyclate 100 mg/ 100 mls @ 100 mls/hr 01/20/25 06:00 01/22/25 06:20 Sodium Chloride IVPB 01/24/25 18:59 Infused Q12H PA Infusion Dextrose 1,000 mls @ 100 mls/hr 01/19/25 20:22 Dextrose 5% 1,000 Ml IVPB PRN PRN Hypoglycemia Protocol Insulin Aspart 3 - 6 units 01/20/25 08:00 01/21/25 18:32 Insulin Aspart (*Bkc) 100 Units/Ml SUB-Q Not Given TIDWM AP Protocol Isosorbide Mononitrate 60 mg 01/19/25 21:25 01/21/25 20:20 Isosorbide Mononitrate 60 Mg Tab.Er.24h PO 60 mg Q12HR AP Administration Lisinopril 40 mg 01/20/25 09:00 01/21/25 10:06 Lisinopril 20 Mg Tablet PO 40 mg On Hold: 01/21/25 18:43 DAILY AP Administration Nebivolol 10 mg 01/20/25 09:00 01/21/25 10:04 Nebivolol Hcl 5 Mg Tablet PO 10 mg DAILY AP Administration Perflutren Lipid Microsphere 0 ml 01/20/25 08:10 Perflutren Lipid Microspheres 1.5 Ml Vial Diluted To 10 Ml Total Volume IV PUSH 01/23/25 08:10 ONCE PRN adequate visualization Protocol Rosuvastatin Calcium 40 mg 01/20/25 09:00 01/21/25 10:04 Rosuvastatin 20 Mg Tablet PO 40 mg DAILY AP Administration Spironolactone 50 mg 01/19/25 21:25 01/21/25 20:20 Spironolactone 50 Mg Tablet PO 50 mg Q12HR AP Administration Warfarin Sodium 3 mg 01/21/25 17:00 01/21/25 16:55 Warfarin (*Pbkc) 3 Mg Tablet PO 3 mg SuMoWeFrSa@1700 AP Administration Warfarin Sodium 4 mg 01/20/25 17:00 01/20/25 19:39 Warfarin (*Pbkc) 4 Mg Tablet PO 4 mg TuTh@1700 AP Administration Radiology Results: ITS Impressions Chest X-Ray 01/19/25 15:11 IMPRESSION: 1. Moderate-sized patchy opacities in the mid and lower lungs. Differential includes but is not limited to edema or pneumonia. Consider a chest CT. Follow- up to resolution. 2. Small right-sided pleural effusion. 3.There is a 1.4 cm nodular density in the left upper lobe. Differential includes vessel on end or pulmonary nodule. A chest CT is recommended. Chest CT 01/19/25 15:48 IMPRESSION: 1. Mosaic attenuation in both lungs with scattered groundglass opacities and multiple associated new small pulmonary nodules and would favor pneumonia over mild pulmonary edema. 2. Small right pleural effusion with dependent and basilar consolidation in the right middle and lower lobes most consistent with atelectasis although superimposed pneumonia not excludable. 3. Cardiomegaly changes of likely prior coronary artery bypass grafting including sternotomy with chronic sternal dehiscence. Labs Labs: Laboratory Results - last 24 hr 01/21/25 01/21/25 01/21/25 06:10 07:46 11:42 WBC 4.8 RBC 3.04 L Hgb 8.2 L Hct 27.9 L MCV 91.8 MCH 27.0 MCHC 29.4 L RDW 16.1 H Plt Count 249 MPV 9.9 Immature Gran % (Auto) 0.4 Neut % (Auto) 57.0 Lymph % (Auto) 26.6 [place] % (Auto) 13.5 H Eos % (Auto) 2.3 Baso % (Auto) 0.2 Lymph # (Auto) 1.28 [place] # (Auto) 0.7 H Eos # (Auto) 0.1 Baso # (Auto) 0.0 Abs Immat Gran (auto) 0.02 Absolute Neuts (auto) 2.8 Absolute Nucleated RBC 0.000 Band Neutrophils % Not Reportable Nucleated RBC % 0.0 Platelet Estimate Adequate Polychromasia Occasional Hypochromasia 1+ Anisocytosis 1+ Ovalocytes 1+ Schistocytes None seen PT INR POC Capillary Glucose 122 H 130 H 01/21/25 01/21/25 01/22/25 16:52 20:22 06:14 WBC RBC Hgb Hct MCV MCH MCHC RDW Plt Count MPV Immature Gran % (Auto) Neut % (Auto) Lymph % (Auto) [place] % (Auto) Eos % (Auto) Baso % (Auto) Lymph # (Auto) [place] # (Auto) Eos # (Auto) Baso # (Auto) Abs Immat Gran (auto) Absolute Neuts (auto) Absolute Nucleated RBC Band Neutrophils % Nucleated RBC % Platelet Estimate Polychromasia Hypochromasia Anisocytosis Ovalocytes Schistocytes PT 16.7 H INR 1.4 POC Capillary Glucose 152 H 147 H Quality VTE Prophylaxis VTE prophylaxis: pharmacologic ordered
[2025-01-22 07:38] LABS: Albumin Level 4.0 g/dL (3.5-5.1); Anion Gap 9 mmol/L (4-12); Blood Urea Nitrogen 54 mg/dL (9-20); Calcium 9.4 mg/dL (8.4-10.2); Carbon Dioxide 35 mmol/L (22-30); Chloride 94 mmol/L (98-107); Estimated CRCL calculation 28 ml/min; Estimated Glomerular Filt Rate 27; Glucose 120 mg/dL (65-110); Iron 48 ug/dL (49-181); Magnesium 2.0 mg/dL (1.6-2.3); Potassium 3.7 mmol/L (3.4-5.0); Sodium 138 mmol/L (137-145)
[2025-01-22 07:47] LABS: Percent Iron Saturation 12 % (20-50)
[2025-01-22 08:01] LABS: Anisocytosis 1+; Hypochromasia 1+; Ovalocytes 1+; Schistocytes None Seen
[2025-01-22 08:19] LABS: Ferritin 24.70 ng/mL (11.1-264)
[2025-01-22 08:49] LABS: Vitamin B12 464.0 pg/mL (239-931)
[2025-01-22] MEDS: AMIODARONE HCL 200 MG TABLET PO (08:57)
[2025-01-22] MEDS: ROSUVASTATIN 20 MG TABLET 40 MG PO (08:58)
[2025-01-22] MEDS: ISOSORBIDE MONONITRATE 60 MG TAB.ER.24H PO ×2 (08:58→21:36)
[2025-01-22] MEDS: NEBIVOLOL HCL 5 MG TABLET 10 MG PO (08:58)
[2025-01-22] MEDS: guaiFENesin 12 HR 600 MG TABCR PO ×2 (08:58→21:35)
[2025-01-22] MEDS: FUROSEMIDE INJ 40 MG/4 ML VIAL IV PUSH ×2 (08:59→16:55)
[2025-01-22] MEDS: SPIRONOLACTONE 50 MG TABLET PO ×2 (08:59→21:36)
--- NOTE | 2025-01-22 12:17 | P.PNNP_ITS ---
Progress Note: A&P Assessment and Plan (1) Acute kidney injury: Code(s): N17.9 - Acute kidney failure, unspecified Status: Acute Assessment and Plan: * as noted by admission creatinine (2.65mg/dL) * suspect multifactorial: * hypoxia * pneumonia (infection) * CHF * relative anemia * relative hypotension (80 - 90s systolic on admission) * element of CKD progression(?) * other (?) * evaluation to date noted: * urine electrolytes non-prerenal * urine eosinophils negative * CPK low * nephrotic range proteinuria noted (which could explaine lower extremity edema) * renal ultrasound pending * Getting diuretics. Intake/output shows 2300cc more out than in and in spite of that the GFR has been improving. * follow trend of repeat labs and UOP (2) Stage 3b chronic kidney disease: Code(s): N18.32 - Chronic kidney disease, stage 3b Status: Chronic Assessment and Plan: * appears to have been present as far back as November 2021 * creatinine was running around 1.2 - 1.6mg/dl * however, in the last year, running closer to 1.6 - 2.1mg/dl (likely an element of CKD progression) * presumably secondary to diabetes, hypertension, vascular disease (CVA/CAD/hyperlipidemia), CHF + need for diuretics, and age-related change (3) Acute hypoxic respiratory failure: Code(s): J96.01 - Acute respiratory failure with hypoxia Status: Acute Assessment and Plan: * as noted on presentation: * oxygen saturations of 70% during ambulation at PCP office on 01/19 * uses baseline 2 - 3L oxygen at night (history of GOOD but intolerant to CPAP) * + productive sputum and SOB for the last month * + lower extremity edema present as well * admission CXR/CT chest noted * Echocardiogram shows diastolic dysfunction, moderate aortic valve sclerosis, and moderate pulmonary hypertension * suspect secondary to a combination of pneumonia and CHF * continue current therapy as outlined (4) Pneumonia: Qualifiers: Pneumonia type: due to unspecified organism Laterality: bilateral Lung location: unspecified part of lung Qualified Code(s): J18.9 - Pneumonia, unspecified organism Code(s): J18.9 - Pneumonia, unspecified organism Status: Acute Assessment and Plan: * as suggested by admission imaging * symptoms include SOB with productive cough * follow culture data (blood and sputum) * supplemental oxygen and anti-tussive/expectorant medications * on ceftriaxone and doxycycline (5) Acute exacerbation of CHF (congestive heart failure): Qualifiers: Heart failure type: unspecified Qualified Code(s): I50.9 - Heart failure, unspecified Code(s): I50.9 - Heart failure, unspecified Status: Acute Assessment and Plan: * suggestive by presenation * bilateral lower extremity edema * edema/fluid on chest imaging * elevated BNP * shortness of breath and hypoxia * on IV lasix * continue spironolactone * Echo (on 01/20) noted: * left ventricular systolic function is normal, estimated at 55 - 60% * left ventricular diastolic function is abnormal * trace mitral valve regurgitation * mild tricuspid valve regurgitation * moderate pulmonary hypertension, estimated pulmonary arterial systolic pressure is 52 mmHg * follow I/Os, daily weights, and respiratory status (6) Anemia: Qualifiers: Anemia type: unspecified type Qualified Code(s): D64.9 - Anemia, unspecified Code(s): D64.9 - Anemia, unspecified Status: Acute Assessment and Plan: * likely due to [place], CKD, and acute illness * consider GIULIANA while hospitalized * T sat is only 12, however he has an infection so will hold off on iron supplements * Hemoglobin stable in the low 8s so far (7) Hypertension: Code(s): I10 - Essential (primary) hypertension Status: Chronic Assessment and Plan: * reasonable control * follow trend of hemodynamics (8) Diabetes mellitus: Qualifiers: Diabetes mellitus type: type 2 Diabetes mellitus 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 Subjective Date/time seen: 01/22/25 12:17 Interval history: Flo feels okay. Gradually improving. He had much more swelling at the beginning of the hospital stay and this has improved Exam Narrative: General: eldelry but WD/WN male in NAD Heart: normal S1 and S2; no rub Lungs: clear to auscultation Abdomen: soft, nontender, nondistended, positive bowel sounds Extremities: no cyanosis or clubbing; 1+ edema with compression socks Skin: warm and dry without rash Objective Data Vital Signs Vital Signs: Vital Signs - 24 hr 01/21/25 15:08 01/21/25 20:00 01/21/25 22:00 Temperature 98.1 F 98.2 F Pulse Rate 69 67 Respiratory Rate 18 20 Blood Pressure 112/63 114/66 Pulse Oximetry 92 93 95 Oxygen Delivery Nasal Cannula Oxygen Flow Rate 4 Fraction of Inspired Oxygen 98 01/22/25 06:00 01/22/25 08:56 01/22/25 08:57 Temperature 98.6 F Pulse Rate 66 70 70 Respiratory Rate 20 Blood Pressure 115/62 108/57 L Pulse Oximetry 97 Oxygen Delivery Oxygen Flow Rate Fraction of Inspired Oxygen 01/22/25 08:58 01/22/25 09:00 Temperature Pulse Rate 70 Respiratory Rate Blood Pressure Pulse Oximetry 97 Oxygen Delivery Nasal Cannula Oxygen Flow Rate 4 Fraction of Inspired Oxygen Intake/Output Intake/Output: Intake & Output 01/19/25 01/20/25 01/21/25 01/22/25 23:59 23:59 23:59 23:59 Intake Total 200 1720 1680 930 Output Total 300 1925 3905 1925 [facility] -[phone] -995 Meds/Results Medications: Active Medications Generic Name Dose Route Start Last Admin Trade Name Freq PRN Reason Stop Dose Admin Acetaminophen 650 mg 01/19/25 20:13 Acetaminophen 325 Mg Tablet PO Q6H PRN Mild Pain (1-3) or Fever Amiodarone HCl 200 mg 01/20/25 08:00 01/22/25 08:57 Amiodarone Hcl 200 Mg Tablet PO 200 mg DAILY@0800 AP Administration Amlodipine Besylate 10 mg 01/20/25 09:00 01/22/25 08:57 Amlodipine Besylate 10 Mg Tablet PO 10 mg DAILY AP Administration Benzonatate 100 mg 01/19/25 20:13 Benzonatate 100 Mg Capsule PO TID PRN Cough Dextrose 12.5 gm 01/19/25 20:22 Dextrose 50% 25 Gm/50 Ml Syringe IV PUSH PRN PRN Hypoglycemia Protocol Furosemide 40 mg 01/20/25 09:00 01/22/25 08:59 Furosemide Inj 40 Mg/4 Ml Vial IV PUSH 40 mg BID AP Administration Gabapentin 600 mg 01/19/25 22:00 01/22/25 05:14 Gabapentin 300 Mg Capsule PO 600 mg Q8HR AP Administration Glucagon 1 mg 01/19/25 20:22 Glucagon For Inj 1 Mg Vial IM PRN PRN Hypoglycemia Protocol Glucose 15 gm 01/19/25 20:22 Glucose Oral Gel 15 Gm Of Glucse In 37.5 Gm Tube PO PRN PRN Hypoglycemia Protocol Guaifenesin 600 mg 01/19/25 21:00 01/22/25 08:58 Guaifenesin 12 Hr 600 Mg Tabcr PO 600 mg Q12HR AP Administration Hydralazine HCl 25 mg 01/22/25 06:00 01/22/25 05:15 Hydralazine Hcl 25 Mg Tablet PO 25 mg Q8HR AP Administration Hydrochlorothiazide 50 mg 01/20/25 09:00 01/22/25 08:58 Hydrochlorothiazide 25 Mg Tablet PO 50 mg QAM AP Administration Ceftriaxone Sodium 1 gm/ 50 mls @ 100 mls/hr 01/20/25 16:00 01/21/25 15:55 Sodium Chloride IVPB Infused Q24H AP Infusion Doxycycline Hyclate 100 mg/ 100 mls @ 100 mls/hr 01/20/25 06:00 01/22/25 06:20 Sodium Chloride IVPB 01/24/25 18:59 Infused Q12H AP Infusion Dextrose 1,000 mls @ 100 mls/hr 01/19/25 20:22 Dextrose 5% 1,000 Ml IVPB PRN PRN Hypoglycemia Protocol Insulin Aspart 3 - 6 units 01/20/25 08:00 01/22/25 11:39 Insulin Aspart (*Bkc) 100 Units/Ml SUB-Q Not Given TIDWM AP Protocol Isosorbide Mononitrate 60 mg 01/19/25 21:25 01/22/25 08:58 Isosorbide Mononitrate 60 Mg Tab.Er.24h PO 60 mg Q12HR AP Administration Lisinopril 40 mg 01/20/25 09:00 01/21/25 10:06 Lisinopril 20 Mg Tablet PO 40 mg On Hold: 01/21/25 18:43 DAILY AP Administration Nebivolol 10 mg 01/20/25 09:00 01/22/25 08:58 Nebivolol Hcl 5 Mg Tablet PO 10 mg DAILY AP Administration Perflutren Lipid Microsphere 0 ml 01/20/25 08:10 Perflutren Lipid Microspheres 1.5 Ml Vial Diluted To 10 Ml Total Volume IV PUSH 01/23/25 08:10 ONCE PRN adequate visualization Protocol Rosuvastatin Calcium 40 mg 01/20/25 09:00 01/22/25 08:58 Rosuvastatin 20 Mg Tablet PO 40 mg DAILY AP Administration Spironolactone 50 mg 01/19/25 21:25 01/22/25 08:59 Spironolactone 50 Mg Tablet PO 50 mg Q12HR AP Administration Warfarin Sodium 3 mg 01/21/25 17:00 01/21/25 16:55 Warfarin (*Pbkc) 3 Mg Tablet PO 3 mg SuMoWeFrSa@1700 AP Administration Warfarin Sodium 4 mg 01/20/25 17:00 01/20/25 19:39 Warfarin (*Pbkc) 4 Mg Tablet PO 4 mg TuTh@1700 AP Administration Radiology Results: ITS Impressions Chest CT 01/19/25 15:48 IMPRESSION: 1. Mosaic attenuation in both lungs with scattered groundglass opacities and multiple associated new small pulmonary nodules and would favor pneumonia over mild pulmonary edema. 2. Small right pleural effusion with dependent and basilar consolidation in the right middle and lower lobes most consistent with atelectasis although superimposed pneumonia not excludable. 3. Cardiomegaly changes of likely prior coronary artery bypass grafting including sternotomy with chronic sternal dehiscence. Labs Labs: Laboratory Results - last 24 hr 01/21/25 01/21/25 01/22/25 16:52 20:22 06:14 WBC 5.1 RBC 3.14 L Hgb 8.3 L Hct 28.9 L MCV 92.0 MCH 26.4 MCHC 28.7 L RDW 16.0 H Plt Count 266 MPV 9.9 Immature Gran % (Auto) 0.2 Neut % (Auto) 56.5 Lymph % (Auto) 27.6 [place] % (Auto) 13.5 H Eos % (Auto) 2.0 Baso % (Auto) 0.2 Lymph # (Auto) 1.41 [place] # (Auto) 0.7 H Eos # (Auto) 0.1 Baso # (Auto) 0.0 Abs Immat Gran (auto) 0.01 Absolute Neuts (auto) 2.9 Absolute Nucleated RBC 0.000 Band Neutrophils % Not Reportable Nucleated RBC % 0.0 Platelet Estimate Adequate Hypochromasia 1+ Anisocytosis 1+ Ovalocytes 1+ Schistocytes None seen PT 16.7 H INR 1.4 Sodium 138 Potassium 3.7 Chloride 94 L Carbon Dioxide 35 H Anion Gap 9 BUN 54 H Creatinine 2.39 H Estim Creat Clear Calc 28 Estimated GFR 27 L Glucose 120 H POC Capillary Glucose 152 H 147 H Calcium 9.4 Phosphorus 3.6 Magnesium 2.0 Iron 48 L TIBC 406 % Saturation 12 L Ferritin 24.70 Albumin 4.0 Vitamin B12 464.0 Folate 9.9 01/22/25 01/22/25 07:57 11:20 WBC RBC Hgb Hct MCV MCH MCHC RDW Plt Count MPV Immature Gran % (Auto) Neut % (Auto) Lymph % (Auto) [place] % (Auto) Eos % (Auto) Baso % (Auto) Lymph # (Auto) [place] # (Auto) Eos # (Auto) Baso # (Auto) Abs Immat Gran (auto) Absolute Neuts (auto) Absolute Nucleated RBC Band Neutrophils % Nucleated RBC % Platelet Estimate Hypochromasia Anisocytosis Ovalocytes Schistocytes PT INR Sodium Potassium Chloride Carbon Dioxide Anion Gap BUN Creatinine Estim Creat Clear Calc Estimated GFR Glucose POC Capillary Glucose 139 H 167 H Calcium Phosphorus Magnesium Iron TIBC % Saturation Ferritin Albumin Vitamin B12 Folate
[2025-01-22] MEDS: WARFARIN (*PBKC) 3 MG TABLET PO (16:54)
[2025-01-22] MEDS: cefTRIAXone 1 GM in SODIUM CHLORIDE 0.9% IV 50 ML 100 ML IVPB (16:54)
[2025-01-23 06:00] VITALS: BP 103/62; PULSE 64; RESP 18; TEMP 36.8; O2SAT 94
[2025-01-23] MEDS: DOXYCYCLINE IV 100 MG in SODIUM CHLORIDE 0.9% IV 100 ML IVPB (06:19)
[2025-01-23] MEDS: GABAPENTIN 300 MG CAPSULE 600 MG PO ×2 (06:22→14:08)
[2025-01-23 06:48] LABS: Hematocrit 27.6 % (42.0-52.0); Hemoglobin 8.1 g/dL (14.0-18.0); Immature Granulocyte Percent A 0.2 % (0-0.5); Lymphocytes Absolute Auto 1.33 K/mm3 (0.9-3.2); Mean Corpuscular HGB Conc 29.3 g/dl (32-36); Mean Corpuscular Hemoglobin 26.7 pg (26-34); Mean Corpuscular Volume 91.1 fl (80-100); Nucleated Red Blood Cells Absolute Auto 0.000 K/mm3 (0.0-0.012); Nucleated Red Blood Cells Perc 0.0 % (0.0-0.2); Platelet Count Result 256 k/mm3 (150-375); Red Blood Count 3.03 M/mm3 (4.6-6.20); White Blood Count 4.6 K/mm3 (4.5-10.0)
[2025-01-23 06:58] LABS: INR 1.3; Prothrombin Time 16.0 Seconds (11.1-14.7)
[2025-01-23 07:12] LABS: Schistocytes None Seen
[2025-01-23 07:15] LABS: Albumin Level 3.8 g/dL (3.5-5.1); Anion Gap 7 mmol/L (4-12); Blood Urea Nitrogen 57 mg/dL (9-20); Calcium 9.3 mg/dL (8.4-10.2); Carbon Dioxide 37 mmol/L (22-30); Chloride 92 mmol/L (98-107); Estimated CRCL calculation 29 ml/min; Estimated Glomerular Filt Rate 28; Glucose 123 mg/dL (65-110); Magnesium 2.0 mg/dL (1.6-2.3); Potassium 3.2 mmol/L (3.4-5.0); Sodium 136 mmol/L (137-145)
[2025-01-23 08:15] VITALS: O2SAT 97
[2025-01-23] MEDS: ISOSORBIDE MONONITRATE 60 MG TAB.ER.24H PO (08:38)
[2025-01-23] MEDS: SPIRONOLACTONE 50 MG TABLET PO (08:38)
[2025-01-23] MEDS: guaiFENesin 12 HR 600 MG TABCR PO (08:38)
[2025-01-23 08:39] VITALS: PULSE 75
[2025-01-23] MEDS: NEBIVOLOL HCL 5 MG TABLET 10 MG PO (08:39)
[2025-01-23] MEDS: ROSUVASTATIN 20 MG TABLET 40 MG PO (08:39)
[2025-01-23 08:40] VITALS: PULSE 75
[2025-01-23] MEDS: AMIODARONE HCL 200 MG TABLET PO (08:40)
--- NOTE | 2025-01-23 10:48 | P.PNNP_ITS ---
Progress Note: A&P Assessment and Plan (1) Acute kidney injury: Code(s): N17.9 - Acute kidney failure, unspecified Status: Acute Assessment and Plan: * as noted by admission creatinine (2.65mg/dL) * suspect multifactorial: * hypoxia * pneumonia (infection) * CHF * relative anemia * relative hypotension (80 - 90s systolic on admission) * element of CKD progression(?) * other (?) * evaluation to date noted: * urine electrolytes non-prerenal * urine eosinophils negative * CPK low * nephrotic range proteinuria noted (which could explaine lower extremity edema) * renal ultrasound pending * Getting diuretics. Intake/output shows about 3000cc more out than in and in spite of that the GFR has been improving. * since edema is so well controlled and is not short of breath and since the chest x-ray looks better, I think we can switch to oral diuretics. I just do not want to go too far with the diuretics. * follow trend of repeat labs tomorrow and follow UOP (2) Stage 3b chronic kidney disease: Code(s): N18.32 - Chronic kidney disease, stage 3b Status: Chronic Assessment and Plan: * appears to have been present as far back as November 2021 * creatinine was running around 1.2 - 1.6mg/dl * however, in the last year, running closer to 1.6 - 2.1mg/dl (likely an element of CKD progression) * presumably secondary to diabetes, hypertension, vascular disease (CVA/CAD/hyperlipidemia), CHF + need for diuretics, and age-related change (3) Acute hypoxic respiratory failure: Code(s): J96.01 - Acute respiratory failure with hypoxia Status: Acute Assessment and Plan: * as noted on presentation: * oxygen saturations of 70% during ambulation at PCP office on 01/19 * uses baseline 2 - 3L oxygen at night (history of GOOD but intolerant to CPAP) * + productive sputum and SOB for the last month * + lower extremity edema present as well * admission CXR/CT chest noted * Echocardiogram shows diastolic dysfunction, moderate aortic valve sclerosis, and moderate pulmonary hypertension * suspect secondary to a combination of pneumonia and CHF * continue current therapy as outlined (4) Pneumonia: Qualifiers: Pneumonia type: due to unspecified organism Laterality: bilateral Lung location: unspecified part of lung Qualified Code(s): J18.9 - Pneumonia, unspecified organism Code(s): J18.9 - Pneumonia, unspecified organism Status: Acute Assessment and Plan: * as suggested by admission imaging * symptoms include SOB with productive cough * follow culture data (blood and sputum) * supplemental oxygen and anti-tussive/expectorant medications * on ceftriaxone and doxycycline (5) Acute exacerbation of CHF (congestive heart failure): Qualifiers: Heart failure type: unspecified Qualified Code(s): I50.9 - Heart failure, unspecified Code(s): I50.9 - Heart failure, unspecified Status: Acute Assessment and Plan: * suggestive by presenation * bilateral lower extremity edema * edema/fluid on chest imaging * elevated BNP * shortness of breath and hypoxia * on IV lasix * continue spironolactone * Echo (on 01/20) noted: * left ventricular systolic function is normal, estimated at 55 - 60% * left ventricular diastolic function is abnormal * trace mitral valve regurgitation * mild tricuspid valve regurgitation * moderate pulmonary hypertension, estimated pulmonary arterial systolic pressure is 52 mmHg * follow I/Os, daily weights, and respiratory status (6) Anemia: Qualifiers: Anemia type: unspecified type Qualified Code(s): D64.9 - Anemia, unspecified Code(s): D64.9 - Anemia, unspecified Status: Acute Assessment and Plan: * likely due to [place], CKD, and acute illness * consider GIULIANA while hospitalized * T sat is only 12, however he has an infection so will hold off on iron sup plements * Hemoglobin stable in the low 8s so far (7) Hypertension: Code(s): I10 - Essential (primary) hypertension Status: Chronic Assessment and Plan: * systolic 103-122 * follow trend of hemodynamics (8) Diabetes mellitus: Qualifiers: Diabetes mellitus type: type 2 Diabetes mellitus 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 Subjective Date/time seen: 01/23/25 10:48 Interval history: Flo is feeling better. He ate a good breakfast. No shortness of breath and swelling is just about gone Exam Narrative: General: eldelry but WD/WN male in NAD Heart: normal S1 and S2; no rub or gallop Lungs: clear bilaterally Abdomen: soft, nontender, nondistended, positive bowel sounds Extremities: trace edema Skin: no rash Objective Data Vital Signs Vital Signs: Vital Signs - 24 hr 01/22/25 13:40 01/22/25 16:54 01/22/25 22:00 Temperature 98.6 F 98.2 F Pulse Rate 68 65 Respiratory Rate 16 16 Blood Pressure 110/68 108/58 L 111/68 Pulse Oximetry 100 98 Oxygen Delivery Oxygen Flow Rate 01/23/25 06:00 01/23/25 08:15 01/23/25 08:39 Temperature 98.2 F Pulse Rate 64 75 Respiratory Rate 18 Blood Pressure 103/62 Pulse Oximetry 94 97 Oxygen Delivery Nasal Cannula Oxygen Flow Rate 4 01/23/25 08:40 Temperature Pulse Rate 75 Respiratory Rate Blood Pressure Pulse Oximetry Oxygen Delivery Oxygen Flow Rate Intake/Output Intake/Output: Intake & Output 01/20/25 01/21/25 01/22/25 01/23/25 23:59 23:59 23:59 23:59 Intake Total 1720 1680 1720 1090 Output Total 1925 3905 4700 1300 Balance -205 -2225 -2980 -210 Meds/Results Medications: Active Medications Generic Name Dose Route Start Last Admin Trade Name [place] PRN Reason Stop Dose Admin Acetaminophen 650 mg 01/19/25 20:13 Acetaminophen 325 Mg Tablet PO Q6H PRN Mild Pain (1-3) or Fever Amiodarone HCl 200 mg 01/20/25 08:00 01/23/25 08:40 Amiodarone Hcl 200 Mg Tablet PO 200 mg DAILY@0800 AP Administration Amlodipine Besylate 10 mg 01/20/25 09:00 01/23/25 08:39 Amlodipine Besylate 10 Mg Tablet PO 10 mg DAILY AP Administration Benzonatate 100 mg 01/19/25 20:13 Benzonatate 100 Mg Capsule PO TID PRN Cough Dextrose 12.5 gm 01/19/25 20:22 Dextrose 50% 25 Gm/50 Ml Syringe IV PUSH PRN PRN Hypoglycemia Protocol Furosemide 40 mg 01/20/25 09:00 01/23/25 10:45 Furosemide Inj 40 Mg/4 Ml Vial IV PUSH Not Given BID AP Gabapentin 600 mg 01/19/25 22:00 01/23/25 06:22 Gabapentin 300 Mg Capsule PO 600 mg Q8HR AP Administration Glucagon 1 mg 01/19/25 20:22 Glucagon For Inj 1 Mg Vial IM PRN PRN Hypoglycemia Protocol Glucose 15 gm 01/19/25 20:22 Glucose Oral Gel 15 Gm Of Glucse In 37.5 Gm Tube PO PRN PRN Hypoglycemia Protocol Guaifenesin 600 mg 01/19/25 21:00 01/23/25 08:38 Guaifenesin 12 Hr 600 Mg Tabcr PO 600 mg Q12HR AP Administration Hydralazine HCl 25 mg 01/22/25 06:00 01/23/25 06:28 Hydralazine Hcl 25 Mg Tablet PO Not Given Q8HR AP Hydrochlorothiazide 50 mg 01/20/25 09:00 01/23/25 08:39 Hydrochlorothiazide 25 Mg Tablet PO 50 mg QAM AP Administration Ceftriaxone Sodium 1 gm/ 50 mls @ 100 mls/hr 01/20/25 16:00 01/22/25 16:54 Sodium Chloride IVPB 100 mls/hr Q24H AP Administration Doxycycline Hyclate 100 mg/ 100 mls @ 100 mls/hr 01/20/25 06:00 01/23/25 06:19 Sodium Chloride IVPB 01/24/25 18:59 100 mls/hr Q12H AP Administration Dextrose 1,000 mls @ 100 mls/hr 01/19/25 20:22 Dextrose 5% 1,000 Ml IVPB PRN PRN Hypoglycemia Protocol Insulin Aspart 3 - 6 units 01/20/25 08:00 01/23/25 08:40 Insulin Aspart (*Bkc) 100 Units/Ml SUB-Q Not Given TIDWM AP Protocol Isosorbide Mononitrate 60 mg 01/19/25 21:25 01/23/25 08:38 Isosorbide Mononitrate 60 Mg Tab.Er.24h PO 60 mg Q12HR AP Administration Lisinopril 40 mg 01/20/25 09:00 01/21/25 10:06 Lisinopril 20 Mg Tablet PO 40 mg On Hold: 01/21/25 18:43 DAILY AP Administration Nebivolol 10 mg 01/20/25 09:00 01/23/25 08:39 Nebivolol Hcl 5 Mg Tablet PO 10 mg DAILY AP Administration Rosuvastatin Calcium 40 mg 01/20/25 09:00 01/23/25 08:39 Rosuvastatin 20 Mg Tablet PO 40 mg DAILY AP Administration Spironolactone 50 mg 01/19/25 21:25 01/23/25 08:38 Spironolactone 50 Mg Tablet PO 50 mg Q12HR AP Administration Warfarin Sodium 3 mg 01/21/25 17:00 01/22/25 16:54 Warfarin (*Pbkc) 3 Mg Tablet PO 3 mg SuMoWeFrSa@1700 AP Administration Warfarin Sodium 4 mg 01/20/25 17:00 01/20/25 19:39 Warfarin (*Pbkc) 4 Mg Tablet PO 4 mg TuTh@1700 AP Administration Radiology Results: ITS Impressions Chest CT 01/19/25 15:48 IMPRESSION: 1. Mosaic attenuation in both lungs with scattered groundglass opacities and multiple associated new small pulmonary nodules and would favor pneumonia over mild pulmonary edema. 2. Small right pleural effusion with dependent and basilar consolidation in the right middle and lower lobes most consistent with atelectasis although superimposed pneumonia not excludable. 3. Cardiomegaly changes of likely prior coronary artery bypass grafting including sternotomy with chronic sternal dehiscence. Chest X-Ray 01/22/25 13:38 IMPRESSION: 1. Small right pleural effusion with associated atelectasis and/or pneumonia in the right lower lung zone. 2. Mild linear discoid atelectasis/scarring the left lower lung zone. 3. Cardiomegaly. Renal Ultrasound 01/23/25 09:41 IMPRESSION: 1. No acute abnormality. Labs Labs: Laboratory Results - last 24 hr 01/22/25 01/22/25 01/22/25 11:20 16:58 21:29 WBC RBC Hgb Hct MCV MCH MCHC RDW Plt Count MPV Immature Gran % (Auto) Neut % (Auto) Lymph % (Auto) [place] % (Auto) Eos % (Auto) Baso % (Auto) Lymph # (Auto) [place] # (Auto) Eos # (Auto) Baso # (Auto) Abs Immat Gran (auto) Absolute Neuts (auto) Absolute Nucleated RBC Band Neutrophils % Nucleated RBC % Atypical Lymphocytes Platelet Estimate Large Platelets Schistocytes PT INR Sodium Potassium Chloride Carbon Dioxide Anion Gap BUN Creatinine Estim Creat Clear Calc Estimated GFR Glucose POC Capillary Glucose 167 H 144 H 153 H Calcium Phosphorus Magnesium Albumin 01/23/25 01/23/25 06:33 07:31 WBC 4.6 RBC 3.03 L Hgb 8.1 L Hct 27.6 L MCV 91.1 MCH 26.7 MCHC 29.3 L RDW 15.9 H Plt Count 256 MPV 9.3 Immature Gran % (Auto) 0.2 Neut % (Auto) 54.4 Lymph % (Auto) 29.2 [place] % (Auto) 12.9 H Eos % (Auto) 2.9 Baso % (Auto) 0.4 Lymph # (Auto) 1.33 [place] # (Auto) 0.6 Eos # (Auto) 0.1 Baso # (Auto) 0.0 Abs Immat Gran (auto) 0.01 Absolute Neuts (auto) 2.5 Absolute Nucleated RBC 0.000 Band Neutrophils % Not Reportable Nucleated RBC % 0.0 Atypical Lymphocytes Present Platelet Estimate Adequate Large Platelets Present Schistocytes None seen PT 16.0 H INR 1.3 Sodium 136 L Potassium 3.2 L Chloride 92 L Carbon Dioxide 37 H Anion Gap 7 BUN 57 H Creatinine 2.31 H Estim Creat Clear Calc 29 Estimated GFR 28 L Glucose 123 H POC Capillary Glucose 125 H Calcium 9.3 Phosphorus 3.6 Magnesium 2.0 Albumin 3.8
--- NOTE | 2025-01-23 13:17 | P.DS_ITS ---
DS: Admitting Diagnosis Discharge Date 01/23/2025 Admitting Diagnosis Hypoxia, pneumonia, CHF exacerbation DS: Discharge Diagnosis Discharge Diagnosis (1) Hypoxia: Code(s): R09.02 - Hypoxemia Status: Acute Assessment and Plan: In the 70s post ambulation at his PCP office today, 01/19. Arrived 86% on 4L NC. Baseline requirement 2-3L NC at night (hx of GOOD, not tolerant of CPAP). CXR/chest CT concerning for pneumonia with possible superimposed pulmonary edema. Patient has been reporting rust-colored sputum and shortness of breath for 1 month. Has had lower extremity edema for months with no associated weight gain (weighs self daily). Hypoxia likely multifactorial due to CHF and pneumonia. Low suspicion for PE as the patient is currently on warfarin and currently therapeutic, goal 3. Hemoglobin is 8.4, previously 9.1 in July of 2024 - could be contributing. * broad-spectrum antibiotics for pneumonia * update echo, start IV diuresis for possible CHF component * anemia work up * continue supplemental oxygen to maintain O2 sat greater than 92%, wean as tolerated * ABG: PH WNL, pCO2 49.9, PO2 62.3, HC03 32.6, O2 saturation 92.2%, O2 content 11.4% * Goal today: Wean O2 as tolerated (2) Pneumonia: Qualifiers: Laterality: bilateral Lung location: unspecified part of lung Pneumonia type: due to unspecified organism Qualified Code(s): J18.9 - Pneumonia, unspecified organism Code(s): J18.9 - Pneumonia, unspecified organism Status: Acute Assessment and Plan: * CXR: Moderate-sized patchy opacities in the mid and lower lungs. Differential includes but is not limited to edema or pneumonia. * Chest CT: Mosaic attenuation in both lungs with scattered groundglass opacities and multiple associated new small pulmonary nodules and would favor pneumonia over mild pulmonary edema. * started on ceftriaxone and doxycycline on 01/19, continue inpatient. EKG reviewed a QTC borderline, therefore doxycycline continued. * supportive care: Mucinex, Tessalon Perles, Tylenol * encourage IS * continue supplemental oxygen to maintain O2 sat greater than 92% * Viral PCR: Negative * Monitor vital signs, I&Os, neuro status and patient is a fall risk * Follow WBC, serum electrolytes, temperature curves and cultures * Sputum culture shows no growth (3) CHF (congestive heart failure): Qualifiers: Heart failure chronicity: acute on chronic Heart failure type: diastolic Qualified Code(s): I50.33 - Acute on chronic diastolic (congestive) heart failure Code(s): I50.9 - Heart failure, unspecified Status: Acute Assessment and Plan: Current concern for CHF exacerbation. Patient has had bilateral lower extremity edema for the past few months and has evidence of possible edema on imaging (CXR, chest CT). Chart reviewed, last echo completed in July of 2024 which showed a systolic function of 55-60%, mild concentric LV wall thickening, LV septal wall motion abnormal, grade 3 diastolic dysfunction, RV mildly enlarged with mild reduction in systolic function, biatrial moderate enlargement, valvular disease, no pulmonary hypertension. On spironolactone 50 mg b.i.d., Lasix 40 mg daily and hydrochlorothiazide 50 mg daily outpatient. Will continue spironolactone and hydrochlorothiazide at this time. Switch Lasix to 40 mg b.i.d.. Will need close monitoring of renal function as he currently has an CLINTON, suspected to be secondary to volume overload and current infection. * monitor I&Os, daily weights, renal function * continue spironolactone and hydrochlorothiazide, hold p.o. Lasix. * Continue Lasix IV as 40 mg b.i.d.. * Repeat Echo: EF of 55-60%, moderate pulmonary hypertension which is changed from previous echo, mild concentric left ventricular wall thickness, abnormal diastolic function of the LV, elevated E/e'19 * Continue diuresis, patient does not appear fluid overloaded on exam and lung sounds are much clear today (4) Acute kidney injury superimposed on CKD: Code(s): N17.9 - Acute kidney failure, unspecified; N18.9 - Chronic kidney disease, unspecified Status: Acute Assessment and Plan: CLINTON superimposed on CKD noted upon admission. Creatinine 2.65, BUN 63, and GFR 24 on 01/19. Previously 1.64, BUN 36, GFR 40 to on 08/13/2024. Creatinine in 2024 has ranged between 1.45 and 2.07. Patient is on spironolactone, hydrochlorothiazide, and Lasix outpatient. Could be over-diuresis due to being on 3 different diuretics, however imaging concerning for possible pulmonary edema and patient has bilateral lower extremity seen on exam which is more in favor of possible volume overload. Will trial changing Lasix to 40 mg b.i.d. to offload volume. If patient has worsening renal function, could consider rehydrating and holding diuresis. 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 Diabetes mellitus type: type 2 Code(s): E11.9 - Type 2 diabetes mellitus without complications Status: Chronic Assessment and Plan: * hypoglycemia protocol * POC blood glucose ACHS * home medication: Hold metformin * correct regimen ordered - moderate dose TIDWM, based off BMI * A1C 6.9% on 09/23/2024 * Glucose is well controlled (6) Hypertensive heart disease: Qualifiers: Heart failure presence: without heart failure Qualified Code(s): I11.9 - Hypertensive heart disease without heart failure Code(s): I11.9 - Hypertensive heart disease without heart failure Status: Chronic Assessment and Plan: * chronic, currently 124/61, stable * continue home medications: Amlodipine, hydralazine, HCTZ, Imdur, lisinopril, nebivolol * monitor (7) Afib: Qualifiers: Atrial fibrillation type: longstanding persistent Qualified Code(s): I48.11 - Longstanding persistent atrial fibrillation Code(s): I48.91 - Unspecified atrial fibrillation Status: Chronic Assessment and Plan: History of chronic AFib on anticoagulation. Reviewed EKG performed in the ED on 01/19 that have patient in rate controlled AFib with IVC delay and left axis deviation. * continue home medication: Amiodarone 200 mg daily and Warfarin Plan Diet: Diabetic GI Prophylaxis: N/a DVT Prophylaxis: Warfarin IV fluids: None, diuresing Lines/Tubes: Peripheral IV Code Status: Full code DS: Summary Hospital Course Reason for hospitalization: Shortness of breath Hospital Course: Per HPI: 74 y/o M with PMH of DM2, HTN, CKD stage III, CAD, AL s/p balloon angioplasty, CABG x4v with complications, CHF, pAFib, GOOD (refusing?CPAP, unable to tolerate it), and CVA ([place], 2015) presents here with hypoxia and shortness of breath. The patient presents here from his PCP office on 01/19 for further evaluation of shortness of breath and hypoxia. He had presented there today for further evaluation of the shortness of breath that has been ongoing for the past month. Shortness of breath is accompanied by rest colored sputum, productive cough, and chronic chest tightness that has been present since his CABG with complications which was done last year. During his evaluation there, he was significantly hypoxic in the 70s post ambulation. At baseline he wears 2-3L at night. He denies accompanying nausea, vomiting, fever, chills, diarrhea, chest pain, palpitations, or weight gain. He does report he weighs himself daily and only has minimal fluctuations from day-to-day, estimates is 1-2 lb. He does report he has been experiencing bilateral lower extremity swelling, however this is been present for a couple months. Initial VS at presentation: 97.2? F, HR 48, R 18 125/67, and 86% on 4 L nasal cannula. Now 94% on 4 L nasal cannula. ED workup showed: No leukocytosis, hemoglobin 8.4 (9.1 on 08/13/2024), INR 3.5 (goal 3), creatinine 2.65 and GFR 24 (1.64 and GFR 42 on 08/13/2024), glucose 129, initial troponin 0.013, BNP 8420. CXR showed moderate size patchy opacities in the mid and lower lungs (edema or pneumonia), small right pleural effusion, 1.4 cm nodular density in the left upper lobe. Chest CT showed mosaic attenuation both lungs with scattered ground-glass opacities and multiple associated new small pulmonary nodules (would favor pneumonia over mild pulmonary edema), small right pleural effusion with dependent and basilar consolidation the right middle and lower lobes most consistent with atelectasis although superimposed pneumonia not excludable, cardiomegaly changes of likely prior coronary artery bypass grafting including sternotomy with chronic sternal dehiscence. EKG showed AFib, rate controlled at 65, IVC delay, left axis deviation. Hospital course: Patient was started on broad-spectrum antibiotics for pneumonia and echocardiogram was ordered. Supplemental oxygen was maintained as O2 saturations continued to decrease on room air. Lasix IV was initiated at 40 mg b.i.d.. Nephrology was consulted regarding acute kidney injury superimposed on CKD. Metformin was held and patient was placed on a moderate dose t.i.d. WM sliding scale insulin. Blood pressures were well maintained and amiodarone 200 mg daily and warfarin were continued for AFib. Echo results: 1. Complete two-dimensional, color flow and Doppler transthoracic echocardiogram is performed. 2. Left ventricular chamber dimension is normal. 3. Left ventricular systolic function is normal, estimated at 55-60. 4. There is mild concentric increased left ventricular wall thickness. 5. The left ventricular diastolic function is abnormal. 6. E/e' 19 is elevated. 7. Left atrial chamber dimension is severely enlarged. 8. Right atrial chamber dimension is moderately enlarged. 9. There is moderate aortic valve sclerosis. 10. The mitral valve has a moderately calcified annulus. 11. There is trace mitral valve regurgitation. 12. There is mild tricuspid valve regurgitation. 13. Moderate pulmonary hypertension, estimated pulmonary arterial systolic pressure is 52 mmHg. 01/20/2025 Patient resting comfortably in bed at time of examination. States that he feels much better today than he did yesterday. Still has some shortness of breath but significantly improved since yesterday. Bilateral crackles in all lung ye appreciated on exam. Denies any chest pain, nausea/vomiting or abdominal pain. Kidney function slightly improved since yesterday, creatinine down from 2.65- >2.54. Echo pending, continue treatment of pneumonia and CHF exacerbation. Viral panel negative. 01/21/2025 Patient resting comfortably in bed at time of examination. States he feels much better today. Upon exam, lung sounds are clear to auscultation. Remains afebrile without leukocytosis. Kidney function slowly improving, nephrology consulted, appreciate further recommendations. 01/22/2025 Patient resting comfortably in bed at time of examination. States he feels marginally better than yestreday, denies any chest pain, shortness of breath at rest, n/v or abd pain. Repeat chest XR pending. Will need O2 supplementation at baseline per respiratory therapy recommendations. Remains afebrile without leukocytosis. Discharge hopefully soon. Nephrology was consulted regarding acute kidney injury superimposed on stage IIIB chronic kidney disease. Renal ultrasound was ordered - unremarkable. CLINTON likely multifactorial, secondary to hypoxia, pneumonia, CHF, CKD progression. Lisinopril was held in the context of diuresis. Repeat labs in urine output was followed throughout hospitalization. Respiratory sputum culture was obtained and did not show any growth. Repeat chest x-ray was obtained on 01/22 and showed small right pleural effusion with associated atelectasis and/or pneumonia the right lower lung zone, mild linear discoid atelectasis/scarring in the left lower lung zone and cardiomegaly. These are improved results compared to admission imaging. EB crit is crackles were appreciated on lung exam upon admission and by 01/20, lung ye were clear without any wheezing, crackles or other adventitious lung sounds. This remained consistent throughout hospitalization and patient endorsed significant improvement of symptoms day to day. Discussed with room cooler installer regarding discharge medications, considering patient has been on Lasix 40 mg daily and this appeared to be sub therapeutic. Energy Assistant was agreeable to maintaining Lasix 40 mg b.i.d. to maintain adequate diuresis. Will order repeat renal panel to be completed in 3 days and to be followed up with by his PCP and room cooler installer. He will be instructed to follow-up with his anglesmith in the outpatient setting for further possible management of his CHF. Home O2 evaluation was ordered new be assessed by Respiratory. They recommended 4 L nasal cannula at baseline. Patient is purportedly using around 3 L nasal cannula every night, but states that he has been progressively short of breath for the past several months, suspect that he has likely been hypoxic for quite a while based on history and current pr esenting symptoms. He will be discharged on doxycycline for an additional 3 days. Coverage options are limited given patient's current medication regimen, QT prolonging medications, and history of abdominal aortic aneurysm. Patient is otherwise hemodynamically stable, without fever or leukocytosis. Lung ye remain clear and patient will be discharged home. He denies any chest pain, dyspnea at rest, nausea/vomiting, headaches/dizziness abdominal pain or urinary/bowel changes. Plan for discharge at this time. Time Spent with Patient Time attestation: Total time spent providing and/or coordinating discharge services: 35 Exam Const: General: comfortable and no acute distress Other: , male, nontoxic appearance HENMT: Face/Nose/Sinus: Normal nares present Mouth: Yes moist mucous membranes Other: Nasal cannula place Eyes: General: appearance normal, both eyes and all related structures Sclera: sclerae normal Pupils: Equal, round and reactive pupils present EOM: EOMs intact bilaterally Chest: Other: Post sternotomy scarring, well-healed. Resp: Effort & Inspection: normal respiratory effort Auscultation: clear to auscultation bilaterally, no crackles, no rales, no rhonchi and no wheezes Cardio: Rate: regular rate Rhythm: regular rhythm Other: No murmur or rub GI: Other: Abdomen soft, nondistended, nontender. Normoactive bowel sounds in all quadrants. Does have old scarring to right lower quadrant secondary to CABG complications, well-healed. Skin: General skin exam: normal color and no rashes or lesions noted Wounds: no wounds Neuro: Cranial nerves: Yes Equal, round and reactive pupils present Speech: normal speech Motor exam (neuro): 5/5 motor strength present throughout Sensory Exam: normal sensation Other: A&O x4 Extrem: Other: No pitting edema to bilateral lower extremities, symmetric Psych: Mental Status: mental status grossly normal Affect: normal affect Other: Good insight and judgment DS: Data Data Completed and Pending Labs on day of discharge: Labs from last 24 hours 01/23/25 01/23/25 01/23/25 11:33 07:31 06:33 WBC 4.6 RBC 3.03 L Hgb 8.1 L Hct 27.6 L MCV 91.1 MCH 26.7 MCHC 29.3 L RDW 15.9 H Plt Count 256 MPV 9.3 Immature Gran % (Auto) 0.2 Neut % (Auto) 54.4 Lymph % (Auto) 29.2 [place] % (Auto) 12.9 H Eos % (Auto) 2.9 Baso % (Auto) 0.4 Lymph # (Auto) 1.33 [place] # (Auto) 0.6 Eos # (Auto) 0.1 Baso # (Auto) 0.0 Abs Immat Gran (auto) 0.01 Absolute Neuts (auto) 2.5 Absolute Nucleated RBC 0.000 Band Neutrophils % Not Reportable Nucleated RBC % 0.0 Atypical Lymphocytes Present Platelet Estimate Adequate Large Platelets Present Schistocytes None seen PT 16.0 H INR 1.3 Sodium 136 L Potassium 3.2 L Chloride 92 L Carbon Dioxide 37 H Anion Gap 7 BUN 57 H Creatinine 2.31 H Estim Creat Clear Calc 29 Estimated GFR 28 L Glucose 123 H POC Capillary Glucose 165 H 125 H Calcium 9.3 Phosphorus 3.6 Magnesium 2.0 Albumin 3.8 01/22/25 01/22/25 21:29 16:58 WBC RBC Hgb Hct MCV MCH MCHC RDW Plt Count MPV Immature Gran % (Auto) Neut % (Auto) Lymph % (Auto) [place] % (Auto) Eos % (Auto) Baso % (Auto) Lymph # (Auto) [place] # (Auto) Eos # (Auto) Baso # (Auto) Abs Immat Gran (auto) Absolute Neuts (auto) Absolute Nucleated RBC Band Neutrophils % Nucleated RBC % Atypical Lymphocytes Platelet Estimate Large Platelets Schistocytes PT INR Sodium Potassium Chloride Carbon Dioxide Anion Gap BUN Creatinine Estim Creat Clear Calc Estimated GFR Glucose POC Capillary Glucose 153 H 144 H Calcium Phosphorus Magnesium Albumin Preliminary micro results at discharge 01/20/25 10:27 Sputum Culture - Preliminary Sputum Discharge Plan Discharge Attending physician on discharge: Efra Erazo Consulting providers: Cole Sol; Venkat Perez Discharging Clinician: Cole Sol Anticipated Discharge Date/Time: 01/23/25 13:06 Patient Disposition: Home Activity: as tolerated Diet: regular Discharge Instructions: Discharge disposition: Home Take medications as prescribed. You will be prescribed doxycycline to be taken for an additional 3 days. Your Lasix will be changed from 40 mg daily to 40 mg twice daily. Follow-up with your anglesmith regarding further management of your diuretics. Also follow-up with Nephrology for further monitoring of your chronic kidney disease after increasing your dose of Lasix. Monitor blood pressures Take caution while standing, rising, or moving Change positions slowly taking a break between each position change If you standing feel dizzy sit back down and take a break Encouraged to continue with yearly vaccinations Return to the emergency department if you develop sudden shortness of breath, chest pain, nausea, vomiting, upset stomach or intractable diarrhea Return to the emergency department if you develop fever greater than 101.5 Follow-up with the primary care physician within 1-2 weeks Will be giving a standing order to obtain blood work in 3 days to assess your kidney function. Obtain this before your appointment with nephrology/cardiology. Thank you for choosing [facility] for your healthcare needs Patient Instructions: Antibiotic Form, Doxycycline (By mouth) Patient Language: Irish Stand Alone Forms: General Discharge Information Follow-up/Referrals: Leonard Gillette MD [Primary Care Provider, Family Practice] Александр Yu MD [Physician, Cardiology] Hebert Washburn MD [Physician, Nephrology] Discharge Medications: New furosemide 40 mg Tablet 40 mg PO BID Qty: 60 0RF doxycycline hyclate 100 mg tablet 100 mg PO BID Qty: 6 0RF Continued warfarin 2 mg tablet 6 mg PO DAILY Qty: 90 0RF Patient Comments: 3MG SUN, MON, WED, FRI, SAT 4MG TUE AND THUR amiodarone 200 mg tablet 200 mg PO DAILY Qty: 30 0RF lisinopril 40 mg tablet 40 mg PO DAILY spironolactone 50 mg tablet 50 mg PO BID isosorbide mononitrate 60 mg tablet extended release 24 hr 60 mg PO BID Qty: 180 2RF gemfibrozil 600 mg tablet 600 mg PO BID Qty: 180 1RF rosuvastatin 40 mg tablet 40 mg PO DAILY Qty: 90 1RF gabapentin 600 mg tablet 600 mg PO TID Qty: 270 1RF hydrochlorothiazide 50 mg tablet 50 mg PO QAM Qty: 90 3RF amlodipine 10 mg tablet 10 mg PO DAILY Qty: 90 1RF hydralazine 50 mg tablet 50 mg PO TID Qty: 270 1RF nebivolol 10 mg tablet 10 mg PO DAILY Qty: 90 1RF metformin 1,000 mg tablet 1,000 mg PO BID Qty: 180 1RF Discontinued tamsulosin 0.4 mg capsule 0.4 mg PO DAILY furosemide 40 mg tablet 40 mg PO DAILY Qty: 90 1RF Other Ambulatory Orders: Renal Function Panel (Routine) Timeframe: 3 Days Location: Determined by Patient Ordered By: Cole Sol Date of admission: 01/19/25 17:17 Primary Care Provider: Leonard Gillette Admitting Provider: Cathy Felton Attending physician on admission: Cathy Felton Condition: Stable Quality VTE Prophylaxis VTE prophylaxis: pharmacologic ordered
[2025-01-23 14:00] VITALS: BP 105/54; PULSE 71; RESP 17; TEMP 36.4; O2SAT 97
== END 2025-01-23 14:55 | disposition home or self-care (01) | DRG 193 ==
LOC: ANHED 15:11 → ANH3MEDSUR 18:27
PROVIDERS: Internal Medicine Nephrology; Student in an Organized Health Care Education/Training Program; Admitting Provider General Practice; Emergency Provider Student in an Organized Health Care Education/Training Program; PCP Family Medicine; Visit Provider Physician Assistant
DX: J18.9 Pneumonia, unspecified organism (principal); I50.33 Acute on chronic diastolic (congestive) heart failure; J96.01 Acute respiratory failure with hypoxia; I13.0 Hypertensive heart and chronic kidney disease with heart failure and stage 1 through stage 4 chronic kidney disease, or unspecified chronic kidney disease; N17.9 Acute kidney failure, unspecified; I48.20 Chronic atrial fibrillation, unspecified; E11.22 Type 2 diabetes mellitus with diabetic chronic kidney disease; N18.30 Chronic kidney disease, stage 3 unspecified; N18.32 Chronic kidney disease, stage 3b; G47.33 Obstructive sleep apnea (adult) (pediatric); E11.42 Type 2 diabetes mellitus with diabetic polyneuropathy; D63.1 Anemia in chronic kidney disease; I25.10 Atherosclerotic heart disease of native coronary artery without angina pectoris; I25.2 Old myocardial infarction; Z95.1 Presence of aortocoronary bypass graft; Z95.5 Presence of coronary angioplasty implant and graft; Z86.73 Personal history of transient ischemic attack (TIA), and cerebral infarction without residual deficits; Z79.01 Long term (current) use of anticoagulants; Z87.891 Personal history of nicotine dependence
CPT/HCPCS: 36415; 36600; 71045; 71250; 76770; 80053; 80069; 82550; 82570; 82607; 82728; 82746; 82805; 82948; 83540; 83550; 83735; 83880; 84100; 84133; 84156; 84300; 84484; 84540; 85018; 85025; 85610; 85999; 87070; 87186; 87205; 87637; 93005; 93306; 94618; 96365; 99285; A9270; J0696; J1938